=== PATIENT | female | born 1970 | race African-American/Black ===

== ENCOUNTER 2021-07-26 00:44 | Day surgery (SDC) | payer OTHER, SELFPAY ==
[2021-07-12 13:57] VITALS: BMI 39.3
--- NOTE | 2021-07-26 07:23 | PM.HPGS ---
History of Present Illness History of Present Illness Consent: Risks, benefits, and alternatives have been discussed and questions answered. Patient agrees to proceed with procedure. Chief complaint: crohn's disease Narrative: Tammy Soto is a 50 year old female here for colon cancer screening. She is at high risk due to a long history of Crohn's colitis Review of Systems Review of Systems: All systems reviewed & are unremarkable except as noted in HPI and below PMFSH Past Medical History Medical History Arthritis Crohn's disease of colon Hypertension Social History Social History Smoking status: Never smoker Alcohol intake: current Substance use: never Substance use type: does not use Living arrangements: with family Gender identity (if verbalized by the patient): Female Spiritual care concerns: No Meds Home Medications and Allergies Home Medications Medication Instructions Recorded Confirmed Type certolizumab pegol 400 mg SUBCUT ONCE 01/18/21 07/26/21 History folic acid 1 mg tablet 1 mg PO DAILY 01/18/21 07/26/21 History hydrochlorothiazide 25 mg tablet 25 mg PO DAILY 01/18/21 07/26/21 History allopurinol 300 mg PO DAILY 04/26/21 07/26/21 History Allergies Allergy/AdvReac Type Severity Reaction Status Date / Time No Known Allergies Allergy Verified 07/26/21 08:40 Exam Const: General: alert Orientation/consciousness: patient oriented x3 Resp: Auscultation: clear to auscultation bilaterally Cardio: Rhythm: regular rhythm GI: GI Palp: Yes Soft to palpation and No Tenderness to palpation present (GI) Neuro: General: patient oriented x3 Assessment and Plan Assessment and plan (1) Crohn's disease of colon: Code(s): K50.10 - Crohn's disease of large intestine without complications Status: Inactive Assessment and Plan: Colonoscopy with possible biopsy or polypectomy or cautery or injection of substances.
[2021-07-26 08:42] VITALS: BP 178/108; PULSE 125; RESP 21; TEMP 36.2; O2SAT 100
--- NOTE | 2021-07-26 08:45 | SUR.PREOP ---
Patient's blood pressure and heart rate are high. Informed Dr. Cano. No new orders.
[2021-07-26] MEDS: LACTATED RINGERS 1,000 ML 150 ML IV CONT (08:54)
--- NOTE | 2021-07-26 09:06 | WPDANESEPPF ---
Anes - Initial Pre Proc Eval Procedure: Operation Date: 07/26/21 09:30 Proposed Procedures p Colonoscopy - Jeremy Torres MD Date/Time: 07/26/21 09:06 Surgeon: Jeremy Torres MD Pre Op Diagnosis: crohn's disease Patient Data Age: 50 Gender: F Height: 1.63 m Weight: 99.1 kg Last Vital Signs Temp 97.1 F L 07/26/21 08:42 Pulse 125 H 07/26/21 08:42 Resp 21 H 07/26/21 08:42 BP 178/108 H 07/26/21 08:42 Pulse Ox 100 07/26/21 08:42 Allergies Allergy/AdvReac Type Severity Reaction Status Date / Time No Known Allergies Allergy Verified 07/26/21 08:40 Home Medications Medication Instructions Recorded Confirmed Type certolizumab pegol 400 mg SUBCUT ONCE 01/18/21 07/26/21 History folic acid 1 mg tablet 1 mg PO DAILY 01/18/21 07/26/21 History hydrochlorothiazide 25 mg tablet 25 mg PO DAILY 01/18/21 07/26/21 History allopurinol 300 mg PO DAILY 04/26/21 07/26/21 History Patient hx anesthesia problems: none Family hx anesthesia problems: none Results Review: All pre-operative results and documents have been reviewed as part of the pre-operative evaluation. [facility] Past Medical History Medical History Arthritis Crohn's disease of colon Hypertension Social History Social History Smoking status: Never smoker Alcohol intake: current Substance use: never Substance use type: does not use Living arrangements: with family Gender identity (if verbalized by the patient): Female Spiritual care concerns: No Anes - Eval Final PreProcedure Day of Procedure 07/26/21 09:06 Patient weight: obese Heart: regular rate and rhythm Lungs: clear to auscultation Airway: Mallampati scale class II Neurological: alert and oriented Last oral intake: >/= 8 hours ASA classification: III Emergent: no Anesthetic plan: proceed Anesthesia type and monitoring: general GIVS and standard monitoring Results Review: All pre-operative results and documents have been reviewed as part of the pre-operative evaluation. Informed Consent: The patient's anesthetic plan and its attendant risks and benefits were discussed with the patient/family/POA. Questions were solicited and answers provided to the satisfaction of the patient/family/POA.
[2021-07-26 09:31] VITALS: BP 162/115; PULSE 133; RESP 23; O2SAT 100
[2021-07-26 09:41] VITALS: BP 151/108; PULSE 120; RESP 21; O2SAT 100
[2021-07-26 09:51] VITALS: BP 153/105; PULSE 112; RESP 15; O2SAT 100
--- NOTE | 2021-07-26 09:53 | SUR.PHASEII ---
Dr. Cano at bedside, spoke to Pt. about Hypertension. Pt. instructed to let Dr. Peterson know about todays high readings. Pt verbalized understanding.
[2021-07-26 10:01] VITALS: BP 162/112; PULSE 100; RESP 14; O2SAT 99
== END 2021-07-26 10:16 | disposition home or self-care (01) ==
PROVIDERS: PCP Internal Medicine; Visit Provider Internal Medicine Gastroenterology
PROC: 0DJD8ZZ Inspection of Lower Intestinal Tract, Via Natural or Artificial Opening Endoscopic (ICD-10-PCS; CPT 45378; principal; 2021-07-26 09:30)
DX: Z12.11 Encounter for screening for malignant neoplasm of colon (principal); K52.3 Indeterminate colitis; M19.90 Unspecified osteoarthritis, unspecified site; I10 Essential (primary) hypertension; E66.9 Obesity, unspecified; Z68.37 Body mass index [BMI] 37.0-37.9, adult; K50.10 Crohn's disease of large intestine without complications
CPT/HCPCS: 45380; 88305; J2704; J7120

== ENCOUNTER 2023-12-30 15:49 | Outpatient (CLI) | payer OTHER, SELFPAY ==
[2023-12-30 16:31] LABS: Hematocrit 37.4 % (37.0-47.0); Hemoglobin 13.5 g/dL (12.0-15.0); Mean Corpuscular HGB Conc 36.1 g/dl (32-36); Mean Corpuscular Hemoglobin 29.6 pg (26-34); Mean Platelet Volume 10.4 fl (7.4-10.4); Platelet Count Result 256 k/mm3 (150-375); Red Blood Count 4.56 M/mm3 (4.2-5.4); Red Cell Distribution Width 11.9 % (11.5-14.5); White Blood Count 6.4 K/mm3 (4.5-10.0)
[2023-12-30 16:44] LABS: Alanine Aminotransferase 83 U/L (6-35); Albumin Level 4.6 g/dL (3.5-5.1); Alkaline Phosphatase 92 U/L (38-126); Anion Gap 10 mmol/L (8-16); Aspartate Amino Transferase 121 U/L (14-36); Bilirubin,Total 1.5 mg/dL (0.2-1.3); Blood Urea Nitrogen 23 mg/dL (7-17); CRP 0.5 mg/dL (<1.0); Calcium 8.7 mg/dL (8.4-10.2); Carbon Dioxide 30 mmol/L (22-30); Chloride 84 mmol/L (98-107); Estimated Glomerular Filt Rate > 60; Glucose 99 mg/dL (65-110); Potassium 3.2 mmol/L (3.4-5.0); Sodium 124 mmol/L (137-145)
[2023-12-30 17:05] LABS: Erythrocyte Sedimentation Rate 23 mm/hr (0-20)
== END 2023-12-30 15:50 | disposition home or self-care (01) ==
LOC: ANHLAB 15:50
PROVIDERS: PCP Internal Medicine; Visit Provider Nurse Practitioner Family
DX: K50.90 Crohn's disease, unspecified, without complications (principal)
CPT/HCPCS: 36415; 80053; 85027; 85652; 86140

== ENCOUNTER 2024-11-10 16:48 | Inpatient (IN) | payer OTHER, SELFPAY ==
--- NOTE | ~2024-11-10 | US_ITS ---
EXAM: RENAL ULTRASOUND HISTORY: RIC COMPARISON: None FINDINGS: RIGHT KIDNEY: 10.9 x 4.9 x 6.0 cm. The parenchyma of the right kidney is unremarkable. No hydronephrosis or bulky renal calculi. LEFT KIDNEY: 10.8 x 5.2 x 5.9 cm No hydronephrosis or renal calculi. The parenchyma of the left kidney is unremarkable. BLADDER: Distended and otherwise unremarkable. Bilateral ureteral jets are identified. IMPRESSION: Unremarkable sonographic evaluation of the bilateral kidneys and bladder, as detailed above Reviewed, dictated and finalized at location A. HANDLER IMPRESSION: Unremarkable sonographic evaluation of the bilateral kidneys and bladder, as de tailed above
--- NOTE | ~2024-11-10 | XR_ITS ---
CHEST RADIOGRAPH, PA AND LATERAL CLINICAL HISTORY: abnormal labs . COMPARISON: 02/24/2024 TECHNIQUE: PA and lateral views of the chest. FINDINGS The cardiomediastinal silhouette is unremarkable. The lungs are clear. Visualized osseous structures and soft tissues are unremarkable. IMPRESSION: No focal infiltrate or effusion. Reviewed, dictated and finalized at location A. ICIST SOLID STATE
[2024-11-10 17:19] VITALS: BP 120/70; PULSE 130; RESP 20; TEMP 36.9; O2SAT 100
--- NOTE | 2024-11-10 17:31 | ECG_ITS ---
Test Date: 2024-11-10 18:29:58 Measurements Intervals [place] Rate: 120 P: 3 SC: 140 QRS: 2 QRSD: 74 T: 7 QT: 424 QTc: 602 Interpretive Statements SINUS TACHYCARDIA WITH OCCASIONAL VENTRICULAR PREMATURE COMPLEXES POSSIBLE INFERIOR MYOCARDIAL INFARCTION , PROBABLY OLD [30 ms Q WAVE IN II/aVF] ABNORMAL RHYTHM ECG No previous ECG available for comparison Electronically Signed On 11-11-2024 11:52:40 [employer]ITCH WELDER by Jessie Robles
--- NOTE | 2024-11-10 17:45 | ED.RECABL ---
HPI - Recheck/Abnormal Lab/Rx General Chief Complaint: Recheck/Abnormal Lab/Rx <Alysiadiamond Bahena, DICTATING MACHINE TRANSCRIBER - Last Filed: 11/10/24 17:48> Stated Complaint: sent by PCP for abnormal labs <Alysiadiamond Bahena DICTATING MACHINE TRANSCRIBER - Last Filed: 11/10/24 17:48> Time Seen by Provider: 11/10/24 17:15 <Alysia Bahena DICTATING MACHINE TRANSCRIBER - Last Filed: 11/10/24 17:48> Focused HPI: Patient is a 54-year-old female who presents to the ER with complaints of weakness. She reports she has been feeling weak and fatigued for approximately 2 weeks. Today she spoke with her PCP who ordered blood work. Patient's blood work came back abnormal for potassium and calcium. Her PCP advised her to come to the ER for evaluation. Patient denies chest pain, shortness of breath, recent fevers, recent signs/symptoms of infection, one-sided weakness/tingling/numbness. GENERAL: Well-appearing, well-nourished, and in no acute distress. HEAD: Normocephalic, atraumatic. CHEST: Clear to auscultation. ?No respiratory distress. HEART: Tachycardia, regular rhythm. NEURO: ?Alert and oriented x3. Patient screened in triage and initial orders placed.? ?Additional care and disposition to be based upon?diagnostic testing and treatment. <Alysiadiamond Bahena APRN - Last Filed: 11/10/24 17:48> Focused HPI: Patient is a 54-year-old female who presents to the ER with complaints of weakness. She reports she has been feeling weak and fatigued for approximately 2 weeks. Today she spoke with her PCP who ordered blood work. Patient's blood work came back abnormal for potassium and calcium. Her PCP advised her to come to the ER for evaluation. Patient denies chest pain, shortness of breath, recent fevers, recent signs/symptoms of infection, one-sided weakness/tingling/numbness. GENERAL: Well-appearing, well-nourished, and in no acute distress. HEAD: Normocephalic, atraumatic. CHEST: Clear to auscultation. ?No respiratory distress. HEART: Tachycardia, regular rhythm. NEURO: ?Alert and oriented x3. Patient screened in triage and initial orders placed.? ?Additional care and disposition to be based upon?diagnostic testing and treatment. Agree with triage assessment. Patient states that for the past few months she has not really been eating or drinking much due to a lot of stress which has caused her to lose her appetite. <Neno Medina MD - Last Filed: 11/11/24 02:44> Related Data Home Medications: Home Medications ?Medication ?Instructions ?Recorded ?Confirmed ?Last Taken ?Type folic acid 1 mg tablet 1 mg PO DAILY 01/18/21 12/30/23 Unknown History hydrochlorothiazide 25 mg tablet 25 mg PO DAILY 01/18/21 12/30/23 07/26/21 History allopurinol 300 mg tablet 300 mg PO DAILY 04/26/21 12/30/23 07/26/21 History amlodipine 2.5 mg tablet 2.5 mg PO DAILY 04/01/22 12/30/23 Unknown History atorvastatin 10 mg tablet 10 mg PO DAILY 12/30/23 12/30/23 Unknown History <Alysia Bahena APRN - Last Filed: 11/10/24 17:48> Allergies/Adverse Reactions: Allergies Allergy/AdvReac Type Severity Reaction Status Date / Time amoxicillin (From Augmentin) Allergy Mild Diarrhea Verified 11/10/24 22:17 clavulanic acid (From Allergy Mild Diarrhea Verified 11/10/24 22:17 Augmentin) <Alysia Bahena APRN - Last Filed: 11/10/24 17:48> Review of Systems Review of Systems: All systems are reviewed and are negative unless stated otherwise in the HPI. <Neno Medina MD - Last Filed: 11/11/24 02:44> PMFSH Past Medical History Medical History: Medical History Arthritis Hypertension Crohn's disease of colon <Alysia Bahena APRN - Last Filed: 11/10/24 17:48> Social History Social History: Social History Smoking status: Never smoker Alcohol intake: current Substance use: never Substance use type: does not use Living arrangements: with family Gender identity (if verbalized by the patient): Female Spiritual care concerns: No <Alysia Bahena APRN - Last Filed: 11/10/24 17:48> Exam Narrative: General: Alert, awake, afebrile, in no acute distress. HEENT: PERRL, no rhinorrhea, no post nasal drip, oropharynx clear. Neck: Trachea midline, no JVD, no lymphadenopathy. Cardiovascular: Regular rate and rhythm, no murmurs, rubs or gallops, no peripheral edema. Respiratory: Clear to auscultation bilaterally, no tachypnea, no wheezing, no rhonchi, no rubs, no respiratory distress. Abdomen: Soft, nontender, nondistended, no rebound, no guarding, no peritoneal signs. Musculoskeletal: No joint swelling or deformity, normal muscle tone. Skin: No rashes or petechia, no signs of infection. Psychiatric: Alert and oriented, normal behavior and judgment for situation. Neurological: Alert and oriented to person, place, and time. Follows all commands. No focal deficits, speech is clear and fluent. <Neno Medina MD - Last Filed: 11/11/24 02:44> Course Vital Signs Vital signs: Vital Signs Temperature 98.4 F 11/10/24 17:19 Pulse Rate 130 H 11/10/24 17:19 Respiratory Rate 20 11/10/24 17:19 Blood Pressure 120/70 11/10/24 17:19 Pulse Oximetry 100 11/10/24 17:19 Oxygen Delivery Room Air 11/10/24 17:19 Temperature 98.4 F 11/10/24 17:19 Pulse Rate 110 H 11/11/24 01:25 Respiratory Rate 19 11/11/24 01:25 Blood Pressure 120/66 11/11/24 01:25 Pulse Oximetry 100 11/11/24 01:25 Oxygen Delivery Room Air 11/10/24 17:19 <Alysia Bahena APRN - Last Filed: 11/10/24 17:48> Vital Signs Temperature 98.4 F 11/10/24 17:19 Pulse Rate 130 H 11/10/24 17:19 Respiratory Rate 20 11/10/24 17:19 Blood Pressure 120/70 11/10/24 17:19 Pulse Oximetry 100 11/10/24 17:19 Oxygen Delivery Room Air 11/10/24 17:19 Temperature 98.4 F 11/10/24 17:19 Pulse Rate 110 H 11/11/24 01:25 Respiratory Rate 19 11/11/24 01:25 Blood Pressure 120/66 11/11/24 01:25 Pulse Oximetry 100 11/11/24 01:25 Oxygen Delivery Room Air 11/10/24 17:19 <Neno Medina MD - Last Filed: 11/11/24 02:44> MDM - Recheck/Abnormal Lab/Rx MDM Narrative Medical decision making narrative: The patient was evaluated by myself in the emergency department. History is obtained from patient who is an independent historian and physical exam was performed. External medical records were reviewed at this time. IV was established and pertinent tests were ordered. Patient was administered 1 L IV fluid bolus with normal saline. EKG was obtained which revealed sinus tachycardia rate of 120 beats per minute, no evidence of acute ischemia. EKG was independently interpreted by me and is currently pending official cardiology read. Laboratory results obtained revealing leukocytosis of 13.3, hemoglobin 8.8, sodium 129, potassium 2.5, chloride 90, BUN 36, creatinine 1.93, calcium 5.2, albumin 2.6, magnesium 0.5. At this time patient was administered 80 mEq of oral potassium, 1 g of calcium gluconate, 2 g of magnesium sulfate. Repeat electrolyte panel revealed a magnesium of 1.8, calcium of 5.5, potassium of 2.8, and sodium of 128. Patient was informed these values at bedside and that since her electrolytes did not improve where I want them to be I a.m. recommending admission and patient is agreeable. An additional g of calcium gluconate and 20 mEq of IV potassium were administered at this time. Imaging studies obtained included CXR which was independently interpreted by me revealing no acute cardiopulmonary process, which is pending final radiology interpretation. Differential diagnosis considerations include electrolyte derangements, dehydration, starvation ketosis, acute kidney injury. Comorbidities impacting this visit include none. I have evaluated and discussed social determinants of health with the patient that could potentially impact subsequent diagnosis and treatment plans. On repeat assessment of the patient, reevaluation revealed that the patient is doing well and is in no acute distress. Patient symptoms have improved since she arrived to our emergency department. Repeat vital signs were all reviewed and noted to be stable. Differential diagnosis and treatment plan were discussed with the patient at bedside. Patient agrees with discussion and after shared medical decision making agrees with admission. All questions were answered to the patient's satisfaction. Case was discussed with the on-call SP[employer]ISH [employer]OR Marquise @ 2510 he accepted admission. <Neno Medina MD - Last Filed: 11/11/24 02:44> Lab Data Result diagrams: 11/10/24 18:21 11/11/24 00:33 <Alysia Bahena APRN - Last Filed: 11/10/24 17:48> Labs: Lab Results 11/10/24 11/10/24 11/10/24 Range/Units 18:20 18:21 19:37 WBC 13.3 H (4.5-10.0) K/mm3 RBC 2.98 L (4.2-5.4) M/mm3 Hgb 8.8 L (12.0-15.0) g/dL Hct 25.4 L (37.0-47.0) % MCV 85.2 (80-100) fl MCH 29.5 (26-34) pg MCHC 34.6 (32-36) g/dl RDW 12.2 (11.5-14.5) % Plt Count 400 H (150-375) k/mm3 MPV 9.5 (7.4-10.4) fl Immature Gran % (Auto) 1.1 H (0-0.5) % Neut % (Auto) 73.6 H (45.5-73.1) % Lymph % (Auto) 12.0 L (18.3-44.2) % Boyle % (Auto) 12.1 H (2.6-8.5) % Eos % (Auto) 0.5 (0-4.4) % Baso % (Auto) 0.7 (0.2-1.2) % Lymph # (Auto) 1.60 (0.9-3.2) K/mm3 Boyle # (Auto) 1.6 H (0.1-0.6) K/mm3 Eos # (Auto) 0.1 (0-0.3) K/mm3 Baso # (Auto) 0.1 (0.0-0.1) K/mm3 Abs Immat Gran (auto) 0.15 H (0.00-0.031) K/mm3 Absolute Neuts (auto) 9.8 H (1.3-6.7) K/mm3 Absolute Nucleated RBC 0.020 H (0.0-0.012) K/mm3 Nucleated RBC % 0.2 (0.0-0.2) % PT 17.3 H (11.1-14.7) Seconds INR 1.4 APTT 27.5 (22.3-36.8) Seconds Sodium 129 L (137-145) mmol/L Potassium 2.6 L* (3.4-5.0) mmol/L Chloride 89 L (98-107) mmol/L Carbon Dioxide 31 H (22-30) mmol/L Anion Gap 9 (4-12) mmol/L BUN 40 H (7-17) mg/dL Creatinine 2.00 H (0.7-1.0) mg/dL Estim Creat Clear Calc 31 ml/min Estimated GFR 31 L (59 - ) Glucose 106 (65-110) mg/dL Calcium 5.2 L* (8.4-10.2) mg/dL Magnesium 0.5 L (1.6-2.3) mg/dL Total Bilirubin 0.9 (0.2-1.3) mg/dL AST 37 H (14-36) U/L ALT 20 (6-35) U/L Alkaline Phosphatase 159 H (38-126) U/L Troponin I < 0.012 (0.000-0.034) ng/mL Total Protein 7.0 (6.3-8.2) g/dL Albumin 2.7 L (3.5-5.1) g/dL Influenza A (RT-PCR) Negative (Negative) Influenza B (RT-PCR) Negative (Negative) RSV (RT-PCR) Negative (Negative) SARS-CoV-2 RNA (RT-PCR) Negative (Negative) 11/11/24 Range/Units 00:33 WBC (4.5-10.0) K/mm3 RBC (4.2-5.4) M/mm3 Hgb (12.0-15.0) g/dL Hct (37.0-47.0) % MCV (80-100) fl MCH (26-34) pg MCHC (32-36) g/dl RDW (11.5-14.5) % Plt Count (150-375) k/mm3 MPV (7.4-10.4) fl Immature Gran % (Auto) (0-0.5) % Neut % (Auto) (45.5-73.1) % Lymph % (Auto) (18.3-44.2) % Boyle % (Auto) (2.6-8.5) % Eos % (Auto) (0-4.4) % Baso % (Auto) (0.2-1.2) % Lymph # (Auto) (0.9-3.2) K/mm3 Boyle # (Auto) (0.1-0.6) K/mm3 Eos # (Auto) (0-0.3) K/mm3 Baso # (Auto) (0.0-0.1) K/mm3 Abs Immat Gran (auto) (0.00-0.031) K/mm3 Absolute Neuts (auto) (1.3-6.7) K/mm3 Absolute Nucleated RBC (0.0-0.012) K/mm3 Nucleated RBC % (0.0-0.2) % PT (11.1-14.7) Seconds INR APTT (22.3-36.8) Seconds Sodium 128 L (137-145) mmol/L Potassium 2.8 L* (3.4-5.0) mmol/L Chloride 90 L (98-107) mmol/L Carbon Dioxide 29 (22-30) mmol/L Anion Gap 9 (4-12) mmol/L BUN 36 H (7-17) mg/dL Creatinine 1.93 H (0.7-1.0) mg/dL Estim Creat Clear Calc 32 ml/min Estimated GFR 33 L (59 - ) Glucose 100 (65-110) mg/dL Calcium 5.5 L* (8.4-10.2) mg/dL Magnesium 1.6 (1.6-2.3) mg/dL Total Bilirubin 1.0 (0.2-1.3) mg/dL AST 40 H (14-36) U/L ALT 19 (6-35) U/L Alkaline Phosphatase 162 H (38-126) U/L Troponin I (0.000-0.034) ng/mL Total Protein 7.0 (6.3-8.2) g/dL Albumin 2.6 L (3.5-5.1) g/dL Influenza A (RT-PCR) (Negative) Influenza B (RT-PCR) (Negative) RSV (RT-PCR) (Negative) SARS-CoV-2 RNA (RT-PCR) (Negative) <Alysia Bahena, DICTATING MACHINE TRANSCRIBER - Last Filed: 11/10/24 17:48> Lab Results 11/10/24 11/10/24 11/10/24 Range/Units 18:20 18:21 19:37 WBC 13.3 H (4.5-10.0) K/mm3 RBC 2.98 L (4.2-5.4) M/mm3 Hgb 8.8 L (12.0-15.0) g/dL Hct 25.4 L (37.0-47.0) % MCV 85.2 (80-100) fl MCH 29.5 (26-34) pg MCHC 34.6 (32-36) g/dl RDW 12.2 (11.5-14.5) % Plt Count 400 H (150-375) k/mm3 MPV 9.5 (7.4-10.4) fl Immature Gran % (Auto) 1.1 H (0-0.5) % Neut % (Auto) 73.6 H (45.5-73.1) % Lymph % (Auto) 12.0 L (18.3-44.2) % Boyle % (Auto) 12.1 H (2.6-8.5) % Eos % (Auto) 0.5 (0-4.4) % Baso % (Auto) 0.7 (0.2-1.2) % Lymph # (Auto) 1.60 (0.9-3.2) K/mm3 Boyle # (Auto) 1.6 H (0.1-0.6) K/mm3 Eos # (Auto) 0.1 (0-0.3) K/mm3 Baso # (Auto) 0.1 (0.0-0.1) K/mm3 Abs Immat Gran (auto) 0.15 H (0.00-0.031) K/mm3 Absolute Neuts (auto) 9.8 H (1.3-6.7) K/mm3 Absolute Nucleated RBC 0.020 H (0.0-0.012) K/mm3 Nucleated RBC % 0.2 (0.0-0.2) % PT 17.3 H (11.1-14.7) Seconds INR 1.4 APTT 27.5 (22.3-36.8) Seconds Sodium 129 L (137-145) mmol/L Potassium 2.6 L* (3.4-5.0) mmol/L Chloride 89 L (98-107) mmol/L Carbon Dioxide 31 H (22-30) mmol/L Anion Gap 9 (4-12) mmol/L BUN 40 H (7-17) mg/dL Creatinine 2.00 H (0.7-1.0) mg/dL Estim Creat Clear Calc 31 ml/min Estimated GFR 31 L (59 - ) Glucose 106 (65-110) mg/dL Calcium 5.2 L* (8.4-10.2) mg/dL Magnesium 0.5 L (1.6-2.3) mg/dL Total Bilirubin 0.9 (0.2-1.3) mg/dL AST 37 H (14-36) U/L ALT 20 (6-35) U/L Alkaline Phosphatase 159 H (38-126) U/L Troponin I < 0.012 (0.000-0.034) ng/mL Total Protein 7.0 (6.3-8.2) g/dL Albumin 2.7 L (3.5-5.1) g/dL Influenza A (RT-PCR) Negative (Negative) Influenza B (RT-PCR) Negative (Negative) RSV (RT-PCR) Negative (Negative) SARS-CoV-2 RNA (RT-PCR) Negative (Negative) 11/11/24 Range/Units 00:33 WBC (4.5-10.0) K/mm3 RBC (4.2-5.4) M/mm3 Hgb (12.0-15.0) g/dL Hct (37.0-47.0) % MCV (80-100) fl MCH (26-34) pg MCHC (32-36) g/dl RDW (11.5-14.5) % Plt Count (150-375) k/mm3 MPV (7.4-10.4) fl Immature Gran % (Auto) (0-0.5) % Neut % (Auto) (45.5-73.1) % Lymph % (Auto) (18.3-44.2) % Boyle % (Auto) (2.6-8.5) % Eos % (Auto) (0-4.4) % Baso % (Auto) (0.2-1.2) % Lymph # (Auto) (0.9-3.2) K/mm3 Boyle # (Auto) (0.1-0.6) K/mm3 Eos # (Auto) (0-0.3) K/mm3 Baso # (Auto) (0.0-0.1) K/mm3 Abs Immat Gran (auto) (0.00-0.031) K/mm3 Absolute Neuts (auto) (1.3-6.7) K/mm3 Absolute Nucleated RBC (0.0-0.012) K/mm3 Nucleated RBC % (0.0-0.2) % PT (11.1-14.7) Seconds INR APTT (22.3-36.8) Seconds Sodium 128 L (137-145) mmol/L Potassium 2.8 L* (3.4-5.0) mmol/L Chloride 90 L (98-107) mmol/L Carbon Dioxide 29 (22-30) mmol/L Anion Gap 9 (4-12) mmol/L BUN 36 H (7-17) mg/dL Creatinine 1.93 H (0.7-1.0) mg/dL Estim Creat Clear Calc 32 ml/min Estimated GFR 33 L (59 - ) Glucose 100 (65-110) mg/dL Calcium 5.5 L* (8.4-10.2) mg/dL Magnesium 1.6 (1.6-2.3) mg/dL Total Bilirubin 1.0 (0.2-1.3) mg/dL AST 40 H (14-36) U/L ALT 19 (6-35) U/L Alkaline Phosphatase 162 H (38-126) U/L Troponin I (0.000-0.034) ng/mL Total Protein 7.0 (6.3-8.2) g/dL Albumin 2.6 L (3.5-5.1) g/dL Influenza A (RT-PCR) (Negative) Influenza B (RT-PCR) (Negative) RSV (RT-PCR) (Negative) SARS-CoV-2 RNA (RT-PCR) (Negative) <Neno Medina MD - Last Filed: 11/11/24 02:44> Discharge Plan Discharge Clinical Impression: Acute kidney injury, Hypocalcemia, Hypomagnesemia, Hypokalemia, Acute hyponatremia <Alysia Bahena APRN - Last Filed: 11/10/24 17:48> Patient Disposition: Still a Patient <Alysia Bahena APRN - Last Filed: 11/10/24 17:48> Condition: Improved <Alysia Bahena APRN - Last Filed: 11/10/24 17:48> Patient Language: Mongolian <Alysia Bahena APRN - Last Filed: 11/10/24 17:48> Prescriptions: No Action folic acid 1 mg tablet 1 mg PO DAILY hydrochlorothiazide 25 mg tablet 25 mg PO DAILY amlodipine 2.5 mg tablet 2.5 mg PO DAILY atorvastatin 10 mg tablet 10 mg PO DAILY mesalamine 1.2 gram tablet,delayed release (DR/EC) 4.8 g PO DAILY 90 Days Qty: 360 3RF allopurinol 300 mg tablet 300 mg PO DAILY <Alysia Bahena APRN - Last Filed: 11/10/24 17:48> Follow-up/Referrals: Gay,MD Sergey [Primary Care Provider] - <Alysia Bahena APRN - Last Filed: 11/10/24 17:48> Time of Disposition: 02:43 <Alysia Bahena APRN - Last Filed: 11/10/24 17:48> 02:43 <Neno Medina MD - Last Filed: 11/11/24 02:44>
[2024-11-10 18:40] LABS: Basophils Absolute Auto 0.1 K/mm3 (0.0-0.1); Basophils Percent Auto 0.7 % (0.2-1.2); Eosinophils Absolute Auto 0.1 K/mm3 (0-0.3); Eosinophils Percent Auto 0.5 % (0-4.4); Hematocrit 25.4 % (37.0-47.0); Hemoglobin 8.8 g/dL (12.0-15.0); Immature Granulocyte Absolute 0.15 K/mm3 (0.00-0.031); Immature Granulocyte Percent A 1.1 % (0-0.5); Mean Corpuscular HGB Conc 34.6 g/dl (32-36); Mean Corpuscular Hemoglobin 29.5 pg (26-34); Mean Corpuscular Volume 85.2 fl (80-100); Mean Platelet Volume 9.5 fl (7.4-10.4); Monocytes Absolute Auto 1.6 K/mm3 (0.1-0.6); Monocytes Percent Auto 12.1 % (2.6-8.5); Neutrophils Absolute Auto 9.8 K/mm3 (1.3-6.7); Neutrophils Percent Auto 73.6 % (45.5-73.1); Nucleated Red Blood Cells Perc 0.2 % (0.0-0.2); Platelet Count Result 400 k/mm3 (150-375); Red Blood Count 2.98 M/mm3 (4.2-5.4); Red Cell Distribution Width 12.2 % (11.5-14.5); White Blood Count 13.3 K/mm3 (4.5-10.0)
[2024-11-10 18:53] LABS: INR 1.4; Partial Thromboplastin Time 27.5 Seconds (22.3-36.8); Prothrombin Time 17.3 Seconds (11.1-14.7)
[2024-11-10 19:16] LABS: Influenza A QL RT-PCR Negative (Negative); Influenza B QL RT-PCR Negative (Negative); RSV RNA, RT-PCR Negative (Negative); SARS-CoV-2 RNA PCR Negative (Negative)
[2024-11-10 20:02] LABS: Alanine Aminotransferase 20 U/L (6-35); Albumin Level 2.7 g/dL (3.5-5.1); Alkaline Phosphatase 159 U/L (38-126); Anion Gap 9 mmol/L (4-12); Aspartate Amino Transferase 37 U/L (14-36); Bilirubin,Total 0.9 mg/dL (0.2-1.3); Blood Urea Nitrogen 40 mg/dL (7-17); Calcium 5.2 mg/dL (8.4-10.2); Carbon Dioxide 31 mmol/L (22-30); Chloride 89 mmol/L (98-107); Estimated CRCL calculation 31 ml/min; Estimated Glomerular Filt Rate 31; Glucose 106 mg/dL (65-110); Magnesium 0.5 mg/dL (1.6-2.3); Potassium 2.6 mmol/L (3.4-5.0); Sodium 129 mmol/L (137-145)
[2024-11-10 20:05] LABS: Troponin I < 0.012 ng/mL (0.000-0.034)
[2024-11-10] MEDS: POTASSIUM CHLORIDE 20 MEQ ER TABLET 40 MEQ PO (22:18)
[2024-11-10] MEDS: POTASSIUM CHLORIDE 20 MEQ PACKET (FOR LIQUID) 40 MEQ PO (22:23)
[2024-11-10] MEDS: MAGNESIUM SULF 2 GM/WATER 50ML 2 GM/50 ML BAG IVPB (22:25)
[2024-11-10] MEDS: SODIUM CHLORIDE 0.9% IV 1,000 ML 999 ML IV CONT (22:30)
[2024-11-10] MEDS: CALCIUM GLUC 1,000 MG/NS 50 ML 1,000 MG/50 ML BAG 100 MG IVPB (22:31)
[2024-11-11] VITALS (8 sets, daily range): BP systolic 100–120; BP diastolic 66–76; PULSE 108–132; RESP 16–20; TEMP 36.7–37.2; O2SAT 100; BMI 32.9
[2024-11-11 00:49] LABS: Magnesium 1.6 mg/dL (1.6-2.3)
[2024-11-11 00:58] LABS: Alanine Aminotransferase 19 U/L (6-35); Albumin Level 2.6 g/dL (3.5-5.1); Alkaline Phosphatase 162 U/L (38-126); Anion Gap 9 mmol/L (4-12); Aspartate Amino Transferase 40 U/L (14-36); Blood Urea Nitrogen 36 mg/dL (7-17); Calcium 5.5 mg/dL (8.4-10.2); Carbon Dioxide 29 mmol/L (22-30); Chloride 90 mmol/L (98-107); Estimated CRCL calculation 32 ml/min; Estimated Glomerular Filt Rate 33; Glucose 100 mg/dL (65-110); Potassium 2.8 mmol/L (3.4-5.0); Sodium 128 mmol/L (137-145)
[2024-11-11] MEDS: KCL 20 MEQ/SW 100 ML 100 ML 50 MEQ IVPB (01:20)
[2024-11-11] MEDS: CALCIUM GLUC 1,000 MG/NS 50 ML 1,000 MG/50 ML BAG 100 MG IVPB (01:23)
[2024-11-11] MEDS: SODIUM CHLORIDE 0.9% IV 500 ML 999 ML (01:24)
[2024-11-11 04:34] LABS: Iron 44 ug/dL (37-170); Percent Iron Saturation 36 % (20-50)
[2024-11-11 04:38] LABS: Albumin Level 2.6 g/dL (3.5-5.1); Anion Gap 10 mmol/L (4-12); Blood Urea Nitrogen 36 mg/dL (7-17); Calcium 5.8 mg/dL (8.4-10.2); Carbon Dioxide 28 mmol/L (22-30); Chloride 91 mmol/L (98-107); Estimated CRCL calculation 33 ml/min; Estimated Glomerular Filt Rate 34; Glucose 96 mg/dL (65-110); Magnesium 1.7 mg/dL (1.6-2.3); Phosphorus 3.3 mg/dL (2.5-4.5); Potassium 2.9 mmol/L (3.4-5.0); Sodium 129 mmol/L (137-145)
[2024-11-11 07:47] LABS: Basophils Absolute Auto 0.1 K/mm3 (0.0-0.1); Basophils Percent Auto 0.8 % (0.2-1.2); Eosinophils Absolute Auto 0.1 K/mm3 (0-0.3); Eosinophils Percent Auto 0.6 % (0-4.4); Hemoglobin 8.5 g/dL (12.0-15.0); Immature Granulocyte Absolute 0.11 K/mm3 (0.00-0.031); Immature Granulocyte Percent A 1.1 % (0-0.5); Lymphocytes Absolute Auto 1.25 K/mm3 (0.9-3.2); Lymphocytes Percent Auto 12.6 % (18.3-44.2); Mean Corpuscular Hemoglobin 29.4 pg (26-34); Mean Corpuscular Volume 86.5 fl (80-100); Mean Platelet Volume 8.5 fl (7.4-10.4); Monocytes Absolute Auto 1.3 K/mm3 (0.1-0.6); Neutrophils Absolute Auto 7.1 K/mm3 (1.3-6.7); Neutrophils Percent Auto 71.9 % (45.5-73.1); Nucleated Red Blood Cells Perc 0.5 % (0.0-0.2); Platelet Count Result 418 k/mm3 (150-375); Red Blood Count 2.89 M/mm3 (4.2-5.4); Red Cell Distribution Width 11.9 % (11.5-14.5); White Blood Count 9.9 K/mm3 (4.5-10.0)
--- NOTE | 2024-11-11 08:22 | PC.NURSE ---
pt unable to provide urine sample at this time. pt states she will press call button when able to provide urine specimen. call light within reach.
--- NOTE | 2024-11-11 11:20 | PC.NURSE ---
This patient, Tammy Soto, was admitted to Medical Room 341-01. Patient/family oriented to hospital policies and general routines including ID bracelet, bed and alarms, visiting hours, pain management, procedures, bathroom and other care routines, personal items, smoking policy, room service/diet, and visiting hours. Information on how to activate the Rapid Response Team has been discussed. Patient/Family are encouraged to report perceived risks to care and to ask questions if they do not understand what they are told or what they should do.
--- NOTE | 2024-11-11 11:33 | PC.NURSE ---
RN waiting for urine specimen. Patient is having diarrhea and is accidentally mixing stool with urine sample. Unable to obtain at this time. New specimen cup provided to patient and she will attempt again to give urine sample when urge to urinate comes.
--- NOTE | 2024-11-11 11:47 | P.CONNP_ITS ---
Assessment and Plan Assessment and plan (1) Acute kidney injury: Code(s): N17.9 - Acute kidney failure, unspecified Status: Acute Assessment and Plan: * slow improvement noted since admission * suspect volume depletion due to GI losses and poor oral intake * likely worsened by HCTZ use * check urine studies, CPK, and renal ultrasound * on trial of IVFs * follow trend of repeat labs and UOP (2) Hypokalemia: Code(s): E87.6 - Hypokalemia Status: Acute Assessment and Plan: * improving with replacement (oral and in IVFs) * likely secondary to GI losses, diminished oral intake, and low magnesium * follow trend with repeat labs (3) Hypomagnesemia: Code(s): E83.42 - Hypomagnesemia Status: Acute Assessment and Plan: * quite low on admission * suspect due to GI losses and possible total body store depletion * likely precipitated #2 * IV replacement as needed * on scheduled oral magnesium * follow trend (4) Hypocalcemia: Code(s): E83.51 - Hypocalcemia Status: Acute Assessment and Plan: * likely due to low K+ and magesium * still a bit low even corrected for low albumin * IV replacement as needed * suspect will improve as oral intake does along with correction of #2 and #3 (5) Hyponatremia: Code(s): E87.1 - Hypo-osmolality and hyponatremia Status: Acute Assessment and Plan: * due to volume depletion * possibly worsened by HCTZ use (on hold) * improving with IVF hydration * follow trend (6) Crohn disease: Code(s): K50.90 - Crohn's disease, unspecified, without complications Status: Acute Assessment and Plan: * known history * Gastroenterology recommendations noted * started on steroids (7) Hypertension: Code(s): I10 - Essential (primary) hypertension Status: Chronic Assessment and Plan: * reasonable control * HCTZ on hold due to #1 * follow trend of hemodynamics (8) Anemia: Code(s): D64.9 - Anemia, unspecified Status: Acute Assessment and Plan: * dilutional effect from IVFs (?) * follow trend of H/H * no evidence of GI loss at this time I will continue to follow the patient with you while she remains hospitalized and make further recommendations as deemed necessary. Thank you for allowing me to participate in the care of this patient. L History of Present Illness Reason for Consult Consult date: 11/11/24 Reason for consult: acute renal failure and hypokalemia Chief Complaint Chief complaint: Hypernatremia, hypokalemia, hypomagnesemia, hypoca History of Present Illness Narrative: The patient is a 54-year-old female with a past medical history as outlined below who presented to [facility] Emergency Room due to abnormal labs. The patient states as for last 2 weeks if not longer she has been feeling increasingly weak and fatigued. As the symptoms continued to progress, she eventually called her primary care physician for further assessment. Routine blood work was ordered given this symptom and the lab results came back demonstrating evidence of hypokalemia as well as hypocalcemia. At the behest of her primary care physician, she was told to come to the ER for further assessment. Aside from the complaints of weakness and fatigue, she denies any other subjective symptoms with regard to chest pain, shortness of breath, fevers, chills, weakness, numbness, paresthesias, dizziness, or lightheadedness Workup and evaluation emergency room demonstrated the patient to be hemodynamically stable but tachycardic EKG revealed sinus tachycardia without evidence of ischemia and repeat labs were done which demonstrated a CBC with a white cell count of 13.3, hemoglobin 8.8 and normal platelet count. Her chemistry was significant for a sodium 129, potassium of 2.5, BUN of 3 6 and a creatinine of 1.93 with a calcium of 5.2 albumin of 2.6 with a magnesium of 0.5. Given her tachycardia, she received a L of normal saline and given her electrolyte abnormalities, she was given 80 mEq of oral potassium, 1 g of IV calcium gluconate, and 2 g of IV magnesium sulfate. Imaging studies included chest x-ray revealed no acute pathology. Repeat labs demonstrated improvement her magnesium level to 1.8, calcium of 5.5, and a potassium of 2.8. Given the minimal improvement in her electrolyte abnormalities, she was admitted to the hospital for further evaluation and therapy. Renal consultation was requested due to her acute kidney injury/acute renal failure in conjunction with her hypokalemia, hypomagnesemia, and hypocalcemia. Repeat labs this morning show improvement in her renal function as well as her electrolyte abnormalities but she is still requiring IV replacement as air still not within the normal range. On further questioning, the patient reports that she has never been told that she had any issues or problems her kidney function and she cannot recall if she has had issues or problems with electrolyte abnormalities as noted on this hospitalization. She does tell me that she is also not having on and off issues with loose stools and diarrhea but she attributed this to her known history of Crohn's disease rather than acute illness But she does admit that her oral intake has been diminished in the last 2 weeks as well. Currently, at the time my evaluation, she appears to be in no acute distress. Review of Systems 2 Review of Systems: As per HPI. [facility] Past Medical History Medical History (Updated 11/14/24 @ 13:03 by Nilda Lopez MD) Anemia Loose stools Arthritis Hypertension Crohn's disease of colon Social History Social History Smoking status: Never smoker Alcohol intake: current Substance use: never Substance use type: does not use Do You Feel Safe in your Home?: Yes Lack of Transportation: No Lack of Food: Never True Current Housing: I Have Housing Concerned About Future Housing: No Difficulty Paying Gas/Electric Bills: No Difficulty Paying for Meds: No Currently Unemployed: No Education: Decline to Answer Difficulty w/ Childcare or Family Care: No Living arrangements: with family Gender identity (if verbalized by the patient): Female Spiritual care concerns: No Meds Home Medications and Allergies Home Medications ?Medication ?Instructions ?Recorded ?Confirmed ?Type folic acid 1 mg tablet 2 mg PO DAILY 01/18/21 11/11/24 History hydrochlorothiazide 25 mg tablet 25 mg PO DAILY 01/18/21 11/11/24 History allopurinol 300 mg tablet 300 mg PO DAILY 04/26/21 11/11/24 History amlodipine 2.5 mg tablet 5 mg PO DAILY 04/01/22 11/11/24 History atorvastatin 10 mg tablet 10 mg PO DAILY 12/30/23 11/11/24 History mesalamine 1.2 gram tablet,delayed 4.8 g (4 x 1.2 gram) PO DAILY 3 12/30/23 11/11/24 Rx release months #360 tabs Allergies Allergy/AdvReac Type Severity Reaction Status Date / Time amoxicillin (From Augmentin) Allergy Mild Diarrhea Verified 11/10/24 22:17 clavulanic acid (From Allergy Mild Diarrhea Verified 11/10/24 22:17 Augmentin) Vital Signs Vital Signs Temp Pulse Resp BP Pulse Ox O2 Del Method 11/11/24 11:05 119 H 11/11/24 08:22 110 H 20 118/76 100 11/11/24 04:10 108 H 16 114/68 100 11/11/24 01:25 110 H 19 120/66 100 11/10/24 17:19 98.4 F 130 H 20 120/70 100 Room Air Exam 2 Narrative: GENERAL APPEARANCE: middle aged female in no acute distress HEENT: normocephalic, atraumatic, normal conjunctiva and sclera, nares patient NECK: no lymphadenopathy, thyromegaly, or JVD MOUTH: normal lips, teeth, and gums CARDIOVASCULAR: RRR, normal S1 and S2, no rub RESPIRATORY: clear to auscultation bilaterally ABDOMEN: soft, nontender, nondistended, positive bowel sounds present EXTREMITIES: no evidence of cyanosis, clubbing, or edema NEUROLOGICAL: alert and oriented x 3; CN II - XII intact bilaterally; no focal deficits noted Results Lab Results 11/14/24 05:30 11/14/24 05:30 Lab results: Most recent lab results Calcium 5.8 mg/dL (8.4-10.2) L* 11/11/24 07:27 Phosphorus 3.3 mg/dL (2.5-4.5) 11/11/24 00:33 Magnesium 1.6 mg/dL (1.6-2.3) 11/11/24 00:33 Magnesium 1.7 mg/dL (1.6-2.3) 11/11/24 00:33
--- NOTE | 2024-11-11 13:15 | PM.IMHP ---
H&P: HPI History of Present Illness Date/Time: 11/11/24 13:15 Chief Complaint: abnl lab and fatigue Narrative: 54 year old female has been feeling very weak not eating anything for a few days went to her PCP for lab check, found to have low calcium, mg, potassium and sodium. sent to ED for evaluation. Pt has history of Crohns disease pt was seeing Dr Melissa ANGEL MD, pt was on injections for 10 years but has been using meclizine for 4 years since her insurance changed. Other medical history includes HTN and HLD Pt complains of loose frequent stools at the moment no fever or abdominal pains Some blood in the stools also, appetite is still poor encouraged to eat more Review of Systems Review of Systems: All 12 systems were reviewed Positive for loss of appetite and loose frequent blood stained stools Positive for fatigue PMFSH Past Medical History Medical History Arthritis Hypertension Crohn's disease of colon Social History Social History Smoking status: Never smoker Alcohol intake: current Substance use: never Substance use type: does not use Do You Feel Safe in your Home?: Yes Lack of Transportation: No Lack of Food: Never True Current Housing: I Have Housing Concerned About Future Housing: No Difficulty Paying Gas/Electric Bills: No Difficulty Paying for Meds: No Currently Unemployed: No Education: Decline to Answer Difficulty w/ Childcare or Family Care: No Living arrangements: with family Gender identity (if verbalized by the patient): Female Spiritual care concerns: No Meds Home Medications and Allergies Home Medications ?Medication ?Instructions ?Recorded ?Confirmed ?Type folic acid 1 mg tablet 2 mg PO DAILY 01/18/21 11/11/24 History hydrochlorothiazide 25 mg tablet 25 mg PO DAILY 01/18/21 11/11/24 History allopurinol 300 mg tablet 300 mg PO DAILY 04/26/21 11/11/24 History amlodipine 2.5 mg tablet 5 mg PO DAILY 04/01/22 11/11/24 History atorvastatin 10 mg tablet 10 mg PO DAILY 12/30/23 11/11/24 History mesalamine 1.2 gram tablet,delayed 4.8 g (4 x 1.2 gram) PO DAILY 3 12/30/23 11/11/24 Rx release months #360 tabs Allergies Allergy/AdvReac Type Severity Reaction Status Date / Time amoxicillin (From Augmentin) Allergy Mild Diarrhea Verified 11/10/24 22:17 clavulanic acid (From Allergy Mild Diarrhea Verified 11/10/24 22:17 Augmentin) Vital Signs Vital Signs - 24 hr 11/10/24 17:19 11/11/24 01:25 11/11/24 04:10 Temperature 36.9 C Pulse Rate 130 H 110 H 108 H Respiratory Rate 20 19 16 Blood Pressure 120/70 120/66 114/68 Pulse Oximetry 100 100 100 Oxygen Delivery Room Air 11/11/24 08:22 Temperature Pulse Rate 110 H Respiratory Rate 20 Blood Pressure 118/76 Pulse Oximetry 100 Oxygen Delivery Exam Const: General: in distress and other (tired thin appearing weak ) Nutritional Appearance: overweight Orientation/consciousness: oriented to person HENMT: Head: normal to inspection Resp: Effort & Inspection: no respiratory distress Auscultation: no rhonchi and no wheezes Cardio: Rate: regular rate Rhythm: regular rhythm GI: Inspection: normal to inspection GI Palp: No abdominal tenderness, No Guarding due to palpation present (GI) and No Hepatomegaly present Auscultation: normal bowel sounds Neuro: General: oriented to person H&P: Results Labs Labs: Short CBC 11/10/24 11/11/24 Range/Units 18:21 07:31 WBC 13.3 H 9.9 (4.5-10.0) K/mm3 Hgb 8.8 L 8.5 L (12.0-15.0) g/dL Hct 25.4 L 25.0 L (37.0-47.0) % Plt Count 400 H 418 H (150-375) k/mm3 BMP 11/10/24 11/11/24 11/11/24 19:37 00:33 00:33 Sodium 129 L 128 L 129 L Potassium 2.6 L* 2.8 L* Chloride 89 L Carbon Dioxide 31 H BUN 40 H Creatinine 2.00 H Glucose 106 Calcium 5.2 L* 11/11/24 11/11/24 11/11/24 00:33 00:33 00:33 Sodium Potassium 2.9 L Chloride 90 L 91 L Carbon Dioxide 29 28 BUN 36 H Creatinine Glucose Calcium 11/11/24 11/11/24 11/11/24 00:33 00:33 00:33 Sodium Potassium Chloride Carbon Dioxide BUN 36 H Creatinine 1.93 H 1.89 H Glucose 100 96 Calcium 5.5 L* 11/11/24 00:33 Sodium Potassium Chloride Carbon Dioxide BUN Creatinine Glucose Calcium 5.8 L* Cardiac Enzymes 11/10/24 Range/Units 19:37 Troponin I < 0.012 (0.000-0.034) ng/mL Liver Function 11/10/24 11/11/24 11/11/24 Range/Units 19:37 00:33 00:33 Total Bilirubin 0.9 1.0 (0.2-1.3) mg/dL AST 37 H 40 H (14-36) U/L ALT 20 19 (6-35) U/L Alkaline Phosphatase 159 H 162 H (38-126) U/L Albumin 2.7 L 2.6 L 2.6 L (3.5-5.1) g/dL Assessment and Plan Assessment and plan (1) Acute kidney injury: Code(s): N17.9 - Acute kidney failure, unspecified Status: Acute Assessment and Plan: Continue iv fluids creat is 1.8 nephrology consulted for RIC Likely secondary to dehydration (2) Hypocalcemia: Code(s): E83.51 - Hypocalcemia Status: Acute Assessment and Plan: Continue to watch pt given mg sulfate and calcium gluconate in ED Monitor labs in hospital (3) Hypomagnesemia: Code(s): E83.42 - Hypomagnesemia Status: Acute Assessment and Plan: Pt given mg sulfate and calcium gluconate in ED Continue to monitor labs (4) Hypokalemia: Code(s): E87.6 - Hypokalemia Status: Acute Assessment and Plan: Pt had potassium rider rpt potassium rider today and repeat potassium levels (5) Crohn disease: Code(s): K50.90 - Crohn's disease, unspecified, without complications Status: Acute Assessment and Plan: GI consulted for likely crohns flare other oral steroids pred 40 mg po qdaily await GI recommendations (6) Acute hyponatremia: Code(s): E87.1 - Hypo-osmolality and hyponatremia Status: Acute Assessment and Plan: sodium is 129 continue to monitor daily labs continue fluid hydration nephrology on board Plan Dvt prop: scd Diet: low fiber diet and ensure supplements
[2024-11-11 13:39] LABS: Anion Gap 11 mmol/L (4-12); Blood Urea Nitrogen 33 mg/dL (7-17); Calcium 5.8 mg/dL (8.4-10.2); Carbon Dioxide 25 mmol/L (22-30); Chloride 95 mmol/L (98-107); Estimated CRCL calculation 38 ml/min; Estimated Glomerular Filt Rate 40; Glucose 78 mg/dL (65-110); Potassium 3.4 mmol/L (3.4-5.0); Sodium 131 mmol/L (137-145)
[2024-11-11] MEDS: POTASSIUM CHLORIDE INJ 40 MEQ in SODIUM CHLORIDE 0.9% IV 500 ML 130 MEQ IVPB (14:06)
[2024-11-11] MEDS: SODIUM CHLORIDE 0.9% IV 1,000 ML 100 ML IV CONT (14:09)
--- NOTE | 2024-11-11 14:15 | PHAR ---
Pharmacy verified home med: * Use from home * Mesalamine 1.2 gram tablet,delayed release (DR/EC) - take 4 tablets by mouth every day
[2024-11-11] MEDS: MESALAMINE 1.2 GM 4.8 EACH PO (15:02)
[2024-11-11 17:41] LABS: Add Urine Microscopic? YES; Appearance Urine Cloudy (Clear); Bacteria Urine 1+ /hpf; Bilirubin Urine Negative (Negative); Blood Urine 2+ (Negative); Color Urine Yellow (Yellow); Glucose Urine UA Negative (Negative); Ketones Urine Negative (Negative); Leukocyte Esterase Ur 3+ LEU/UL (Negative); Nitrate Urine Negative (Negative); Non Pathogenic Casts 0-2; Protein Urine Negative (Negative); RBC Urine 21-50 /hpf (0-2); Squamous Epithelial Cell Urine Few /hpf (Few); WBC Urine >100 /hpf (0-3)
[2024-11-11 17:41] LABS: Total Protein Urine Random 15 mg/dL
[2024-11-11] MEDS: CALCIUM CARBONATE (TUMS) 500 MG (200 MG ELEMENTAL) PO (17:43)
[2024-11-11 17:51] LABS: Potassium Urine Random 33.2 meq/L; Sodium Urine Random 60 meq/L; Urea Random Urine 344 MG/DL
[2024-11-11 18:48] LABS: Eosinophil Urine None Seen % (None Seen)
[2024-11-11 18:49] LABS: Urine Eos QC 2nd Tech Confirmed
[2024-11-11 20:01] LABS: Creatinine Urine 64.7 mg/dL; Total Protein Urine Random 16 mg/dL; Ur Ttl Prot Creatinine Ratio 0.25 mg/mg (0-0.20)
[2024-11-11 20:05] LABS: Total Volume Urine, Random 56 mL
[2024-11-11] MEDS: MAGNESIUM OXIDE 400 MG TABLET PO (21:49)
[2024-11-11 22:00] LABS: Potassium 3.6 mmol/L (3.4-5.0)
[2024-11-12] VITALS (9 sets, daily range): BP systolic 102–111; BP diastolic 69–82; PULSE 111–125; RESP 18–20; TEMP 36.6; O2SAT 100
[2024-11-12] MEDS: SODIUM CHLORIDE 0.9% IV 1,000 ML 100 ML IV CONT ×2 (00:44→13:15)
[2024-11-12 05:23] LABS: Basophils Absolute Auto 0.1 K/mm3 (0.0-0.1); Basophils Percent Auto 0.5 % (0.2-1.2); Eosinophils Absolute Auto 0.1 K/mm3 (0-0.3); Hematocrit 22.6 % (37.0-47.0); Hemoglobin 7.7 g/dL (12.0-15.0); Immature Granulocyte Absolute 0.15 K/mm3 (0.00-0.031); Immature Granulocyte Percent A 1.4 % (0-0.5); Lymphocytes Absolute Auto 1.82 K/mm3 (0.9-3.2); Lymphocytes Percent Auto 16.9 % (18.3-44.2); Mean Corpuscular HGB Conc 34.1 g/dl (32-36); Mean Corpuscular Hemoglobin 29.5 pg (26-34); Mean Corpuscular Volume 86.6 fl (80-100); Mean Platelet Volume 8.5 fl (7.4-10.4); Monocytes Absolute Auto 1.6 K/mm3 (0.1-0.6); Monocytes Percent Auto 14.4 % (2.6-8.5); Neutrophils Absolute Auto 7.1 K/mm3 (1.3-6.7); Neutrophils Percent Auto 65.8 % (45.5-73.1); Platelet Count Result 444 k/mm3 (150-375); Red Blood Count 2.61 M/mm3 (4.2-5.4); Red Cell Distribution Width 11.8 % (11.5-14.5); White Blood Count 10.8 K/mm3 (4.5-10.0)
[2024-11-12 06:00] LABS: Albumin Level 2.4 g/dL (3.5-5.1); Anion Gap 6 mmol/L (4-12); Blood Urea Nitrogen 24 mg/dL (7-17); Carbon Dioxide 26 mmol/L (22-30); Chloride 99 mmol/L (98-107); Creatine Kinase 92 U/L (30-135); Estimated CRCL calculation 46 ml/min; Estimated Glomerular Filt Rate 50; Glucose 87 mg/dL (65-110); Phosphorus 2.5 mg/dL (2.5-4.5); Potassium 3.6 mmol/L (3.4-5.0); Sodium 131 mmol/L (137-145)
[2024-11-12] MEDS: MAGNESIUM SULFATE 3GM/D5W100ML 3 GM/100 ML BAG IVPB (06:31)
--- NOTE | 2024-11-12 07:35 | P.PNIM_ITS ---
Progress Note: A&P Assessment and Plan (1) Acute kidney injury: Code(s): N17.9 - Acute kidney failure, unspecified Status: Acute Assessment and Plan: 11/12/24 - Improving with downtrending creatinine on current IVF, cont. nacl at 100/hr. Continue iv fluids creat is 1.8 nephrology consulted for RIC Likely secondary to dehydration (2) Hypocalcemia: Code(s): E83.51 - Hypocalcemia Status: Acute Assessment and Plan: 11/12/24 - Calcium 6 this am, even with albumin correction remains markedly low. Will replete today. Likely 2/2 to concurrent hypomag. Continue to watch pt given mg sulfate and calcium gluconate in ED Monitor labs in hospital (3) Hypomagnesemia: Code(s): E83.42 - Hypomagnesemia Status: Acute Assessment and Plan: 11/12/24 - Magnesium 1.0 this am. Nephrology ordered 3gm this am, will repeat labs 1400 and further replete as needed. Pt given mg sulfate and calcium gluconate in ED Continue to monitor labs (4) Hypokalemia: Code(s): E87.6 - Hypokalemia Status: Acute Assessment and Plan: 11/12/24 - K 3.6 this am, will give single 40meq this am. Repeat/trend. Pt had potassium rider rpt potassium rider today and repeat potassium levels (5) Crohn disease: Code(s): K50.90 - Crohn's disease, unspecified, without complications Status: Acute Assessment and Plan: 11/12/24 - GI Consulted, awaiting recs, prednisone 40mg ongoing. GI consulted for likely crohns flare other oral steroids pred 40 mg po qdaily await GI recommendations (6) Acute hyponatremia: Code(s): E87.1 - Hypo-osmolality and hyponatremia Status: Acute Assessment and Plan: 11/12/24 - Improving on IVF currently at 131. Appreciate nephrology recs. sodium is 129 continue to monitor daily labs continue fluid hydration nephrology on board (7) Pyuria: Code(s): R82.81 - Pyuria Status: Acute Assessment and Plan: 11/12/24 - Noted bacteriuria, pyuria with absolute absence of urinary symptoms. - If symptomatic would cover with abx. Culture is pending although no results as of yet. (8) Anemia: Code(s): D64.9 - Anemia, unspecified Status: Acute Assessment and Plan: 11/12/24 - GI consulted appreciate recs. Likely to need endoscopies. No noted blood in stool by patient. - Repeat h/h 1400 today. Transfuse for <7.0. Plan Tammy Soto is a 54 yo female with pmh Crohns presenting with diarrhea, anemia, and electrolyte imbalances. Currently severe hypomagnesemia and repletion ongoing. Repeat labs to trend in the afternoon of 11/12/24 and GI consulted regarding the Crohns and anemia. Time Spent With Patient Time with patient: 25 - 35 minutes Subjective Date/time seen: 11/12/24 07:35 Interval history: Tammy states feeling fair this am, having several bowel movements, no blood in stool. Review of Systems Review of Systems: All systems reviewed & are unremarkable except as noted in HPI and below Exam Narrative: GENERAL APPEARANCE: Appears to be in no acute distress. HEAD: normocephalic atraumatic EYES: PERRL, EOMI. Vision grossly intact. ENT: Hearing grossly intact, no nasal discharge NECK: Neck supple, trachea midline. CARDIAC: Normal S1/S2. Rhythm is regular. No murmurs, rubs, or gallops. No cyanosis or pallor. Extremities are warm and well perfused. LUNGS: Clear to auscultation without rales, rhonchi, wheezing or diminished breath sounds. Respirations even and unlabored. ABDOMEN: BS positive x 4 quadrants. Soft, nondistended, nontender. No guarding or rebound. MSK: No joint tenderness/swelling, fair strength in all extremities. PERIPHERAL VASCULAR: Peripheral pulses palpable. Normal perfusion, cap refill <2 seconds. Trace pedal edema. NEURO: Follows commands. No focal deficits. SKIN: [place] without lesions or eruptions. PSYCH: Stable, no paranoia or delusional thinking. Objective Data Vital Signs Vital Signs: Vital Signs - 24 hr 11/11/24 08:22 11/11/24 12:05 11/11/24 14:00 Temperature 98.1 F Pulse Rate 110 H 119 H 108 H Respiratory Rate 20 16 Blood Pressure 118/76 100/68 Pulse Oximetry 100 100 Oxygen Delivery 11/11/24 16:00 11/11/24 20:00 11/11/24 20:00 Temperature Pulse Rate 132 H 120 H Respiratory Rate Blood Pressure Pulse Oximetry Oxygen Delivery Room Air 11/11/24 21:47 11/12/24 00:00 11/12/24 04:00 Temperature 99 F Pulse Rate 125 H 117 H 112 H Respiratory Rate 18 Blood Pressure 102/67 Pulse Oximetry 100 Oxygen Delivery 11/12/24 06:00 Temperature 97.8 F Pulse Rate 116 H Respiratory Rate 18 Blood Pressure 111/76 Pulse Oximetry 100 Oxygen Delivery Intake/Output Intake/Output: Intake & Output 11/09/24 11/10/24 11/11/24 11/12/24 23:59 23:59 23:59 23:59 Intake Total 3600 1350 Balance 3600 1350 Meds/Results Medications: Active Medications Generic Name Dose Route Start Last Admin Trade Name Freq PRN Reason Stop Dose Admin Allopurinol 300 mg 11/12/24 09:00 Allopurinol 300 Mg Tablet PO DAILY [facility] Amlodipine Besylate 5 mg 11/12/24 09:00 Amlodipine Besylate 5 Mg Tablet PO DAILY [facility] Atorvastatin Calcium 10 mg 11/12/24 09:00 Atorvastatin 10 Mg Tablet PO DAILY EDER Calcium Carbonate 200 mg 11/11/24 17:00 11/11/24 17:43 Calcium Carbonate (Tums) 500 Mg (200 Mg Elemental) PO 200 mg TID EDER Administration Folic Acid 2 mg 11/12/24 09:00 Folic Acid 1 Mg Tablet PO DAILY EDER Sodium Chloride 1,000 mls @ 100 mls/hr 11/11/24 13:55 11/12/24 00:44 Normal Saline Iv IV CONT 100 mls/hr .Q10H EDER Administration Magnesium Sulfate/Dextrose 3 gm in 100 mls @ 33.333 mls/hr 11/12/24 06:20 11/12/24 06:31 Magnesium Sulfate 3gm/[id number] IVPB 11/12/24 09:19 33.33 mls/hr ONCE ONE Administration Magnesium Oxide 400 mg 11/11/24 21:00 11/11/24 21:49 Magnesium Oxide 400 Mg Tablet PO 400 mg Q12HR DEER Administration * Home Med * 4.8 gm 11/11/24 14:15 11/11/24 15:02 Mesalamine 1.2 Gram PO 12/11/24 14:14 4.8 gm Tablet,Delayed DAILY EDER Administration Release (Dr/Ec) Prednisone 40 mg 11/12/24 08:00 Prednisone 20 Mg Tablet PO DAILY@0800 [facility] Radiology Results: ITS Impressions Chest X-Ray 11/10/24 18:07 IMPRESSION: No focal infiltrate or effusion. Renal Ultrasound 11/11/24 20:52 IMPRESSION: Unremarkable sonographic evaluation of the bilateral kidneys and bladder, as detailed above Labs Labs: Laboratory Results - last 24 hr 11/11/24 11/11/24 11/11/24 07:27 07:31 17:13 WBC 9.9 RBC 2.89 L Hgb 8.5 L Hct 25.0 L MCV 86.5 MCH 29.4 MCHC 34.0 RDW 11.9 Plt Count 418 H MPV 8.5 Immature Gran % (Auto) 1.1 H Neut % (Auto) 71.9 Lymph % (Auto) 12.6 L [place] % (Auto) 13.0 H Eos % (Auto) 0.6 Baso % (Auto) 0.8 Lymph # (Auto) 1.25 [place] # (Auto) 1.3 H Eos # (Auto) 0.1 Baso # (Auto) 0.1 Abs Immat Gran (auto) 0.11 H Absolute Neuts (auto) 7.1 H Absolute Nucleated RBC 0.050 H Nucleated RBC % 0.5 H Sodium 131 L Potassium 3.4 Chloride 95 L Carbon Dioxide 25 Anion Gap 11 BUN 33 H Creatinine 1.64 H Estim Creat Clear Calc 38 Estimated GFR 40 L Glucose 78 Calcium 5.8 L* Phosphorus Magnesium Total Creatine Kinase Albumin Urine Color Yellow Urine Appearance Cloudy H Urine pH 6.0 Ur Specific [place] 1.010 Urine Protein Negative Urine Glucose (UA) Negative Urine Ketones Negative Ur Blood (Man) 2+ H Urine Nitrate Negative Urine Bilirubin Negative Urine Urobilinogen 1.0 Leukocyte Esterase Rfl 3+ H Urine RBC 21-50 H Urine WBC >100 H Ur Squamous Epith Cells Few Urine Bacteria 1+ H Urine Casts 0-2 Urine Eosinophils None seen U Random Total Protein Ur Random Sodium Ur Random Potassium Ur Random Urea Urine Total Volume Urine Creatinine Protein/Creat Ratio 2 11/11/24 11/11/24 11/11/24 17:14 17:14 21:35 WBC RBC Hgb Hct MCV MCH MCHC RDW Plt Count MPV Immature Gran % (Auto) Neut % (Auto) Lymph % (Auto) [place] % (Auto) Eos % (Auto) Baso % (Auto) Lymph # (Auto) [place] # (Auto) Eos # (Auto) Baso # (Auto) Abs Immat Gran (auto) Absolute Neuts (auto) Absolute Nucleated RBC Nucleated RBC % Sodium Potassium 3.6 Chloride Carbon Dioxide Anion Gap BUN Creatinine Estim Creat Clear Calc Estimated GFR Glucose Calcium Phosphorus Magnesium 1.0 L Total Creatine Kinase Albumin Urine Color Urine Appearance Urine pH Ur Specific [place] Urine Protein Urine Glucose (UA) Urine Ketones Ur Blood (Man) Urine Nitrate Urine Bilirubin Urine Urobilinogen Leukocyte Esterase Rfl Urine RBC Urine WBC Ur Squamous Epith Cells Urine Bacteria Urine Casts Urine Eosinophils U Random Total Protein 16 15 Ur Random Sodium 60 Ur Random Potassium 33.2 Ur Random Urea 344 Urine Total Volume 56 Urine Creatinine 64.7 Protein/Creat Ratio 2 0.25 H 11/12/24 11/12/24 05:15 05:15 WBC 10.8 H RBC 2.61 L Hgb 7.7 L Hct 22.6 L MCV 86.6 MCH 29.5 MCHC 34.1 RDW 11.8 Plt Count 444 H MPV 8.5 Immature Gran % (Auto) 1.4 H Neut % (Auto) 65.8 Lymph % (Auto) 16.9 L [place] % (Auto) 14.4 H Eos % (Auto) 1.0 Baso % (Auto) 0.5 Lymph # (Auto) 1.82 [place] # (Auto) 1.6 H Eos # (Auto) 0.1 Baso # (Auto) 0.1 Abs Immat Gran (auto) 0.15 H Absolute Neuts (auto) 7.1 H Absolute Nucleated RBC 0.000 Nucleated RBC % 0.0 Sodium 131 L Potassium 3.6 Chloride 99 Carbon Dioxide 26 Anion Gap 6 BUN 24 H Creatinine 1.35 H Estim Creat Clear Calc 46 Estimated GFR 50 L Glucose 87 Calcium 6.0 L Phosphorus 2.5 Magnesium 1.0 L Cancelled Total Creatine Kinase 92 Albumin 2.4 L Urine Color Urine Appearance Urine pH Ur Specific [place] Urine Protein Urine Glucose (UA) Urine Ketones Ur Blood (Man) Urine Nitrate Urine Bilirubin Urine Urobilinogen Leukocyte Esterase Rfl Urine RBC Urine WBC Ur Squamous Epith Cells Urine Bacteria Urine Casts Urine Eosinophils U Random Total Protein Ur Random Sodium Ur Random Potassium Ur Random Urea Urine Total Volume Urine Creatinine Protein/Creat Ratio 2 Quality VTE Prophylaxis VTE prophylaxis: mechanical ordered If No VTE Prophylaxis Answer both mechanical and pharmacologic: Reason no pharmacologic proph: medical contraindication Hospitalist MIPS Advance Care Plan I have confirmed that the patient's Advanced Care Plan is present, code status is documented, or surrogate decision maker is listed in patient medical record.: Yes Medication Reconciliation I have utilized all available resources to obtain, update and review the patients current medications (includes all prescriptions, OTC, herbals, cannabis, and nutritional supplements).: Yes
[2024-11-12] MEDS: amLODIPine BESYLATE 5 MG TABLET PO (08:44)
[2024-11-12] MEDS: ATORVASTATIN 10 MG TABLET PO (08:45)
[2024-11-12] MEDS: POTASSIUM CHLORIDE 20 MEQ ER TABLET 40 MEQ PO (08:45)
[2024-11-12] MEDS: predniSONE 20 MG TABLET 40 MG PO (08:45)
[2024-11-12] MEDS: CALCIUM CARBONATE (TUMS) 500 MG (200 MG ELEMENTAL) PO ×3 (08:45→17:59)
[2024-11-12] MEDS: MAGNESIUM OXIDE 400 MG TABLET PO ×2 (08:45→21:05)
[2024-11-12] MEDS: allopurinoL 300 MG TABLET PO (08:45)
[2024-11-12] MEDS: FOLIC ACID 1 MG TABLET 2 MG PO (08:45)
--- NOTE | 2024-11-12 09:44 | WPDGICN ---
Assessment and Plan Assessment and plan (1) Acute kidney injury: Code(s): N17.9 - Acute kidney failure, unspecified Status: Acute Assessment and Plan: work up in progress improving with fluids (2) Hypocalcemia: Code(s): E83.51 - Hypocalcemia Status: Acute Assessment and Plan: noted abnormal lytes will get serology for celiac, also pancreatic elastase in stool, inflammatory markers with calprotectin to assess if signs of inflammation- based on findings consideration to do scopes (3) Hypomagnesemia: Code(s): E83.42 - Hypomagnesemia Status: Acute Assessment and Plan: repleting (4) Crohn disease: Code(s): K50.90 - Crohn's disease, unspecified, without complications Status: Acute Assessment and Plan: does not seem to be on flare inflammatory markers and calprotectin (5) Loose stools: Code(s): R19.5 - Other fecal abnormalities Status: Acute (6) Anemia: Code(s): D64.9 - Anemia, unspecified Status: Acute Assessment and Plan: will get labs GI Consult Note Consult date/time: 11/12/24 09:44 Reason for consult: crohn's HPI: Tammy Soto is a 54 year old female who used to see Dr. Torres for quite some time with Crohn's diagnosed more than 15 year ago apparently only involved the colon. She is currently maintained on mesalamine 4.8 mg that she takes most of days and folic acid 1 mg daily. She used to be on cimzia for almost 10 years with excellent result but unfortunately insurance denied any more coverage and discontinued about 3-4 years ago. She says that she will have 2-3 loose stools as baseline and denies recent flares. Last time she used steroids was only when she was first diagnosed with Crohn's. She is here after feeling very weak last few days, also generalized weakness and some weight loss, also not eating much. Blood work revealed RIC, hyponatremia, hypocalcemia, hypomagnesemia. Denies fever, abdominal pain, emesis, no sick contacts. Review of Systems Constitutional: Constitutional: Reports lethargy and Reports weakness Eyes: Eyes: Denies blurry vision ENT: Reports Normal hearing present Cardiovascular: Cardiovascular: Denies chest pain Respiratory: Respiratory: Denies cough Gastrointestinal: Gastrointestinal: Reports no additional gastrointestinal complaints Genitourinary: Genitourinary: Denies dysuria Musculoskeletal: Musculoskeletal: Denies neck pain Integumentary/Breasts: Skin/Breast: Denies rash Neurologic: Denies Abnormal speech present Psychiatric: Psychiatric: Denies behavioral changes [facility] Past Medical History Medical History (Updated 11/12/24 @ 09:48 by Derek Quiros MD) Anemia Loose stools Arthritis Hypertension Crohn's disease of colon Social History Social History Smoking status: Never smoker Alcohol intake: current Substance use: never Substance use type: does not use Do You Feel Safe in your Home?: Yes Lack of Transportation: No Lack of Food: Never True Current Housing: I Have Housing Concerned About Future Housing: No Difficulty Paying Gas/Electric Bills: No Difficulty Paying for Meds: No Currently Unemployed: No Education: Decline to Answer Difficulty w/ Childcare or Family Care: No Living arrangements: with family Gender identity (if verbalized by the patient): Female Spiritual care concerns: No Meds Home Medications and Allergies Home Medications ?Medication ?Instructions ?Recorded ?Confirmed ?Type folic acid 1 mg tablet 2 mg PO DAILY 01/18/21 11/11/24 History hydrochlorothiazide 25 mg tablet 25 mg PO DAILY 01/18/21 11/11/24 History allopurinol 300 mg tablet 300 mg PO DAILY 04/26/21 11/11/24 History amlodipine 2.5 mg tablet 5 mg PO DAILY 04/01/22 11/11/24 History atorvastatin 10 mg tablet 10 mg PO DAILY 12/30/23 11/11/24 History mesalamine 1.2 gram tablet,delayed 4.8 g (4 x 1.2 gram) PO DAILY 3 12/30/23 11/11/24 Rx release months #360 tabs Allergies Allergy/AdvReac Type Severity Reaction Status Date / Time amoxicillin (From Augmentin) Allergy Mild Diarrhea Verified 11/10/24 22:17 clavulanic acid (From Allergy Mild Diarrhea Verified 11/10/24 22:17 Augmentin) Vital Signs Vital Signs - 24 hr 11/11/24 12:05 11/11/24 14:00 11/11/24 16:00 Temperature 98.1 F Pulse Rate 119 H 108 H 132 H Respiratory Rate 16 Blood Pressure 100/68 Pulse Oximetry 100 Oxygen Delivery 11/11/24 20:00 11/11/24 20:00 11/11/24 21:47 Temperature 99 F Pulse Rate 120 H 125 H Respiratory Rate 18 Blood Pressure 102/67 Pulse Oximetry 100 Oxygen Delivery Room Air 11/12/24 00:00 11/12/24 04:00 11/12/24 06:00 Temperature 97.8 F Pulse Rate 117 H 112 H 116 H Respiratory Rate 18 Blood Pressure 111/76 Pulse Oximetry 100 Oxygen Delivery Exam Const: General: comfortable and no acute distress HENMT: Face/Nose/Sinus: Normal nares present Eyes: General: appearance normal, both eyes and all related structures Neck: Neck: supple Resp: Auscultation: clear to auscultation bilaterally Cardio: Rate: regular rate Rhythm: regular rhythm GI: Inspection: non-distended GI Palp: Yes Soft to palpation and No Tenderness to palpation present (GI) Auscultation: normal bowel sounds Skin: General skin exam: normal color Neuro: General: gait normal Speech: normal speech Extrem: General: normal to inspection Psych: Mental Status: mental status grossly normal Results Labs 11/12/24 05:15 11/12/24 05:15 Labs: Short CBC 11/12/24 Range/Units 05:15 WBC 10.8 H (4.5-10.0) K/mm3 Hgb 7.7 L (12.0-15.0) g/dL Hct 22.6 L (37.0-47.0) % Plt Count 444 H (150-375) k/mm3 BMP 11/11/24 11/11/24 11/12/24 07:27 21:35 05:15 Sodium 131 L 131 L Potassium 3.4 3.6 3.6 Chloride 95 L 99 Carbon Dioxide 25 26 BUN 33 H 24 H Creatinine 1.64 H 1.35 H Glucose 78 87 Calcium 5.8 L* 6.0 L Cardiac Enzymes 11/12/24 Range/Units 05:15 Total Creatine Kinase 92 (30-135) U/L Liver Function 11/12/24 Range/Units 05:15 Albumin 2.4 L (3.5-5.1) g/dL Urine 11/11/24 Range/Units 17:13 Urine Color Yellow (Yellow) Urine Appearance Cloudy H (Clear) Urine pH 6.0 (5.0-9.0) Ur Specific [place] 1.010 (1.001-1.035) Urine Protein Negative (Negative) mg/dL Urine Glucose (UA) Negative (Negative) mg/dL
[2024-11-12] MEDS: CALCIUM GLUC 2,000 MG/NS 100ML 2,000 MG/100 ML BAG 100 MG IVPB (10:25)
[2024-11-12] MEDS: MESALAMINE 1.2 GM 4.8 EACH PO (10:25)
--- NOTE | 2024-11-12 12:06 | P.PNNP_ITS ---
Progress Note: A&P Assessment and Plan (1) Acute kidney injury: Code(s): N17.9 - Acute kidney failure, unspecified Status: Acute Assessment and Plan: * slow improvement noted since admission * suspect volume depletion due to GI losses and poor oral intake * likely worsened by HCTZ use * evaluation to date noted: * normal renal ultrasound * urine electrolytes prerenal * urine eosinophils negative * CPK normal * UA suggest infection - follow urine culture * on IVFs * follow trend of repeat labs and UOP (2) Hypokalemia: Code(s): E87.6 - Hypokalemia Status: Acute Assessment and Plan: * improving with replacement (oral and in IVFs) * likely secondary to GI losses, diminished oral intake, and low magnesium * follow trend with repeat labs (3) Hypomagnesemia: Code(s): E83.42 - Hypomagnesemia Status: Acute Assessment and Plan: * quite low on admission * suspect due to GI losses and possible total body store depletion * likely precipitated #2 * IV replacement as needed * on scheduled oral magnesium * follow trend (4) Hypocalcemia: Code(s): E83.51 - Hypocalcemia Status: Acute Assessment and Plan: * likely due to low K+ and magesium * still a bit low even corrected for low albumin * IV replacement as needed * suspect will improve as oral intake does along with correction of #2 and #3 (5) Hyponatremia: Code(s): E87.1 - Hypo-osmolality and hyponatremia Status: Acute Assessment and Plan: * due to volume depletion * possibly worsened by HCTZ use (on hold) * improving with IVF hydration * follow trend (6) Crohn disease: Code(s): K50.90 - Crohn's disease, unspecified, without complications Status: Acute Assessment and Plan: * known history * Gastroenterology recommendations noted * started on steroids (7) Hypertension: Code(s): I10 - Essential (primary) hypertension Status: Chronic Assessment and Plan: * reasonable control * HCTZ on hold due to #1 * follow trend of hemodynamics (8) Anemia: Code(s): D64.9 - Anemia, unspecified Status: Acute Assessment and Plan: * dilutional effect from IVFs (?) * follow trend of H/H * no evidence of GI loss at this time Will continue to follow. L Subjective Date/time seen: 11/12/24 12:06 Interval history: Follow-up for acute kidney injury/acute renal failure and electrolyte abnormalities. Appears to be doing reasonably well a the time of my visit; renal function/creatinine appears to be slowly improving with current therapy/interventions; K+ better but still requiring supplementation for hypocalcemia and hypomagnesemia; no apparent distress voiced when seen; no other events overnight or earlier this morning. Exam 2 Narrative: General: WD/WN female in NAD Heart: tachycardic, normal S1 and S2; no rub Lungs: clear to auscultation Abdomen: soft, nontender, nondistended, positive bowel sounds Extremities: no cyanosis or clubbing; trace edema Skin: warm and dry Objective Data Vital Signs Vital Signs: Vital Signs Temp Pulse Resp BP Pulse Ox O2 Del Method 11/12/24 12:00 116 H 11/12/24 08:45 Room Air 11/12/24 08:00 125 H 11/12/24 06:00 97.8 F 116 H 18 111/76 100 11/12/24 04:00 112 H 11/12/24 00:00 117 H 11/11/24 21:47 99 F 125 H 18 102/67 100 11/11/24 20:00 120 H 11/11/24 20:00 Room Air 11/11/24 16:00 132 H Intake/Output Intake/Output: Intake & Output 11/09/24 11/10/24 11/11/24 11/12/24 23:59 23:59 23:59 23:59 Intake Total 3600 2920 Balance 3600 2920 Meds/Results Medications: Active Medications Generic Name Dose Route Start Last Admin Trade Name Freq PRN Reason Stop Dose Admin Allopurinol 300 mg 11/12/24 09:00 11/12/24 08:45 Allopurinol 300 Mg Tablet PO 300 mg DAILY EDER Administration Amlodipine Besylate 5 mg 11/12/24 09:00 11/12/24 08:44 Amlodipine Besylate 5 Mg Tablet PO 5 mg DAILY EDER Administration Atorvastatin Calcium 10 mg 11/12/24 09:00 11/12/24 08:45 Atorvastatin 10 Mg Tablet PO 10 mg DAILY EDER Administration Calcium Carbonate 200 mg 11/11/24 17:00 11/12/24 12:17 Calcium Carbonate (Tums) 500 Mg (200 Mg Elemental) PO 200 mg TID EDER Administration Folic Acid 2 mg 11/12/24 09:00 11/12/24 08:45 Folic Acid 1 Mg Tablet PO 2 mg DAILY EDER Administration Sodium Chloride 1,000 mls @ 100 mls/hr 11/11/24 13:55 11/12/24 13:15 Normal Saline Iv IV CONT 100 mls/hr .Q10H EDER Administration Magnesium Oxide 400 mg 11/11/24 21:00 11/12/24 08:45 Magnesium Oxide 400 Mg Tablet PO 400 mg Q12HR EDER Administration * Home Med * 4.8 gm 11/11/24 14:15 11/12/24 10:25 Mesalamine 1.2 Gram PO 12/11/24 14:14 4.8 gm Tablet,Delayed DAILY EDER Administration Release (Dr/Ec) Prednisone 40 mg 11/12/24 08:00 11/12/24 08:45 Prednisone 20 Mg Tablet PO 40 mg DAILY@0800 EDER Administration Radiology Results: ITS Impressions Chest X-Ray 11/10/24 18:07 IMPRESSION: No focal infiltrate or effusion. Renal Ultrasound 11/11/24 20:52 IMPRESSION: Unremarkable sonographic evaluation of the bilateral kidneys and bladder, as detailed above Labs Labs: Laboratory Tests 11/12/24 05:15 11/12/24 14:05 WBC 10.8 H Hgb 7.7 L Hct 22.6 L Plt Count 444 H Calcium 6.0 L Phosphorus 2.5 Magnesium 1.0 L Total Creatine Kinase 92 Albumin 2.4 L
[2024-11-12 14:20] LABS: Hematocrit 21.6 % (37.0-47.0); Hemoglobin 7.6 g/dL (12.0-15.0)
[2024-11-12 14:33] LABS: Magnesium 1.8 mg/dL (1.6-2.3)
[2024-11-13] VITALS (12 sets, daily range): BP systolic 114–131; BP diastolic 77–90; PULSE 88–131; RESP 18–20; TEMP 36.2–36.4; O2SAT 98–100
[2024-11-13] MEDS: SODIUM CHLORIDE 0.9% IV 1,000 ML 100 ML IV CONT ×3 (02:40→21:39)
[2024-11-13 06:26] LABS: Basophils Percent Auto 0.3 % (0.2-1.2); Eosinophils Percent Auto 0.1 % (0-4.4); Hemoglobin 8.9 g/dL (12.0-15.0); Immature Granulocyte Absolute 0.24 K/mm3 (0.00-0.031); Immature Granulocyte Percent A 2.6 % (0-0.5); Lymphocytes Absolute Auto 1.48 K/mm3 (0.9-3.2); Lymphocytes Percent Auto 16.1 % (18.3-44.2); Mean Corpuscular HGB Conc 34.2 g/dl (32-36); Mean Corpuscular Hemoglobin 29.5 pg (26-34); Mean Corpuscular Volume 86.1 fl (80-100); Mean Platelet Volume 8.5 fl (7.4-10.4); Monocytes Absolute Auto 1.4 K/mm3 (0.1-0.6); Monocytes Percent Auto 14.7 % (2.6-8.5); Neutrophils Absolute Auto 6.1 K/mm3 (1.3-6.7); Neutrophils Percent Auto 66.2 % (45.5-73.1); Platelet Count Result 556 k/mm3 (150-375); Red Blood Count 3.02 M/mm3 (4.2-5.4); Red Cell Distribution Width 11.9 % (11.5-14.5); White Blood Count 9.2 K/mm3 (4.5-10.0)
[2024-11-13 06:37] LABS: Iron 33 ug/dL (37-170)
[2024-11-13 06:47] LABS: Percent Iron Saturation 29 % (20-50)
[2024-11-13 06:52] LABS: Albumin Level 2.7 g/dL (3.5-5.1); Anion Gap 9 mmol/L (4-12); Blood Urea Nitrogen 19 mg/dL (7-17); Calcium 7.3 mg/dL (8.4-10.2); Carbon Dioxide 24 mmol/L (22-30); Chloride 99 mmol/L (98-107); Estimated CRCL calculation 49 ml/min; Estimated Glomerular Filt Rate 54; Glucose 105 mg/dL (65-110); Magnesium 1.7 mg/dL (1.6-2.3); Phosphorus 3.2 mg/dL (2.5-4.5); Potassium 3.4 mmol/L (3.4-5.0); Sodium 132 mmol/L (137-145)
[2024-11-13 06:57] LABS: CRP 13.3 mg/dL (<1.0)
[2024-11-13 07:28] LABS: Anisocytosis 1+; Hypochromasia 1+; Platelet Estimate Increased (Adequate); Schistocytes None Seen; Target Cells 1+
[2024-11-13 07:47] LABS: Folic Acid > 20.0 ng/mL (2.76->20)
[2024-11-13 08:19] LABS: Erythrocyte Sedimentation Rate > 140 mm/hr (0-20)
[2024-11-13] MEDS: FOLIC ACID 1 MG TABLET 2 MG PO (09:19)
[2024-11-13] MEDS: CALCIUM CARBONATE (TUMS) 500 MG (200 MG ELEMENTAL) PO ×3 (09:19→17:33)
[2024-11-13] MEDS: MAGNESIUM OXIDE 400 MG TABLET PO ×2 (09:19→21:37)
[2024-11-13] MEDS: allopurinoL 300 MG TABLET PO (09:19)
[2024-11-13] MEDS: POTASSIUM CHLORIDE 20 MEQ ER TABLET 40 MEQ PO ×2 (09:19→10:27)
[2024-11-13] MEDS: amLODIPine BESYLATE 5 MG TABLET PO (09:19)
[2024-11-13] MEDS: predniSONE 20 MG TABLET 40 MG PO (09:19)
[2024-11-13] MEDS: ATORVASTATIN 10 MG TABLET PO (09:19)
[2024-11-13] MEDS: MESALAMINE 1.2 GM 4.8 EACH PO (09:20)
--- NOTE | 2024-11-13 09:50 | PM.IMPN ---
Progress Note: A&P Assessment and Plan (1) Crohn disease: Code(s): K50.90 - Crohn's disease, unspecified, without complications Status: Acute Assessment and Plan: Patient presented to the hospital endorsing loose frequent stools concerning for chrons flare CRP 13.3 and ESR >140 Prednisone 40 mg daily GI consulted plan for colonoscopy with bx tomorrow (2) Anemia: Code(s): D64.9 - Anemia, unspecified Status: Acute Assessment and Plan: H/H 8.9/.6 on admission, previously WNL in December 2023. - No signs of active bleeding - H/H .07/14 on am labs - Iron panel: Iron 33, TIBC 114, % sat 29, Ferritin 706 - B12 and folate WNL - GI consulted appreciate recs. Plan for scopes tomorrow (3) Acute kidney injury: Code(s): N17.9 - Acute kidney failure, unspecified Status: Acute Assessment and Plan: BUN/Cr 35/2.01 on admission with GFR 31. Likely secondary to dehydration related to diarrhea and decreased oral intake BUN/Cr 19/1.25 with gfr 54 on am labs Avoid nephrotoxic medication Renally dose medications Continue IV fluids Nephrology consulted appreciate recommendations (4) Hypocalcemia: Code(s): E83.51 - Hypocalcemia Status: Acute Assessment and Plan: 11/12/24 - Calcium 6 this am, even with albumin correction remains markedly low. Will replete today. Likely 2/2 to concurrent hypomag. 11/13/2024: - Calcium 7.3 this am, corrected calcium remains low. Will replete today. - GI consulted will get serology for celiac, also pancreatic elastase in stool, inflammatory markers with calprotectin to assess if signs of inflammation (5) Hypomagnesemia: Code(s): E83.42 - Hypomagnesemia Status: Acute Assessment and Plan: 11/12/24 - Magnesium 1.0 this am. Nephrology ordered 3gm this am, will repeat labs 1400 and further replete as needed. 11/13/2024: - Magnesium 1.7 on am labs. (6) Hypokalemia: Code(s): E87.6 - Hypokalemia Status: Acute Assessment and Plan: 11/12/24 - K 3.6 this am, will give single 40meq this am. Repeat/trend. 11/13/2024: - K 3.4 thish am, given 40 meq this am to keep K >4. (7) Acute hyponatremia: Code(s): E87.1 - Hypo-osmolality and hyponatremia Status: Acute Assessment and Plan: 11/13/24 - Improving on IVF currently at 132. Appreciate nephrology recs. (8) Pyuria: Code(s): R82.81 - Pyuria Status: Acute Assessment and Plan: 11/13/24 - Noted bacteriuria, pyuria with absolute absence of urinary symptoms. - If symptomatic would cover with abx. Culture is negative. Time Spent With Patient Time with patient: 25 - 35 minutes Subjective Date/time seen: 11/13/24 09:50 Interval history: 54 year old female with past medical history of chrons disease (followed by Dr. Torres), HTN and HLD presents to the hospital for electrolyte abnormalities on outpatient labs ordered by PCP. Patient is pleasant sitting up in her bed. She states that her loose stools have improved today. She continues to endorse mild back pain. She has no other complaints denying chest pain, shortness of breath, palpitations, nausea/vomiting and abdominal pain. She also denies any blood in her stool. Review of Systems Review of Systems: All systems reviewed & are unremarkable except as noted in HPI and below Exam Narrative: AF HR 102 RR 18 SpO2 98 BP 121/81 General: female in no acute respiratory distress who is nontoxic appearing, sitting up in bed HEENT: Normocephalic. Atraumatic. Pupils equal round reactive to light. Extraocular movement intact. Sclera clear and anicteric. Nares patent. No oral lesions. Moist mucous membranes. Tongue is midline. Palate gabby symmetrically. No facial asymmetry. Neck: Neck was supple. No dominant adenopathy, thyromegaly or masses. 2+ carotid upstrokes without bruits. Chest: Lungs are clear to auscultation bilaterally. No wheezes or crackles. CV: Heart was regular rate and rhythm. S1-S2. No murmurs, gallops, or rubs. Abd: Abdomen was soft. Nontender. Nondistended. Positive bowel sounds. Ext: No clubbing, cyanosis, or edema. 2+ DP pulses bilaterally. Neuro: Patient is alert. Speech is clear. Objective Data Vital Signs Vital Signs: Vital Signs - 24 hr 11/12/24 12:00 11/12/24 13:51 11/12/24 16:00 Temperature 97.9 F Pulse Rate 116 H 114 H 116 H Respiratory Rate 20 Blood Pressure 102/69 Pulse Oximetry 100 Oxygen Delivery 11/12/24 21:00 11/12/24 21:00 11/12/24 21:48 Temperature 97.8 F Pulse Rate 119 H 111 H Respiratory Rate 18 Blood Pressure 111/82 Pulse Oximetry 100 Oxygen Delivery Room Air 11/13/24 00:00 11/13/24 04:00 11/13/24 06:00 Temperature 97.6 F Pulse Rate 105 H 88 102 H Respiratory Rate 18 Blood Pressure 121/81 Pulse Oximetry 98 Oxygen Delivery Intake/Output Intake/Output: Intake & Output 11/10/24 11/11/24 11/12/24 11/13/24 23:59 23:59 23:59 23:59 Intake Total 3600 3570 1350 Balance 3600 3570 1350 Meds/Results Medications: Active Medications Generic Name Dose Route Start Last Admin Trade Name Freq PRN Reason Stop Dose Admin Allopurinol 300 mg 11/12/24 09:00 11/13/24 09:19 Allopurinol 300 Mg Tablet PO 300 mg DAILY EDER Administration Amlodipine Besylate 5 mg 11/12/24 09:00 11/13/24 09:19 Amlodipine Besylate 5 Mg Tablet PO 5 mg DAILY EDER Administration Atorvastatin Calcium 10 mg 11/12/24 09:00 11/13/24 09:19 Atorvastatin 10 Mg Tablet PO 10 mg DAILY EDER Administration Calcium Carbonate 200 mg 11/11/24 17:00 11/13/24 09:19 Calcium Carbonate (Tums) 500 Mg (200 Mg Elemental) PO 200 mg TID EDER Administration Folic Acid 2 mg 11/12/24 09:00 11/13/24 09:19 Folic Acid 1 Mg Tablet PO 2 mg DAILY EDER Administration Sodium Chloride 1,000 mls @ 100 mls/hr 11/11/24 13:55 11/13/24 02:40 Normal Saline Iv IV CONT 100 mls/hr .Q10H EDER Administration Magnesium Oxide 400 mg 11/11/24 21:00 11/13/24 09:19 Magnesium Oxide 400 Mg Tablet PO 400 mg Q12HR EDER Administration * Home Med * 4.8 gm 11/11/24 14:15 11/13/24 09:20 Mesalamine 1.2 Gram PO 12/11/24 14:14 4.8 gm Tablet,Delayed DAILY EDER Administration Release (Dr/Ec) Prednisone 40 mg 11/12/24 08:00 11/13/24 09:19 Prednisone 20 Mg Tablet PO 40 mg DAILY@0800 EDER Administration Radiology Results: ITS Impressions Chest X-Ray 11/10/24 18:07 IMPRESSION: No focal infiltrate or effusion. Renal Ultrasound 11/11/24 20:52 IMPRESSION: Unremarkable sonographic evaluation of the bilateral kidneys and bladder, as detailed above Labs Labs: Laboratory Results - last 24 hr 11/12/24 11/13/24 14:05 05:46 WBC 9.2 RBC 3.02 L Hgb 7.6 L 8.9 L Hct 21.6 L 26.0 L MCV 86.1 MCH 29.5 MCHC 34.2 RDW 11.9 Plt Count 556 H MPV 8.5 Immature Gran % (Auto) 2.6 H Neut % (Auto) 66.2 Lymph % (Auto) 16.1 L [place] % (Auto) 14.7 H Eos % (Auto) 0.1 Baso % (Auto) 0.3 Lymph # (Auto) 1.48 [place] # (Auto) 1.4 H Eos # (Auto) 0.0 Baso # (Auto) 0.0 Abs Immat Gran (auto) 0.24 H Absolute Neuts (auto) 6.1 Absolute Nucleated RBC 0.000 Nucleated RBC % 0.0 Platelet Estimate Increased Hypochromasia 1+ Anisocytosis 1+ Target Cells 1+ Schistocytes None seen ESR > 140 H Sodium 132 L Potassium 3.4 Chloride 99 Carbon Dioxide 24 Anion Gap 9 BUN 19 H Creatinine 1.25 H Estim Creat Clear Calc 49 Estimated GFR 54 L Glucose 105 Calcium 7.3 L Phosphorus 3.2 Magnesium 1.8 1.7 Iron 33 L TIBC 115 L % Saturation 29 Ferritin 706.00 H C-Reactive Protein 13.3 H Albumin 2.7 L Vitamin B12 988.0 H Folate > 20.0 H Cortisol Baseline 11.40 Quality VTE Prophylaxis VTE prophylaxis: mechanical ordered
[2024-11-13] MEDS: CALCIUM GLUC 1,000 MG/NS 50 ML 1,000 MG/50 ML BAG 100 MG IVPB (10:27)
--- NOTE | 2024-11-13 11:03 | WPDGIPROGNO ---
Progress Note: A&P Assessment and Plan (1) Crohn disease: Code(s): K50.90 - Crohn's disease, unspecified, without complications Status: Acute Assessment and Plan: she does not think that is in flare but noted elevated esr/crp will do colonoscopy with bx tomorrow (2) Loose stools: Code(s): R19.5 - Other fecal abnormalities Status: Acute Assessment and Plan: also egd with bx, noted weight loss and anemia, biopsies for h pylori and celiac also stool for pancreatic elastase normal cortisol level (3) Acute kidney injury: Code(s): N17.9 - Acute kidney failure, unspecified Status: Acute Assessment and Plan: this is improving (4) Hypomagnesemia: Code(s): E83.42 - Hypomagnesemia Status: Acute (5) Hypokalemia: Code(s): E87.6 - Hypokalemia Status: Acute Assessment and Plan: repleting (6) Anemia: Code(s): D64.9 - Anemia, unspecified Status: Acute Assessment and Plan: egd and colonoscopy to check if gi source of anemia Subjective Date/time seen: 11/13/24 11:03 Interval history: overall much better Review of Systems Review of Systems: All systems reviewed & are unremarkable except as noted in HPI and below Exam Const: General: comfortable and no acute distress HENMT: Face/Nose/Sinus: Normal nares present Eyes: General: appearance normal, both eyes and all related structures Neck: Neck: supple Resp: Auscultation: clear to auscultation bilaterally Cardio: Rate: regular rate Rhythm: regular rhythm GI: Inspection: non-distended GI Palp: Yes Soft to palpation and No Tenderness to palpation present (GI) Auscultation: normal bowel sounds Skin: General skin exam: normal color Neuro: General: gait normal Speech: normal speech Extrem: General: normal to inspection Psych: Mental Status: mental status grossly normal Objective Data Vital Signs Vital Signs: Vital Signs - 24 hr 11/12/24 12:00 11/12/24 13:51 11/12/24 16:00 Temperature 97.9 F Pulse Rate 116 H 114 H 116 H Respiratory Rate 20 Blood Pressure 102/69 Pulse Oximetry 100 Oxygen Delivery 11/12/24 21:00 11/12/24 21:00 11/12/24 21:48 Temperature 97.8 F Pulse Rate 119 H 111 H Respiratory Rate 18 Blood Pressure 111/82 Pulse Oximetry 100 Oxygen Delivery Room Air 11/13/24 00:00 11/13/24 04:00 11/13/24 06:00 Temperature 97.6 F Pulse Rate 105 H 88 102 H Respiratory Rate 18 Blood Pressure 121/81 Pulse Oximetry 98 Oxygen Delivery Intake/Output Intake/Output: Intake & Output 11/10/24 11/11/24 11/12/24 11/13/24 23:59 23:59 23:59 23:59 Intake Total 3600 3570 1350 Balance 3600 3570 1350 Meds/Results Medications: Active Medications Generic Name Dose Route Start Last Admin Trade Name Freq PRN Reason Stop Dose Admin Allopurinol 300 mg 11/12/24 09:00 11/13/24 09:19 Allopurinol 300 Mg Tablet PO 300 mg DAILY EDER Administration Amlodipine Besylate 5 mg 11/12/24 09:00 11/13/24 09:19 Amlodipine Besylate 5 Mg Tablet PO 5 mg DAILY EDER Administration Atorvastatin Calcium 10 mg 11/12/24 09:00 11/13/24 09:19 Atorvastatin 10 Mg Tablet PO 10 mg DAILY EDER Administration Calcium Carbonate 200 mg 11/11/24 17:00 11/13/24 09:19 Calcium Carbonate (Tums) 500 Mg (200 Mg Elemental) PO 200 mg TID EDER Administration Folic Acid 2 mg 11/12/24 09:00 11/13/24 09:19 Folic Acid 1 Mg Tablet PO 2 mg DAILY EDER Administration Sodium Chloride 1,000 mls @ 100 mls/hr 11/11/24 13:55 11/13/24 02:40 Normal Saline Iv IV CONT 100 mls/hr .Q10H EDER Administration Magnesium Oxide 400 mg 11/11/24 21:00 11/13/24 09:19 Magnesium Oxide 400 Mg Tablet PO 400 mg Q12HR EDER Administration * Home Med * 4.8 gm 11/11/24 14:15 11/13/24 09:20 Mesalamine 1.2 Gram PO 12/11/24 14:14 4.8 gm Tablet,Delayed DAILY EDER Administration Release (Dr/Ec) Prednisone 40 mg 11/12/24 08:00 11/13/24 09:19 Prednisone 20 Mg Tablet PO 40 mg DAILY@0800 EDER Administration Radiology Results: ITS Impressions Chest X-Ray 11/10/24 18:07 IMPRESSION: No focal infiltrate or effusion. Renal Ultrasound 11/11/24 20:52 IMPRESSION: Unremarkable sonographic evaluation of the bilateral kidneys and bladder, as detailed above Labs Labs: Laboratory Results - last 24 hr 11/12/24 11/13/24 14:05 05:46 WBC 9.2 RBC 3.02 L Hgb 7.6 L 8.9 L Hct 21.6 L 26.0 L MCV 86.1 MCH 29.5 MCHC 34.2 RDW 11.9 Plt Count 556 H MPV 8.5 Immature Gran % (Auto) 2.6 H Neut % (Auto) 66.2 Lymph % (Auto) 16.1 L [place] % (Auto) 14.7 H Eos % (Auto) 0.1 Baso % (Auto) 0.3 Lymph # (Auto) 1.48 [place] # (Auto) 1.4 H Eos # (Auto) 0.0 Baso # (Auto) 0.0 Abs Immat Gran (auto) 0.24 H Absolute Neuts (auto) 6.1 Absolute Nucleated RBC 0.000 Nucleated RBC % 0.0 Platelet Estimate Increased Hypochromasia 1+ Anisocytosis 1+ Target Cells 1+ Schistocytes None seen ESR > 140 H Sodium 132 L Potassium 3.4 Chloride 99 Carbon Dioxide 24 Anion Gap 9 BUN 19 H Creatinine 1.25 H Estim Creat Clear Calc 49 Estimated GFR 54 L Glucose 105 Calcium 7.3 L Phosphorus 3.2 Magnesium 1.8 1.7 Iron 33 L TIBC 115 L % Saturation 29 Ferritin 706.00 H C-Reactive Protein 13.3 H Albumin 2.7 L Vitamin B12 988.0 H Folate > 20.0 H Cortisol Baseline 11.40
--- NOTE | 2024-11-13 13:02 | P.PNNP_ITS ---
Progress Note: A&P Assessment and Plan (1) Acute kidney injury: Code(s): N17.9 - Acute kidney failure, unspecified Status: Acute Assessment and Plan: * slow improvement noted since admission * suspect volume depletion due to GI losses and poor oral intake * likely worsened by HCTZ use * evaluation to date noted: * normal renal ultrasound * urine electrolytes prerenal * urine eosinophils negative * CPK normal * UA suggest infection - follow urine culture * on IVFs * follow trend of repeat labs and UOP (2) Hypokalemia: Code(s): E87.6 - Hypokalemia Status: Acute Assessment and Plan: * improving with replacement (oral and in IVFs) * likely secondary to GI losses, diminished oral intake, and low magnesium * follow trend with repeat labs (3) Hypomagnesemia: Code(s): E83.42 - Hypomagnesemia Status: Acute Assessment and Plan: * quite low on admission * suspect due to GI losses and possible total body store depletion * likely precipitated #2 * IV replacement as needed * on scheduled oral magnesium * follow trend (4) Hypocalcemia: Code(s): E83.51 - Hypocalcemia Status: Acute Assessment and Plan: * likely due to low K+ and magesium * still a bit low even corrected for low albumin * IV replacement as needed * suspect will improve as oral intake does along with correction of #2 and #3 (5) Hyponatremia: Code(s): E87.1 - Hypo-osmolality and hyponatremia Status: Acute Assessment and Plan: * due to volume depletion * possibly worsened by HCTZ use (on hold) * improving with IVF hydration * follow trend (6) Crohn disease: Code(s): K50.90 - Crohn's disease, unspecified, without complications Status: Acute Assessment and Plan: * known history * Gastroenterology recommendations noted * started on steroids (7) Hypertension: Code(s): I10 - Essential (primary) hypertension Status: Chronic Assessment and Plan: * reasonable control * HCTZ on hold due to #1 * follow trend of hemodynamics (8) Anemia: Code(s): D64.9 - Anemia, unspecified Status: Acute Assessment and Plan: * dilutional effect from IVFs (?) * follow trend of H/H * no evidence of GI loss at this time Will continue to follow. L Subjective Date/time seen: 11/13/24 13:02 Interval history: Follow-up for acute kidney injury/acute renal failure. Overall, she states she is feeling significantly better in comparison to admission; still with some loose stools but seems to be improving; no apparent distress noted at the time of my visit; noted plans for EGD and colonoscopy tomorrow per Gastroenterology. Exam 2 Narrative: General: WD/WN female in NAD Heart: tachycardic, normal S1 and S2; no rub Lungs: clear to auscultation Abdomen: soft, nontender, nondistended, positive bowel sounds Extremities: no cyanosis or clubbing; trace edema Skin: warm and intact Objective Data Vital Signs Vital Signs: Vital Signs Temp Pulse Resp BP Pulse Ox O2 Del Method 11/13/24 13:00 97.6 F 122 H 18 114/77 100 11/13/24 08:45 131 H 11/13/24 08:45 Room Air 11/13/24 06:00 97.6 F 102 H 18 121/81 98 11/13/24 04:00 88 11/13/24 00:00 105 H 11/12/24 21:48 97.8 F 111 H 18 111/82 100 11/12/24 21:00 119 H 11/12/24 21:00 Room Air Intake/Output Intake/Output: Intake & Output 11/10/24 11/11/24 11/12/24 11/13/24 23:59 23:59 23:59 23:59 Intake Total 3600 3570 3290 Balance 3600 3570 3290 Meds/Results Medications: Active Medications Generic Name Dose Route Start Last Admin Trade Name Andrewq PRN Reason Stop Dose Admin Allopurinol 300 mg 11/12/24 09:00 11/13/24 09:19 Allopurinol 300 Mg Tablet PO 300 mg DAILY EDER Administration Amlodipine Besylate 5 mg 11/12/24 09:00 11/13/24 09:19 Amlodipine Besylate 5 Mg Tablet PO 5 mg DAILY EDER Administration Atorvastatin Calcium 10 mg 11/12/24 09:00 11/13/24 09:19 Atorvastatin 10 Mg Tablet PO 10 mg DAILY EDER Administration Calcium Carbonate 200 mg 11/11/24 17:00 11/13/24 12:15 Calcium Carbonate (Tums) 500 Mg (200 Mg Elemental) PO 200 mg TID EDER Administration Folic Acid 2 mg 11/12/24 09:00 11/13/24 09:19 Folic Acid 1 Mg Tablet PO 2 mg DAILY EDER Administration Sodium Chloride 1,000 mls @ 100 mls/hr 11/11/24 13:55 11/13/24 12:13 Normal Saline Iv IV CONT 100 mls/hr .Q10H EDER Administration Magnesium Citrate 300 ml 11/14/24 01:00 Magnesium Citrate 300 Ml Btl PO 11/14/24 01:01 ONCE ONE Magnesium Oxide 400 mg 11/11/24 21:00 11/13/24 09:19 Magnesium Oxide 400 Mg Tablet PO 400 mg Q12HR EDER Administration * Home Med * 4.8 gm 11/11/24 14:15 11/13/24 09:20 Mesalamine 1.2 Gram PO 12/11/24 14:14 4.8 gm Tablet,Delayed DAILY EDER Administration Release (Dr/Ec) Prednisone 40 mg 11/12/24 08:00 11/13/24 09:19 Prednisone 20 Mg Tablet PO 40 mg DAILY@0800 EDER Administration Radiology Results: ITS Impressions Chest X-Ray 11/10/24 18:07 IMPRESSION: No focal infiltrate or effusion. Renal Ultrasound 11/11/24 20:52 IMPRESSION: Unremarkable sonographic evaluation of the bilateral kidneys and bladder, as detailed above Labs Labs: Laboratory Tests 11/13/24 05:46 11/13/24 05:46 Calcium 7.3 L Phosphorus 3.2 Magnesium 1.7 Iron 33 L TIBC 115 L % Saturation 29 Ferritin 706.00 H C-Reactive Protein 13.3 H Albumin 2.7 L Vitamin B12 988.0 H Folate > 20.0 H Cortisol Baseline 11.40 Microbiology 11/11/24 17:13 Urine Clean Catch Urine Culture - Final
[2024-11-13] MEDS: BISACODYL 5 MG TABLET EC PO (17:33)
[2024-11-13] MEDS: polyethylene glycoL 3350 238 GM BOTTLE PO (18:20)
[2024-11-14] VITALS (13 sets, daily range): BP systolic 105–127; BP diastolic 65–89; PULSE 98–137; RESP 16–27; TEMP 35.6–36.2; O2SAT 96–100
[2024-11-14] MEDS: MAGNESIUM CITRATE 300 ML BTL PO (02:00)
[2024-11-14 05:46] LABS: Hematocrit 25.8 % (37.0-47.0); Hemoglobin 8.7 g/dL (12.0-15.0); Mean Corpuscular HGB Conc 33.7 g/dl (32-36); Mean Corpuscular Hemoglobin 29.5 pg (26-34); Mean Corpuscular Volume 87.5 fl (80-100); Mean Platelet Volume 8.3 fl (7.4-10.4); Platelet Count Result 498 k/mm3 (150-375); Red Blood Count 2.95 M/mm3 (4.2-5.4); Red Cell Distribution Width 12.5 % (11.5-14.5); White Blood Count 10.2 K/mm3 (4.5-10.0)
[2024-11-14 05:56] LABS: Albumin Level 2.7 g/dL (3.5-5.1); Anion Gap 9 mmol/L (4-12); Blood Urea Nitrogen 14 mg/dL (7-17); Calcium 8.1 mg/dL (8.4-10.2); Carbon Dioxide 22 mmol/L (22-30); Chloride 106 mmol/L (98-107); Estimated CRCL calculation 57 ml/min; Estimated Glomerular Filt Rate > 60; Glucose 103 mg/dL (65-110); Magnesium 1.8 mg/dL (1.6-2.3); Phosphorus 3.1 mg/dL (2.5-4.5); Potassium 3.3 mmol/L (3.4-5.0); Sodium 137 mmol/L (137-145)
[2024-11-14 06:38] LABS: Total Cells Counted 100
[2024-11-14 06:39] LABS: Anisocytosis 1+; Band Neutrophils Percent 10 % (0-6); Hypochromasia 1+; Lymphocytes Absolute Manual 1.53 K/mm3 (1.1-4.5); Lymphocytes Percent Manual 15 % (18-44); Monocytes Absolute Manual 0.81 K/mm3 (0.1-0.90); Monocytes Percent Manual 8 % (3-9); Neutrophils Absolute Manual 7.85 K/mm3 (1.7-7.2); Neutrophils Percent Manual 67 % (46-73); Platelet Estimate Increased (Adequate); Smudge Cells PRESENT; Target Cells 1+
[2024-11-14 06:40] LABS: Schistocytes None Seen
--- NOTE | 2024-11-14 07:54 | P.PNIM_ITS ---
Progress Note: A&P Assessment and Plan (1) Crohn disease: Code(s): K50.90 - Crohn's disease, unspecified, without complications Status: Acute Assessment and Plan: Patient presented to the hospital endorsing loose frequent stools concerning for Crohn flare CRP 13.3 and ESR >140 Prednisone 40 mg daily GI consulted s/p colonoscopy with bx on 11/[address] Huber moderate patchy chohns disease, colitis with mod decreased vascularity, erythematous, edematous, friable and ulcerative changes. Perianal fistula. HepB and TB ordered IV steroids then home with slow prednisone taper Will need to resume biologics (2) Anemia: Code(s): D64.9 - Anemia, unspecified Status: Acute Assessment and Plan: H/H 8.9/25.6 on admission, previously WNL in December 2023. - No signs of active bleeding - H/H 8.7/25.8 on am labs - Iron panel: Iron 33, TIBC 114, % sat 29, Ferritin 706 - B12 and folate WNL - GI consulted appreciate recs. s/p EGD and colonoscopies on 11/[address] Huber EGD: unremarkable Colonoscopy: moderate patchy chohns disease, colitis with mod decreased vascularity, erythematous, edematous, friable and ulcerative changes. Perianal fistula. (3) Acute kidney injury: Code(s): N17.9 - Acute kidney failure, unspecified Status: Acute Assessment and Plan: BUN/Cr 35/2.01 on admission with GFR 31. Likely secondary to dehydration related to diarrhea and decreased oral intake BUN/Cr 14/1.07 with gfr >60 on am labs Avoid nephrotoxic medication Renally dose medications Continue IV fluids Nephrology consulted appreciate recommendations (4) Hypocalcemia: Code(s): E83.51 - Hypocalcemia Status: Acute Assessment and Plan: - Calcium 8.1 this am - GI consulted will get serology for celiac, also pancreatic elastase in stool, inflammatory markers with calprotectin to assess if signs of inflammation (5) Hypomagnesemia: Code(s): E83.42 - Hypomagnesemia Status: Acute Assessment and Plan: 11/12/24 - Magnesium 1.0 this am. Nephrology ordered 3gm this am, will repeat labs 1400 and further replete as needed. 11/13/2024: - Magnesium 1.7 on am labs. 11/14/2024: - Magnesium 1.8 on am labs (6) Hypokalemia: Code(s): E87.6 - Hypokalemia Status: Acute Assessment and Plan: 11/14/2024: - K 3.3 this am, given 40 meq this am to keep K >4. (7) Acute hyponatremia: Code(s): E87.1 - Hypo-osmolality and hyponatremia Status: Acute Assessment and Plan: 11/14/24 - Improving on IVF currently at 137. Appreciate nephrology recs. (8) Pyuria: Code(s): R82.81 - Pyuria Status: Acute Assessment and Plan: - Noted bacteriuria, pyuria with absolute absence of urinary symptoms. - If symptomatic would cover with abx. Culture is negative. Time Spent With Patient Time with patient: 25 - 35 minutes Subjective Date/time seen: 11/14/24 07:54 Interval history: 54 year old female with past medical history of chrons disease (followed by Dr. Torres), HTN and HLD presents to the hospital for electrolyte abnormalities on outpatient labs ordered by PCP. Patient is pleasant lying in bed with at bedside. She states that she is feeling okay today and has no complaints denying chest pain, shortness of breath, palpitations, nausea/vomiting and abdominal pain. She underwent scopes today with GI and was found to be in a crohns flare. GI working on setting up patient on the biologics. Review of Systems Review of Systems: All systems reviewed & are unremarkable except as noted in HPI and below Exam Narrative: AF HR 105 RR 16 SpO2 100 BP 120/74 General: female in no acute respiratory distress who is nontoxic appearing, sitting up in bed HEENT: Normocephalic. Atraumatic. Extraocular movement intact. Sclera clear and anicteric. No facial asymmetry. Chest: Lungs are clear to auscultation bilaterally. No wheezes or crackles. CV: Heart was regular rate and rhythm. S1-S2. No murmurs, gallops, or rubs. Abd: Abdomen was soft. Nontender. Nondistended. Positive bowel sounds. Objective Data Vital Signs Vital Signs: Vital Signs - 24 hr 11/13/24 08:45 11/13/24 08:45 11/13/24 12:00 Temperature Pulse Rate 131 H 112 H Respiratory Rate Blood Pressure Pulse Oximetry Oxygen Delivery Room Air Fraction of Inspired Oxygen 11/13/24 13:04 11/13/24 13:58 11/13/24 14:44 Temperature 97.6 F Pulse Rate 115 H 106 H 122 H Respiratory Rate 18 Blood Pressure 114/77 Pulse Oximetry 100 Oxygen Delivery Fraction of Inspired Oxygen 11/13/24 16:00 11/13/24 19:50 11/13/24 20:00 Temperature Pulse Rate 108 H Respiratory Rate Blood Pressure Pulse Oximetry 99 Oxygen Delivery Room Air Room Air Fraction of Inspired Oxygen 21 11/13/24 20:00 11/13/24 22:00 11/14/24 00:00 Temperature 97.1 F L Pulse Rate 121 H 114 H 135 H Respiratory Rate 20 Blood Pressure 131/90 Pulse Oximetry 100 Oxygen Delivery Fraction of Inspired Oxygen 11/14/24 04:00 Temperature Pulse Rate 115 H Respiratory Rate Blood Pressure Pulse Oximetry Oxygen Delivery Fraction of Inspired Oxygen Intake/Output Intake/Output: Intake & Output 11/11/24 11/12/24 11/13/24 11/14/24 23:59 23:59 23:59 23:59 Intake Total 3600 3570 4333.3 Balance 3600 3570 4333.3 Meds/Results Medications: Active Medications Generic Name Dose Route Start Last Admin Trade Name Freq PRN Reason Stop Dose Admin Allopurinol 300 mg 11/12/24 09:00 11/13/24 09:19 Allopurinol 300 Mg Tablet PO 300 mg DAILY EDER Administration Amlodipine Besylate 5 mg 11/12/24 09:00 11/13/24 09:19 Amlodipine Besylate 5 Mg Tablet PO 5 mg DAILY EDER Administration Atorvastatin Calcium 10 mg 11/12/24 09:00 11/13/24 09:19 Atorvastatin 10 Mg Tablet PO 10 mg DAILY EDER Administration Calcium Carbonate 200 mg 11/11/24 17:00 11/13/24 17:33 Calcium Carbonate (Tums) 500 Mg (200 Mg Elemental) PO 200 mg TID EDER Administration Folic Acid 2 mg 11/12/24 09:00 11/13/24 09:19 Folic Acid 1 Mg Tablet PO 2 mg DAILY EDER Administration Sodium Chloride 1,000 mls @ 100 mls/hr 11/11/24 13:55 11/13/24 21:39 Normal Saline Iv IV CONT 100 mls/hr .Q10H EDER Administration Magnesium Oxide 400 mg 11/11/24 21:00 11/13/24 21:37 Magnesium Oxide 400 Mg Tablet PO 400 mg Q12HR EDER Administration * Home Med * 4.8 gm 11/11/24 14:15 11/13/24 09:20 Mesalamine 1.2 Gram PO 12/11/24 14:14 4.8 gm Tablet,Delayed DAILY EDER Administration Release (Dr/Ec) Prednisone 40 mg 11/12/24 08:00 11/13/24 09:19 Prednisone 20 Mg Tablet PO 40 mg DAILY@0800 EDER Administration Radiology Results: ITS Impressions Chest X-Ray 11/10/24 18:07 IMPRESSION: No focal infiltrate or effusion. Renal Ultrasound 11/11/24 20:52 IMPRESSION: Unremarkable sonographic evaluation of the bilateral kidneys and bladder, as detailed above Labs Labs: Laboratory Results - last 24 hr 11/13/24 11/14/24 05:46 05:30 WBC 10.2 H RBC 2.95 L Hgb 8.7 L Hct 25.8 L MCV 87.5 MCH 29.5 MCHC 33.7 RDW 12.5 Plt Count 498 H MPV 8.3 Immature Gran % (Auto) Not Reportable Neut % (Auto) Not Reportable Lymph % (Auto) Not Reportable [place] % (Auto) Not Reportable Eos % (Auto) Not Reportable Baso % (Auto) Not Reportable Lymph # (Auto) Not Reportable [place] # (Auto) Not Reportable Eos # (Auto) Not Reportable Baso # (Auto) Not Reportable Abs Immat Gran (auto) Not Reportable Absolute Neuts (auto) Not Reportable Absolute Nucleated RBC Not Reportable Total Counted 100 Neutrophils % (Manual) 67 Band Neutrophils % 10 H Lymphocytes % (Manual) 15 L Monocytes % (Manual) 8 Nucleated RBC % Not Reportable Abs Neuts (Manual) 7.85 H Abs Lymphs (Manual) 1.53 Abs Monocytes (Manual) 0.81 Smudge Cells Present Platelet Estimate Increased Hypochromasia 1+ Anisocytosis 1+ Target Cells 1+ Schistocytes None seen ESR > 140 H Sodium 137 Potassium 3.3 L Chloride 106 Carbon Dioxide 22 Anion Gap 9 BUN 14 D Creatinine 1.07 H Estim Creat Clear Calc 57 Estimated GFR > 60 Glucose 103 Calcium 8.1 L Phosphorus 3.1 Magnesium 1.8 Albumin 2.7 L Quality VTE Prophylaxis VTE prophylaxis: mechanical ordered
--- NOTE | 2024-11-14 09:00 | P.PNAN_ITS ---
Anes - Initial Pre Proc Eval Procedure: Operation Date: 11/14/24 15:00 Proposed Procedures p Esophagogastroduodenoscopy & Colonoscopy - Derek Quiros MD Date/Time: 11/14/24 09:00 Surgeon: Sara Gagnon PA-C Pre Op Diagnosis: Hypernatremia, hypokalemia, hypomagnesemia, hypoca Patient Data Age: 54 Gender: F Height: 1.63 m Weight: 87 kg Last Vital Signs Temp 36.2 C L 11/14/24 08:58 Pulse 105 H 11/14/24 08:58 Resp 16 11/14/24 08:58 BP 120/74 11/14/24 08:58 Pulse Ox 100 11/14/24 08:58 O2 Del Method Room Air 11/14/24 08:58 FiO2 21 11/13/24 19:50 Allergies Allergy/AdvReac Type Severity Reaction Status Date / Time amoxicillin (From Augmentin) Allergy Mild Diarrhea Verified 11/10/24 22:17 clavulanic acid (From Allergy Mild Diarrhea Verified 11/10/24 22:17 Augmentin) Home Medications ?Medication ?Instructions ?Recorded ?Confirmed ?Type folic acid 1 mg tablet 2 mg PO DAILY 01/18/21 11/11/24 History hydrochlorothiazide 25 mg tablet 25 mg PO DAILY 01/18/21 11/11/24 History allopurinol 300 mg tablet 300 mg PO DAILY 04/26/21 11/11/24 History amlodipine 2.5 mg tablet 5 mg PO DAILY 04/01/22 11/11/24 History atorvastatin 10 mg tablet 10 mg PO DAILY 12/30/23 11/11/24 History mesalamine 1.2 gram tablet,delayed 4.8 g (4 x 1.2 gram) PO DAILY 3 12/30/23 11/11/24 Rx release months #360 tabs Laboratory Tests 11/14/24 05:30 WBC 10.2 H K/mm3 (4.5-10.0) RBC 2.95 L M/mm3 (4.2-5.4) Hgb 8.7 L g/dL (12.0-15.0) Hct 25.8 L % (37.0-47.0) MCV 87.5 fl (80-100) MCH 29.5 pg (26-34) MCHC 33.7 g/dl (32-36) RDW 12.5 % (11.5-14.5) Plt Count 498 H k/mm3 (150-375) MPV 8.3 fl (7.4-10.4) Immature Gran % (Auto) Not Reportable Neut % (Auto) Not Reportable Lymph % (Auto) Not Reportable [place] % (Auto) Not Reportable Eos % (Auto) Not Reportable Baso % (Auto) Not Reportable Lymph # (Auto) Not Reportable [place] # (Auto) Not Reportable Eos # (Auto) Not Reportable Baso # (Auto) Not Reportable Abs Immat Gran (auto) Not Reportable Absolute Neuts (auto) Not Reportable Absolute Nucleated RBC Not Reportable Total Counted 100 Neutrophils % (Manual) 67 % (46-73) Band Neutrophils % 10 H % (0-6) Lymphocytes % (Manual) 15 L % (18-44) Monocytes % (Manual) 8 % (3-9) Nucleated RBC % Not Reportable Abs Neuts (Manual) 7.85 H K/mm3 (1.7-7.2) Abs Lymphs (Manual) 1.53 K/mm3 (1.1-4.5) Abs Monocytes (Manual) 0.81 K/mm3 (0.1-0.90) Smudge Cells Present Platelet Estimate Increased (Adequate) Hypochromasia 1+ Anisocytosis 1+ Target Cells 1+ Schistocytes None seen Sodium 137 mmol/L (137-145) Potassium 3.3 L mmol/L (3.4-5.0) Chloride 106 mmol/L (98-107) Carbon Dioxide 22 mmol/L (22-30) Anion Gap 9 mmol/L (4-12) BUN 14 D mg/dL (7-17) Creatinine 1.07 H mg/dL (0.7-1.0) Estim Creat Clear Calc 57 ml/min Estimated GFR > 60 (59 - ) Glucose 103 mg/dL (65-110) Calcium 8.1 L mg/dL (8.4-10.2) Phosphorus 3.1 mg/dL (2.5-4.5) Magnesium 1.8 mg/dL (1.6-2.3) Albumin 2.7 L g/dL (3.5-5.1) Patient hx anesthesia problems: none Family hx anesthesia problems: none Results Review: All pre-operative results and documents have been reviewed as part of the pre- operative evaluation. [facility] Past Medical History Medical History (Updated 11/12/24 @ 09:48 by Derek Quiros MD) Anemia Loose stools Arthritis Hypertension Crohn's disease of colon Social History Social History Smoking status: Never smoker Alcohol intake: current Substance use: never Substance use type: does not use Do You Feel Safe in your Home?: Yes Lack of Transportation: No Lack of Food: Never True Current Housing: I Have Housing Concerned About Future Housing: No Difficulty Paying Gas/Electric Bills: No Difficulty Paying for Meds: No Currently Unemployed: No Education: Decline to Answer Difficulty w/ Childcare or Family Care: No Living arrangements: with family Gender identity (if verbalized by the patient): Female Spiritual care concerns: No Anes - Eval Final PreProcedure Day of Procedure 11/14/24 09:00 Patient weight: obese Heart: regular rate and rhythm Lungs: clear to auscultation Airway: Mallampati scale class II Neurological: alert and oriented Last oral intake: >/= 8 hours ASA classification: III Emergent: no Anesthetic plan: proceed Anesthesia type and monitoring: general GIVS and standard monitoring Results Review: All pre-operative results and documents have been reviewed as part of the pre- operative evaluation. Informed Consent: The patient's anesthetic plan and its attendant risks and benefits were discussed with the patient/family/POA. Questions were solicited and answers provided to the satisfaction of the patient/family/POA.
[2024-11-14] MEDS: LACTATED RINGERS 1,000 ML 150 ML IV CONT (09:01)
--- NOTE | 2024-11-14 09:12 | PC.NURSE ---
Patient off of unit to GI lab
--- NOTE | 2024-11-14 09:38 | SUR.OPER ---
EGD [id number]. Colonoscopy start time 937.
[2024-11-14] MEDS: FOLIC ACID 1 MG TABLET 2 MG PO (11:16)
[2024-11-14] MEDS: MAGNESIUM OXIDE 400 MG TABLET PO ×2 (11:17→20:54)
[2024-11-14] MEDS: allopurinoL 300 MG TABLET PO (11:17)
[2024-11-14] MEDS: predniSONE 20 MG TABLET 40 MG PO (11:17)
[2024-11-14] MEDS: ATORVASTATIN 10 MG TABLET PO (11:17)
[2024-11-14] MEDS: CALCIUM CARBONATE (TUMS) 500 MG (200 MG ELEMENTAL) PO ×2 (11:17→18:03)
[2024-11-14] MEDS: POTASSIUM CHLORIDE 20 MEQ ER TABLET 40 MEQ PO (11:17)
[2024-11-14] MEDS: amLODIPine BESYLATE 5 MG TABLET PO (11:17)
--- NOTE | 2024-11-14 11:22 | P.PNNP_ITS ---
Progress Note: A&P Assessment and Plan (1) Acute kidney injury: Code(s): N17.9 - Acute kidney failure, unspecified Status: Acute Assessment and Plan: * slow improvement noted if not resolved * suspect volume depletion due to GI losses and poor oral intake * likely worsened by HCTZ use * evaluation to date noted: * normal renal ultrasound * urine electrolytes prerenal * urine eosinophils negative * CPK normal * UA suggest infection - follow urine culture * wean off IVFs * follow trend of repeat labs and UOP (2) Hypokalemia: Code(s): E87.6 - Hypokalemia Status: Acute Assessment and Plan: * improving with replacement (oral and in IVFs) * likely secondary to GI losses, diminished oral intake, and low magnesium * follow trend with repeat labs (3) Hypomagnesemia: Code(s): E83.42 - Hypomagnesemia Status: Acute Assessment and Plan: * improving * quite low on admission * suspect due to GI losses and possible total body store depletion * likely precipitated #2 * IV replacement as needed * on scheduled oral magnesium * follow trend (4) Hypocalcemia: Code(s): E83.51 - Hypocalcemia Status: Acute Assessment and Plan: * improving * likely due to low K+ and magesium * still a bit low even corrected for low albumin * IV replacement as needed * suspect will continue to improve as oral intake does along with correction of #2 and #3 (5) Hyponatremia: Code(s): E87.1 - Hypo-osmolality and hyponatremia Status: Acute Assessment and Plan: * due to volume depletion * possibly worsened by HCTZ use (on hold) * improving with IVF hydration * follow trend (6) Crohn disease: Code(s): K50.90 - Crohn's disease, unspecified, without complications Status: Acute Assessment and Plan: * known history * Gastroenterology recommendations noted * on steroids (7) Hypertension: Code(s): I10 - Essential (primary) hypertension Status: Chronic Assessment and Plan: * reasonable control * HCTZ on hold due to #1 * follow trend of hemodynamics (8) Anemia: Code(s): D64.9 - Anemia, unspecified Status: Acute Assessment and Plan: * dilutional effect from IVFs (?) * follow trend of H/H * no evidence of GI loss at this time Nothing much else to add -- will continue to follow from a distance. L Subjective Date/time seen: 11/14/24 11:22 Interval history: Follow-up for acute kidney injury/acute renal failure. Renal function/creatinine continues to improve with current therapy/interventions; s/p EGD/colonoscopy earlier this AM and tolerated these procedures without any issues or problems; no events overnight or earlier this morning; overall, feels reasonably well. Exam 2 Narrative: General: WD/WN female in NAD Heart: tachycardic, normal S1 and S2; no rub Lungs: clear to auscultation Abdomen: soft, nontender, nondistended, positive bowel sounds Extremities: no cyanosis or clubbing; trace edema Skin: no rash or nodules Objective Data Vital Signs Vital Signs: Vital Signs Temp Pulse Resp BP Pulse Ox O2 Del Method FiO2 11/14/24 10:09 100 27 H 105/67 100 11/14/24 09:59 104 H 21 H 105/65 96 Room Air 11/14/24 09:49 109 H 24 H 127/78 99 Room Air 11/14/24 08:58 97.1 F L 105 H 16 120/74 100 Room Air 11/14/24 08:25 135 H 11/14/24 08:25 Room Air 11/14/24 06:00 96.1 F L 109 H 20 127/89 100 11/14/24 04:00 115 H 11/14/24 00:00 135 H 11/13/24 22:00 97.1 F L 114 H 20 131/90 100 11/13/24 20:00 121 H 11/13/24 20:00 Room Air 11/13/24 19:50 99 Room Air 21 11/13/24 16:00 108 H 11/13/24 14:44 97.6 F 122 H 18 114/77 100 11/13/24 13:58 106 H 11/13/24 13:04 115 H Intake/Output Intake/Output: Intake & Output 11/11/24 11/12/24 11/13/24 11/14/24 23:59 23:59 23:59 23:59 Intake Total 3600 3570 4333.3 1072.5 Balance 3600 3570 4333.3 1072.5 Meds/Results Medications: Active Medications Generic Name Dose Route Start Last Admin Trade Name Freq PRN Reason Stop Dose Admin Allopurinol 300 mg 11/12/24 09:00 11/14/24 11:17 Allopurinol 300 Mg Tablet PO 300 mg DAILY EDER Administration Amlodipine Besylate 5 mg 11/12/24 09:00 11/14/24 11:17 Amlodipine Besylate 5 Mg Tablet PO 5 mg DAILY EDER Administration Atorvastatin Calcium 10 mg 11/12/24 09:00 11/14/24 11:17 Atorvastatin 10 Mg Tablet PO 10 mg DAILY EDER Administration Calcium Carbonate 200 mg 11/11/24 17:00 11/14/24 11:17 Calcium Carbonate (Tums) 500 Mg (200 Mg Elemental) PO 200 mg TID EDER Administration Folic Acid 2 mg 11/12/24 09:00 11/14/24 11:16 Folic Acid 1 Mg Tablet PO 2 mg DAILY EDER Administration Sodium Chloride 1,000 mls @ 100 mls/hr 11/11/24 13:55 11/14/24 11:25 Normal Saline Iv IV CONT 100 mls/hr .Q10H EDER Administration Magnesium Oxide 400 mg 11/11/24 21:00 11/14/24 11:17 Magnesium Oxide 400 Mg Tablet PO 400 mg Q12HR EDER Administration Prednisone 40 mg 11/12/24 08:00 11/14/24 11:17 Prednisone 20 Mg Tablet PO 40 mg DAILY@0800 EDER Administration Radiology Results: ITS Impressions Chest X-Ray 11/10/24 18:07 IMPRESSION: No focal infiltrate or effusion. Renal Ultrasound 11/11/24 20:52 IMPRESSION: Unremarkable sonographic evaluation of the bilateral kidneys and bladder, as detailed above Labs Labs: Laboratory Tests 11/14/24 05:30 11/14/24 05:30 Calcium 8.1 L Phosphorus 3.1 Magnesium 1.8 Albumin 2.7 L
[2024-11-14] MEDS: SODIUM CHLORIDE 0.9% IV 1,000 ML 100 ML IV CONT ×2 (11:25→18:08)
[2024-11-14 12:21] LABS: Hepatitis B Surface Antigen Negative (Negative)
[2024-11-14 12:39] LABS: Hepatitis B Surface Anti Res Negative
[2024-11-15] VITALS (13 sets, daily range): BP systolic 110–129; BP diastolic 66–88; PULSE 85–128; RESP 16–20; TEMP 35.9–36.6; O2SAT 96–100
[2024-11-15] MEDS: SODIUM CHLORIDE 0.9% IV 1,000 ML 100 ML IV CONT (03:41)
[2024-11-15 05:45] LABS: Basophils Percent Auto 0.4 % (0.2-1.2); Eosinophils Percent Auto 0.1 % (0-4.4); Immature Granulocyte Absolute 0.27 K/mm3 (0.00-0.031); Immature Granulocyte Percent A 2.5 % (0-0.5); Lymphocytes Absolute Auto 1.21 K/mm3 (0.9-3.2); Lymphocytes Percent Auto 11.3 % (18.3-44.2); Mean Corpuscular HGB Conc 34.9 g/dl (32-36); Mean Corpuscular Volume 86.1 fl (80-100); Mean Platelet Volume 8.5 fl (7.4-10.4); Monocytes Percent Auto 9.3 % (2.6-8.5); Neutrophils Absolute Auto 8.2 K/mm3 (1.3-6.7); Neutrophils Percent Auto 76.4 % (45.5-73.1); Nucleated Red Blood Cells Perc 0.3 % (0.0-0.2); Platelet Count Result 386 k/mm3 (150-375); Red Blood Count 2.23 M/mm3 (4.2-5.4); Red Cell Distribution Width 12.1 % (11.5-14.5); White Blood Count 10.7 K/mm3 (4.5-10.0)
[2024-11-15 05:49] LABS: Hemoglobin 6.7 g/dL (12.0-15.0)
[2024-11-15 05:50] LABS: Hematocrit 19.2 % (37.0-47.0)
[2024-11-15 06:03] LABS: Anion Gap 4 mmol/L (4-12); Blood Urea Nitrogen 11 mg/dL (7-17); Calcium 7.4 mg/dL (8.4-10.2); Carbon Dioxide 23 mmol/L (22-30); Chloride 106 mmol/L (98-107); Estimated CRCL calculation 57 ml/min; Estimated Glomerular Filt Rate > 60; Glucose 96 mg/dL (65-110); Magnesium 1.8 mg/dL (1.6-2.3); Phosphorus 3.2 mg/dL (2.5-4.5); Potassium 3.4 mmol/L (3.4-5.0); Sodium 133 mmol/L (137-145)
--- NOTE | 2024-11-15 09:17 | PM.IMPN ---
Progress Note: A&P Assessment and Plan (1) Crohn disease: Code(s): K50.90 - Crohn's disease, unspecified, without complications Status: Acute Assessment and Plan: Patient presented to the hospital endorsing loose frequent stools concerning for Crohn flare CRP 13.3 and ESR >140 Prednisone 40 mg daily, transition to slow prednisone taper at [place] [facility] consulted s/p colonoscopy with bx on 11/[address] Huber moderate patchy chohns disease, colitis with mod decreased vascularity, erythematous, edematous, friable and ulcerative changes. Perianal fistula. Path: Active colitis HepB and TB ordered Follow up outpatient in 3-4 weeks (2) Anemia: Code(s): D64.9 - Anemia, unspecified Status: Acute Assessment and Plan: H/H 8.9/25.6 on admission, previously WNL in December 2023. - No signs of active bleeding - H/H 6.7/19.2 on am labs, transfuse 1 unit pRBC. Repeat H/H following transfusion. - Iron panel: Iron 33, TIBC 114, % sat 29, Ferritin 706 - B12 and folate WNL - GI consulted appreciate recs. s/p EGD and colonoscopies on 11/[address] Huber EGD: unremarkable Colonoscopy: moderate patchy chohns disease, colitis with mod decreased vascularity, erythematous, edematous, friable and ulcerative changes. Perianal fistula. Path: Active colitis (3) Acute kidney injury: Code(s): N17.9 - Acute kidney failure, unspecified Status: Acute Assessment and Plan: BUN/Cr 35/2.01 on admission with GFR 31. Likely secondary to dehydration related to diarrhea and decreased oral intake BUN/Cr 11/1.06 with gfr >60 on am labs Avoid nephrotoxic medication Renally dose medications Nephrology consulted appreciate recommendations Resolved. (4) Hypocalcemia: Code(s): E83.51 - Hypocalcemia Status: Acute Assessment and Plan: - Calcium 7.4 this am, corrected WNL - GI consulted will get serology for celiac, also pancreatic elastase in stool, inflammatory markers with calprotectin to assess if signs of inflammation (5) Hypomagnesemia: Code(s): E83.42 - Hypomagnesemia Status: Acute Assessment and Plan: 11/12/24 - Magnesium 1.0 this am. Nephrology ordered 3gm this am, will repeat labs 1400 and further replete as needed. 11/13/2024: - Magnesium 1.7 on am labs. 11/15/2024: - Magnesium 1.8 on am labs (6) Hypokalemia: Code(s): E87.6 - Hypokalemia Status: Acute Assessment and Plan: - K 3.4 this am, given 40 meq this am to keep K >4. (7) Acute hyponatremia: Code(s): E87.1 - Hypo-osmolality and hyponatremia Status: Acute Assessment and Plan: - Remains stable. Na 133 on am labs. Appreciate nephrology recs. (8) Pyuria: Code(s): R82.81 - Pyuria Status: Acute Assessment and Plan: - Noted bacteriuria, pyuria with absolute absence of urinary symptoms. - If symptomatic would cover with abx. Culture is negative. Time Spent With Patient Time with patient: 25 - 35 minutes Subjective Date/time seen: 11/15/24 09:17 Interval history: 54 year old female with past medical history of chrons disease (followed by Dr. Torres), HTN and HLD presents to the hospital for electrolyte abnormalities on outpatient labs ordered by PCP. Patient is pleasant lying comfortably in bed. She states that she is feeling better today but notes increased fatigue. She denies any blood in her stool or urine. she also denies any chest pain, shortness a breath, palpitations, nausea/ vomiting, abdominal pain. Patient has been noted to walk throughout her room without difficulties and denies any dizziness or lightheadedness. Review of Systems Review of Systems: All systems reviewed & are unremarkable except as noted in HPI and below Exam Narrative: AF HR 100 RR 16 Spo2 96 BP 110/66 General: female in no acute respiratory distress who is nontoxic appearing, sitting up in bed HEENT: Normocephalic. Atraumatic. Extraocular movement intact. Sclera clear and anicteric. No facial asymmetry. Chest: Lungs are clear to auscultation bilaterally. No wheezes or crackles. CV: Heart was regular rate and rhythm. S1-S2. No murmurs, gallops, or rubs. Abd: Abdomen was soft. Nontender. Nondistended. Positive bowel sounds. Objective Data Vital Signs Vital Signs: Vital Signs - 24 hr 11/14/24 09:49 11/14/24 09:59 11/14/24 10:09 Temperature Pulse Rate 109 H 104 H 100 Respiratory Rate 24 H 21 H 27 H Blood Pressure 127/78 105/65 105/67 Pulse Oximetry 99 96 100 Oxygen Delivery Room Air Room Air 11/14/24 12:00 11/14/24 14:00 11/14/24 16:00 Temperature 96.9 F L Pulse Rate 104 H 105 H 137 H Respiratory Rate 19 Blood Pressure 114/76 Pulse Oximetry 100 Oxygen Delivery 11/14/24 20:00 11/14/24 20:00 11/14/24 22:00 Temperature 97.0 F L Pulse Rate 98 107 H Respiratory Rate 20 Blood Pressure 116/67 Pulse Oximetry 100 Oxygen Delivery Room Air 11/15/24 00:00 11/15/24 04:00 11/15/24 06:00 Temperature 97.0 F L Pulse Rate 85 91 115 H Respiratory Rate 20 Blood Pressure 118/88 Pulse Oximetry 100 Oxygen Delivery Intake/Output Intake/Output: Intake & Output 11/12/24 11/13/24 11/14/24 11/15/24 23:59 23:59 23:59 23:59 Intake Total 3570 4333.3 2932.5 1555 Balance 3570 4333.3 2932.5 1555 Meds/Results Medications: Active Medications Generic Name Dose Route Start Last Admin Trade Name Freq PRN Reason Stop Dose Admin Allopurinol 300 mg 11/12/24 09:00 11/14/24 11:17 Allopurinol 300 Mg Tablet PO 300 mg DAILY EDER Administration Amlodipine Besylate 5 mg 11/12/24 09:00 11/14/24 11:17 Amlodipine Besylate 5 Mg Tablet PO 5 mg DAILY EDER Administration Atorvastatin Calcium 10 mg 11/12/24 09:00 11/14/24 11:17 Atorvastatin 10 Mg Tablet PO 10 mg DAILY EDER Administration Calcium Carbonate 200 mg 11/11/24 17:00 11/14/24 18:03 Calcium Carbonate (Tums) 500 Mg (200 Mg Elemental) PO 200 mg TID EDER Administration Folic Acid 2 mg 11/12/24 09:00 11/14/24 11:16 Folic Acid 1 Mg Tablet PO 2 mg DAILY EDER Administration Sodium Chloride 1,000 mls @ 100 mls/hr 11/11/24 13:55 11/15/24 03:41 Normal Saline Iv IV CONT 100 mls/hr .Q10H EDER Administration Magnesium Oxide 400 mg 11/11/24 21:00 11/14/24 20:54 Magnesium Oxide 400 Mg Tablet PO 400 mg Q12HR EDER Administration Prednisone 40 mg 11/12/24 08:00 11/14/24 11:17 Prednisone 20 Mg Tablet PO 40 mg DAILY@0800 EDER Administration Radiology Results: ITS Impressions Chest X-Ray 11/10/24 18:07 IMPRESSION: No focal infiltrate or effusion. Renal Ultrasound 11/11/24 20:52 IMPRESSION: Unremarkable sonographic evaluation of the bilateral kidneys and bladder, as detailed above Labs Labs: Laboratory Results - last 24 hr 11/14/24 11/15/24 11/15/24 11:06 05:15 06:22 WBC 10.7 H RBC 2.23 L Hgb 6.7 L* Hct 19.2 L* MCV 86.1 MCH 30.0 MCHC 34.9 RDW 12.1 Plt Count 386 H MPV 8.5 Immature Gran % (Auto) 2.5 H Neut % (Auto) 76.4 H Lymph % (Auto) 11.3 L [place] % (Auto) 9.3 H Eos % (Auto) 0.1 Baso % (Auto) 0.4 Lymph # (Auto) 1.21 [place] # (Auto) 1.0 H Eos # (Auto) 0.0 Baso # (Auto) 0.0 Abs Immat Gran (auto) 0.27 H Absolute Neuts (auto) 8.2 H Absolute Nucleated RBC 0.030 H Nucleated RBC % 0.3 H Sodium 133 L Potassium 3.4 Chloride 106 Carbon Dioxide 23 Anion Gap 4 BUN 11 Creatinine 1.06 H Estim Creat Clear Calc 57 Estimated GFR > 60 Glucose 96 Calcium 7.4 L Phosphorus 3.2 Magnesium 1.8 Albumin 2.0 L Hep Bs Antigen Negative Hep Bs Antibody Negative Blood Type O Positive Antibody Screen Negative Quality VTE Prophylaxis VTE prophylaxis: mechanical ordered
[2024-11-15] MEDS: CALCIUM CARBONATE (TUMS) 500 MG (200 MG ELEMENTAL) PO ×3 (09:28→18:02)
[2024-11-15] MEDS: ATORVASTATIN 10 MG TABLET PO (09:28)
[2024-11-15] MEDS: predniSONE 20 MG TABLET 40 MG PO (09:28)
[2024-11-15] MEDS: amLODIPine BESYLATE 5 MG TABLET PO (09:28)
[2024-11-15] MEDS: allopurinoL 300 MG TABLET PO (09:29)
[2024-11-15] MEDS: FOLIC ACID 1 MG TABLET 2 MG PO (09:29)
[2024-11-15] MEDS: MAGNESIUM OXIDE 400 MG TABLET PO ×2 (09:29→20:56)
[2024-11-15] MEDS: POTASSIUM CHLORIDE 20 MEQ ER TABLET 40 MEQ PO (09:34)
[2024-11-15] MEDS: SODIUM CHLORIDE 0.9% IV 250 ML 30 ML IV CONT (12:38)
--- NOTE | 2024-11-15 13:12 | P.PNGI_ITS ---
Progress Note: A&P Assessment and Plan (1) Crohn's disease of colon: Code(s): K50.10 - Crohn's disease of large intestine without complications Status: Acute Assessment and Plan: active colitis- confirmed by biopsies and also perianal fistula currently on oral prednisone 40 mg then will need slow taper- probably decrease 5 mg every week follow-up in office 3-4 weeks then we will need to discuss treatments such as anti-tnf, skyrizi, etc (patient was on cimzia years ago which was working but insurance stopped coverage) probably home tomorrow (2) Loose stools: Code(s): R19.5 - Other fecal abnormalities Status: Acute (3) Acute kidney injury: Code(s): N17.9 - Acute kidney failure, unspecified Status: Acute Assessment and Plan: improved (4) Acute on chronic anemia: Code(s): D64.9 - Anemia, unspecified Status: Acute Assessment and Plan: normal egd and no overt gib but friable colitis getting blood transfusion active colitis can explain part of her symptoms (5) Hypomagnesemia: Code(s): E83.42 - Hypomagnesemia Status: Acute (6) Hyponatremia: Code(s): E87.1 - Hypo-osmolality and hyponatremia Status: Acute Subjective Date/time seen: 11/15/24 13:12 Interval history: egd normal, colonoscopy with active colitis today noted hgb dropped and getting blood transfusion she is feeling better though Review of Systems Review of Systems: All systems reviewed & are unremarkable except as noted in HPI and below Exam Const: General: comfortable and no acute distress HENMT: Face/Nose/Sinus: Normal nares present Eyes: General: appearance normal, both eyes and all related structures Neck: Neck: supple Resp: Auscultation: clear to auscultation bilaterally Cardio: Rate: regular rate Rhythm: regular rhythm GI: Inspection: non-distended GI Palp: Yes Soft to palpation and No Tenderness to palpation present (GI) Auscultation: normal bowel sounds Skin: General skin exam: normal color Neuro: General: gait normal Speech: normal speech Extrem: General: normal to inspection Psych: Mental Status: mental status grossly normal Objective Data Vital Signs Vital Signs: Vital Signs - 24 hr 11/14/24 14:00 11/14/24 16:00 11/14/24 20:00 Temperature 96.9 F L Pulse Rate 105 H 137 H Respiratory Rate 19 Blood Pressure 114/76 Pulse Oximetry 100 Oxygen Delivery Room Air 11/14/24 20:00 11/14/24 22:00 11/15/24 00:00 Temperature 97.0 F L Pulse Rate 98 107 H 85 Respiratory Rate 20 Blood Pressure 116/67 Pulse Oximetry 100 Oxygen Delivery 11/15/24 04:00 11/15/24 06:00 11/15/24 08:00 Temperature 97.0 F L Pulse Rate 91 115 H 96 Respiratory Rate 20 Blood Pressure 118/88 Pulse Oximetry 100 Oxygen Delivery 11/15/24 09:30 11/15/24 12:37 11/15/24 12:53 Temperature 97.6 F 96.7 F L Pulse Rate 114 H 115 H Respiratory Rate 18 16 Blood Pressure 119/72 120/74 Pulse Oximetry 100 100 Oxygen Delivery Room Air Intake/Output Intake/Output: Intake & Output 11/12/24 11/13/24 11/14/24 11/15/24 23:59 23:59 23:59 23:59 Intake Total 3570 4333.3 2932.5 1675 Balance 3570 4333.3 2932.5 1675 Meds/Results Medications: Active Medications Generic Name Dose Route Start Last Admin Trade Name Freq PRN Reason Stop Dose Admin Allopurinol 300 mg 11/12/24 09:00 11/15/24 09:29 Allopurinol 300 Mg Tablet PO 300 mg DAILY EDER Administration Amlodipine Besylate 5 mg 11/12/24 09:00 11/15/24 09:28 Amlodipine Besylate 5 Mg Tablet PO 5 mg DAILY EDER Administration Atorvastatin Calcium 10 mg 11/12/24 09:00 11/15/24 09:28 Atorvastatin 10 Mg Tablet PO 10 mg DAILY EDER Administration Calcium Carbonate 200 mg 11/11/24 17:00 11/15/24 12:59 Calcium Carbonate (Tums) 500 Mg (200 Mg Elemental) PO 200 mg TID EDER Administration Folic Acid 2 mg 11/12/24 09:00 11/15/24 09:29 Folic Acid 1 Mg Tablet PO 2 mg DAILY EDER Administration Sodium Chloride 250 mls @ 30 mls/hr 11/15/24 09:16 11/15/24 12:38 Normal Saline Iv IV CONT 11/15/24 17:35 30 mls/hr .Q8H20M STA Administration Magnesium Oxide 400 mg 11/11/24 21:00 11/15/24 09:29 Magnesium Oxide 400 Mg Tablet PO 400 mg Q12HR EDER Administration Prednisone 40 mg 11/12/24 08:00 11/15/24 09:28 Prednisone 20 Mg Tablet PO 40 mg DAILY@0800 EDER Administration Radiology Results: ITS Impressions Chest X-Ray 11/10/24 18:07 IMPRESSION: No focal infiltrate or effusion. Renal Ultrasound 11/11/24 20:52 IMPRESSION: Unremarkable sonographic evaluation of the bilateral kidneys and bladder, as detailed above Labs Labs: Laboratory Results - last 24 hr 11/15/24 11/15/24 05:15 06:22 WBC 10.7 H RBC 2.23 L Hgb 6.7 L* Hct 19.2 L* MCV 86.1 MCH 30.0 MCHC 34.9 RDW 12.1 Plt Count 386 H MPV 8.5 Immature Gran % (Auto) 2.5 H Neut % (Auto) 76.4 H Lymph % (Auto) 11.3 L [place] % (Auto) 9.3 H Eos % (Auto) 0.1 Baso % (Auto) 0.4 Lymph # (Auto) 1.21 [place] # (Auto) 1.0 H Eos # (Auto) 0.0 Baso # (Auto) 0.0 Abs Immat Gran (auto) 0.27 H Absolute Neuts (auto) 8.2 H Absolute Nucleated RBC 0.030 H Nucleated RBC % 0.3 H Sodium 133 L Potassium 3.4 Chloride 106 Carbon Dioxide 23 Anion Gap 4 BUN 11 Creatinine 1.06 H Estim Creat Clear Calc 57 Estimated GFR > 60 Glucose 96 Calcium 7.4 L Phosphorus 3.2 Magnesium 1.8 Albumin 2.0 L Blood Type O Positive Antibody Screen Negative Crossmatch See Detail
[2024-11-15 15:24] LABS: Osmolality, Urine 324 mOsm/kg (50-1200)
[2024-11-15 16:50] LABS: Hematocrit 27.5 % (37.0-47.0); Hemoglobin 9.4 g/dL (12.0-15.0)
[2024-11-15 17:14] LABS: Calcium/Creatinine Ratio, Ur 19 mg/g creat (10-320); Urine Calcium, Random 1.3 mg/dL; Urine Creatinine, Random 70 mg/dL (20-275)
[2024-11-16] VITALS (9 sets, daily range): BP systolic 115–129; BP diastolic 75–82; PULSE 95–126; RESP 15–18; TEMP 36.1–36.2; O2SAT 100
[2024-11-16 02:28] LABS: Hepatitis B Core Ab Total NON-REACTIVE (NON-REACTIVE)
[2024-11-16 02:58] LABS: Tissue Transglutaminase IgA Ab <1.0 U/mL
[2024-11-16 05:41] LABS: Basophils Absolute Auto 0.1 K/mm3 (0.0-0.1); Basophils Percent Auto 0.4 % (0.2-1.2); Eosinophils Percent Auto 0.1 % (0-4.4); Hematocrit 25.4 % (37.0-47.0); Hemoglobin 8.5 g/dL (12.0-15.0); Immature Granulocyte Percent A 4.3 % (0-0.5); Lymphocytes Absolute Auto 1.46 K/mm3 (0.9-3.2); Lymphocytes Percent Auto 12.5 % (18.3-44.2); Mean Corpuscular HGB Conc 33.5 g/dl (32-36); Mean Corpuscular Hemoglobin 28.7 pg (26-34); Mean Corpuscular Volume 85.8 fl (80-100); Mean Platelet Volume 8.3 fl (7.4-10.4); Monocytes Absolute Auto 1.2 K/mm3 (0.1-0.6); Monocytes Percent Auto 10.1 % (2.6-8.5); Neutrophils Absolute Auto 8.5 K/mm3 (1.3-6.7); Neutrophils Percent Auto 72.6 % (45.5-73.1); Nucleated Red Blood Cells Perc 0.3 % (0.0-0.2); Platelet Count Result 441 k/mm3 (150-375); Red Blood Count 2.96 M/mm3 (4.2-5.4); Red Cell Distribution Width 12.1 % (11.5-14.5); White Blood Count 11.7 K/mm3 (4.5-10.0)
[2024-11-16 05:54] LABS: Albumin Level 2.4 g/dL (3.5-5.1); Anion Gap 5 mmol/L (4-12); Blood Urea Nitrogen 14 mg/dL (7-17); Calcium 7.9 mg/dL (8.4-10.2); Carbon Dioxide 25 mmol/L (22-30); Chloride 103 mmol/L (98-107); Estimated CRCL calculation 46 ml/min; Estimated Glomerular Filt Rate 50; Glucose 91 mg/dL (65-110); Magnesium 1.6 mg/dL (1.6-2.3); Phosphorus 2.5 mg/dL (2.5-4.5); Potassium 3.9 mmol/L (3.4-5.0); Sodium 133 mmol/L (137-145)
[2024-11-16 06:54] LABS: Anisocytosis 1+; Hypochromasia 1+; Platelet Estimate Increased (Adequate); Schistocytes None Seen; Target Cells 1+
[2024-11-16] MEDS: CALCIUM CARBONATE (TUMS) 500 MG (200 MG ELEMENTAL) PO ×2 (08:32→17:08)
[2024-11-16] MEDS: FOLIC ACID 1 MG TABLET 2 MG PO (08:32)
[2024-11-16] MEDS: allopurinoL 300 MG TABLET PO (08:32)
[2024-11-16] MEDS: MAGNESIUM OXIDE 400 MG TABLET PO ×2 (08:32→21:12)
[2024-11-16] MEDS: amLODIPine BESYLATE 5 MG TABLET PO (08:32)
[2024-11-16] MEDS: ATORVASTATIN 10 MG TABLET PO (08:32)
[2024-11-16] MEDS: predniSONE 20 MG TABLET 40 MG PO (08:32)
[2024-11-16 09:43] LABS: CRP 4.1 mg/dL (<1.0)
[2024-11-16 10:01] LABS: Erythrocyte Sedimentation Rate 125 mm/hr (0-20)
[2024-11-16] MEDS: POTASSIUM CHLORIDE 20 MEQ ER TABLET PO (10:33)
--- NOTE | 2024-11-16 11:03 | PM.IMPN ---
Progress Note: A&P Assessment and Plan (1) Crohn disease: Code(s): K50.90 - Crohn's disease, unspecified, without complications Status: Acute Assessment and Plan: Patient presented to the hospital endorsing loose frequent stools concerning for Crohn flare CRP 13.3 and ESR >140 Prednisone 40 mg daily, transition to slow prednisone taper at [place] [facility] consulted s/p colonoscopy with bx on 11/[address] Huber moderate patchy chohns disease, colitis with mod decreased vascularity, erythematous, edematous, friable and ulcerative changes. Perianal fistula. Path: Active colitis HepB non reactive and TB pending. Follow up outpatient in 3-4 weeks 11/16/24: WBC 11.7, CRP 4.1, ESR 125. (2) Anemia: Code(s): D64.9 - Anemia, unspecified Status: Acute Assessment and Plan: H/H 8.9/25.6 on admission, previously WNL in December 2023. - No signs of active bleeding - H/H 6.7/19.2 on am labs, transfuse 1 unit pRBC. Repeat H/H following transfusion was 9.4/27.5 - Iron panel: Iron 33, TIBC 114, % sat 29, Ferritin 706 - B12 and folate WNL - GI consulted appreciate recs. s/p EGD and colonoscopies on 11/[address] Huber EGD: unremarkable Colonoscopy: moderate patchy chohns disease, colitis with mod decreased vascularity, erythematous, edematous, friable and ulcerative changes. Perianal fistula. Path: Active colitis -H&H this morning 8.5/25.4. -Monitor labs and for signs of bleeding. (3) Acute kidney injury: Code(s): N17.9 - Acute kidney failure, unspecified Status: Acute Assessment and Plan: -BUN/Cr 35/2.01 on admission with GFR 31. Likely secondary to dehydration related to diarrhea and decreased oral intake -BUN/Cr 14/1.33with gfr 50 on am labs -Avoid nephrotoxic medication -Renally dose medications -Nephrology consulted appreciate recommendations -Resolved. (4) Hypocalcemia: Code(s): E83.51 - Hypocalcemia Status: Acute Assessment and Plan: - Calcium 7.9 this am, - GI consulted will get serology for celiac, also pancreatic elastase in stool, inflammatory markers with calprotectin to assess if signs of inflammation (5) Hypomagnesemia: Code(s): E83.42 - Hypomagnesemia Status: Acute Assessment and Plan: 11/12/24 - Magnesium 1.0 this am. Nephrology ordered 3gm this am, will repeat labs 1400 and further replete as needed. 11/13/2024: - Magnesium 1.7 on am labs. 11/15/2024: - Magnesium 1.8 on am labs 11/16/24: - Magnesium 1.6 on am labs. - Magnesium 400 mg PO q12. (6) Hypokalemia: Code(s): E87.6 - Hypokalemia Status: Acute Assessment and Plan: - K 3.9 this am, given 20 meq this am to keep K >4. (7) Acute hyponatremia: Code(s): E87.1 - Hypo-osmolality and hyponatremia Status: Acute Assessment and Plan: - Remains stable. Na 133 on am labs. Appreciate nephrology recs. (8) Pyuria: Code(s): R82.81 - Pyuria Status: Acute Assessment and Plan: - Noted bacteriuria, pyuria with absolute absence of urinary symptoms. - If symptomatic would cover with abx. Culture is negative. Subjective Date/time seen: 11/16/24 11:03 Interval history: Patient reports feeling better today. Patient denies chest pain, palpitations, headache, dizziness, nausea, or vomiting. Review of Systems Review of Systems: All systems reviewed & are unremarkable except as noted in HPI and below Exam Const: General: comfortable and no acute distress Eyes: Sclera: sclerae normal Resp: Effort & Inspection: normal respiratory effort Auscultation: clear to auscultation bilaterally Cardio: Rate: regular rate Rhythm: regular rhythm GI: GI Palp: Yes Soft to palpation Auscultation: normal bowel sounds Skin: General skin exam: no rashes or lesions noted Neuro: Speech: normal speech Extrem: General: no pedal edema Psych: Mental Status: mental status grossly normal Affect: normal affect Objective Data Vital Signs Vital Signs: Vital Signs - 24 hr 11/15/24 12:00 11/15/24 12:37 11/15/24 12:53 Temperature 97.6 F 96.7 F L Pulse Rate 109 H 114 H 115 H Respiratory Rate 18 16 Blood Pressure 119/72 120/74 Pulse Oximetry 100 100 Oxygen Delivery 11/15/24 13:53 11/15/24 14:00 11/15/24 15:34 Temperature 97.8 F 96.8 F L 97.6 F Pulse Rate 100 95 106 H Respiratory Rate 16 18 18 Blood Pressure 110/66 110/66 118/71 Pulse Oximetry 96 100 100 Oxygen Delivery 11/15/24 16:00 11/15/24 19:53 11/15/24 20:00 Temperature 97 F L Pulse Rate 110 H 107 H Respiratory Rate 18 Blood Pressure 129/85 Pulse Oximetry 100 Oxygen Delivery Room Air 11/15/24 20:00 11/16/24 00:00 11/16/24 04:00 Temperature Pulse Rate 128 H 99 95 Respiratory Rate Blood Pressure Pulse Oximetry Oxygen Delivery 11/16/24 04:24 11/16/24 08:35 11/16/24 08:35 Temperature 97 F L Pulse Rate 100 102 H Respiratory Rate 18 Blood Pressure 129/75 Pulse Oximetry 100 Oxygen Delivery Room Air Intake/Output Intake/Output: Intake & Output 11/13/24 11/14/24 11/15/24 11/16/24 23:59 23:59 23:59 23:59 Intake Total 4333.3 2932.5 4142 890 Balance 4333.3 2932.5 4142 890 Meds/Results Medications: Active Medications Generic Name Dose Route Start Last Admin Trade Name Freq PRN Reason Stop Dose Admin Allopurinol 300 mg 11/12/24 09:00 11/16/24 08:32 Allopurinol 300 Mg Tablet PO 300 mg DAILY EDER Administration Amlodipine Besylate 5 mg 11/12/24 09:00 11/16/24 08:32 Amlodipine Besylate 5 Mg Tablet PO 5 mg DAILY EDER Administration Atorvastatin Calcium 10 mg 11/12/24 09:00 11/16/24 08:32 Atorvastatin 10 Mg Tablet PO 10 mg DAILY EDER Administration Calcium Carbonate 200 mg 11/11/24 17:00 11/16/24 08:32 Calcium Carbonate (Tums) 500 Mg (200 Mg Elemental) PO 200 mg TID EDER Administration Folic Acid 2 mg 11/12/24 09:00 11/16/24 08:32 Folic Acid 1 Mg Tablet PO 2 mg DAILY EDER Administration Magnesium Oxide 400 mg 11/11/24 21:00 11/16/24 08:32 Magnesium Oxide 400 Mg Tablet PO 400 mg Q12HR EDER Administration Prednisone 40 mg 11/12/24 08:00 11/16/24 08:32 Prednisone 20 Mg Tablet PO 40 mg DAILY@0800 EDER Administration Radiology Results: ITS Impressions Chest X-Ray 11/10/24 18:07 IMPRESSION: No focal infiltrate or effusion. Renal Ultrasound 11/11/24 20:52 IMPRESSION: Unremarkable sonographic evaluation of the bilateral kidneys and bladder, as detailed above Labs Labs: Laboratory Results - last 24 hr 11/11/24 11/11/24 11/13/24 17:13 17:14 05:46 WBC RBC Hgb Hct MCV MCH MCHC RDW Plt Count MPV Immature Gran % (Auto) Neut % (Auto) Lymph % (Auto) [place] % (Auto) Eos % (Auto) Baso % (Auto) Lymph # (Auto) [place] # (Auto) Eos # (Auto) Baso # (Auto) Abs Immat Gran (auto) Absolute Neuts (auto) Absolute Nucleated RBC Nucleated RBC % Platelet Estimate Hypochromasia Anisocytosis Target Cells Schistocytes ESR Sodium Potassium Chloride Carbon Dioxide Anion Gap BUN Creatinine Estim Creat Clear Calc Estimated GFR Glucose Calcium Phosphorus Magnesium C-Reactive Protein Albumin Urine Osmolality 324 Ur Random Creatinine 70 Ur Random Calcium 1.3 Calcium/Creat Ratio 19 Tiss Transglutamin IgG 1.0 Tiss Transglutamin IgA <1.0 Hep B Core Total Ab Blood Type Antibody Screen Crossmatch 11/14/24 11/15/24 11/15/24 11:06 06:22 16:45 WBC RBC Hgb 9.4 L Hct 27.5 L MCV MCH MCHC RDW Plt Count MPV Immature Gran % (Auto) Neut % (Auto) Lymph % (Auto) [place] % (Auto) Eos % (Auto) Baso % (Auto) Lymph # (Auto) [place] # (Auto) Eos # (Auto) Baso # (Auto) Abs Immat Gran (auto) Absolute Neuts (auto) Absolute Nucleated RBC Nucleated RBC % Platelet Estimate Hypochromasia Anisocytosis Target Cells Schistocytes ESR Sodium Potassium Chloride Carbon Dioxide Anion Gap BUN Creatinine Estim Creat Clear Calc Estimated GFR Glucose Calcium Phosphorus Magnesium C-Reactive Protein Albumin Urine Osmolality Ur Random Creatinine Ur Random Calcium Calcium/Creat Ratio Tiss Transglutamin IgG Tiss Transglutamin IgA Hep B Core Total Ab Non-reactive Blood Type O Positive Antibody Screen Negative Crossmatch See Detail 11/16/24 11/16/24 05:13 05:17 WBC 11.7 H RBC 2.96 L Hgb 8.5 L Hct 25.4 L MCV 85.8 MCH 28.7 MCHC 33.5 RDW 12.1 Plt Count 441 H MPV 8.3 Immature Gran % (Auto) 4.3 H Neut % (Auto) 72.6 Lymph % (Auto) 12.5 L [place] % (Auto) 10.1 H Eos % (Auto) 0.1 Baso % (Auto) 0.4 Lymph # (Auto) 1.46 [place] # (Auto) 1.2 H Eos # (Auto) 0.0 Baso # (Auto) 0.1 Abs Immat Gran (auto) 0.50 H Absolute Neuts (auto) 8.5 H Absolute Nucleated RBC 0.040 H Nucleated RBC % 0.3 H Platelet Estimate Increased Hypochromasia 1+ Anisocytosis 1+ Target Cells 1+ Schistocytes None seen ESR 125 H Sodium 133 L Potassium 3.9 Chloride 103 Carbon Dioxide 25 Anion Gap 5 BUN 14 Creatinine 1.33 H Estim Creat Clear Calc 46 Estimated GFR 50 L Glucose 91 Calcium 7.9 L Phosphorus 2.5 Magnesium 1.6 C-Reactive Protein 4.1 H Albumin 2.4 L Urine Osmolality Ur Random Creatinine Ur Random Calcium Calcium/Creat Ratio Tiss Transglutamin IgG Tiss Transglutamin IgA Hep B Core Total Ab Blood Type Antibody Screen Crossmatch Quality VTE Prophylaxis VTE prophylaxis: mechanical ordered
--- NOTE | 2024-11-16 11:19 | PCNFU ---
Nutrition Follow-Up Complete: Unintentional weight loss related to loss of appetite, Crohn's disease as evidenced by 16% weight loss/9 months Goal: Adequate PO intake at least 75% meals and supplements Patient is meeting goal. No new goal. Pt current nutrition is Regular with Ensure Compact BID. Last recorded weight is 87 kg, no new weight to report. Bowel Motility: +BM reported 11/16 Labs Reviewed:Cr 1.33, Na 133, GFR 50, Alb 2.4 Meds Noted:Folic Acid, Prednisone Skin: WNL Additional Notes: Patient remains on a regular diet. Intake has been > 75% of meals. Diet supplement of Ensure Compact BID providing an additional 220 kcal and 9 gm protein. Agree with diet orders. Monitoring intakes, weights, labs, supplement tolerance, plan of care Follow up in 7 days
--- NOTE | 2024-11-16 17:00 | P.PNGI_ITS ---
Progress Note: A&P Assessment and Plan (1) Crohn's disease of colon: Code(s): K50.10 - Crohn's disease of large intestine without complications Status: Acute Assessment and Plan: active colitis- confirmed by biopsies and also perianal fistula she can go home tomorrow with oral prednisone 40 mg then will need slow taper- probably decrease 5 mg every week follow-up in office 3-4 weeks, she needs to be on biologics such as anti-tnf, skyrizi, etc (patient was on cimzia years ago which was working but insurance stopped coverage) - HBV negative, pending TB status (2) Loose stools: Code(s): R19.5 - Other fecal abnormalities Status: Acute Assessment and Plan: slowly improving (3) Acute kidney injury: Code(s): N17.9 - Acute kidney failure, unspecified Status: Acute Assessment and Plan: improved (4) Acute on chronic anemia: Code(s): D64.9 - Anemia, unspecified Status: Acute Assessment and Plan: normal egd and no overt gib but friable colitis s/p blood transfusion active colitis can explain part of her symptoms patient can go home tomorrow Subjective Date/time seen: 11/16/24 17:00 Interval history: no changes, less stool frequency, feeling comfortable after blood transfusion Review of Systems Review of Systems: All systems reviewed & are unremarkable except as noted in HPI and below Exam Const: General: comfortable and no acute distress HENMT: Face/Nose/Sinus: Normal nares present Eyes: General: appearance normal, both eyes and all related structures Neck: Neck: supple Resp: Auscultation: clear to auscultation bilaterally Cardio: Rate: regular rate Rhythm: regular rhythm GI: Inspection: non-distended GI Palp: Yes Soft to palpation and No Tenderness to palpation present (GI) Auscultation: normal bowel sounds Skin: General skin exam: normal color Neuro: General: gait normal Speech: normal speech Extrem: General: normal to inspection Psych: Mental Status: mental status grossly normal Objective Data Vital Signs Vital Signs: Vital Signs - 24 hr 11/15/24 19:53 11/15/24 20:00 11/15/24 20:00 Temperature 97 F L Pulse Rate 107 H 128 H Respiratory Rate 18 Blood Pressure 129/85 Pulse Oximetry 100 Oxygen Delivery Room Air 11/16/24 00:00 11/16/24 04:00 11/16/24 04:24 Temperature 97 F L Pulse Rate 99 95 100 Respiratory Rate 18 Blood Pressure 129/75 Pulse Oximetry 100 Oxygen Delivery 11/16/24 08:35 11/16/24 08:35 11/16/24 12:00 Temperature Pulse Rate 102 H 126 H Respiratory Rate Blood Pressure Pulse Oximetry Oxygen Delivery Room Air 11/16/24 14:00 Temperature 97.2 F L Pulse Rate 99 Respiratory Rate 18 Blood Pressure 127/82 Pulse Oximetry 100 Oxygen Delivery Intake/Output Intake/Output: Intake & Output 11/13/24 11/14/24 11/15/24 11/16/24 23:59 23:59 23:59 23:59 Intake Total 4333.3 2932.5 4142 1130 Balance 4333.3 2932.5 4142 1130 Meds/Results Medications: Active Medications Generic Name Dose Route Start Last Admin Trade Name Freq PRN Reason Stop Dose Admin Allopurinol 300 mg 11/12/24 09:00 11/16/24 08:32 Allopurinol 300 Mg Tablet PO 300 mg DAILY EDER Administration Amlodipine Besylate 5 mg 11/12/24 09:00 11/16/24 08:32 Amlodipine Besylate 5 Mg Tablet PO 5 mg DAILY EDER Administration Atorvastatin Calcium 10 mg 11/12/24 09:00 11/16/24 08:32 Atorvastatin 10 Mg Tablet PO 10 mg DAILY EDER Administration Calcium Carbonate 200 mg 11/11/24 17:00 11/16/24 13:00 Calcium Carbonate (Tums) 500 Mg (200 Mg Elemental) PO Not Given TID [facility] Folic Acid 2 mg 11/12/24 09:00 11/16/24 08:32 Folic Acid 1 Mg Tablet PO 2 mg DAILY EDER Administration Magnesium Oxide 400 mg 11/11/24 21:00 11/16/24 08:32 Magnesium Oxide 400 Mg Tablet PO 400 mg Q12HR EDER Administration Prednisone 40 mg 11/12/24 08:00 11/16/24 08:32 Prednisone 20 Mg Tablet PO 40 mg DAILY@0800 [facility] Administration Radiology Results: ITS Impressions Chest X-Ray 11/10/24 18:07 IMPRESSION: No focal infiltrate or effusion. Renal Ultrasound 11/11/24 20:52 IMPRESSION: Unremarkable sonographic evaluation of the bilateral kidneys and bladder, as detailed above Labs Labs: Laboratory Results - last 24 hr 11/11/24 11/13/24 11/14/24 17:14 05:46 11:06 WBC RBC Hgb Hct MCV MCH MCHC RDW Plt Count MPV Immature Gran % (Auto) Neut % (Auto) Lymph % (Auto) [place] % (Auto) Eos % (Auto) Baso % (Auto) Lymph # (Auto) [place] # (Auto) Eos # (Auto) Baso # (Auto) Abs Immat Gran (auto) Absolute Neuts (auto) Absolute Nucleated RBC Nucleated RBC % Platelet Estimate Hypochromasia Anisocytosis Target Cells Schistocytes ESR Sodium Potassium Chloride Carbon Dioxide Anion Gap BUN Creatinine Estim Creat Clear Calc Estimated GFR Glucose Calcium Phosphorus Magnesium C-Reactive Protein Albumin Ur Random Creatinine 70 Ur Random Calcium 1.3 Calcium/Creat Ratio 19 Tiss Transglutamin IgG 1.0 Tiss Transglutamin IgA <1.0 Hep B Core Total Ab Non-reactive 11/16/24 11/16/24 05:13 05:17 WBC 11.7 H RBC 2.96 L Hgb 8.5 L Hct 25.4 L MCV 85.8 MCH 28.7 MCHC 33.5 RDW 12.1 Plt Count 441 H MPV 8.3 Immature Gran % (Auto) 4.3 H Neut % (Auto) 72.6 Lymph % (Auto) 12.5 L [place] % (Auto) 10.1 H Eos % (Auto) 0.1 Baso % (Auto) 0.4 Lymph # (Auto) 1.46 [place] # (Auto) 1.2 H Eos # (Auto) 0.0 Baso # (Auto) 0.1 Abs Immat Gran (auto) 0.50 H Absolute Neuts (auto) 8.5 H Absolute Nucleated RBC 0.040 H Nucleated RBC % 0.3 H Platelet Estimate Increased Hypochromasia 1+ Anisocytosis 1+ Target Cells 1+ Schistocytes None seen ESR 125 H Sodium 133 L Potassium 3.9 Chloride 103 Carbon Dioxide 25 Anion Gap 5 BUN 14 Creatinine 1.33 H Estim Creat Clear Calc 46 Estimated GFR 50 L Glucose 91 Calcium 7.9 L Phosphorus 2.5 Magnesium 1.6 C-Reactive Protein 4.1 H Albumin 2.4 L Ur Random Creatinine Ur Random Calcium Calcium/Creat Ratio Tiss Transglutamin IgG Tiss Transglutamin IgA Hep B Core Total Ab
[2024-11-16 17:18] LABS: NIL 0.02 IU/mL; Quantiferon TB Plus, 1T NEGATIVE (NEGATIVE)
[2024-11-17] VITALS (9 sets, daily range): BP systolic 122–142; BP diastolic 79–88; PULSE 94–141; RESP 16–18; TEMP 36.1–36.7; O2SAT 100
[2024-11-17 05:54] LABS: Basophils Percent Auto 0.3 % (0.2-1.2); Eosinophils Percent Auto 0.1 % (0-4.4); Hematocrit 24.5 % (37.0-47.0); Hemoglobin 8.4 g/dL (12.0-15.0); Immature Granulocyte Absolute 0.27 K/mm3 (0.00-0.031); Immature Granulocyte Percent A 2.4 % (0-0.5); Lymphocytes Absolute Auto 1.97 K/mm3 (0.9-3.2); Lymphocytes Percent Auto 17.3 % (18.3-44.2); Mean Corpuscular HGB Conc 34.3 g/dl (32-36); Mean Corpuscular Hemoglobin 29.4 pg (26-34); Mean Corpuscular Volume 85.7 fl (80-100); Mean Platelet Volume 8.4 fl (7.4-10.4); Monocytes Absolute Auto 1.2 K/mm3 (0.1-0.6); Monocytes Percent Auto 10.3 % (2.6-8.5); Neutrophils Absolute Auto 7.9 K/mm3 (1.3-6.7); Neutrophils Percent Auto 69.6 % (45.5-73.1); Nucleated Red Blood Cells Perc 0.2 % (0.0-0.2); Platelet Count Result 425 k/mm3 (150-375); Red Blood Count 2.86 M/mm3 (4.2-5.4); Red Cell Distribution Width 12.4 % (11.5-14.5); White Blood Count 11.4 K/mm3 (4.5-10.0)
[2024-11-17 06:18] LABS: Albumin Level 2.2 g/dL (3.5-5.1); Anion Gap 4 mmol/L (4-12); Blood Urea Nitrogen 14 mg/dL (7-17); Carbon Dioxide 28 mmol/L (22-30); Chloride 101 mmol/L (98-107); Estimated CRCL calculation 45 ml/min; Estimated Glomerular Filt Rate 49; Glucose 86 mg/dL (65-110); Magnesium 1.4 mg/dL (1.6-2.3); Phosphorus 2.2 mg/dL (2.5-4.5); Potassium 3.6 mmol/L (3.4-5.0); Sodium 133 mmol/L (137-145)
[2024-11-17] MEDS: FOLIC ACID 1 MG TABLET 2 MG PO (09:40)
[2024-11-17] MEDS: CALCIUM CARBONATE (TUMS) 500 MG (200 MG ELEMENTAL) PO ×3 (09:40→17:37)
[2024-11-17] MEDS: MAGNESIUM OXIDE 400 MG TABLET PO ×2 (09:40→21:37)
[2024-11-17] MEDS: predniSONE 20 MG TABLET 40 MG PO (09:40)
[2024-11-17] MEDS: POTASSIUM CHLORIDE 20 MEQ ER TABLET 40 MEQ PO (09:40)
[2024-11-17] MEDS: allopurinoL 300 MG TABLET PO (09:40)
[2024-11-17] MEDS: amLODIPine BESYLATE 5 MG TABLET PO (09:40)
[2024-11-17] MEDS: ATORVASTATIN 10 MG TABLET PO (09:40)
[2024-11-17] MEDS: POTASSIUM/PHOSPHORUS/SODIUM 1.5 GM PACKET 1 PACKET PO (09:41)
[2024-11-17] MEDS: MAGNESIUM SULFATE 3GM/D5W100ML 3 GM/100 ML BAG IVPB (09:42)
--- NOTE | 2024-11-17 10:22 | P.PNIM_ITS ---
Progress Note: A&P Assessment and Plan (1) Crohn disease: Code(s): K50.90 - Crohn's disease, unspecified, without complications Status: Acute Assessment and Plan: Patient presented to the hospital endorsing loose frequent stools concerning for Crohn flare CRP 13.3 and ESR >140 Prednisone 40 mg daily, transition to slow prednisone taper at [place] consulted s/p colonoscopy with bx on 11/[address] Huber moderate patchy chohns disease, colitis with mod decreased vascularity, erythematous, edematous, friable and ulcerative changes. Perianal fistula. Path: Active colitis HepB non reactive and TB pending. Follow up outpatient in 3-4 weeks 11/16/24: WBC 11.7, CRP 4.1, ESR 125. 11/17/24: WBC 11.4 (2) Anemia: Code(s): D64.9 - Anemia, unspecified Status: Acute Assessment and Plan: H/H 8.9/25.6 on admission, previously WNL in December 2023. - No signs of active bleeding - H/H 6.7/19.2 on am labs, transfuse 1 unit pRBC. Repeat H/H following transfusion was 9.4/27.5 - Iron panel: Iron 33, TIBC 114, % sat 29, Ferritin 706 - B12 and folate WNL - GI consulted appreciate recs. s/p EGD and colonoscopies on 11/[address] Huber EGD: unremarkable Colonoscopy: moderate patchy chohns disease, colitis with mod decreased vascularity, erythematous, edematous, friable and ulcerative changes. Perianal fistula. Path: Active colitis -H&H this morning 8.4/24.5. Add Niferex 150 mg PO daily. -Monitor labs and for signs of bleeding. (3) Acute kidney injury: Code(s): N17.9 - Acute kidney failure, unspecified Status: Acute Assessment and Plan: -BUN/Cr 35/2.01 on admission with GFR 31. Likely secondary to dehydration related to diarrhea and decreased oral intake -BUN/Cr 14/1.37 with gfr 49 on am labs -Avoid nephrotoxic medication -Renally dose medications -Nephrology consulted appreciate recommendations -Resolved. (4) Hypocalcemia: Code(s): E83.51 - Hypocalcemia Status: Acute Assessment and Plan: - Calcium 8.0 this am, - GI consulted will get serology for celiac, also pancreatic elastase in stool, inflammatory markers with calprotectin to assess if signs of inflammation (5) Hypomagnesemia: Code(s): E83.42 - Hypomagnesemia Status: Acute Assessment and Plan: 11/12/24 - Magnesium 1.0 this am. Nephrology ordered 3gm this am, will repeat labs 1400 and further replete as needed. 11/13/2024: - Magnesium 1.7 on am labs. 11/15/2024: - Magnesium 1.8 on am labs 11/16/24: - Magnesium 1.6 on am labs. - Magnesium 400 mg PO q12. 11/07/24: - Magnesium 1.4. - Magnesium Sulfate 3 gram IVPB x1 given. - Continue Magnesium Oxide 400 mg PO q12. (6) Hypokalemia: Code(s): E87.6 - Hypokalemia Status: Acute Assessment and Plan: - K 3.6 this am, given 40 meq this am to keep K >4. (7) Acute hyponatremia: Code(s): E87.1 - Hypo-osmolality and hyponatremia Status: Acute Assessment and Plan: - Remains stable. Na 133 on am labs. Appreciate nephrology recs. (8) Pyuria: Code(s): R82.81 - Pyuria Status: Acute Assessment and Plan: - Noted bacteriuria, pyuria with absolute absence of urinary symptoms. - If symptomatic would cover with abx. Culture is negative. (9) Hypophosphatemia: Code(s): E83.39 - Other disorders of phosphorus metabolism Status: Acute Assessment and Plan: * phosphate 2.2 * Neutra phos 1 pack given * Monitor phosphorus level. Subjective Date/time seen: 11/17/24 10:22 Interval history: Patient reports feeling better. Patient reports that she just got up and moved around and that is why her heart is tachycardic but she does not feel it. Patient denies chest pain, palpitations, headache, dizziness, nausea, or vomiting. Review of Systems Review of Systems: All systems reviewed & are unremarkable except as noted in HPI and below Exam Const: General: comfortable and no acute distress Eyes: Sclera: sclerae normal Resp: Effort & Inspection: normal respiratory effort Auscultation: clear to auscultation bilaterally Cardio: Rate: tachycardic (ST 126) GI: GI Palp: Yes Soft to palpation Auscultation: normal bowel sounds Skin: General skin exam: no rashes or lesions noted Neuro: General: gait normal Speech: normal speech Extrem: General: no pedal edema Psych: Mental Status: mental status grossly normal Affect: normal affect Objective Data Vital Signs Vital Signs: Vital Signs - 24 hr 11/16/24 12:00 11/16/24 14:00 11/16/24 16:00 Temperature 97.2 F L Pulse Rate 126 H 99 124 H Respiratory Rate 18 Blood Pressure 127/82 Pulse Oximetry 100 Oxygen Delivery 11/16/24 20:00 11/16/24 20:00 11/16/24 21:07 Temperature 96.9 F L Pulse Rate 113 H 115 H Respiratory Rate 15 Blood Pressure 115/75 Pulse Oximetry 100 Oxygen Delivery Room Air 11/17/24 00:00 11/17/24 04:00 11/17/24 04:37 Temperature 98.1 F Pulse Rate 96 94 100 Respiratory Rate 16 Blood Pressure 137/88 Pulse Oximetry 100 Oxygen Delivery 11/17/24 08:00 11/17/24 08:00 Temperature Pulse Rate 118 H Respiratory Rate Blood Pressure Pulse Oximetry Oxygen Delivery Room Air Intake/Output Intake/Output: Intake & Output 11/14/24 11/15/24 11/16/24 11/17/24 23:59 23:59 23:59 23:59 Intake Total 2932.5 4142 2330 450 Balance 2932.5 4142 2330 450 Meds/Results Medications: Active Medications Generic Name Dose Route Start Last Admin Trade Name Roger PRN Reason Stop Dose Admin Allopurinol 300 mg 11/12/24 09:00 11/17/24 09:40 Allopurinol 300 Mg Tablet PO 300 mg DAILY EDER Administration Amlodipine Besylate 5 mg 11/12/24 09:00 11/17/24 09:40 Amlodipine Besylate 5 Mg Tablet PO 5 mg DAILY EDER Administration Atorvastatin Calcium 10 mg 11/12/24 09:00 11/17/24 09:40 Atorvastatin 10 Mg Tablet PO 10 mg DAILY EDER Administration Calcium Carbonate 200 mg 11/11/24 17:00 11/17/24 09:40 Calcium Carbonate (Tums) 500 Mg (200 Mg Elemental) PO 200 mg TID EDER Administration Folic Acid 2 mg 11/12/24 09:00 11/17/24 09:40 Folic Acid 1 Mg Tablet PO 2 mg DAILY EDER Administration Magnesium Sulfate/Dextrose 3 gm in 100 mls @ 33.333 mls/hr 11/17/24 08:58 11/17/24 09:42 Magnesium Sulfate 3gm/[id number] IVPB 11/17/24 11:57 33.33 mls/hr ONCE ONE Administration Magnesium Oxide 400 mg 11/11/24 21:00 11/17/24 09:40 Magnesium Oxide 400 Mg Tablet PO 400 mg Q12HR EDER Administration Prednisone 40 mg 11/12/24 08:00 11/17/24 09:40 Prednisone 20 Mg Tablet PO 40 mg DAILY@0800 EDER Administration Radiology Results: ITS Impressions Chest X-Ray 11/10/24 18:07 IMPRESSION: No focal infiltrate or effusion. Renal Ultrasound 11/11/24 20:52 IMPRESSION: Unremarkable sonographic evaluation of the bilateral kidneys and bladder, as detailed above Labs Labs: Laboratory Results - last 24 hr 11/14/24 11/17/24 11:06 05:17 WBC 11.4 H RBC 2.86 L Hgb 8.4 L Hct 24.5 L MCV 85.7 MCH 29.4 MCHC 34.3 RDW 12.4 Plt Count 425 H MPV 8.4 Immature Gran % (Auto) 2.4 H Neut % (Auto) 69.6 Lymph % (Auto) 17.3 L [place] % (Auto) 10.3 H Eos % (Auto) 0.1 Baso % (Auto) 0.3 Lymph # (Auto) 1.97 [place] # (Auto) 1.2 H Eos # (Auto) 0.0 Baso # (Auto) 0.0 Abs Immat Gran (auto) 0.27 H Absolute Neuts (auto) 7.9 H Absolute Nucleated RBC 0.020 H Nucleated RBC % 0.2 Sodium 133 L Potassium 3.6 Chloride 101 Carbon Dioxide 28 Anion Gap 4 BUN 14 Creatinine 1.37 H Estim Creat Clear Calc 45 Estimated GFR 49 L Glucose 86 Calcium 8.0 L Phosphorus 2.2 L Magnesium 1.4 L Albumin 2.2 L TB Test (QFT) Gold Plus Negative TB Test (QFT) Nil 0.02 TB Test Mitogen - Nil 1.90 TB Test Ag - Nil 1 0.00 TB Test Ag - Nil 2 0.00 Quality VTE Prophylaxis VTE prophylaxis: mechanical ordered
[2024-11-17] MEDS: POLYSACCHARIDE IRON COMPLEX 150 MG CAPSULE PO (12:50)
[2024-11-18] VITALS (9 sets, daily range): BP systolic 126–146; BP diastolic 78–89; PULSE 89–134; RESP 18; TEMP 36.2–36.4; O2SAT 100
[2024-11-18 06:30] LABS: Basophils Percent Auto 0.3 % (0.2-1.2); Eosinophils Percent Auto 0.1 % (0-4.4); Hematocrit 23.8 % (37.0-47.0); Hemoglobin 8.2 g/dL (12.0-15.0); Immature Granulocyte Absolute 0.16 K/mm3 (0.00-0.031); Immature Granulocyte Percent A 1.8 % (0-0.5); Lymphocytes Absolute Auto 1.73 K/mm3 (0.9-3.2); Lymphocytes Percent Auto 19.2 % (18.3-44.2); Mean Corpuscular HGB Conc 34.5 g/dl (32-36); Mean Corpuscular Hemoglobin 29.4 pg (26-34); Mean Corpuscular Volume 85.3 fl (80-100); Mean Platelet Volume 8.3 fl (7.4-10.4); Monocytes Absolute Auto 0.9 K/mm3 (0.1-0.6); Neutrophils Absolute Auto 6.2 K/mm3 (1.3-6.7); Neutrophils Percent Auto 68.6 % (45.5-73.1); Nucleated Red Blood Cells Perc 0.2 % (0.0-0.2); Platelet Count Result 382 k/mm3 (150-375); Red Blood Count 2.79 M/mm3 (4.2-5.4); Red Cell Distribution Width 12.3 % (11.5-14.5)
[2024-11-18 06:48] LABS: Albumin Level 2.1 g/dL (3.5-5.1); Anion Gap 4 mmol/L (4-12); Blood Urea Nitrogen 15 mg/dL (7-17); Calcium 8.3 mg/dL (8.4-10.2); Carbon Dioxide 29 mmol/L (22-30); Chloride 101 mmol/L (98-107); Estimated CRCL calculation 48 ml/min; Estimated Glomerular Filt Rate 53; Glucose 85 mg/dL (65-110); Magnesium 2.1 mg/dL (1.6-2.3); Phosphorus 2.5 mg/dL (2.5-4.5); Potassium 3.6 mmol/L (3.4-5.0); Sodium 134 mmol/L (137-145)
[2024-11-18] MEDS: POLYSACCHARIDE IRON COMPLEX 150 MG CAPSULE PO ×2 (08:55→17:13)
[2024-11-18] MEDS: FOLIC ACID 1 MG TABLET 2 MG PO (08:55)
[2024-11-18] MEDS: CALCIUM CARBONATE (TUMS) 500 MG (200 MG ELEMENTAL) PO ×3 (08:55→17:14)
[2024-11-18] MEDS: allopurinoL 300 MG TABLET PO (08:55)
[2024-11-18] MEDS: predniSONE 20 MG TABLET 40 MG PO (08:55)
[2024-11-18] MEDS: MAGNESIUM OXIDE 400 MG TABLET PO ×2 (08:55→22:07)
[2024-11-18] MEDS: amLODIPine BESYLATE 5 MG TABLET PO (08:55)
[2024-11-18] MEDS: ATORVASTATIN 10 MG TABLET PO (08:55)
[2024-11-18] MEDS: POTASSIUM CHLORIDE 20 MEQ ER TABLET 40 MEQ PO (08:57)
[2024-11-18 11:29] LABS: IFOB Positive Control Positive; Immunochemical Fecal Occult Bl Positive (N)
--- NOTE | 2024-11-18 11:55 | P.PNIM_ITS ---
Progress Note: A&P Assessment and Plan (1) Crohn disease: Code(s): K50.90 - Crohn's disease, unspecified, without complications Status: Acute Assessment and Plan: Patient presented to the hospital endorsing loose frequent stools concerning for Crohn flare CRP 13.3 and ESR >140 Prednisone 40 mg daily, transition to slow prednisone taper at [place] GI consulted s/p colonoscopy with bx on 11/[address] Huber moderate patchy chohns disease, colitis with mod decreased vascularity, erythematous, edematous, friable and ulcerative changes. Perianal fistula. Path: Active colitis HepB non reactive and TB pending. Follow up outpatient in 3-4 weeks 11/16/24: WBC 11.7, CRP 4.1, ESR 125. 11/17/24: WBC 11.4 11/18/24: WBC 9.0. (2) Anemia: Code(s): D64.9 - Anemia, unspecified Status: Acute Assessment and Plan: H/H 8.9/25.6 on admission, previously WNL in December 2023. - No signs of active bleeding - H/H 6.7/19.2 on am labs, transfuse 1 unit pRBC. Repeat H/H following transfusion was 9.4/27.5 - Iron panel: Iron 33, TIBC 114, % sat 29, Ferritin 706 - B12 and folate WNL - GI consulted appreciate recs. s/p EGD and colonoscopies on 11/[address] Huber EGD: unremarkable Colonoscopy: moderate patchy chohns disease, colitis with mod decreased vascularity, erythematous, edematous, friable and ulcerative changes. Perianal fistula. Path: Active colitis -H&H this morning 8.9/23.8. Increase Niferex 150 mg PO BID. Stool positive for occult blood and blood counts slowly dropping each day. GI reconsulted. -Hematology/oncology saw patient. Ordered to check a soluble transferring receptor. Patient will be seen in office to start iron infusions. -Monitor labs and for signs of bleeding. (3) Acute kidney injury: Code(s): N17.9 - Acute kidney failure, unspecified Status: Acute Assessment and Plan: -BUN/Cr 35/2.01 on admission with GFR 31. Likely secondary to dehydration related to diarrhea and decreased oral intake -BUN/Cr 15/1.28 with gfr 53 on am labs -Avoid nephrotoxic medication -Renally dose medications -Nephrology consulted appreciate recommendations -Resolved. (4) Hypocalcemia: Code(s): E83.51 - Hypocalcemia Status: Acute Assessment and Plan: - Calcium 8.3 this am, - GI consulted will get serology for celiac, also pancreatic elastase in stool, inflammatory markers with calprotectin to assess if signs of inflammation (5) Hypomagnesemia: Code(s): E83.42 - Hypomagnesemia Status: Acute Assessment and Plan: 11/12/24 - Magnesium 1.0 this am. Nephrology ordered 3gm this am, will repeat labs 1400 and further replete as needed. 11/13/2024: - Magnesium 1.7 on am labs. 11/15/2024: - Magnesium 1.8 on am labs 11/16/24: - Magnesium 1.6 on am labs. - Magnesium 400 mg PO q12. 11/17/24: - Magnesium 1.4. - Magnesium Sulfate 3 gram IVPB x1 given. - Continue Magnesium Oxide 400 mg PO q12. 11/18/24: -Magnesium 2.1 -Continue Magnesium Oxide 400 mg PO q 12. (6) Hypokalemia: Code(s): E87.6 - Hypokalemia Status: Acute Assessment and Plan: - K 3.6 this am, given 40 meq this am to keep K >4. (7) Occult blood in stools: Code(s): R19.5 - Other fecal abnormalities Status: Acute Assessment and Plan: * Stool positive for occult blood. * Reconsulted GI. * Blood counts slowly decreasing each day. * Monitor stools and for signs of bleeding. * H&H this morning 8.9/23.8. Increase Niferex 150 mg PO BID. (8) Acute hyponatremia: Code(s): E87.1 - Hypo-osmolality and hyponatremia Status: Acute Assessment and Plan: - Remains stable. Na 134 on am labs. Appreciate nephrology recs. (9) Pyuria: Code(s): R82.81 - Pyuria Status: Acute Assessment and Plan: - Noted bacteriuria, pyuria with absolute absence of urinary symptoms. - If symptomatic would cover with abx. Culture is negative. (10) Hypophosphatemia: Code(s): E83.39 - Other disorders of phosphorus metabolism Status: Acute Assessment and Plan: * phosphate 2.5, improved. * Monitor phosphorus level. Subjective Date/time seen: 11/18/24 11:55 Interval history: Patient reports feeling better. Patient denies chest pain, palpitations, headache, dizziness, nausea, or vomiting. Patient denies seeing blood in stool but sometimes has a little blood on toilet tissue that she is not sure if from hemorrhoids. Patient reports before she could not sit upright and would have to go side to side. Patient reports that she has been using preparation H and Tucks. Review of Systems Review of Systems: All systems reviewed & are unremarkable except as noted in HPI and below Exam Const: General: comfortable and no acute distress Eyes: Sclera: sclerae normal Resp: Effort & Inspection: normal respiratory effort Auscultation: clear to auscultation bilaterally Cardio: Rate: tachycardic (Telemetry ST 120) GI: GI Palp: Yes Soft to palpation Auscultation: normal bowel sounds Skin: General skin exam: no rashes or lesions noted Neuro: Speech: normal speech Extrem: General: no pedal edema Psych: Mental Status: mental status grossly normal Affect: normal affect Objective Data Vital Signs Vital Signs: Vital Signs - 24 hr 11/17/24 12:00 11/17/24 14:00 11/17/24 16:00 Temperature 97.7 F Pulse Rate 141 H 115 H 103 H Respiratory Rate 16 Blood Pressure 122/79 Pulse Oximetry 100 Oxygen Delivery 11/17/24 20:00 11/17/24 20:00 11/17/24 21:34 Temperature 97 F L Pulse Rate 100 100 Respiratory Rate 18 Blood Pressure 142/81 H Pulse Oximetry 100 Oxygen Delivery Room Air 11/18/24 00:00 11/18/24 04:00 11/18/24 06:00 Temperature 97.2 F L Pulse Rate 93 89 96 Respiratory Rate 18 Blood Pressure 146/89 H Pulse Oximetry 100 Oxygen Delivery 11/18/24 08:00 Temperature Pulse Rate Respiratory Rate Blood Pressure Pulse Oximetry Oxygen Delivery Room Air Intake/Output Intake/Output: Intake & Output 11/15/24 11/16/24 11/17/24 11/18/24 23:59 23:59 23:59 23:59 Intake Total 4142 2330 1050 490 Balance 4142 2330 1050 490 Meds/Results Medications: Active Medications Generic Name Dose Route Start Last Admin Trade Name Roger PRN Reason Stop Dose Admin Allopurinol 300 mg 11/12/24 09:00 11/18/24 08:55 Allopurinol 300 Mg Tablet PO 300 mg DAILY EDER Administration Amlodipine Besylate 5 mg 11/12/24 09:00 11/18/24 08:55 Amlodipine Besylate 5 Mg Tablet PO 5 mg DAILY EDER Administration Atorvastatin Calcium 10 mg 11/12/24 09:00 11/18/24 08:55 Atorvastatin 10 Mg Tablet PO 10 mg DAILY EDER Administration Calcium Carbonate 200 mg 11/11/24 17:00 11/18/24 08:55 Calcium Carbonate (Tums) 500 Mg (200 Mg Elemental) PO 200 mg TID [facility] Administration Folic Acid 2 mg 11/12/24 09:00 11/18/24 08:55 Folic Acid 1 Mg Tablet PO 2 mg DAILY EDER Administration Magnesium Oxide 400 mg 11/11/24 21:00 11/18/24 08:55 Magnesium Oxide 400 Mg Tablet PO 400 mg Q12HR EDER Administration Polysaccharide Iron Complex 150 mg 11/18/24 17:00 Polysaccharide Iron Complex 150 Mg Capsule PO BID [facility] Prednisone 40 mg 11/12/24 08:00 11/18/24 08:55 Prednisone 20 Mg Tablet PO 40 mg DAILY@0800 EDER Administration Radiology Results: ITS Impressions Chest X-Ray 11/10/24 18:07 IMPRESSION: No focal infiltrate or effusion. Renal Ultrasound 11/11/24 20:52 IMPRESSION: Unremarkable sonographic evaluation of the bilateral kidneys and bladder, as detailed above Labs Labs: Laboratory Results - last 24 hr 11/18/24 11/18/24 05:52 11:00 WBC 9.0 RBC 2.79 L Hgb 8.2 L Hct 23.8 L MCV 85.3 MCH 29.4 MCHC 34.5 RDW 12.3 Plt Count 382 H MPV 8.3 Immature Gran % (Auto) 1.8 H Neut % (Auto) 68.6 Lymph % (Auto) 19.2 [place] % (Auto) 10.0 H Eos % (Auto) 0.1 Baso % (Auto) 0.3 Lymph # (Auto) 1.73 [place] # (Auto) 0.9 H Eos # (Auto) 0.0 Baso # (Auto) 0.0 Abs Immat Gran (auto) 0.16 H Absolute Neuts (auto) 6.2 Absolute Nucleated RBC 0.020 H Nucleated RBC % 0.2 Sodium 134 L Potassium 3.6 Chloride 101 Carbon Dioxide 29 Anion Gap 4 BUN 15 Creatinine 1.28 H Estim Creat Clear Calc 48 Estimated GFR 53 L Glucose 85 Calcium 8.3 L Phosphorus 2.5 Magnesium 2.1 Albumin 2.1 L Stl Occult Blood (IFOB) Positive H Quality VTE Prophylaxis VTE prophylaxis: mechanical ordered
--- NOTE | 2024-11-18 15:00 | WPDGIPROGNO ---
Progress Note: A&P Assessment and Plan (1) Crohn's disease of colon: Code(s): K50.10 - Crohn's disease of large intestine without complications Status: Acute Assessment and Plan: active colitis- confirmed by biopsies and also perianal fistula expected to have blood in stools because she has active chron's colitis and also recent biopsies- no need to keep patient in the hospital but definitely she will need biologics HANH (patient will follow-up in office soon and then we can submit order for biologics) in the meantime she can go home with oral prednisone 40 mg then will need slow taper- probably decrease 5 mg every week (2) Loose stools: Code(s): R19.5 - Other fecal abnormalities Status: Acute Assessment and Plan: slowly improving small amount of blood after wiping, also had recent colonoscopy and noted perianal fistula no objections to discharge (3) Acute kidney injury: Code(s): N17.9 - Acute kidney failure, unspecified Status: Acute Assessment and Plan: improved (4) Acute on chronic anemia: Code(s): D64.9 - Anemia, unspecified Status: Acute Assessment and Plan: normal egd and no overt gib but friable colitis s/p blood transfusion active colitis can explain part of her symptoms patient can go home Subjective Date/time seen: 11/18/24 15:00 Interval history: no issues, still mushy stool but eating ok, no abdominal pain, she is comfortable Review of Systems Review of Systems: All systems reviewed & are unremarkable except as noted in HPI and below Exam Const: General: comfortable and no acute distress HENMT: Face/Nose/Sinus: Normal nares present Eyes: General: appearance normal, both eyes and all related structures Neck: Neck: supple Resp: Auscultation: clear to auscultation bilaterally Cardio: Rate: regular rate Rhythm: regular rhythm GI: Inspection: non-distended GI Palp: Yes Soft to palpation and No Tenderness to palpation present (GI) Auscultation: normal bowel sounds Skin: General skin exam: normal color Neuro: General: gait normal Speech: normal speech Extrem: General: normal to inspection Psych: Mental Status: mental status grossly normal Objective Data Vital Signs Vital Signs: Vital Signs - 24 hr 11/17/24 16:00 11/17/24 20:00 11/17/24 20:00 Temperature Pulse Rate 103 H 100 Respiratory Rate Blood Pressure Pulse Oximetry Oxygen Delivery Room Air 11/17/24 21:34 11/18/24 00:00 11/18/24 04:00 Temperature 97 F L Pulse Rate 100 93 89 Respiratory Rate 18 Blood Pressure 142/81 H Pulse Oximetry 100 Oxygen Delivery 11/18/24 06:00 11/18/24 08:00 11/18/24 08:00 Temperature 97.2 F L Pulse Rate 96 105 H Respiratory Rate 18 Blood Pressure 146/89 H Pulse Oximetry 100 Oxygen Delivery Room Air 11/18/24 12:00 11/18/24 13:50 Temperature 97.4 F L Pulse Rate 111 H 109 H Respiratory Rate 18 Blood Pressure 126/78 Pulse Oximetry 100 Oxygen Delivery Intake/Output Intake/Output: Intake & Output 11/15/24 11/16/24 11/17/24 11/18/24 23:59 23:59 23:59 23:59 Intake Total 4142 2330 1050 490 Balance 4142 2330 1050 490 Meds/Results Medications: Active Medications Generic Name Dose Route Start Last Admin Trade Name Roger PRN Reason Stop Dose Admin Allopurinol 300 mg 11/12/24 09:00 11/18/24 08:55 Allopurinol 300 Mg Tablet PO 300 mg DAILY [facility] Administration Amlodipine Besylate 5 mg 11/12/24 09:00 11/18/24 08:55 Amlodipine Besylate 5 Mg Tablet PO 5 mg DAILY [facility] Administration Atorvastatin Calcium 10 mg 11/12/24 09:00 11/18/24 08:55 Atorvastatin 10 Mg Tablet PO 10 mg DAILY [facility] Administration Calcium Carbonate 200 mg 11/11/24 17:00 11/18/24 12:52 Calcium Carbonate (Tums) 500 Mg (200 Mg Elemental) PO 200 mg TID [facility] Administration Folic Acid 2 mg 11/12/24 09:00 11/18/24 08:55 Folic Acid 1 Mg Tablet PO 2 mg DAILY [facility] Administration Magnesium Oxide 400 mg 11/11/24 21:00 11/18/24 08:55 Magnesium Oxide 400 Mg Tablet PO 400 mg Q12HR [facility] Administration Polysaccharide Iron Complex 150 mg 11/18/24 17:00 Polysaccharide Iron Complex 150 Mg Capsule PO BID [facility] Prednisone 40 mg 11/12/24 08:00 11/18/24 08:55 Prednisone 20 Mg Tablet PO 40 mg DAILY@0800 [facility] Administration Radiology Results: ITS Impressions Chest X-Ray 11/10/24 18:07 IMPRESSION: No focal infiltrate or effusion. Renal Ultrasound 11/11/24 20:52 IMPRESSION: Unremarkable sonographic evaluation of the bilateral kidneys and bladder, as detailed above Labs Labs: Laboratory Results - last 24 hr 11/18/24 11/18/24 05:52 11:00 WBC 9.0 RBC 2.79 L Hgb 8.2 L Hct 23.8 L MCV 85.3 MCH 29.4 MCHC 34.5 RDW 12.3 Plt Count 382 H MPV 8.3 Immature Gran % (Auto) 1.8 H Neut % (Auto) 68.6 Lymph % (Auto) 19.2 Coleman % (Auto) 10.0 H Eos % (Auto) 0.1 Baso % (Auto) 0.3 Lymph # (Auto) 1.73 Coleman # (Auto) 0.9 H Eos # (Auto) 0.0 Baso # (Auto) 0.0 Abs Immat Gran (auto) 0.16 H Absolute Neuts (auto) 6.2 Absolute Nucleated RBC 0.020 H Nucleated RBC % 0.2 Sodium 134 L Potassium 3.6 Chloride 101 Carbon Dioxide 29 Anion Gap 4 BUN 15 Creatinine 1.28 H Estim Creat Clear Calc 48 Estimated GFR 53 L Glucose 85 Calcium 8.3 L Phosphorus 2.5 Magnesium 2.1 Albumin 2.1 L Stl Occult Blood (IFOB) Positive H
[2024-11-18 15:39] LABS: Calprotectin, Stool 2610 mcg/g
--- NOTE | 2024-11-18 16:06 | WPDONCCN ---
Assessment and Plan Assessment and plan (1) Anemia: Code(s): D64.9 - Anemia, unspecified Status: Acute Assessment and Plan: This is a pleasant 54-year-old female with history of Crohn's disease diagnosed more than 20 years ago. She has been taking prednisone. EGD done on November 14 showed normal finding but the colonoscopy showed Crohn's disease with rectal fistula. Hemoccult stool was positive. She denies any gross melena hematochezia. She has intermittent diarrhea and constipation. Labs showed significant anemia with hemoglobin of 6.7 with mild iron deficiency. Hemoglobin has now improved with blood transfusion. Her anemia secondary to Crohn disease with inflammation and iron deficiency. I will check soluble transferrin receptor. She is intolerant to oral iron. I will see her in the office to start iron infusion. I expect improvement in her hemoglobin with good control of Crohn's disease with the help of biological therapy. Her most likely she will be going home this weekend. She informed me that for her Crohn's disease she will be starting skirizi. I have answered all the questions to patient's satisfaction. Follow-up with me in the office. HPI Data of Consult Date/Time: 11/18/24 16:06 Requesting Physician: Sara Gagnon PA-C Primary Care Provider: Sergey Peterson, Consult Narrative Narrative: Tammy Soto is a 54 year old female with history of Crohn's disease diagnosed more than 20 years ago came into the hospital with tiredness and fatigue. She has intermittent diarrhea and constipation. Denies any melena hematochezia. Currently she is taking prednisone for the Crohn's disease. Her hemoccult stool came back positive. Patient had EGD done on September 14 came back normal. Colonoscopy was performed on the same date showed Crohn's disease with rectal fistula. He labs showed hemoglobin of 6.7. Iron level was low at 33, iron saturation was normal at 29% and ferritin was elevated at 706. She is feeling better. Denies any other new complaints. Review of Systems Review of Systems: Review of system as per HPI otherwise negative [facility] Past Medical History Medical History (Updated 11/18/24 @ 15:10 by Gayla Raman APRN) Crohn's disease of colon Acute on chronic anemia Anemia Loose stools Arthritis Hypertension Social History Social History Smoking status: Never smoker Alcohol intake: current Substance use: never Substance use type: does not use Do You Feel Safe in your Home?: Yes Lack of Transportation: No Lack of Food: Never True Current Housing: I Have Housing Concerned About Future Housing: No Difficulty Paying Gas/Electric Bills: No Difficulty Paying for Meds: No Currently Unemployed: No Education: Decline to Answer Difficulty w/ Childcare or Family Care: No Living arrangements: with family Gender identity (if verbalized by the patient): Female Spiritual care concerns: No Meds Home Medications and Allergies Home Medications ?Medication ?Instructions ?Recorded ?Confirmed ?Type folic acid 1 mg tablet 2 mg PO DAILY 01/18/21 11/11/24 History hydrochlorothiazide 25 mg tablet 25 mg PO DAILY 01/18/21 11/11/24 History allopurinol 300 mg tablet 300 mg PO DAILY 04/26/21 11/11/24 History amlodipine 2.5 mg tablet 5 mg PO DAILY 04/01/22 11/11/24 History atorvastatin 10 mg tablet 10 mg PO DAILY 12/30/23 11/11/24 History mesalamine 1.2 gram tablet,delayed 4.8 g (4 x 1.2 gram) PO DAILY 3 12/30/23 11/11/24 Rx release months #360 tabs Allergies Allergy/AdvReac Type Severity Reaction Status Date / Time amoxicillin (From Augmentin) Allergy Mild Diarrhea Verified 11/10/24 22:17 clavulanic acid (From Allergy Mild Diarrhea Verified 11/10/24 22:17 Augmentin) Vital Signs Vital Signs - 24 hr 11/17/24 20:00 11/17/24 20:00 11/17/24 21:34 Temperature 36.1 C L Pulse Rate 100 100 Respiratory Rate 18 Blood Pressure 142/81 H Pulse Oximetry 100 Oxygen Delivery Room Air 11/18/24 00:00 11/18/24 04:00 11/18/24 06:00 Temperature 36.2 C L Pulse Rate 93 89 96 Respiratory Rate 18 Blood Pressure 146/89 H Pulse Oximetry 100 Oxygen Delivery 11/18/24 08:00 11/18/24 08:00 11/18/24 12:00 Temperature Pulse Rate 105 H 111 H Respiratory Rate Blood Pressure Pulse Oximetry Oxygen Delivery Room Air 11/18/24 13:50 Temperature 36.3 C L Pulse Rate 109 H Respiratory Rate 18 Blood Pressure 126/78 Pulse Oximetry 100 Oxygen Delivery Exam Narrative: Lungs are clear to auscultation bilaterally Cardiovascular regular rate rhythm no murmurs Abdomen soft nontender nondistended Extremities no edema Results Labs 11/18/24 05:52 11/18/24 05:52 Labs: Short CBC 11/18/24 Range/Units 05:52 WBC 9.0 (4.5-10.0) K/mm3 Hgb 8.2 L (12.0-15.0) g/dL Hct 23.8 L (37.0-47.0) % Plt Count 382 H (150-375) k/mm3 BMP 11/18/24 05:52 Sodium 134 L Potassium 3.6 Chloride 101 Carbon Dioxide 29 BUN 15 Creatinine 1.28 H Glucose 85 Calcium 8.3 L Liver Function 11/18/24 Range/Units 05:52 Albumin 2.1 L (3.5-5.1) g/dL
[2024-11-19] VITALS: PULSE 105
[2024-11-19 04:00] VITALS: PULSE 89
[2024-11-19 04:06] VITALS: BP 137/87; PULSE 98; RESP 20; TEMP 36.5; O2SAT 100
[2024-11-19 06:39] LABS: Basophils Percent Auto 0.4 % (0.2-1.2); Eosinophils Percent Auto 0.2 % (0-4.4); Hematocrit 26.9 % (37.0-47.0); Hemoglobin 9.1 g/dL (12.0-15.0); Immature Granulocyte Absolute 0.16 K/mm3 (0.00-0.031); Immature Granulocyte Percent A 1.6 % (0-0.5); Lymphocytes Absolute Auto 1.44 K/mm3 (0.9-3.2); Lymphocytes Percent Auto 14.8 % (18.3-44.2); Mean Corpuscular HGB Conc 33.8 g/dl (32-36); Mean Corpuscular Hemoglobin 29.4 pg (26-34); Mean Corpuscular Volume 87.1 fl (80-100); Mean Platelet Volume 8.5 fl (7.4-10.4); Monocytes Percent Auto 9.8 % (2.6-8.5); Neutrophils Absolute Auto 7.1 K/mm3 (1.3-6.7); Neutrophils Percent Auto 73.2 % (45.5-73.1); Nucleated Red Blood Cells Perc 0.2 % (0.0-0.2); Platelet Count Result 441 k/mm3 (150-375); Red Blood Count 3.09 M/mm3 (4.2-5.4); Red Cell Distribution Width 12.3 % (11.5-14.5); White Blood Count 9.7 K/mm3 (4.5-10.0)
[2024-11-19 06:51] LABS: Alanine Aminotransferase 47 U/L (6-35); Albumin Level 2.6 g/dL (3.5-5.1); Alkaline Phosphatase 155 U/L (38-126); Anion Gap 4 mmol/L (4-12); Aspartate Amino Transferase 37 U/L (14-36); Bilirubin,Total 0.5 mg/dL (0.2-1.3); Blood Urea Nitrogen 18 mg/dL (7-17); Calcium 8.7 mg/dL (8.4-10.2); Carbon Dioxide 30 mmol/L (22-30); Chloride 100 mmol/L (98-107); Estimated CRCL calculation 45 ml/min; Estimated Glomerular Filt Rate 48; Glucose 90 mg/dL (65-110); Magnesium 1.9 mg/dL (1.6-2.3); Potassium 3.9 mmol/L (3.4-5.0); Sodium 134 mmol/L (137-145)
[2024-11-19 08:00] VITALS: PULSE 99
[2024-11-19] MEDS: MAGNESIUM OXIDE 400 MG TABLET PO (09:27)
[2024-11-19] MEDS: CALCIUM CARBONATE (TUMS) 500 MG (200 MG ELEMENTAL) PO ×2 (09:27→12:45)
[2024-11-19] MEDS: POLYSACCHARIDE IRON COMPLEX 150 MG CAPSULE PO (09:27)
[2024-11-19] MEDS: POTASSIUM CHLORIDE 20 MEQ ER TABLET PO (09:27)
[2024-11-19] MEDS: predniSONE 20 MG TABLET 40 MG PO (09:28)
[2024-11-19] MEDS: amLODIPine BESYLATE 5 MG TABLET PO (09:28)
[2024-11-19] MEDS: allopurinoL 300 MG TABLET PO (09:28)
[2024-11-19] MEDS: ATORVASTATIN 10 MG TABLET PO (09:28)
[2024-11-19] MEDS: FOLIC ACID 1 MG TABLET 2 MG PO (09:28)
--- NOTE | 2024-11-19 11:13 | P.DS_ITS ---
DS: Admitting Diagnosis Discharge Date 11/19/2024 Admitting Diagnosis Weakness DS: Discharge Diagnosis Discharge Diagnosis (1) Crohn disease: Code(s): K50.90 - Crohn's disease, unspecified, without complications Status: Acute (2) Anemia: Code(s): D64.9 - Anemia, unspecified Status: Acute (3) Acute kidney injury: Code(s): N17.9 - Acute kidney failure, unspecified Status: Acute (4) Hypocalcemia: Code(s): E83.51 - Hypocalcemia Status: Acute (5) Hypomagnesemia: Code(s): E83.42 - Hypomagnesemia Status: Acute (6) Occult blood in stools: Code(s): R19.5 - Other fecal abnormalities Status: Acute (7) Acute hyponatremia: Code(s): E87.1 - Hypo-osmolality and hyponatremia Status: Acute (8) Pyuria: Code(s): R82.81 - Pyuria Status: Acute (9) Hypophosphatemia: Code(s): E83.39 - Other disorders of phosphorus metabolism Status: Acute DS: Summary Hospital Course Hospital Course: Patient presented to the hospital endorsing loose frequent stools concerning for Crohn flare. Chest X-ray negative. Urine culture negative. Renal ultrasound unremarkable sonographic evaluation of the bilateral kidneys and bladder. Patient has history of Crohns disease pt was seeing Dr Melissa ANGEL MD, pt was on injections for 10 years but has been using meclizine for 4 years since her insurance changed. CRP 13.3 and ESR >140: CRP improved to 4.1 and ESR 125. Prednisone 40 mg daily, transition to slow prednisone taper will clarify with GI at appt next week. GI followed s/p colonoscopy with bx on 11/[address] Huber moderate patchy chohns disease, colitis with mod decreased vascularity, erythematous, edematous, friable and ulcerative changes. Perianal fistula. Path: Active colitis Patient will need to follow up on Thursday with GI office to get biologics started. -Patient received 1 unit of PRBC's during stay. Niferex [address] Montague saw patient and patient may need iron infusions at his office. Stool positive for occult blood. -Patients electrolytes replenished during visit. Status at Discharge Functional status at discharge: independent ambulation Overall status at discharge: patient is progressing back to baseline Time Spent with Patient Time attestation: Total time spent providing and/or coordinating discharge services: Time spent: Greater than 30 minutes Exam Const: General: comfortable and no acute distress Eyes: Sclera: sclerae normal Resp: Effort & Inspection: normal respiratory effort Auscultation: clear to auscultation bilaterally Cardio: Rate: regular rate Rhythm: regular rhythm GI: GI Palp: Yes Soft to palpation Auscultation: normal bowel sounds Neuro: General: gait normal Extrem: General: no pedal edema Psych: Mental Status: mental status grossly normal Affect: normal affect DS: Data Data Completed and Pending Completed studies during hospitalization: Pending at discharge 11/14/24 09:46 Surgical [PTH] Routine Labs on day of discharge: Labs from last 24 hours 11/19/24 11/18/24 11/18/24 05:46 11:00 05:52 WBC 9.7 RBC 3.09 L Hgb 9.1 L Hct 26.9 L MCV 87.1 MCH 29.4 MCHC 33.8 RDW 12.3 Plt Count 441 H MPV 8.5 Immature Gran % (Auto) 1.6 H Neut % (Auto) 73.2 H Lymph % (Auto) 14.8 L Edmunds % (Auto) 9.8 H Eos % (Auto) 0.2 Baso % (Auto) 0.4 Lymph # (Auto) 1.44 Edmunds # (Auto) 1.0 H Eos # (Auto) 0.0 Baso # (Auto) 0.0 Abs Immat Gran (auto) 0.16 H Absolute Neuts (auto) 7.1 H Absolute Nucleated RBC 0.020 H Nucleated RBC % 0.2 Sodium 134 L Potassium 3.9 Chloride 100 Carbon Dioxide 30 Anion Gap 4 BUN 18 H Creatinine 1.38 H Estim Creat Clear Calc 45 Estimated GFR 48 L Glucose 90 Calcium 8.7 Magnesium 1.9 Soila Transferrin Receptr Pending Total Bilirubin 0.5 AST 37 H ALT 47 H Alkaline Phosphatase 155 H Total Protein 7.0 Albumin 2.6 L Stl Occult Blood (IFOB) Positive H Stool Calprotectin 11/12/24 12:21 WBC RBC Hgb Hct MCV MCH MCHC RDW Plt Count MPV Immature Gran % (Auto) Neut % (Auto) Lymph % (Auto) Edmunds % (Auto) Eos % (Auto) Baso % (Auto) Lymph # (Auto) Edmunds # (Auto) Eos # (Auto) Baso # (Auto) Abs Immat Gran (auto) Absolute Neuts (auto) Absolute Nucleated RBC Nucleated RBC % Sodium Potassium Chloride Carbon Dioxide Anion Gap BUN Creatinine Estim Creat Clear Calc Estimated GFR Glucose Calcium Magnesium Soila Transferrin Receptr Total Bilirubin AST ALT Alkaline Phosphatase Total Protein Albumin Stl Occult Blood (IFOB) Stool Calprotectin 2610 H Discharge Plan Discharge Attending physician on discharge: Yg Subramanian Consulting providers: Nilda Lopez; Jhoan Montague Discharging Clinician: Gayla Raman Anticipated Discharge Date/Time: 11/19/24 13:30 Patient Disposition: Home, Self-Care Activity: may shower and as tolerated Diet: regular Discharge Instructions: * Call Thursday to get an appointment with Dr. Quiros office to get biologics started. Please discuss taper of Prednisone at appointment. * Follow up with Dr. Montague as he directed. * Report any lightheadedness, blood in stools, abdominal pain, or fevers >101 to provider. Thank you for entrusting [facility] with your healthcare! Patient Instructions: Antibiotic Form, Crohn Disease (DC), Hypokalemia (DC), Hypomagnesemia (DC), Anemia (DC) Patient Language: Mohawk Stand Alone Forms: General Discharge Information, Work/School Release IP Follow-up/Referrals: Nicholas,MD Sergey [Primary Care Provider] - 1 Week Jhoan Montague MD [Physician] - Call for Appointment () Derek Quiros MD [Physician] - Call for Appointment Discharge Medications: New prednisone 20 mg Tablet 40 mg PO DAILY@0800 Qty: 28 0RF magnesium oxide 400 mg (241.3 mg magnesium) Tablet 400 mg PO Q12HR Qty: 28 0RF polysaccharide iron complex 150 mg iron Capsule 150 mg PO BID Qty: 60 0RF potassium chloride [Klor-Con 10] 10 mEq tablet extended release 10 meq PO DAILY Qty: 30 0RF Continued folic acid 1 mg tablet 2 mg PO DAILY hydrochlorothiazide 25 mg tablet 25 mg PO DAILY amlodipine 2.5 mg tablet 5 mg PO DAILY atorvastatin 10 mg tablet 10 mg PO DAILY mesalamine 1.2 gram tablet,delayed release (/EC) 4.8 g PO DAILY 90 Days Qty: 360 3RF allopurinol 300 mg tablet 300 mg PO DAILY Other Ambulatory Orders: Basic Metabolic Panel (Routine) Timeframe: 1 Week Location: Determined by Patient Ordered By: Gayla Raman Complete Blood Count no Diff (Routine) Timeframe: 1 Week Location: Determined by Patient Ordered By: Gayla Raman Magnesium (Routine) Timeframe: 1 Week Location: Determined by Patient Ordered By: Gayla Raman Date of admission: 11/11/24 02:35 Primary Care Provider: Deyvi*Sergey Admitting Provider: Quentin Rolon Attending physician on admission: Sara Gagnon Condition: Improved Hospitalist MIPS Heart Failure (Exclusion) Patient has history of Heart Transplant or Left Ventricular Assistive Device?: No IF YES, STOP HERE Heart Failure (Qualifier) Patient has current or prior documentation of LVEF less than or equal to 40%, or mod/servere depressed LVSF?: No IF NO, STOP HERE
[2024-11-19 12:00] VITALS: PULSE 90
[2024-11-24 14:28] LABS: Soluble Transferrin Receptor 0.86 mg/L (0.76-1.76)
[2024-11-26 20:33] LABS: Pancreatic Elastase, Stool 66 mcg/g (>200)
== END 2024-11-19 14:40 | disposition home or self-care (01) | DRG 386 ==
LOC: ANHED 11-11 02:44 → ANH3MED 11-11 12:55 → ANH2MED 11-22 11:04
PROVIDERS: Family Medicine; Internal Medicine Gastroenterology; Internal Medicine Hematology & Oncology; Internal Medicine Nephrology; Nurse Practitioner; Nurse Practitioner Family; Registered Nurse; Admitting Provider Internal Medicine; Emergency Provider Emergency Medicine; PCP Internal Medicine; Visit Provider Student in an Organized Health Care Education/Training Program
PROC: 0DJ08ZZ Inspection of Upper Intestinal Tract, Via Natural or Artificial Opening Endoscopic (ICD-10-PCS; CPT 45378; principal; 2024-11-14 15:00)
DX: K50.918 Crohn's disease, unspecified, with other complication (principal); E87.1 Hypo-osmolality and hyponatremia; N17.9 Acute kidney failure, unspecified; K50.113 Crohn's disease of large intestine with fistula; K52.9 Noninfective gastroenteritis and colitis, unspecified; K60.30 Anal fistula, unspecified; R19.5 Other fecal abnormalities; E83.51 Hypocalcemia; E83.42 Hypomagnesemia; D50.9 Iron deficiency anemia, unspecified; E87.6 Hypokalemia; M19.90 Unspecified osteoarthritis, unspecified site; E83.39 Other disorders of phosphorus metabolism; I10 Essential (primary) hypertension; E78.5 Hyperlipidemia, unspecified; E86.0 Dehydration; R82.81 Pyuria; E66.9 Obesity, unspecified; Z68.32 Body mass index [BMI] 32.0-32.9, adult
CPT/HCPCS: 36415; 36430; 71046; 76775; 80048; 80053; 80069; 81001; 81050; 82274; 82310; 82533; 82550; 82570; 82607; 82653; 82728; 82746; 83540; 83550; 83735; 83935; 83993; 84132; 84133; 84156; 84238; 84300; 84484; 84540; 85014; 85018; 85025; 85610; 85652; 85730; 85999; 86140; 86364; 86480; 86704; 86706; 86850; 86900; 86901; 86923; 87086; 87340; 87637; 88305; 93005; 96361; 96365; 96366; 96367; 96368; 99285; A9270; J0612; J0613; J2704; J3475; J3480; J7030; J7040; J7050; J7120; J7512; P9016

== ENCOUNTER 2024-12-19 14:22 | Outpatient (CLI) | payer OTHER, SELFPAY ==
[2024-12-19 15:07] LABS: Hematocrit 30.5 % (37.0-47.0); Hemoglobin 10.2 g/dL (12.0-15.0); Mean Corpuscular HGB Conc 33.4 g/dl (32-36); Mean Corpuscular Volume 83.8 fl (80-100); Mean Platelet Volume 9.2 fl (7.4-10.4); Platelet Count Result 330 k/mm3 (150-375); Red Blood Count 3.64 M/mm3 (4.2-5.4); Red Cell Distribution Width 12.6 % (11.5-14.5); White Blood Count 10.5 K/mm3 (4.5-10.0)
[2024-12-19 15:20] LABS: Alanine Aminotransferase 31 U/L (6-35); Albumin Level 3.5 g/dL (3.5-5.1); Alkaline Phosphatase 84 U/L (38-126); Anion Gap 11 mmol/L (4-12); Aspartate Amino Transferase 25 U/L (14-36); Bilirubin,Total 0.7 mg/dL (0.2-1.3); Blood Urea Nitrogen 21 mg/dL (7-17); CRP 3.2 mg/dL (<1.0); Calcium 8.2 mg/dL (8.4-10.2); Carbon Dioxide 28 mmol/L (22-30); Chloride 102 mmol/L (98-107); Estimated Glomerular Filt Rate 42; Glucose 180 mg/dL (65-110); Potassium 3.5 mmol/L (3.4-5.0); Sodium 141 mmol/L (137-145)
[2024-12-19 15:55] LABS: Erythrocyte Sedimentation Rate 103 mm/hr (0-20)
[2024-12-19 18:34] LABS: Iron 69 ug/dL (37-170)
[2024-12-19 18:45] LABS: Percent Iron Saturation 28 % (20-50)
== END 2024-12-19 14:23 | disposition home or self-care (01) ==
LOC: ANHLAB 14:23
PROVIDERS: PCP Internal Medicine; Visit Provider Nurse Practitioner Family
DX: K50.90 Crohn's disease, unspecified, without complications (principal); D64.9 Anemia, unspecified
CPT/HCPCS: 36415; 80053; 82728; 83540; 83550; 85027; 85652; 86140

== ENCOUNTER 2025-04-28 15:16 | Outpatient (CLI) | payer OTHER, SELFPAY ==
--- OUTSIDE RECORDS SUMMARY | 2025-04-28 15:19 | XMS_ITS | Data Portability ---
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 Lab uric acid, serum or plasma 2022 023 [facility] (Lab), [address] [place], [address], 3 11:08:33 lipid panel, serum 2022 023 [facility] (Lab), [address] [place], [address], 3 11:08:38 CBC w/ auto diff 2022 023 [facility] (Lab), [address] [place], [address], 3 11:08:44 CMP, serum or plasma 2022 023 [facility] (Lab), [address] [place], [address], 3 11:08:49 Referral None recorded. Procedures None recorded. Surgeries None recorded. Imaging MAMMO, screening, digital, bilateral 2022 023 [facility] (Radiology), [address] [place], [address], 3 14:32:35 Medication Orders None recorded. Patient TargetsNo targets recorded. Patient InstructionsNo instructions recorded. Reason for Referral None Reported. Results Created Date Observation Date Name Description Value Unit Range Abnormal Flag Note LastModifiedBy Organization Detail LastModifiedTime 11/11/1911/11/2021 FOLAT E, SERUM /PLAS MA folate >20.0 NG/mL 2.76- Not Available [facility] (Lab) [address] [place], [address], 11/11/2021 12:19:27 11/11/1911/11/2021 LIPID PANEL cholesterol 260 mg/dL 140-19 9 high NIH MARCELLE NSUS RECOM MENDA TION FOR BEN STERO L: ADULT CHILD LOW RISK: <200 <170 BORDE RLINE : <200- 239 ----- HIGH RISK: >240 >200 Not Available [facility] (Lab) [address] [place], [address], 11/11/2021 10:49:46 11/11/19 22 11/11/2021 LIPID PANEL triglyceride s 69 mg/dL 0-150 NIH MARCELLE NSUS REPOR T RECOM MENDA TION FOR TRIGL YCERI STEPHANIE: ADULT CHILD LOW RISK: <150 ----- BODER LINE: 150-1 99 ----- HIGH RISK: >200 ----- Not Available [facility] (Lab) [address] [place], [address], 11/11/2021 10:49:46 11/11/19 22 11/11/2021 LIPID PANEL HDL cholesterol 132 mg/dL 40- Not Available [facility] (Lab) [address] [place], [address], 11/11/2021 10:49:46 11/11/19 22 11/11/2021 LIPID PANEL LDL cholesterol, calculated 114 mg/dL 0-130 NIH MARCELLE NSUS REPOR T RECOM MENDA TIONS FOR LDL: ADULT CHILD LOW RISK <130 <110 (OPTI MAL LDL) <100 ----- BORDE RLINE : 130-1 59 ----- HIGH RISK: >160 >130 A TRIGL YCERI DE RESUL T >400 INVAL IDATE S THE CALCU LATIO N FOR LDL FRACT IONAT ION - THE LDL RESUL T WILL NOT BE REPOR RADHA. Not Available [facility] (Lab) [address] [place], [address], 11/11/2021 10:49:46 11/11/19 22 11/11/2021 URIC ACID SERUM uric acid 1.8 mg/dL 2.5-6. 2 low Not Available [facility] (Lab) [address] [place], [address], 11/11/2021 10:49:45 11/11/19 22 11/11/2021 COMPR EHENS GALILEO METAB OLIC PANEL sodium 135 mmol/ L 137-14 5 low Not Available [facility] (Lab) [address] [place], [address], 11/11/2021 10:49:40 11/11/19 22 11/11/2021 COMPR EHENS GALILEO METAB OLIC PANEL potassium 3.6 mmol/ L 3.5-5. 1 Not Available [facility] (Lab) [address] [place], [address], 11/11/2021 10:49:40 11/11/19 22 11/11/2021 COMPR EHENS GALILEO METAB OLIC PANEL chloride 98 mmol/ L 98-107 Not Available [facility] (Lab) [address] [place], [address], 11/11/2021 10:49:40 11/11/19 11/11/2021 COMPR EHENS GALILEO METAB OLIC PANEL carbon dioxide 27 mmol/ L 22-30 Not Available [facility] (Lab) [address] [place], [address], 11/11/2021 10:49:40 11/11/19 22 11/11/2021 COMPR EHENS GALILEO METAB OLIC PANEL agap 13.6 mmol/ L 14-22 low Not Available [facility] (Lab) [address] [place], [address], 11/11/2021 10:49:40 11/11/19 22 11/11/2021 COMPR EHENS GALILEO METAB OLIC PANEL glucose 78 mg/dL 70-99 Not Available [facility] (Lab) [address] [place], [address], 11/11/2021 10:49:40 11/11/19 22 11/11/2021 COMPR EHENS GALILEO METAB OLIC PANEL BUN 17 mg/dL 8-19 Not Available [facility] (Lab) [address] [place], [address], 11/11/2021 10:49:40 11/11/19 22 11/11/2021 COMPR EHENS GALILEO METAB OLIC PANEL creatinine 1.02 mg/dL 0.66-1 .25 Not Available [facility] (Lab) [address] [place], [address], 11/11/2021 10:49:40 11/11/19 22 11/11/2021 COMPR EHENS GALILEO METAB OLIC PANEL GFR >60 Refer ence Range : [place] ge GFR Healt hy Adult : >60 mL/mi n/1.7 3 m2 Chron ic Kidne y Disea se: 15-60 mL/mi n/1.7 3 m2 Kidne y Failu re: <15/m L/min /1.73 m2 www.n iddk. nih.g ov The MDRD study equat ion has not been valid ated in child padmini <18 years of age; pregn ant women ; the elder ly >85 years of age; or in some racia l or ethni c subgr oups, such as Hispa nics. Outsi de the valid ated fletcher eters , estim ated GFR is less accur ate, requi ring clini wili judgm ent on a case- by-ca se basis . Clini wili inter preta tion for other races and ages must be made by the clini sonia. The MDRD study equat ion has not been valid ated for the evalu ation of serum creat inine relat ed to nutri ralph l statu s or medic ation usage . For perso ns <18 years of age, a pedia tric GFR calcu lator is avail able on the [facility] websi te: https ://deisi cardenas.kristina marc.o rg/pr ofess ional s/kdo qi/gf r_cal culat or Not Available [facility] (Lab) [address] [place], [address], 11/11/2021 10:49:40 11/11/19 22 11/11/2021 COMPR EHENS GALILEO METAB OLIC PANEL alkaline phosphatase 87 U/L 38-126 Not Available [facility] (Lab) [address] [place], [address], 11/11/2021 10:49:40 11/11/19 22 11/11/2021 COMPR EHENS GALILEO METAB OLIC PANEL alanine aminotransfe rase 65 U/L 0-35 high Not Available [facility] (Lab) [address] [place], [address], 11/11/2021 10:49:40 11/11/19 22 11/11/2021 COMPR EHENS GALILEO METAB OLIC PANEL aspartate aminotransfe rase 96 U/L 15-37 high Not Available [facility] (Lab) [address] [place], [address], 11/11/2021 10:49:40 11/11/19 22 11/11/2021 COMPR EHENS GALILEO METAB OLIC PANEL bilirubin, total 0.80 mg/dL 0.20-1 .30 Not Available [facility] (Lab[facility] [address] [facility] [place], [address], 11/11/2021 10:49:40 11/11/19 22 11/11/2021 COMPR EHENS GALILEO METAB OLIC PANEL calcium 8.8 mg/dL 8.4-10 .2 Not Available [facility] (Lab) [address] [place], [address], 11/11/2021 10:49:40 11/11/19 22 11/11/2021 COMPR EHENS GALILEO METAB OLIC PANEL total protein 8.9 g/dL 6.3-8. 2 high Not Available [facility] (Lab) [address] [place], [address], 11/11/2021 10:49:40 11/11/19 22 11/11/2021 COMPR EHENS GALILEO METAB OLIC PANEL albumin 4.7 g/dL 3.4-5. 0 Not Available [facility] (Lab) [address] [place], [address], 11/11/2021 10:49:40 11/11/19 22 11/11/2021 COMPR EHENS GALILEO METAB OLIC PANEL globulin 4.2 g/dL 2.6-4. 2 Not Available [facility] (Lab) [address] [place], [address], 11/11/2021 10:49:40 11/11/19 22 11/11/2021 COMPR EHENS GALILEO METAB OLIC PANEL A/G ratio 1.1 ratio 1.0-2. 0 Not Available [facility] (Lab) [address] [place], [address], 11/11/2021 10:49:40 11/11/19 22 11/11/2021 CBC/C OMPLE TE BLD COUNT W/DIF F white blood cells 6.1 x10'3 /uL 4.2-10 .8 Not Available [facility] (Lab) [address] [place], [address], 11/11/2021 09:54:00 11/11/19 22 11/11/2021 CBC/C OMPLE TE BLD COUNT W/DIF F red blood cells 4.19 x10'6 /uL 3.80-5 .20 Not Available [facility] (Lab) [address] [place], [address], 11/11/2021 09:54:00 11/11/1911/11/2021 CBC/C OMPLE TE BLD COUNT W/DIF F hemoglobin 12.8 g/dL 12.0-1 5.6 Not Available [facility] (Lab) [address] [place], [address], 11/11/2021 09:54:00 11/11/19 22 11/11/2021 CBC/C OMPLE TE BLD COUNT W/DIF F hematocrit 35.6 % 35.7-4 5.7 low Not Available [facility] (Lab) [address] [place], [address], 11/11/2021 09:54:00 11/11/19 22 11/11/2021 CBC/C OMPLE TE BLD COUNT W/DIF F mean red cell volume 85.0 fL 82.0-9 9.0 Not Available [facility] (Lab) [address] [place], [address], 11/11/2021 09:54:00 11/11/1911/11/2021 CBC/C OMPLE TE BLD COUNT W/DIF F mean red cell hemoglobin 30.5 pg 27.0-3 3.0 Not Available [facility] (Lab) [address] [place], [address], 11/11/2021 09:54:00 11/11/19 22 11/11/2021 CBC/C OMPLE TE BLD COUNT W/DIF F mean RBC HGB concentratio n 36.0 g/dL 31.0-3 6.0 Not Available [facility] (Lab) [address] [place], [address], 11/11/2021 09:54:00 11/11/19 22 11/11/2021 CBC/C OMPLE TE BLD COUNT W/DIF F red cell distribution width 12.4 % 11.8-1 5.5 Not Available [facility] (Lab) [address] [place], [address], 11/11/2021 09:54:00 11/11/1911/11/2021 CBC/C OMPLE TE BLD COUNT W/DIF F platelets 239 x10'3 /uL 150-40 0 Not Available [facility] (Lab) [address] [place], [address], 11/11/2021 09:54:00 11/11/19 22 11/11/2021 CBC/C OMPLE TE BLD COUNT W/DIF F mean platelet volume 9.2 fL 9.0-12 .4 Not Available [facility] (Lab) [address] [place], [address], 11/11/2021 09:54:00 11/11/1911/11/2021 CBC/C OMPLE TE BLD COUNT W/DIF F neutrophils 53.6 % 39.0-7 2.0 Not Available [facility] (Lab) [address] [place], [address], 11/11/2021 09:54:00 11/11/1911/11/2021 CBC/C OMPLE TE BLD COUNT W/DIF F lymphocytes 31.5 % 16.0-4 7.0 Not Available [facility] (Lab) [address] [place], [address], 11/11/2021 09:54:00 11/11/19 22 11/11/2021 CBC/C OMPLE TE BLD COUNT W/DIF F monocytes 10.5 % 5.0-12 .0 Not Available [facility] (Lab) [address] [place], [address], 11/11/2021 09:54:00 11/11/19 22 11/11/2021 CBC/C OMPLE TE BLD COUNT W/DIF F eosinophils 2.8 % 1.0-7. 0 Not Available [facility] (Lab) [address] [place], [address], 11/11/2021 09:54:00 11/11/1911/11/2021 CBC/C OMPLE TE BLD COUNT W/DIF F basophils 1.3 % 0.0-2. 0 Not Available [facility] (Lab) [address] [place], [address], 11/11/2021 09:54:00 11/11/1911/11/2021 CBC/C OMPLE TE BLD COUNT W/DIF F immature granulocytes 0.3 % 0.00-0 .50 Not Available [facility] (Lab) [address] [place], [address], 11/11/2021 09:54:00 11/11/1911/11/2021 CBC/C OMPLE TE BLD COUNT W/DIF F neutrophils, absolute count 3.26 x10'3 /uL 1.5-8. 0 Not Available [facility] (Lab) [address] [place], [address], 11/11/2021 09:54:00 11/11/1911/11/2021 CBC/C OMPLE TE BLD COUNT W/DIF F lymphocytes, absolute count 1.92 x10'3 /uL 1.07-3 .43 Not Available [facility] (Lab) [address] [place], [address], 11/11/2021 09:54:00 11/11/19 22 11/11/2021 CBC/C OMPLE TE BLD COUNT W/DIF F monocytes, absolute count 0.64 x10'3 /uL 0.29-0 .99 Not Available [facility] (Lab) [address] [place], [address], 11/11/2021 09:54:00 11/11/19 22 11/11/2021 CBC/C OMPLE TE BLD COUNT W/DIF F eosinophils, absolute count 0.17 x10'3 /uL 0.02-0 .53 Not Available [facility] (Lab) [address] [place], [address], 11/11/2021 09:54:00 11/11/19 22 11/11/2021 CBC/C OMPLE TE BLD COUNT W/DIF F basophils, absolute count 0.08 x10'3 /uL 0.01-0 .08 Not Available [facility] (Lab) [address] [place], [address], 11/11/2021 09:54:00 11/11/19 22 11/11/2021 CBC/C OMPLE TE BLD COUNT W/DIF F immature granulocytes ,absolute 0.02 x10'3 /uL 0.00-0 .05 Not Available [facility] (Lab) [address] [place], [address], 11/11/2021 09:54:00 11/11/19 22 11/11/2021 CBC/C OMPLE TE BLD COUNT W/DIF F nucleated red blood cells 0.0 % -0 Not Available [facility] (Lab) [address] [place], [address], 11/11/2021 09:54:00 11/11/19 22 11/11/2021 CBC/C OMPLE TE BLD COUNT W/DIF F NRBC# 0.00 x10'3 /uL Not Available [facility] (Lab) [address] [place], [address], 11/11/2021 09:54:00 09/02/20 22 09/02/2022 COMPR EHENS GALILEO METAB OLIC PANEL sodium 132 mmol/ L 137-14 5 low Not Available [facility] (Lab) [address] [place], [address], 09/02/2022 11:06:00 09/02/20 22 09/02/2022 COMPR EHENS GALILEO METAB OLIC PANEL potassium 3.6 mmol/ L 3.5-5. 1 Not Available [facility] (Lab) [address] [place], [address], 09/02/2022 11:06:00 09/02/20 22 09/02/2022 COMPR EHENS GALILEO METAB OLIC PANEL chloride 92 mmol/ L 98-107 low Not Available [facility] (Lab) [address] [place], [address], 09/02/2022 11:06:00 09/02/20 22 09/02/2022 COMPR EHENS GALILEO METAB OLIC PANEL carbon dioxide 27 mmol/ L 22-30 Not Available [facility] (Lab) [address] [place], [address], 09/02/2022 11:06:00 09/02/20 22 09/02/2022 COMPR EHENS GALILEO METAB OLIC PANEL anion gap 16.6 mmol/ L 14-22 Not Available [facility] (Lab) [address] [place], [address], 09/02/2022 11:06:00 09/02/20 22 09/02/2022 COMPR EHENS GALILEO METAB OLIC PANEL glucose 80 mg/dL 70-99 Not Available [facility] (Lab) [address] [place], [address], 09/02/2022 11:06:00 09/02/20 22 09/02/2022 COMPR EHENS GALILEO METAB OLIC PANEL BUN 19 mg/dL 8-19 Not Available [facility] (Lab) [address] [place], [address], 09/02/2022 11:06:00 09/02/20 22 09/02/2022 COMPR EHENS GALILEO METAB OLIC PANEL creatinine 0.94 mg/dL 0.66-1 .25 Not Available [facility] (Lab) [address] [facility] [place], [address], 09/02/2022 11:06:00 09/02/20 22 09/02/2022 COMPR EHENS GALILEO METAB OLIC PANEL GFR >60 Refer ence Range : [place] ge GFR Healt hy Adult : >60 mL/mi n/1.7 3 m2 Chron ic Kidne y Disea se: 15-60 mL/mi n/1.7 3 m2 Kidne y Failu re: <15/m L/min /1.73 m2 www.n iddk. nih.g ov The MDRD study equat ion has not been valid ated in child padmini <18 years of age; pregn ant women ; the elder ly >85 years of age; or in some racia l or ethni c subgr oups, such as Patricia nics. Outsi de the valid ated fletcher eters , estim ated GFR is less accur ate, requi ring clini wili judgm ent on a case- by-ca se basis . Clini wili inter preta tion for other races and ages must be made by the clini sonia. The MDRD study equat ion has not been valid ated for the evalu ation of serum creat inine relat ed to nutri ralph l statu s or medic ation usage . For perso ns <18 years of age, a pedia tric GFR calcu lator is avail able on the F websi te: https ://deisi w.kristina laoy.o rg/pr ofess ional s/kdo qi/gf r_cal culat or Not Available [facility] (Lab) [address] [place], [address], 09/02/2022 11:06:00 09/02/20 22 09/02/2022 COMPR EHENS GALILEO METAB OLIC PANEL alkaline phosphatase 79 U/L 38-126 Not Available [facility] (Lab) [address] [place], [address], 09/02/2022 11:06:00 09/02/20 22 09/02/2022 COMPR EHENS GALILEO METAB OLIC PANEL alanine aminotransfe rase 45 U/L 0-35 high Not Available [facility] (Lab) [address] [place], [address], 09/02/2022 11:06:00 09/02/20 22 09/02/2022 COMPR EHENS GALILEO METAB OLIC PANEL aspartate aminotransfe rase 73 U/L 15-37 high Not Available [facility] (Lab) [address] [place], [address], 09/02/2022 11:06:00 09/02/20 22 09/02/2022 COMPR EHENS GALILEO METAB OLIC PANEL bilirubin, total 1.10 mg/dL 0.20-1 .30 Not Available [facility] (Lab) [address] [place], [address], 09/02/2022 11:06:00 09/02/20 22 09/02/2022 COMPR EHENS GALILEO METAB OLIC PANEL calcium 9.1 mg/dL 8.4-10 .2 Not Available [facility] (Lab) [address] [facility] [place], [address], 09/02/2022 11:06:00 09/02/20 22 09/02/2022 COMPR EHENS GALILEO METAB OLIC PANEL total protein 8.7 g/dL 6.3-8. 2 high Not Available [facility] (Lab) [address] [place], [address], 09/02/2022 11:06:00 09/02/20 22 09/02/2022 COMPR EHENS GALILEO METAB OLIC PANEL albumin 4.3 g/dL 3.4-5. 0 Not Available [facility] (Lab) [address] [place], [address], 09/02/2022 11:06:00 09/02/20 22 09/02/2022 COMPR EHENS GALILEO METAB OLIC PANEL globulin 4.4 g/dL 2.6-4. 2 high Not Available [facility] (Lab) [address] [place], [address], 09/02/2022 11:06:00 09/02/20 22 09/02/2022 COMPR EHENS GALILEO METAB OLIC PANEL A/G ratio 1.0 ratio 1.0-2. 0 Not Available [facility] (Lab) [address] [place], [address], 09/02/2022 11:06:00 09/02/20 22 09/02/2022 LIPID PANEL cholesterol 234 mg/dL 140-19 9 high NIH MARCELLE NSUS RECOM MENDA TION FOR BEN STERO L: ADULT CHILD LOW RISK: <200 <170 BORDE RLINE : <200- 239 ----- HIGH RISK: >240 >200 Not Available [facility] (Lab) [address] [place], [address], 09/02/2022 11:05:54 09/02/20 22 09/02/2022 LIPID PANEL triglyceride s 75 mg/dL 0-150 NIH MARCELLE NSUS REPOR T RECOM MENDA TION FOR TRIGL YCERI STEPHANIE: ADULT CHILD LOW RISK: <150 ----- BODER LINE: 150-1 99 ----- HIGH RISK: >200 ----- Not Available [facility] (Lab) [address] [place], [address], 09/02/2022 11:05:54 09/02/20 22 09/02/2022 LIPID PANEL HDL cholesterol 89 mg/dL 40- Not Available [facility] (Lab) [address] [place], [address], 09/02/2022 11:05:54 09/02/20 22 09/02/2022 LIPID PANEL LDL cholesterol, calculated 130 mg/dL 0-130 NIH MARCELLE NSUS REPOR T RECOM MENDA TIONS FOR LDL: ADULT CHILD LOW RISK <130 <110 (OPTI MAL LDL) <100 ----- BORDE RLINE : 130-1 59 ----- HIGH RISK: >160 >130 A TRIGL YCERI DE RESUL T >400 INVAL IDATE S THE CALCU LATIO N FOR LDL FRACT IONAT ION - THE LDL RESUL T WILL NOT BE REPOR RADHA. Not Available [facility] (Lab) [address] [place], [address], 09/02/2022 11:05:54 09/02/20 22 09/02/2022 URIC ACID SERUM uric acid 2.2 mg/dL 2.5-6. 2 low Not Available [facility] (Lab) [address] [place], [address], 09/02/2022 11:05:49 09/02/20 22 09/02/2022 CBC/C OMPLE TE BLD COUNT W/DIF F white blood cells 5.8 x10'3 /uL 4.2-10 .8 Not Available [facility] (Lab) [address] [place], [address], 09/02/2022 09:59:55 09/02/20 22 09/02/2022 CBC/C OMPLE TE BLD COUNT W/DIF F red blood cells 4.23 x10'6 /uL 3.80-5 .20 Not Available [facility] (Lab) [address] [place], [address], 09/02/2022 09:59:55 09/02/20 22 09/02/2022 CBC/C OMPLE TE BLD COUNT W/DIF F hemoglobin 13.1 g/dL 12.0-1 5.6 Not Available [facility] (Lab) [address] [place], [address], 09/02/2022 09:59:55 09/02/20 22 09/02/2022 CBC/C OMPLE TE BLD COUNT W/DIF F hematocrit 35.3 % 35.7-4 5.7 low Not Available [facility] (Lab) [address] [place], [address], 09/02/2022 09:59:55 09/02/20 22 09/02/2022 CBC/C OMPLE TE BLD COUNT W/DIF F mean red cell volume 83.5 fL 82.0-9 9.0 Not Available [facility] (Lab) [address] [place], [address], 09/02/2022 09:59:55 09/02/20 22 09/02/2022 CBC/C OMPLE TE BLD COUNT W/DIF F mean red cell hemoglobin 31.0 pg 27.0-3 3.0 Not Available [facility] (Lab) [address] [place], [address], 09/02/2022 09:59:55 09/02/20 22 09/02/2022 CBC/C OMPLE TE BLD COUNT W/DIF F mean RBC HGB concentratio n 37.1 g/dL 31.0-3 6.0 high Not Available [facility] (Lab) [address] [place], [address], 09/02/2022 09:59:55 09/02/20 22 09/02/2022 CBC/C OMPLE TE BLD COUNT W/DIF F red cell distribution width 12.0 % 11.8-1 5.5 Not Available [facility] (Lab) [address] [place], [address], 09/02/2022 09:59:55 09/02/20 22 09/02/2022 CBC/C OMPLE TE BLD COUNT W/DIF F platelets 261 x10'3 /uL 150-40 0 Not Available [facility] (Lab) [address] [place], [address], 09/02/2022 09:59:55 09/02/20 22 09/02/2022 CBC/C OMPLE TE BLD COUNT W/DIF F mean platelet volume 8.7 fL 9.0-12 .4 low Not Available [facility] (Lab) [address] [place], [address], 09/02/2022 09:59:55 09/02/20 22 09/02/2022 CBC/C OMPLE TE BLD COUNT W/DIF F neutrophils 66.0 % 39.0-7 2.0 Not Available [facility] (Lab) [address] [place], [address], 09/02/2022 09:59:55 09/02/20 22 09/02/2022 CBC/C OMPLE TE BLD COUNT W/DIF F lymphocytes 22.0 % 16.0-4 7.0 Not Available [facility] (Lab) [address] [place], [address], 09/02/2022 09:59:55 09/02/20 22 09/02/2022 CBC/C OMPLE TE BLD COUNT W/DIF F monocytes 10.7 % 5.0-12 .0 Not Available [facility] (Lab) [address] [place], [address], 09/02/2022 09:59:55 09/02/20 22 09/02/2022 CBC/C OMPLE TE BLD COUNT W/DIF F eosinophils 0.3 % 1.0-7. 0 low Not Available [facility] (Lab) [address] [place], [address], 09/02/2022 09:59:55 09/02/20 22 09/02/2022 CBC/C OMPLE TE BLD COUNT W/DIF F basophils 0.7 % 0.0-2. 0 Not Available [facility] (Lab) [address] [place], [address], 09/02/2022 09:59:55 09/02/20 22 09/02/2022 CBC/C OMPLE TE BLD COUNT W/DIF F immature granulocytes 0.3 % 0.00-0 .50 Not Available [facility] (Lab) [address] [place], [address], 09/02/2022 09:59:55 09/02/20 22 09/02/2022 CBC/C OMPLE TE BLD COUNT W/DIF F neutrophils, absolute count 3.83 x10'3 /uL 1.5-8. 0 Not Available [facility] (Lab) [address] [place], [address], 09/02/2022 09:59:55 09/02/20 22 09/02/2022 CBC/C OMPLE TE BLD COUNT W/DIF F lymphocytes, absolute count 1.28 x10'3 /uL 1.07-3 .43 Not Available [facility] (Lab) [address] [place], [address], 09/02/2022 09:59:55 09/02/20 22 09/02/2022 CBC/C OMPLE TE BLD COUNT W/DIF F monocytes, absolute count 0.62 x10'3 /uL 0.29-0 .99 Not Available [facility] (Lab) [address] [place], [address], 09/02/2022 09:59:55 09/02/20 22 09/02/2022 CBC/C OMPLE TE BLD COUNT W/DIF F eosinophils, absolute count 0.02 x10'3 /uL 0.02-0 .53 Not Available [facility] (Lab) [address] [place], [address], 09/02/2022 09:59:55 09/02/20 22 09/02/2022 CBC/C OMPLE TE BLD COUNT W/DIF F basophils, absolute count 0.04 x10'3 /uL 0.01-0 .08 Not Available [facility] (Lab) [address] [place], [address], 09/02/2022 09:59:55 09/02/20 22 09/02/2022 CBC/C OMPLE TE BLD COUNT W/DIF F immature granulocytes ,absolute 0.02 x10'3 /uL 0.00-0 .05 Not Available [facility] (Lab) [address] [place], [address], 09/02/2022 09:59:55 09/02/20 22 09/02/2022 CBC/C OMPLE TE BLD COUNT W/DIF F nucleated red blood cells 0.0 % -0 Not Available [facility] (Lab) [address] [place], [address], 09/02/2022 09:59:55 09/02/20 22 09/02/2022 CBC/C OMPLE TE BLD COUNT W/DIF F NRBC# 0.00 x10'3 /uL Not Available [facility] (Lab) [address] [place], [address], 09/02/2022 09:59:55 09/29/20 23 09/29/2023 CBC/C OMPLE TE BLD COUNT W/DIF F white blood cells 6.2 x10'3 /uL 4.2-10 .8 Not Available [facility] (Lab) [address] [place], [address], 09/29/2023 09:30:57 09/29/20 23 09/29/2023 CBC/C OMPLE TE BLD COUNT W/DIF F red blood cells 4.39 x10'6 /uL 3.80-5 .20 Not Available [facility] (Lab) [address] [place], [address], 09/29/2023 09:30:57 09/29/20 23 09/29/2023 CBC/C OMPLE TE BLD COUNT W/DIF F hemoglobin 13.2 g/dL 12.0-1 5.6 Not Available [facility] (Lab) [address] [place], [address], 09/29/2023 09:30:57 09/29/20 23 09/29/2023 CBC/C OMPLE TE BLD COUNT W/DIF F hematocrit 36.9 % 35.7-4 5.7 Not Available [facility] (Lab) [address] [place], [address], 09/29/2023 09:30:57 09/29/20 23 09/29/2023 CBC/C OMPLE TE BLD COUNT W/DIF F mean red cell volume 84.1 fL 82.0-9 9.0 Not Available [facility] (Lab) [address] [place], [address], 09/29/2023 09:30:57 09/29/20 23 09/29/2023 CBC/C OMPLE TE BLD COUNT W/DIF F mean red cell hemoglobin 30.1 pg 27.0-3 3.0 Not Available [facility] (Lab) [address] [place], [address], 09/29/2023 09:30:57 09/29/20 23 09/29/2023 CBC/C OMPLE TE BLD COUNT W/DIF F mean RBC HGB concentratio n 35.8 g/dL 31.0-3 6.0 Not Available [facility] (Lab) [address] [place], [address], 09/29/2023 09:30:57 09/29/20 23 09/29/2023 CBC/C OMPLE TE BLD COUNT W/DIF F red cell distribution width 12.4 % 11.8-1 5.5 Not Available [facility] (Lab) [address] [place], [address], 09/29/2023 09:30:57 09/29/20 23 09/29/2023 CBC/C OMPLE TE BLD COUNT W/DIF F platelets 270 x10'3 /uL 150-40 0 Not Available [facility] (Lab) [address] [place], [address], 09/29/2023 09:30:57 09/29/20 23 09/29/2023 CBC/C OMPLE TE BLD COUNT W/DIF F mean platelet volume 9.6 fL 9.0-12 .4 Not Available [facility] (Lab) [address] [place], [address], 09/29/2023 09:30:57 09/29/20 23 09/29/2023 CBC/C OMPLE TE BLD COUNT W/DIF F neutrophils 57.9 % 39.0-7 2.0 Not Available [facility] (Lab) [address] [place], [place], [address], 09/29/2023 09:30:57 09/29/20 23 09/29/2023 CBC/C OMPLE TE BLD COUNT W/DIF F lymphocytes 28.6 % 16.0-4 7.0 Not Available [facility] (Lab) [address] [place], [address], 09/29/2023 09:30:57 09/29/20 23 09/29/2023 CBC/C OMPLE TE BLD COUNT W/DIF F monocytes 10.9 % 5.0-12 .0 Not Available [facility] (Lab) [address] [place], [address], 09/29/2023 09:30:57 09/29/20 23 09/29/2023 CBC/C OMPLE TE BLD COUNT W/DIF F eosinophils 1.3 % 1.0-7. 0 Not Available [facility] (Lab) [address] [place], [address], 09/29/2023 09:30:57 09/29/20 23 09/29/2023 CBC/C OMPLE TE BLD COUNT W/DIF F basophils 1.0 % 0.0-2. 0 Not Available [facility] (Lab) [address] [place], [address], 09/29/2023 09:30:57 09/29/20 23 09/29/2023 CBC/C OMPLE TE BLD COUNT W/DIF F immature granulocytes 0.3 % 0.00-0 .50 Not Available [facility] (Lab) [address] [place], [address], 09/29/2023 09:30:57 09/29/20 23 09/29/2023 CBC/C OMPLE TE BLD COUNT W/DIF F neutrophils, absolute count 3.60 x10'3 /uL 1.5-8. 0 Not Available [facility] (Lab) [address] [place], [address], 09/29/2023 09:30:57 09/29/20 23 09/29/2023 CBC/C OMPLE TE BLD COUNT W/DIF F lymphocytes, absolute count 1.78 x10'3 /uL 1.07-3 .43 Not Available [facility] (Lab) [address] [place], [address], 09/29/2023 09:30:57 09/29/20 23 09/29/2023 CBC/C OMPLE TE BLD COUNT W/DIF F monocytes, absolute count 0.68 x10'3 /uL 0.29-0 .99 Not Available [facility] (Lab) [address] [place], [address], 09/29/2023 09:30:57 09/29/20 23 09/29/2023 CBC/C OMPLE TE BLD COUNT W/DIF F eosinophils, absolute count 0.08 x10'3 /uL 0.02-0 .53 Not Available [facility] (Lab) [address] [place], [address], 09/29/2023 09:30:57 09/29/20 23 09/29/2023 CBC/C OMPLE TE BLD COUNT W/DIF F basophils, absolute count 0.06 x10'3 /uL 0.01-0 .08 Not Available [facility] (Lab) [address] [place], [address], 09/29/2023 09:30:57 09/29/20 23 09/29/2023 CBC/C OMPLE TE BLD COUNT W/DIF F immature granulocytes ,absolute 0.02 x10'3 /uL 0.00-0 .05 Not Available [facility] (Lab) [address] [place], [address], 09/29/2023 09:30:57 09/29/20 23 09/29/2023 CBC/C OMPLE TE BLD COUNT W/DIF F nucleated red blood cells 0.0 % -0 Not Available [facility] (Lab) [address] [place], [address], 09/29/2023 09:30:57 09/29/20 23 09/29/2023 CBC/C OMPLE TE BLD COUNT W/DIF F NRBC# 0.00 x10'3 /uL Not Available [facility] (Lab) [address] [place], [address], 09/29/2023 09:30:57 09/29/20 23 09/29/2023 COMPR EHENS GALILEO METAB OLIC PANEL sodium 135 mmol/ L 137-14 5 low Not Available [facility] (Lab) [address] [place], [address], 09/29/2023 09:49:51 09/29/20 23 09/29/2023 COMPR EHENS GALILEO METAB OLIC PANEL potassium 3.6 mmol/ L 3.5-5. 1 Not Available [facility] (Lab) [address] [place], [address], 09/29/2023 09:49:51 09/29/20 23 09/29/2023 COMPR EHENS GALILEO METAB OLIC PANEL chloride 95 mmol/ L 98-107 low Not Available [facility] (Lab) [address] [place], [address], 09/29/2023 09:49:51 09/29/20 23 09/29/2023 COMPR EHENS GALILEO METAB OLIC PANEL carbon dioxide 27 mmol/ L 22-30 Not Available [facility] (Lab) [address] [place], [address], 09/29/2023 09:49:51 09/29/20 23 09/29/2023 COMPR EHENS GALILEO METAB OLIC PANEL anion gap 16.6 mmol/ L 14-22 Not Available [facility] (Lab) [address] [place], [address], 09/29/2023 09:49:51 09/29/20 23 09/29/2023 COMPR EHENS GALILEO METAB OLIC PANEL glucose 88 mg/dL 70-99 Not Available [facility] (Lab) [address] [place], [address], 09/29/2023 09:49:51 09/29/20 23 09/29/2023 COMPR EHENS GALILEO METAB OLIC PANEL BUN 17 mg/dL 8-19 Not Available [facility] (Lab) [address] [facility] [place], [address], 09/29/2023 09:49:51 09/29/20 23 09/29/2023 COMPR EHENS GALILEO METAB OLIC PANEL creatinine 0.99 mg/dL 0.66-1 .25 Not Available [facility] (Lab) [address] [place], [address], 09/29/2023 09:49:51 09/29/20 23 09/29/2023 COMPR EHENS GALILEO METAB OLIC PANEL GFR >60 Refer ence Range : [place] ge GFR Healt hy Adult : >60 mL/mi n/1.7 3 m2 Chron ic Kidne y Disea se: 15-60 mL/mi n/1.7 3 m2 Kidne y Failu re: <15/m L/min /1.73 m2 www.n iddk. nih.g ov The MDRD study equat ion has not been valid ated in child padmini <18 years of age; pregn ant women ; the elder ly >85 years of age; or in some racia l or ethni c subgr oups, such as Hispa nics. Outsi de the valid ated fletcher eters , estim ated GFR is less accur ate, requi ring clini wili judgm ent on a case- by-ca se basis . Clini wili inter preta tion for other races and ages must be made by the clini sonia. The MDRD study equat ion has not been valid ated for the evalu ation of serum creat inine relat ed to nutri ralph l statu s or medic ation usage . For perso ns <18 years of age, a pedia tric GFR calcu lator is avail able on the [facility] websi te: https ://deisi cardenas.kristina marc.o rg/pr ofess ional s/kdo qi/gf r_cal culat or Not Available [facility] (Lab) [address] [place], [address], 09/29/2023 09:49:51 09/29/20 23 09/29/2023 COMPR EHENS GALILEO METAB OLIC PANEL alkaline phosphatase 82 U/L 38-126 Not Available [facility] (Lab) [address] [place], [address], 09/29/2023 09:49:51 09/29/20 23 09/29/2023 COMPR EHENS GALILEO METAB OLIC PANEL alanine aminotransfe rase 67 U/L 0-35 high Not Available [facility] (Lab) [address] [place], [address], 09/29/2023 09:49:51 09/29/20 23 09/29/2023 COMPR EHENS GALILEO METAB OLIC PANEL aspartate aminotransfe rase 93 U/L 15-37 high Not Available [facility] (Lab) [address] [place], [address], 09/29/2023 09:49:51 09/29/20 23 09/29/2023 COMPR EHENS GALILEO METAB OLIC PANEL bilirubin, total 1.10 mg/dL 0.20-1 .30 Not Available [facility] (Lab) [address] [place], [address], 09/29/2023 09:49:51 09/29/20 23 09/29/2023 COMPR EHENS GALILEO METAB OLIC PANEL calcium 9.7 mg/dL 8.4-10 .2 Not Available [facility] (Lab) [address] [place], [address], 09/29/2023 09:49:51 09/29/2009/29/2023 COMPR EHENS GALILEO METAB OLIC PANEL total protein 10.1 g/dL 6.3-8. 2 high Not Available [facility] (Lab) [address] [place], [address], 09/29/2023 09:49:51 09/29/20 23 09/29/2023 COMPR EHENS GALILEO METAB OLIC PANEL albumin 4.7 g/dL 3.4-5. 0 Not Available [facility] (Lab) [address] [place], [address], 09/29/2023 09:49:51 09/29/20 23 09/29/2023 COMPR EHENS GALILEO METAB OLIC PANEL globulin 5.4 g/dL 2.6-4. 2 high Not Available [facility] (Lab) [address] [place], [address], 09/29/2023 09:49:51 09/29/20 23 09/29/2023 COMPR EHENS GALILEO METAB OLIC PANEL A/G ratio 0.9 ratio 1.0-2. 0 low Not Available [facility] (Lab) [address] [place], [address], 09/29/2023 09:49:51 09/29/20 23 09/29/2023 LIPID PANEL cholesterol 191 mg/dL 140-19 9 NIH MARCELLE NSUS RECOM MENDA TION FOR BEN STERO L: ADULT CHILD LOW RISK: <200 <170 BORDE RLINE : <200- 239 ----- HIGH RISK: >240 >200 Not Available [facility] (Lab) [address] [place], [address], 09/29/2023 10:11:28 09/29/20 23 09/29/2023 LIPID PANEL triglyceride s 59 mg/dL 0-150 NIH MARCELLE NSUS REPOR T RECOM MENDA TION FOR TRIGL YCERI STEPHANIE: ADULT CHILD LOW RISK: <150 ----- BODER LINE: 150-1 99 ----- HIGH RISK: >200 ----- Not Available [facility] (Lab) [address] [place], [address], 09/29/2023 10:11:28 09/29/20 23 09/29/2023 LIPID PANEL HDL cholesterol 128 mg/dL 40- Not Available [facility] (Lab) [address] [place], [address], 09/29/2023 10:11:28 09/29/2009/29/2023 LIPID PANEL LDL cholesterol, calculated 51 mg/dL 0-130 NIH MARCELLE NSUS REPOR T RECOM MENDA TIONS FOR LDL: ADULT CHILD LOW RISK <130 <110 (OPTI MAL LDL) <100 ----- BORDE RLINE : 130-1 59 ----- HIGH RISK: >160 >130 A TRIGL YCERI DE RESUL T >400 INVAL IDATE S THE CALCU LATIO N FOR LDL FRACT IONAT ION - THE LDL RESUL T WILL NOT BE REPOR ARDHA. Not Available [facility] (Lab) [address] [facility], [place], [address], 09/29/2023 10:11:28 09/29/20 23 09/29/2023 URIC ACID SERUM uric acid 1.9 mg/dL 2.5-6. 2 low Not Available [facility] (Lab) [address] [facility], [place], [address], 09/29/2023 10:11:33 02/27/20 22 02/26/2022 MAMMO , scree bailey, digit al, bilat eral [facility] [address] [place] [address] Patien t Name: MARJORIE HOYT ion #: [id number] Sex: F : 1969 8 Locati on: RAD Attend ing Physic chelsea: JORJE PETERSON Orderi ng Physic chelsea: JORJE PETERSON Exam Date: 022 7:37 AM Exam Name: MG HUNTER BREAST LYNNE BILAT Admitt ing Diagno sis(es ): MAMMOG HELLEN REPORT - FINAL EXAM: MG CLARKMary BREAST LYNNE BILAT HISTOR Y: ROUTIN E MAMMOG TYRON 51-yea r-old female with no curren t breast compla ints. COMPAR DANIEL: 2019, 2018 TECHNI QUE: Bilate ral CC and MLO views of the breast s were perfor med. Digita l Mammog hellen images were obtain ed. CAD (compu ter assist ed detect ion) was utiliz ed. 3D Digita l breast tomosy nthesi s was perfor med and used in the interp retati on of images . FINDIN GS: The breast s are almost entire ly fatty. No masses , asymme tries, suspic ious calcif icatio ns, or alice ectura l Page 1 of 2 [facility] Chris simmons Name: MARJORIE HOYT Access ion #: [id number] Sex: F : 1969 8 Exam Date: 7:37 AM Exam Name: MG HUNTER BREAST LYNNE BILAT Admitt ing Diagno sis(es ): distor tion are seen. IMPRES KETURAH: BIRADS 1: Assess ment comple te. Negati ve. Recomm end annual screen ing mammog hellen. Accord ing to the [employer], yearly mammog [place] are recomm ended starti ng at age 40 and contin uing as long as the woman is in good health . Clinic al Breast Exam should be part of the period ic health exam-a bout every 3 years for women in their 20s and 30s and every year for women 40 and over. Breast self-e xam is an option for women in their 20s. Any breast change noted on the breast self-e xam she would be report ed prompt ly to the [facility]. A negati ve mammog hellen report should not discou rage follow -up or biopsy of a clinic ally signif icant findin g and/or abnorm ality. Dense breast tissue may obscur e small neopla sms. This chris simmons has been entere d into a mammog hellen remind er system with a target date for her next mammog tyron. Create d and electr onical ly signed by: Vignesh ferrell MD Signed Date: 8:41 AM (CT) Dictat ed by: Vignesh ferrell MD DD: 8:41 AM (CT) DT: 8:41 AM (CT) Page 2 of 2 [id number] [facility] (Imaging) [address] [place], [address], 12/17/2022 05:04:45 04/17/20 23 04/15/2023 MAMMO , tal swang, digit al, bilat eral [facility] [address] [facility] [place] [address] [facility] Name: MARJORIE HOYT ion #: [id number] Sex: F : 1969 8 Locati on: RAD Attend ing Physic chelsea: JORJE PETERSON Orderi ng Physic chelsea: JORJE PETERSON Exam Date: 023 7:00 AM Exam Name: MG HUNTER BREAST LYNNE BILAT Admitt ing Diagno sis(es ): MAMMOG HELLEN REPORT - FINAL EXAM: MG HUNTER BREAST LYNNE BILAT HISTOR Y: ROUTIN E MAMMOG TYRON 52-yea r-old female with no curren t breast compla ints. COMPAR DANIEL: Mammog hellen dated 2021 and 2019. TECHNI QUE: Bilate ral CC and MLO views of the breast s were perfor med. Digita l Mammog hellen images were obtain ed. CAD (compu ter assist ed detect ion) was utiliz ed. 3D Digita l breast tomosy nthesi s was perfor med and used in the interp retati on of images . FINDIN GS: The breast s are almost entire ly fatty. No masses , asymme tries, suspic ious calcif icatio ns, or alice ectura l Page 1 of 2 [facility] Chris simmons Name: MARJORIE HOYT Access ion #: [id number] Sex: F : 1969 8 Exam Date: 023 7:00 AM Exam Name: MG HUNTER BREAST LYNNE BILAT Admitt ing Diagno sis(es ): distor tion are seen. IMPRES KETURAH: BIRADS 1: Assess ment comple te. Negati ve. Recomm end annual screen ing mammog hellen. Accord ing to the [employer], yearly mammog [place] are recomm ended starti ng at age 40 and contin uing as long as the woman is in good health . Clinic al Breast Exam should be part of the period ic health exam-a bout every 3 years for women in their 20s and 30s and every year for women 40 and over. Breast self-e xam is an option for women in their 20s. Any breast change noted on the breast self-e xam she would be report ed prompt ly to the [facility]. A negati ve mammog hellen report should not discou rage follow -up or biopsy of a clinic ally signif icant findin g and/or abnorm ality. Dense breast tissue may obscur e small neopla sms. This chris simmons has been entere d into a mammog hellen remind er system with a target date for her next mammog tyron. Create d and electr onical ly signed by: Vignesh ferrell MD Signed Date: 1:24 PM (CT) Dictat ed by: Vignesh ferrell MD DD: 1:24 PM (CT) DT: 1:24 PM (CT) Page 2 of [id number] [place] [address] (Imaging) [address] [place], [address], 08/29/2023 20:30:27 Result Notes Documentation Provider Name and Address Organization Details Recorded Time Mammo, Screening, Digital, Bilateral : [facility] [address] [place] [address] Patient Name: MARJORIE HOYT Sex: F : 1970 Location: [facility] Attending Physician: JR PETERSON Ordering Physician: JR PETERSON Exam Date: 02/26/2022 7:37 AM Exam Name: MG HUNTER BREAST LYNNE BILAT Admitting Diagnosis(es): MAMMOGRAPHY REPORT - FINAL EXAM: MG HUNTER BREAST LYNNE BILAT HISTORY: ROUTINE MAMMOGRAM 51-year-old female with no current breast complaints. COMPARISON: 10/04/2020, 11/12/2018 TECHNIQUE: Bilateral CC and MLO views of the breasts were performed. Digital Mammography images were obtained. CAD (computer assisted detection) was utilized. 3D Digital breast tomosynthesis was performed and used in the interpretation of images. FINDINGS: The breasts are almost entirely fatty. No masses, asymmetries, suspicious calcifications, or architectural Page 1 of [address] [facility] Patient Name: MARJORIE HOYT Sex: F : 1970 Exam Date: 02/26/2022 7:37 AM Exam Name: MG HUNTER BREAST LYNNE BILAT Admitting Diagnosis(es): distortion are seen. IMPRESSION: BIRADS 1: Assessment complete. Negative. Recommend annual screening mammography. According to the [employer], yearly mammograms are recommended starting at age 40 and continuing as long as the woman is in good health. Clinical Breast Exam should be part of the periodic health exam-about every 3 years for women in their 20s and 30s and every year for women 40 and over. Breast self-exam is an option for women in their 20s. Any breast change noted on the breast self-exam she would be reported promptly to the patient's health care provider. A negative mammography report should not discourage follow-up or biopsy of a clinically significant finding and/or abnormality. Dense breast tissue may obscure small neoplasms. This patient has been entered into a mammography reminder system with a target date for her next mammogram. Created and electronically signed by: Vignesh Angeles MD Signed Date: 02/26/2022 8:41 AM (CT) Dictated by: Vignesh Angeles MD (CT) (CT) Page 2 of 2 Not Available [facility] 12/17/2022 05:04:48 Mammo, Screening, Digital, Bilateral : [address] [address] Patient Name: MARJORIE HOYT Sex: F : 1970 Location: [facility] Attending Physician: JR PETERSON Ordering Physician: JR PETERSON Exam Date: 04/15/2023 7:00 AM Exam Name: MG HUNTER BREAST LYNNE BILAT Admitting Diagnosis(es): MAMMOGRAPHY REPORT - FINAL EXAM: MG HUNTER BREAST LYNNE BILAT HISTORY: ROUTINE MAMMOGRAM 52-year-old female with no current breast complaints. COMPARISON: Mammography dated 02/26/2022 and 10/04/2020. TECHNIQUE: Bilateral CC and MLO views of the breasts were performed. Digital Mammography images were obtained. CAD (computer assisted detection) was utilized. 3D Digital breast tomosynthesis was performed and used in the interpretation of images. FINDINGS: The breasts are almost entirely fatty. No masses, asymmetries, suspicious calcifications, or architectural Page 1 of [address] [facility] Patient Name: MARJORIE HOYT Sex: F : 1970 Exam Date: 04/15/2023 7:00 AM Exam Name: SCRMary BREAST LYNNE BILAT Admitting Diagnosis(es): distortion are seen. IMPRESSION: BIRADS 1: Assessment complete. Negative. Recommend annual screening mammography. According to the [employer], yearly mammograms are recommended starting at age 40 and continuing as long as the woman is in good health. Clinical Breast Exam should be part of the periodic health exam-about every 3 years for women in their 20s and 30s and every year for women 40 and over. Breast self-exam is an option for women in their 20s. Any breast change noted on the breast self-exam she would be reported promptly to the patient's health care provider. A negative mammography report should not discourage follow-up or biopsy of a clinically significant finding and/or abnormality. Dense breast tissue may obscure small neoplasms. This patient has been entered into a mammography reminder system with a target date for her next mammogram. Created and electronically signed by: Vignesh Angeles MD Signed Date: 04/17/2023 1:24 PM (CT) Dictated by: Vignesh Angeles MD (CT) (CT) Page 2 of 2 Jr Peterson MD [address] [place] [address], [id number], [facility] [employer] 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 Not Available [facility] 3 06:30:08 Bronchiti s 56955262 Active Not Available [facility] 3 06:30:08 Crohn's disease 35509913 Active Not Available [facility] 3 06:30:08 Vitamin D deficienc y 78463375 Active 2021 Not Available [facility] 3 06:30:09 Dyslipide sanjeev 311407551 Active 2021 Not Available [facility] 3 06:30:09 Essential hypertens ion 03363522 Active 2021 Not Available [facility] 3 06:30:09 COVID-19 807594471 Active 2022 Not Available [facility] 3 06:30:09 Chronic rhinitis 34097905 Active Not Available [facility] 3 06:30:09 Gout 24097036 Active 2021 Not Available [facility] 3 06:30:09 Problem Notes None recorded. Medical Equipment None Reported. Allergies Allergen ID Allergen Name Allergen Category Reaction Reaction Severity Criticality Documentation Date Start Date Code Code System Note Provider Name and Address Organization Details Recorded Time 8191 Augmentin medicatio n diarrhea Not available Not available 12/17/2022 76559 2 RxNorm Not Available [facility] 3 05:04:16 Medications Name Sig Start Date Stop Date Status Note LastModified by Organization Details LastModified Time amoxicillin 500 mg capsule Take 1 capsule every 8 hours by oral route for 7 days. active Not Available Not Available No t Available prednisone 10 mg tablet take by mouth active Not Available Not Available No t Available albuterol sulfate 2.5 mg/3 mL (0.083 %) solution for nebulizatio n Inhale 3 mL 3 times a day by nebulizat ion route. 09/21 completed Not Available Not Available Not Available hydrocortis one-pramoxi ne 2.5 %-1 % rectal cream 02/13 completed Not Available Not Available Not Available atorvastati n 10 mg tablet TAKE 1 TABLET BY MOUTH EVERY DAY active Not Available Not Available No t Available azithromyci n 250 mg tablet TAKE 2 TABLETS (500 MG) BY ORAL ROUTE ONCE DAILY FOR 1 DAY THEN 1 TABLET (250 MG) BY ORAL ROUTE ONCE DAILY FOR 4 DAYS 02/10 completed Not Available Not Available Not Available Anucort-HC 25 mg suppository 02/13 completed Not Available Not Available Not Available metronidazo le 500 mg tablet 07/29 completed Not Available Not Available Not Available azathioprin e 50 mg tablet 08/14 completed Not Available Not Available Not Available nifedipine ER 30 mg tablet,exte nded release Take 1 tablet every day by oral route. 10/21 completed Not Available Not Available Not Available acetaminoph en 300 mg-codeine 30 mg tablet Take 1 tablet 3 times a day by oral route as needed. active Not Available Not Available No t Available amlodipine 5 mg tablet TAKE 1 TABLET BY MOUTH EVERY DAY active Not Available Not Available No t Available Proctozone- HC 2.5 % topical cream perineal applicator 04/22 completed Not Available Not Available Not Available cephalexin 500 mg capsule 10/16 completed Not Available Not Available Not Available mercaptopur ine 50 mg tablet TAKE 1 TABLET BY MOUTH TWICE A DAY 02/12 completed Not Available Not Available Not Available cephalexin 500 mg tablet Take 1 tablet 3 times a day by oral route for 7 days. 10/16 completed Not Available Not Available Not Available folic acid 1 mg tablet TAKE 2 TABLETS BY MOUTH EVERY DAY active Not Available Not Available No t Available montelukast 10 mg tablet TAKE 1 TABLET BY MOUTH EVERY DAY 03/20 completed Not Available Not Available Not Available allopurinol 300 mg tablet TAKE 1 TABLET BY MOUTH EVERY DAY active Not Available Not Available No t Available hydrochloro thiazide 25 mg tablet TAKE 1 TABLET BY MOUTH EVERY DAY active Not Available Not Available No t Available ergocalcife rol (vitamin D2) 1,250 mcg (50,000 unit) capsule Take 1 capsule every week by oral route. active Not Available Not Available No t Available colchicine 0.6 mg tablet Take 1 tablet every day by oral route. 10/16 completed Not Available Not Available Not Available fluticasone propionate 50 mcg/actuati on nasal spray,suspe nsion [place] 1 spray every day by intranasa l route. active Not Available Not Available No t Available amoxicillin 500 mg-potassiu m clavulanate 125 mg tablet 10/07 completed Not Available Not Available Not Available Claritin active Not Available Not Avai lable Not Available ProAir HFA 90 mcg/actuati on aerosol inhaler INHALE 2 PUFFS BY MOUTH EVERY 4 HOURS FOR 30 DAYS. active Not Available Not Available No t Available mesalamine 1.2 gram tablet,rachel yed release TAKE 4 TABLETS BY MOUTH DAILY active Not Available Not Available No t Available peg 3350 240 gram-electr olytes 22.72 gram-6.72 g-5.84 g powdr for soln TAKE DIRECTED 08/31 completed Not Available Not Available Not Available Cimzia 400 mg/2 mL (200 mg/mL x 2) subcutaneou s syringe kit active Not Available Not Available Not Available Paxlovid 300 mg (150 mg x 2)-100 mg tablets in a dose pack TAKE 2 NIRMATREL VIR TABLETS AND 1 RITONAVIR TABLET BY MOUTH TWICE DAILY X5 DAYS 03/11 completed Not Available Not Available Not Available Vitals Date Recorded Body mass index (BMI) Body height Heart rate Body temperature Body weight Systolic And Diastolic Provider Name and Address Organization Details Last Updated DateTime 2 38.3 kg/m2 162.56 cm 84 /min 97.2 [degF] 813939. 1 g 126/84 mm[Hg] Not Available [facility] 3 04:46:33 Date Recorded Body mass index (BMI) Body height Heart rate Body temperature Body weight Systolic And Diastolic Provider Name and Address Organization Details Last Updated DateTime 2 37.6 kg/m2 162.56 cm 72 /min 97.9 [degF] 26887.7 3 g 130/78 mm[Hg] Not Available [facility] 3 04:46:33 Date Recorded Body height Body mass index (BMI) Body weight Body temperature Heart rate Systolic And Diastolic Provider Name and Address Organization Details Last Updated DateTime 3 162.56 cm 37.6 kg/m2 71213.7 3 g 98 [degF] 83 /min 130/88 mm[Hg] Pushpa HaddadGRIFFINDanilo Funanga Alida [employer] [facility] 3 16:11:27 Date Recorded Body mass index (BMI) Body height Heart rate Body temperature Body weight Systolic And Diastolic Provider Name and Address Organization Details Last Updated DateTime 2 37.4 kg/m2 162.56 cm 89 /min 98.9 [degF] 07546.1 4 g 134/84 mm[Hg] Not Available [facility] 3 04:46:33 Date Recorded Body height Body mass index (BMI) Body weight Body temperature Heart rate Systolic And Diastolic Provider Name and Address Organization Details Last Updated DateTime 3 162.56 cm 39.1 kg/m2 485967. 06 g 97.8 [degF] 99 /min 142/92 mm[Hg] MARY GRACE Helms Funanga Alida [employer] 3 16:27:12 Social History Question Answer Notes LastModified by [employer] ion Details LastModified Time Tobacco Smoking Status Never Smoker Not Available [facility] 12/17/2022 04:25:32 Do You Have An Advance Directive? No MIGRATION.[id number] [id number] Information not available 12/17/2022 Are You Blind Or Do You Have Difficulty Seeing? No MIGRATION.55377 10189 Information not available 12/17/2022 What Is Your Level Of Caffeine Consumption? Occasional MIGRATION.55835 44367 Information not available 12/17/2022 How Much Tobacco Do You Chew? None MIGRATION.68942 02765 Information not available 12/17/2022 In The 14 Days Before Symptom Onset, Have You Had Close Contact With A Laboratory-confi rmed COVID-19 While That Case Was Ill? No MIGRATION.08073 91535 Information not available 12/17/2022 In The 14 Days Before Symptom Onset, Have You Had Close Contact With A Person Who Is Under Investigation For COVID-19 While That Person Was Ill? No MIGRATION.48162 14777 Information not available 12/17/2022 Are You Deaf Or Do You Have Serious Difficulty Hearing? No MIGRATION.79321 12155 Information not available 12/17/2022 What Type Of Diet Are You Following? REGULAR MIGRATION.18943 88505 Information not available 12/17/2022 Which Illicit Or Recreational Drugs Have You Used? None MIGRATION.47808 01951 Information not available 12/17/2022 What Is The Highest Grade Or Level Of School You Have Completed Or The Highest Degree You Have Received? [id number] MIGRATION.75659 29766 Information not available 12/17/2022 Have There Been Any Changes To Your Family Or Social Situation? No MIGRATION.93438 52996 Information not available 12/17/2022 What Is The Fluoride Status Of Your Home? Unknown MIGRATION.83618 41482 Information not available 12/17/2022 Are There Any Guns Present In Your Home? Yes MIGRATION.95037 73057 Information not available 12/17/2022 Do You Use Insect Repellent Routinely? No MIGRATION.05304 77526 Information not available 12/17/2022 Where Do You Live? [place]House MIGRATION.34508 45899 Information not available 12/17/2022 Do You Have A Medical Power Of Commercial Loan Processor? No MIGRATION.07358 23185 Information not available 12/17/2022 What Was The Date Of Your Most Recent Tobacco Screening? 09/30/2023 [email or web address] Information not available 09/30/2023 Have You Ever Been Counseled For Unhealthy Alcohol Use? No MIGRATION.81482 61530 Information not available 12/17/2022 Do You Have Any Pets? Yes MIGRATION.54788 45625 Information not available 12/17/2022 What Is Your Relationship Status? MIGRATION.79225 53864 Information not available 12/17/2022 Do You Use Your Seat Belt Or Car Seat Routinely? Yes MIGRATION.19321 10601 Information not available 12/17/2022 Do You Have Smoke And Carbon Monoxide Detectors In Your Home? Yes MIGRATION.10368 33347 Information not available 12/17/2022 Are You Passively Exposed To Smoke? No MIGRATION.26654 85915 Information not available 12/17/2022 Are There Any Smokers In Your House? No MIGRATION.69462 11833 Information not available 12/17/2022 How Much Tobacco Do You Smoke? No MIGRATION.88434 12104 Information not available 12/17/2022 What Types Of Sporting Activities Do You Participate In? None MIGRATION.56723 50793 Information not available 12/17/2022 Do You Use Sunscreen Routinely? No MIGRATION.84038 50410 Information not available 12/17/2022 Has Tobacco Cessation Counseling Been Provided? No Not Needed-ne melanie Smoked MIGRATION.33098 14571 Information not available 12/17/2022 How Many Years Have You Smoked Tobacco? 0 MIGRATION.64886 66742 Information not available 12/17/2022 Have You Recently Traveled Abroad? No MIGRATION.63074 75728 Information not available 12/17/2022 Do You Have Difficulty Walking Or Climbing Stairs? No MIGRATION.48587 63191 Information not available 12/17/2022 Do You Have Any Dietary Restrictions? No MIGRATION.85577 09919 Information not available 12/17/2022 Sex: Female Functional Status Question Answer Note LastModified by [employer] ion Details LastModified Time Do you use any illicit or recreational drugs? No MIGRATION.053007 0543 Information not available 12/17/2022 Do you or have you ever used any other forms of tobacco or nicotine? No MIGRATION.322721 6198 Information not available 12/17/2022 What is your level of alcohol consumption? Occasional MIGRATION.772795 4460 Information not available 12/17/2022 Do you or have you ever used smokeless tobacco? Never used smokeless tobacco MIGRATION.817810 8321 Information not available 12/17/2022 Do you have difficulty doing errands alone? 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 No MIGRATION.833672 9385 Information not available 12/17/2022 Do you or have you ever used e-cigarettes or vape? Never used electronic cigarettes MIGRATION.601040 6134 Information not available 12/17/2022 What is your exercise level? Moderate MIGRATION.800172 9456 Information not available 12/17/2022 Mental Status Question Answer Note LastModified by [employer] ion Details LastModified Time Do you feel stressed (tense, restless, nervous, or anxious, or unable to sleep at night)? [id number] MIGRATION.[id number] 26 Information not available 12/17/2022 Do you have difficulty concentrating, remembering or making decisions? No MIGRATION.61621201 26 Information not available 12/17/2022 Family History Relationship Description Onset Age of this Age Resolved Age Notes LastModified by Organization Details LastModified Time Father Diabetes mellitus MIGRATION.[id number] Not available 12/17/2022 04:44:23 Mother Diabetes mellitus MIGRATION.[id number] Not available 12/17/2022 04:44:23 Medical History Condition Response NERVE DISEASE N BLINDNESS N RHEUMATIC FEVER N KIDNEY STONES N BLADDER PROBLEMS N MRSA N OTHER # 1 N POLIO N LUNG DISEASE/DISORDER N RADIATION / CHEMOTHERAPY N COPD N Other # 2 N BLOOD DISEASES N EAR OR HEARING PROBLEMS N MUMPS N BOWEL PROBLEMS Y DEPRESSION (INCLUDING POST ) N STROKE/TIA N ULCERS N BENIGN PROSTATIC HYPERPLASIA N MEASLES N MYOCARDIAL INFARCTION N OBESITY N GERD/NAUSEA N ANEURYSM N URINARY/BLADDER/KIDNEY PROBLEMS N CORONARY ARTERY DISEASE (CAD) N ADDICTION CONCERNS N ENDOMETRIOSIS N Impotence N USE OF BLOOD THINNERS N SKIN PROBLEMS N GASTROINTESTINAL DISORDER N PERIPHERAL VASCULAR DISEASE N MUSCLE,JOINT OR BONE PROBLEMS N GASTROINTESTINAL BLEEDING N BLOOD CLOTS N ASTHMA N CATARACTS N ERECTILE DYSFUNCTION N VARICOSITIES N GI PROBLEMS N Low Testosterone N INFERTILITY N AIDS/HIV N CHEMOTHERAPY / RADIATION N LIVER DISEASE N MALE HYPOGONADISM N HYPERTENSION N Deficiency Y TOURETTE'S N ANXIETY DISORDER N BLOOD TRANSFUSION N ANEMIA/BLOOD DISORDER Y CHRONIC EAR INFECTIONS N BRONCHITIS Y TUBERCULOSIS N GLAUCOMA N FOOT PROBLEM N DIVERTICULITIS N SLEEP APNEA N CHICKENPOX N INFECTIOUS DISEASE N HEART ARRHYTHMIA N PROSTATE N INSOMNIA N HIGH CHOLESTEROL / HYPERLIPIDEMIA N HYPERTHYROIDISM N EYE PROBLEMS N EDEMA N CHRONIC PAIN SYNDROME N HYPOTHYROIDISM N CAROTID BLOCKAGE N CONSTIPATION N BACK / NECK PROBLEMS N HAVE YOU BEEN HOSPITALIZED OR SEEN IN [facility] IN THE PAST YEAR ? N ATHEROSCLEROSIS N BREAST PROBLEMS N DIALYSIS N ECZEMA N OSTEOPOROSIS N ARTHRITIS N APPENDICITIS N DIABETES, TYPE N BAD TEETH N ENT N HEARTBURN / REFLUX N AUTISM SPECTRUM DISORDER (ASD) N HEPATITIS / LIVER DISEASE N GOUT N SLEEP DISORDER N ALZHEIMER'S DISEASE N Brain Problems N HERPES N DEMENTIA N HEADACHES/MIGRAINES N SEIZURES/EPILEPSY N VASCULAR DISEASE N PACEMAKER N Blood Disorder N DIZZINESS N HEART DISEASE/HEART PROBLEMS N KIDNEY DISEASE N MULTIPLE SCLEROSIS N CARDIAC ARRHYTHMIA N CANCER: SPECIFY N ATRIAL FIBRILLATION N Gall Stones N PULMONARY EMBOLISM N AUTOIMMUNE DISEASE N Gynecological HistoryNo gynecological history recorded. Obstetrics History GPAL:G 0 P 0 0 0 0 Immunizations Vaccine Type Date Status Note Provider Nam e and Address Organization Details Recorded Time COVID-19, mRNA, LNP-S, PF, 100 mcg/0.5mL dose or 50 mcg/0.25mL dose 1 completed Not Available [facility] 10/03/2023 06:30:09 Influenza, split virus, trivalent, preservative 2 completed Not Available [facility] 10/03/2023 06:30:09 Influenza, split virus, quadrivalent, preservative 1 completed Not Available [facility] 10/03/2023 06:30:09 COVID-19, mRNA, LNP-S, PF, 30 mcg/0.3 mL dose 1 completed Not Available [facility] 10/03/2023 06:30:09 COVID-19, mRNA, LNP-S, PF, 30 mcg/0.3 mL dose 1 completed Not Available [facility] 10/03/2023 06:30:09 Influenza, split virus, trivalent, preservative 0 completed Not Available [facility] 10/03/2023 06:30:09 Influenza, split virus, quadrivalent, preservative 8 completed Not Available [facility] 10/03/2023 06:30:09 Influenza, split virus, quadrivalent, preservative 7 completed Not Available [facility] 10/03/2023 06:30:09 Past Encounters Encounter ID Performer Location Encounter Start Date Encounter Closed Date Diagnosis/Indication Diagnosis SNOMED-CT Code Diagnosis ICD10 Code Diagnosis Note [id number] Jr Peterson MD [facility] Internal Med [facility] [address] [facility] [address] [place] [address] 03/20/2021 00:00:00 03/30/2021 15:03:55 [id number] Jr Peterson MD [facility] Internal Med [facility] [address] [facility] [address] [place] [address] 10/16/2021 00:00:00 10/16/2021 20:36:59 [id number] Jr Peterson MD [facility] Internal Med [facility] [address] [facility] [address] [place] [address] 11/13/2021 00:00:00 11/17/2021 12:10:48 [id number] Jr Peterson MD [facility] Internal Med [facility] [address] [facility] [address] [place] [address] 02/12/2022 00:00:00 02/16/2022 12:52:58 [id number] Jr Peterson MD [facility] Internal Med [facility] [address] [facility] [address] [place] [address] 09/03/2022 00:00:00 09/07/2022 15:35:08 [id number] Jr Peterson MD [facility] Internal Med [facility] [address] [facility] [address] [place] [address] 03/11/2023 15:24:03 03/12/2023 16:59:08 Screening mammography 71177232 Z12.31 Gout 28259187 M10.9 Essential hypertension 16265847 I10 Vitamin D below reference range 034832580 E55.9 Dyslipidemia 289214973 E 78.5 Crohn's disease 72923369 K50.90 [id number] Jr Peterson MD [facility] Internal Med [facility] [address] [facility] [facility] [address] [place] [address] 09/30/2023 15:38:04 09/30/2023 17:14:37 Dyslipidemia 382940240 E78.5 Essential hypertension 96492269 I10 Gout 83230646 M10.9 Vitamin D below reference range 546187303 E55.9 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 Health Concerns Section Related Observation LastModified by Organization Detai ls LastModified Time None Recorded Concern Status LastModified by Organization Details LastModified Time None Recorded Advance Directives Directive N: Payers Insurance Date Sequence Insurance Name Policy Number Policy Amin Covered Member ID Amin Member ID Guarantor Name 10/21/2023 1 [facility] [id number] Alex Hoyt [id number] Marjorie Hoyt Notes Date Note Type Note Provider Name and Address Organization Details Recorded Time 3 text/html Crohn's stablegout no flare-upslow vitamin-D Needs supplementdyslipidemia needs to take atorvastatin regularlyhypertension stable pressure 130/88Needs to lose some weight Jr Peterson MD [address] [facility], [place], [address], [facility] 03/14/2023 14:49:58 3 text/html Crohn's stablegout no flare-upslow vitamin-D Needs supplementdyslipidemia needs to take atorvastatin regularlyhypertension stableNeeds to lose some weight Jr Peterson MD [address], [place], [address], [employer] 10/19/2023 21:15:45 OBGyn Episode No OBEpisode recorded.
--- OUTSIDE RECORDS SUMMARY | 2025-04-28 15:19 | XMS_ITS | Data Portability ---
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 Name Role Phone JR PETERSON Primary Care Provider Unavailabl e Assessment Encounter Date Assessment Date Assessment LastModified by Organization Details LastModified Time 01/12/2024 01/12/2024 Diagnosis and the assessment and plan have been discussed she will follow-up with me in 6 months obtain old records all questions have been answered she believes she is up-to-date on mammograms and colonoscopies [email or web address] Not available 01/12/2024 21:51:58 07/13/2024 07/13/2024 Diagnosis and the assessment and plan have been discussed she will follow-up with me in 4 months obtain old records all questions have been answered she believes she is up-to-date on mammograms and colonoscopies. Z-Sanjay. 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 Referral None recorded. Procedures None recorded. Surgeries None recorded. Imaging DEXA 2024 025 [facility] (Imaging), [address] [place] [address] [facility], [place], [address], 04/27/2025 04:23:26 Medication Orders Zithromax Z-Sanjay 250 mg tablet 2023 024 [facility] #[id number], [address], [place], [address], 07/13/2024 18:03:22 Patient TargetsNo targets recorded. Patient Instructions Encounter Date Encounter Id Patient Instructions Last Modified By Organization Details Last Modified Time 07/13/2024 [id number] A healthy lifestyle: care instructions Not available 07/13/2024 18:03:22 01/19/2025 [id number] A healthy lifestyle: care instructions [email or web address] Not available 01/19/2025 16:43:00 Reason for Referral None Reported. Results Created Date Observation Date Name Description Value Unit Range Abnormal Flag Note LastModifiedBy Organization Detail LastModifiedTime 11/10/1911/10/2024 XR, chest , 2 view No observ ation record ed. [address] [address], [place], [address], 11/11/2024 09:10:10 11/11/19 25 11/11/2024 US, renal No observ ation record ed. [address], [address], 11/14/2024 10:18:54 Result Notes None recorded. Problems Name Problem SNOMED Code Status Onset Date Resolution Date Notes Provider Name and Address Organization Details Recorded Time Cough 13699235 Active 2023 BRI [place] [facility] 17:37:14 Gout 89746397 Active 2023 [place] [facility] 17:37:23 Inflammatory bowel disease 86681258 Active 2023 Oriana HernandezBRI [place], [place] - [facility] 4 17:37:25 Essential hypertension 79647982 Active 2023 Oriana Hernandez [place] [facility] 4 17:37:28 Hyperlipidemia 60681845 Active 2023 Oriana Hernandez [place] [facility] 4 17:37:29 Fatigue 40880125 Active 2024 Oriana Mary BRI [place], [place] [facility] 5 14:02:31 Vitamin D deficiency 97079519 Active 2024 Jr Peterson MD Attn: Gricelda bryan,[address] [facility], [place], [address] [place] [facility] 5 22:27:47 Problem Notes Documentation Provider Name and Address Organization Details Recorded Time Registered Sales Assistant Consult Note : This document (1 of 1) was received from [email or web address] on 03/27/2025 through Direct Message along with the following message body content: Patient Name: MARJORIE HOYT. Patient : 1970. Patient . Tere Sy null, [place] [facility] 03/28/2025 16:35:55 Medical Equipment None Reported. Allergies Allergen ID Allergen Name Allergen Category Reaction Reaction Severity Criticality Documentation Date Start Date Code Code System Note Provider Name and Address Organization Details Recorded Time 319642 Augmentin medicatio n Not available Not available Not available 07/13/2024 93713 2 RxNorm Saskia BRI [place] null, [place] - [facility] 4 16:37:57 Medications Name Sig Start Date Stop Date Status Note LastModified by Organization Details LastModified Time atorvastatin 10 mg tablet TAKE 1 TABLET BY MOUTH EVERY DAY 2024 active Not Available Not Available Not Avai lable azithromycin 250 mg tablet Take 1 dose pk by oral route as directed. active Not Available Not Available No t Available polysacchari de iron complex 150 mg iron capsule TAKE 1 CAPSULE BY MOUTH TWICE A DAY active Not Available Not Available No t Available prednisone 20 mg tablet TAKE 2 TABLETS BY MOUTH DAILY AT 0800 active Not Available Not Available No t Available prednisone 5 mg tablet PLEASE SEE ATTACHED FOR DETAILED DIRECTIONS active Not Available Not Available N ot Available potassium chloride ER 10 mEq tablet,exten ded release TAKE 1 TABLET (10 MEQ) ORALLY DAILY active Not Available Not Available No t Available amlodipine 5 mg tablet TAKE 1 TABLET BY MOUTH EVERY DAY 2024 active Not Available Not Available Not Avai lable magnesium oxide 400 mg (241.3 mg magnesium) tablet TAKE 1 TABLET BY MOUTH EVERY 12 HOURS active Not Available Not Available No t Available folic acid 1 mg tablet TAKE 2 TABLETS BY MOUTH EVERY DAY 2024 active Not Available Not Available Not Avai lable allopurinol 300 mg tablet TAKE 1 TABLET BY MOUTH EVERY DAY 2024 active Not Available Not Available Not Avai lable hydrochlorot hiazide 25 mg tablet TAKE 1 TABLET BY MOUTH EVERY DAY 2024 active Not Available Not Available Not Avai lable mesalamine 1.2 gram tablet,delay ed release TAKE 4 TABLETS BY MOUTH EVERY DAY FOR 3 MONTHS active Not Available Not Available No t Available Vitals Date Recorded Body weight Oxygen saturation Oxygen saturation in Arterial blood by Pulse oximetry Heart rate Systolic And Diastolic Provider Name and Address Organization Details Last Updated DateTime 4 523696. 25 g 98 % 98 % 81 /min 132/84 mm[Hg] Rylan Maradiaga [facility] 4 16:07:17 Date Recorded Body height Body mass index (BMI) Body weight Heart rate Oxygen saturation Oxygen saturation in Arterial blood by Pulse oximetry Systolic And Diastolic Provider Name and Address Organization Details Last Updated DateTime 5 162.56 cm 34.9 kg/m2 59437.3 3 g 120 /min 99 % 99 % 120/70 mm[Hg] Consuelo Andrade MA [facility] 5 10:57:38 Date Recorded Body height Body mass index (BMI) Body weight Heart rate Oxygen saturation Oxygen saturation in Arterial blood by Pulse oximetry Systolic And Diastolic Provider Name and Address Organization Details Last Updated DateTime 4 162.56 cm 36.9 kg/m2 58130.2 8 g 84 /min 96 % 96 % 124/78 mm[Hg] Saskia Kauffman MA [facility] 4 16:37:19 Social History Question Answer Notes LastModified by Organizat ion Details LastModified Time Tobacco Smoking Status Never Smoker Rylan Maradiaga MA [facility] [place] [place] - [facility] 01/12/2024 16:00:55 Do You Have An Advance Directive? No Information n ot available 01/12/2024 Are You Blind Or Do You Have Difficulty Seeing? No Information n ot available 01/12/2024 What Is Your Level Of Caffeine Consumption? None Information not available 01/12/2024 In The 14 Days Before Symptom Onset, Have You Had Close Contact With A Laboratory-confirm ed COVID-19 While That Case Was Ill? No Information n ot available 07/13/2024 In The 14 Days Before Symptom Onset, Have You Had Close Contact With A Person Who Is Under Investigation For COVID-19 While That Person Was Ill? No Information not available 07/13/2024 Have You Been To An Area Known To Be High Risk For COVID-19? No Information not available 07/13/2024 Are You Deaf Or Do You Have Serious Difficulty Hearing? No Information not available 01/12/2024 What Type Of Diet Are You Following? REGULAR Information n ot available 01/12/2024 Are There Any Guns Present In Your Home? No Information not available 01/12/2024 What Was The Date Of Your Most Recent Tobacco Screening? 01/19/2025 Information not available 01/19/2025 What Is Your Relationship Status? Information not available 01/12/2024 Do You Use Your Seat Belt Or Car Seat Routinely? Yes Information not available 01/12/2024 Do You Have Smoke And Carbon Monoxide Detectors In Your Home? Yes Information not available 01/12/2024 Do You Use Sunscreen Routinely? No Information not available 01/12/2024 Has Tobacco Cessation Counseling Been Provided? No Information not available 01/12/2024 Sex: Female Functional Status Question Answer Note LastModified by Organizat ion Details LastModified Time Do you use any illicit or recreational drugs? No Information not available 01/12/2024 Do you or have you ever used any other forms of tobacco or nicotine? No Information not available 01/12/2024 What is your level of alcohol consumption? Occasional Information not available 01/12/2024 Are you currently employed? Yes [email or web address] Information not available 07/13/2024 Are you able to care for yourself? Yes Information n ot available 01/12/2024 What is your exercise level? None Information not available 01/12/2024 Mental Status Question Answer Note LastModified by Organization D etails LastModified Time Do you feel stressed (tense, restless, nervous, or anxious, or unable to sleep at night)? [place]4267-5 Information not available 01/12/2024 Family History Nothing Reported. Medical History Condition Response Coronary Artery Disease N Other N High Blood Pressure Y Atrial Fibrillation N Kidney or Bladder Problems N Thyroid Problems N GI Problems Y Depression N COPD N Blood Clots N Skin Problems N Anemia N Heart Attack (DE) N Anxiety Disorder N Diabetes N Muscle, Joint, or Bone Problems Y Seizures/Epilepsy N Acid Reflux (GERD) N Cancer N Stroke N Asthma N Allergies N High Cholesterol Y Hepatitis N Liver Disease N Headaches N Heart Failure N Osteoporosis N Gynecological HistoryNo gynecological history recorded. Obstetrics History GPAL:G 0 P 0 0 0 0 Immunizations Vaccine Type Date Status Note Provider Nam e and Address Organization Details Recorded Time Influenza, split virus, quadrivalent, preservative 1 completed Consuelo Andrade [place], [place] [facility] 01/19/2025 10:54:18 Influenza, split virus, quadrivalent, preservative 7 completed Consuelo Andrade [place] [facility] 01/19/2025 10:54:18 Influenza, split virus, quadrivalent, preservative 8 completed Consuelo Andrade [place] [facility] 01/19/2025 10:54:18 COVID-19, mRNA, LNP-S, PF, 100 mcg/0.5mL dose or 50 mcg/0.25mL dose 1 completed Consuelo Raymond, [place], [place] [facility] 01/19/2025 10:54:18 COVID-19, mRNA, LNP-S, PF, 30 mcg/0.3 mL dose 1 completed BRI [place] [facility] 01/19/2025 10:54:18 COVID-19, mRNA, LNP-S, PF, 30 mcg/0.3 mL dose 1 completed Consuelo Andrade [place] [facility] 01/19/2025 10:54:18 Influenza, split virus, trivalent, preservative 2 completed [place] [facility] 01/19/2025 10:54:18 Influenza, split virus, trivalent, PF 4 completed [place] [facility] 01/19/2025 10:54:26 Pneumococcal conjugate PCV20, polysaccharide SFR565 conjugate, adjuvant, PF 5 completed Jr Peterson MD Attn: Accounting,[address] [place], [address], [place] [facility] 01/21/2025 20:23:37 Past Encounters Encounter ID Performer Location Encounter Start Date Encounter Closed Date Diagnosis/Indication Diagnosis SNOMED-CT Code Diagnosis ICD10 Code Diagnosis Note [id number] Jr Peterson MD [facility] (Adult Med) [address] [place] [phone] 01/12/2024 15:50:08 01/12/2024 17:06:44 Gout 00362653 M10.9 Inflammato ry bowel disease 14868750 K52.9 Essential hypertension 80691664 I10 Hyperlipidemia 48118925 E78.5 [id number] [facility] [address] [place] [id number] 07/13/2024 16:09:34 07/13/2024 17:35:11 Obesity 526385083 E66.8 Cough 20513825 R05.9 Essential hypertension 58075265 I10 Hyperlipidemia 84776670 E78.5 Crohn's di sease of colon 48063052 K50.10 [id number] Jr Peterson MD [facility] [place] [address] [place] [address] 01/19/2025 10:27:05 01/19/2025 11:43:39 Body mass index 30+ - obesity 083228186 Z68.34 Obesity 232641523 E66.9 Postmenopausal state 764 64529 Z78.0 Administra tion of pneumococcal vaccine 32796403 Z23 Essential hypertension 06314067 I10 Gout 77537159 M10.9 Hyperlipidemia 99797630 E78.5 Inflammato ry bowel disease 80316061 K52.9 Health Concerns Section Related Observation LastModified by Organization Detai ls LastModified Time None Recorded Concern Status LastModified by Organization Details LastModified Time None Recorded Advance Directives Directive N: Payers Insurance Date Sequence Insurance Name Policy Number Policy Amin Covered Member ID Amin Member ID Guarantor Name 12/30/2024 PAYMENT PLAN Marjorie Brittany 01/23/2025 [id number] Marjorie Hoyt Notes Date Note Type Note Provider Name and Address Organization Details Recorded Time 01/12/2024 text/html Gout no flareups hypertension no headache or dizziness hyperlipidemia taking her medication try to follow low-fat diet inflammatory bowel disease stable on current medical regimen low homocystine level supplemented with folic acid. Taking all her medications without any side effects. Jr Peterson MD Attn: Accounting,[address] [facility], [place], [address], [place] [facility] 01/12/2024 21:52:17 07/13/2024 text/html little bit of co ugh for a week or so has been nonproductive. Hypertension no headache no dizziness. Hyperlipidemia has been trying to follow a low-fat diet. Crohn's disease stable on current medical regimen with no blood in stool or abdominal pain. 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
[2025-04-28 15:48] LABS: Hematocrit 29.8 % (37.0-47.0); Hemoglobin 10.4 g/dL (12.0-15.0); Mean Corpuscular HGB Conc 34.9 g/dl (32-36); Mean Corpuscular Hemoglobin 28.7 pg (26-34); Mean Corpuscular Volume 82.1 fl (80-100); Platelet Count Result 446 k/mm3 (150-375); Red Blood Count 3.63 M/mm3 (4.2-5.4); White Blood Count 10.6 K/mm3 (4.5-10.0)
[2025-04-28 16:01] LABS: Alanine Aminotransferase 32 U/L (6-35); Albumin Level 2.8 g/dL (3.5-5.1); Alkaline Phosphatase 155 U/L (38-126); Anion Gap 11 mmol/L (4-12); Aspartate Amino Transferase 50 U/L (14-36); Bilirubin,Total 0.5 mg/dL (0.2-1.3); Blood Urea Nitrogen 20 mg/dL (7-17); CRP 6.4 mg/dL (<1.0); Calcium 7.5 mg/dL (8.4-10.2); Carbon Dioxide 28 mmol/L (22-30); Chloride 95 mmol/L (98-107); Estimated Glomerular Filt Rate 29; Glucose 141 mg/dL (65-110); Potassium 3.1 mmol/L (3.4-5.0); Sodium 134 mmol/L (137-145); Total Protein 8.1 g/dL (6.3-8.2)
== END 2025-04-28 15:17 | disposition home or self-care (01) ==
LOC: ANHLAB 15:17
PROVIDERS: PCP Internal Medicine; Visit Provider Nurse Practitioner Family
DX: K50.90 Crohn's disease, unspecified, without complications (principal)
CPT/HCPCS: 36415; 80053; 85027; 85652; 86140

== ENCOUNTER 2025-05-08 09:02 | Outpatient (CLI) | payer OTHER, SELFPAY ==
--- OUTSIDE RECORDS SUMMARY | 2025-05-08 09:09 | XMS_ITS | Data Portability ---
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 Lab uric acid, serum or plasma 2022 023 [facility] (Lab), [address] [place], [address], 3 11:08:33 lipid panel, serum 2022 023 [facility] (Lab), [address] [place], [address], 3 11:08:38 CBC w/ auto diff 2022 023 [facility] (Lab), [address] [place], [address], 3 11:08:44 CMP, serum or plasma 2022 023 [facility] (Lab), [address] [place], [address], 3 11:08:49 Referral None recorded. Procedures None recorded. Surgeries None recorded. Imaging MAMMO, screening, digital, bilateral 2022 023 [facility] (Radiology), [address] [place], [address], 3 14:32:35 Medication Orders None recorded. Patient TargetsNo targets recorded. Patient InstructionsNo instructions recorded. Reason for Referral None Reported. Results Created Date Observation Date Name Description Value Unit Range Abnormal Flag Note LastModifiedBy Organization Detail LastModifiedTime 11/11/1911/11/2021 FOLAT E, SERUM /PLAS MA folate >20.0 NG/mL 2.76- Not Available [facility] (Lab) [address] [place], [address], 11/11/2021 12:19:27 11/11/1911/11/2021 LIPID PANEL cholesterol 260 mg/dL 140-19 9 high NIH MARCELLE NSUS RECOM MENDA TION FOR BEN STERO L: ADULT CHILD LOW RISK: <200 <170 BORDE RLINE : <200- 239 ----- HIGH RISK: >240 >200 Not Available [facility] (Lab) [address] [place], [address], 11/11/2021 10:49:46 11/11/19 22 11/11/2021 LIPID PANEL triglyceride s 69 mg/dL 0-150 [facility] MARCELLE NSUS REPOR T RECOM MENDA TION FOR TRIGL YCERI STEPHANIE: ADULT CHILD LOW RISK: <150 ----- BODER LINE: 150-1 99 ----- HIGH RISK: >200 ----- Not Available [facility] (Lab) [address] [place], [address], 11/11/2021 10:49:46 11/11/19 22 11/11/2021 LIPID PANEL HDL cholesterol 132 mg/dL 40- Not Available [facility] (Lab) [address] [place], [address], 11/11/2021 10:49:46 11/11/19 22 11/11/2021 LIPID PANEL [...] WILL NOT BE REPOR RADHA. Not Available [facility] (Lab) [address] [place], [address], 11/11/2021 10:49:46 11/11/19 22 11/11/2021 URIC ACID SERUM uric acid 1.8 mg/dL 2.5-6. 2 low Not Available [facility] (Lab) [address] [place], [address], 11/11/2021 10:49:45 11/11/19 22 11/11/2021 COMPR EHENS GALILEO METAB OLIC PANEL sodium 135 mmol/ L 137-14 5 low Not Available [facility] (Lab) [address] [place], [address], 11/11/2021 10:49:40 11/11/19 22 11/11/2021 COMPR EHENS GALILEO METAB OLIC PANEL potassium 3.6 mmol/ L 3.5-5. 1 Not Available [facility] (Lab) [address] [place], [address], 11/11/2021 10:49:40 11/11/19 22 11/11/2021 COMPR EHENS GALILEO METAB OLIC PANEL chloride 98 mmol/ L 98-107 Not Available [facility] (Lab) [address] [place], [address], 11/11/2021 10:49:40 11/11/19 11/11/2021 COMPR EHENS GALILEO METAB OLIC PANEL carbon dioxide 27 mmol/ L 22-30 Not Available [facility] (Lab) [address] [place], [address], 11/11/2021 10:49:40 11/11/19 22 11/11/2021 COMPR EHENS GALILEO METAB OLIC PANEL agap 13.6 mmol/ L 14-22 low Not Available [facility] (Lab) [address] [place], [address], 11/11/2021 10:49:40 11/11/19 22 11/11/2021 COMPR EHENS GALILEO METAB OLIC PANEL glucose 78 mg/dL 70-99 Not Available [facility] (Lab) [address] [place], [address], 11/11/2021 10:49:40 11/11/19 22 11/11/2021 COMPR EHENS GALILEO METAB OLIC PANEL BUN 17 mg/dL 8-19 Not Available [facility] (Lab) [address] [place], [address], 11/11/2021 10:49:40 11/11/19 22 11/11/2021 COMPR EHENS GALILEO METAB OLIC PANEL creatinine 1.02 mg/dL 0.66-1 .25 Not Available [facility] (Lab) [address] [place], [address], 11/11/2021 10:49:40 11/11/19 22 11/11/2021 COMPR EHENS GALILEO METAB OLIC PANEL GFR >60 Refer ence Range : [place] GFR Healt hy Adult : >60 [...] calcu lator is avail able on the [facility] websi te: [email or web address] :[email or web address] ofess ional s/kdo qi/gf r_cal culat or Not Available [facility] (Lab) [address] [place], [address], 11/11/2021 10:49:40 11/11/19 22 11/11/2021 COMPR EHENS GALILEO METAB OLIC PANEL alkaline phosphatase 87 U/L 38-126 Not Available [facility] (Lab) [address] [place], [address], 11/11/2021 10:49:40 11/11/19 22 11/11/2021 COMPR EHENS GALILEO METAB OLIC PANEL alanine aminotransfe rase 65 U/L 0-35 high Not Available [facility] (Lab) [address] [place], [address], 11/11/2021 10:49:40 11/11/19 22 11/11/2021 COMPR EHENS GALILEO METAB OLIC PANEL aspartate aminotransfe rase 96 U/L 15-37 high Not Available [facility] (Lab) [address] [place], [address], 11/11/2021 10:49:40 11/11/19 22 11/11/2021 COMPR EHENS GALILEO METAB OLIC PANEL bilirubin, total 0.80 mg/dL 0.20-1 .30 Not Available [facility] (Lab) [address] [facility] [place], [address], 11/11/2021 10:49:40 11/11/19 22 11/11/2021 COMPR EHENS GALILEO METAB OLIC PANEL calcium 8.8 mg/dL 8.4-10 .2 Not Available [facility] (Lab) [address] [place], [address], 11/11/2021 10:49:40 11/11/19 22 11/11/2021 COMPR EHENS GALILEO METAB OLIC PANEL total protein 8.9 g/dL 6.3-8. 2 high Not Available [facility] (Lab) [address] [place], [address], 11/11/2021 10:49:40 11/11/19 22 11/11/2021 COMPR EHENS GALILEO METAB OLIC PANEL albumin 4.7 g/dL 3.4-5. 0 Not Available [facility] (Lab) [address] [place], [address], 11/11/2021 10:49:40 11/11/19 22 11/11/2021 COMPR EHENS GALILEO METAB OLIC PANEL globulin 4.2 g/dL 2.6-4. 2 Not Available [facility] (Lab) [address] [place], [address], 11/11/2021 10:49:40 11/11/19 22 11/11/2021 COMPR EHENS GALILEO METAB OLIC PANEL A/G ratio 1.1 ratio 1.0-2. 0 Not Available [facility] (Lab) [address] [place], [address], 11/11/2021 10:49:40 11/11/19 22 11/11/2021 CBC/C OMPLE TE BLD COUNT W/DIF F white blood cells 6.1 x10'3 /uL 4.2-10 .8 Not Available [facility] (Lab) [address] [place], [address], 11/11/2021 09:54:00 11/11/19 22 11/11/2021 CBC/C OMPLE TE BLD COUNT W/DIF F red blood cells 4.19 x10'6 /uL 3.80-5 .20 Not Available [facility] (Lab) [address] [place], [address], 11/11/2021 09:54:00 11/11/1911/11/2021 CBC/C OMPLE TE BLD COUNT W/DIF F hemoglobin 12.8 g/dL 12.0-1 5.6 Not Available [facility] (Lab) [address] [place], [address], 11/11/2021 09:54:00 11/11/19 22 11/11/2021 CBC/C OMPLE TE BLD COUNT W/DIF F hematocrit 35.6 % 35.7-4 5.7 low Not Available [facility] (Lab) [address] [place], [address], 11/11/2021 09:54:00 11/11/19 22 11/11/2021 CBC/C OMPLE TE BLD COUNT W/DIF F mean red cell volume 85.0 fL 82.0-9 9.0 Not Available [facility] (Lab) [address] [place], [address], 11/11/2021 09:54:00 11/11/1911/11/2021 CBC/C OMPLE TE BLD COUNT W/DIF F mean red cell hemoglobin 30.5 pg 27.0-3 3.0 Not Available [facility] (Lab) [address] [place], [address], 11/11/2021 09:54:00 11/11/19 22 11/11/2021 CBC/C OMPLE TE BLD COUNT W/DIF F mean RBC HGB concentratio n 36.0 g/dL 31.0-3 6.0 Not Available [facility] (Lab) [address] [place], [address], 11/11/2021 09:54:00 11/11/19 22 11/11/2021 CBC/C OMPLE TE BLD COUNT W/DIF F red cell distribution width 12.4 % 11.8-1 5.5 Not Available [facility] (Lab) [address] [place], [address], 11/11/2021 09:54:00 11/11/1911/11/2021 CBC/C OMPLE TE BLD COUNT W/DIF F platelets 239 x10'3 /uL 150-40 0 Not Available [facility] (Lab) [address] [place], [address], 11/11/2021 09:54:00 11/11/19 22 11/11/2021 CBC/C OMPLE TE BLD COUNT W/DIF F mean platelet volume 9.2 fL 9.0-12 .4 Not Available [facility] (Lab) [address] [place], [address], 11/11/2021 09:54:00 11/11/1911/11/2021 CBC/C OMPLE TE BLD COUNT W/DIF F neutrophils 53.6 % 39.0-7 2.0 Not Available [facility] (Lab) [address] [place], [address], 11/11/2021 09:54:00 11/11/1911/11/2021 CBC/C OMPLE TE BLD COUNT W/DIF F lymphocytes 31.5 % 16.0-4 7.0 Not Available [facility] (Lab) [address] [place], [address], 11/11/2021 09:54:00 11/11/19 22 11/11/2021 CBC/C OMPLE TE BLD COUNT W/DIF F monocytes 10.5 % 5.0-12 .0 Not Available [facility] (Lab) [address] [place], [address], 11/11/2021 09:54:00 11/11/19 22 11/11/2021 CBC/C OMPLE TE BLD COUNT W/DIF F eosinophils 2.8 % 1.0-7. 0 Not Available [facility] (Lab) [address] [place], [address], 11/11/2021 09:54:00 11/11/1911/11/2021 CBC/C OMPLE TE BLD COUNT W/DIF F basophils 1.3 % 0.0-2. 0 Not Available [facility] (Lab) [address] [place], [address], 11/11/2021 09:54:00 11/11/1911/11/2021 CBC/C OMPLE TE BLD COUNT W/DIF F immature granulocytes 0.3 % 0.00-0 .50 Not Available [facility] (Lab) [address] [place], [address], 11/11/2021 09:54:00 11/11/1911/11/2021 CBC/C OMPLE TE BLD COUNT W/DIF F neutrophils, absolute count 3.26 x10'3 /uL 1.5-8. 0 Not Available [facility] (Lab) [address] [place], [address], 11/11/2021 09:54:00 11/11/1911/11/2021 CBC/C OMPLE TE BLD COUNT W/DIF F lymphocytes, absolute count 1.92 x10'3 /uL 1.07-3 .43 Not Available [facility] (Lab) [address] [place], [address], 11/11/2021 09:54:00 11/11/19 22 11/11/2021 CBC/C OMPLE TE BLD COUNT W/DIF F monocytes, absolute count 0.64 x10'3 /uL 0.29-0 .99 Not Available [facility] (Lab) [address] [place], [address], 11/11/2021 09:54:00 11/11/19 22 11/11/2021 CBC/C OMPLE TE BLD COUNT W/DIF F eosinophils, absolute count 0.17 x10'3 /uL 0.02-0 .53 Not Available [facility] (Lab) [address] [place], [address], 11/11/2021 09:54:00 11/11/19 22 11/11/2021 CBC/C OMPLE TE BLD COUNT W/DIF F basophils, absolute count 0.08 x10'3 /uL 0.01-0 .08 Not Available [facility] (Lab) [address] [place], [address], 11/11/2021 09:54:00 11/11/19 22 11/11/2021 CBC/C OMPLE TE BLD COUNT W/DIF F immature granulocytes ,absolute 0.02 x10'3 /uL 0.00-0 .05 Not Available [facility] (Lab) [address] [place], [address], 11/11/2021 09:54:00 11/11/19 22 11/11/2021 CBC/C OMPLE TE BLD COUNT W/DIF F nucleated red blood cells 0.0 % -0 Not Available [facility] (Lab) [address] [place], [address], 11/11/2021 09:54:00 11/11/19 22 11/11/2021 CBC/C OMPLE TE BLD COUNT W/DIF F NRBC# 0.00 x10'3 /uL Not Available [facility] (Lab) [address] [place], [address], 11/11/2021 09:54:00 09/02/20 22 09/02/2022 COMPR EHENS GALILEO METAB OLIC PANEL sodium 132 mmol/ L 137-14 5 low Not Available [facility] (Lab) [address] [place], [address], 09/02/2022 11:06:00 09/02/20 22 09/02/2022 COMPR EHENS GALILEO METAB OLIC PANEL potassium 3.6 mmol/ L 3.5-5. 1 Not Available [facility] (Lab) [address] [place], [address], 09/02/2022 11:06:00 09/02/20 22 09/02/2022 COMPR EHENS GALILEO METAB OLIC PANEL chloride 92 mmol/ L 98-107 low Not Available [facility] (Lab) [address] [place], [address], 09/02/2022 11:06:00 09/02/20 22 09/02/2022 COMPR EHENS GALILEO METAB OLIC PANEL carbon dioxide 27 mmol/ L 22-30 Not Available [facility] (Lab) [address] [place], [address], 09/02/2022 11:06:00 09/02/20 22 09/02/2022 COMPR EHENS GALILEO METAB OLIC PANEL anion gap 16.6 mmol/ L 14-22 Not Available [facility] (Lab) [address] [place], [address], 09/02/2022 11:06:00 09/02/20 22 09/02/2022 COMPR EHENS GALILEO METAB OLIC PANEL glucose 80 mg/dL 70-99 Not Available [facility] (Lab) [address] [place], [address], 09/02/2022 11:06:00 09/02/20 22 09/02/2022 COMPR EHENS GALILEO METAB OLIC PANEL BUN 19 mg/dL 8-19 Not Available [facility] (Lab) [address] [place], [address], 09/02/2022 11:06:00 09/02/20 22 09/02/2022 COMPR EHENS GALILEO METAB OLIC PANEL creatinine 0.94 mg/dL 0.66-1 .25 Not Available [facility] (Lab) [address] [facility] [place], [address], 09/02/2022 11:06:00 09/02/20 22 09/02/2022 COMPR EHENS GALILEO METAB OLIC PANEL GFR >60 Refer ence Range : [place] ge GFR Healt hy Adult : >60 [...] s/kdo qi/gf r_cal culat or Not Available [facility] (Lab) [address] [place], [address], 09/02/2022 11:06:00 09/02/20 22 09/02/2022 COMPR EHENS GALILEO METAB OLIC PANEL alkaline phosphatase 79 U/L 38-126 Not Available [facility] (Lab) [address] [place], [address], 09/02/2022 11:06:00 09/02/20 22 09/02/2022 COMPR EHENS GALILEO METAB OLIC PANEL alanine aminotransfe rase 45 U/L 0-35 high Not Available [facility] (Lab) [address] [place], [address], 09/02/2022 11:06:00 09/02/20 22 09/02/2022 COMPR EHENS GALILEO METAB OLIC PANEL aspartate aminotransfe rase 73 U/L 15-37 high Not Available [facility] (Lab) [address] [place], [address], 09/02/2022 11:06:00 09/02/20 22 09/02/2022 COMPR EHENS GALILEO METAB OLIC PANEL bilirubin, total 1.10 mg/dL 0.20-1 .30 Not Available [facility] (Lab) [address] [place], [address], 09/02/2022 11:06:00 09/02/20 22 09/02/2022 COMPR EHENS GALILEO METAB OLIC PANEL calcium 9.1 mg/dL 8.4-10 .2 Not Available [facility] (Lab) [address] [facility] [place], [address], 09/02/2022 11:06:00 09/02/20 22 09/02/2022 COMPR EHENS GALILEO METAB OLIC PANEL total protein 8.7 g/dL 6.3-8. 2 high Not Available [facility] (Lab) [address] [place], [address], 09/02/2022 11:06:00 09/02/20 22 09/02/2022 COMPR EHENS GALILEO METAB OLIC PANEL albumin 4.3 g/dL 3.4-5. 0 Not Available [facility] (Lab) [address] [place], [address], 09/02/2022 11:06:00 09/02/20 22 09/02/2022 COMPR EHENS GALILEO METAB OLIC PANEL globulin 4.4 g/dL 2.6-4. 2 high Not Available [facility] (Lab) [address] [place], [address], 09/02/2022 11:06:00 09/02/20 22 09/02/2022 COMPR EHENS GALILEO METAB OLIC PANEL A/G ratio 1.0 ratio 1.0-2. 0 Not Available [facility] (Lab) [address] [place], [address], 09/02/2022 11:06:00 09/02/20 22 09/02/2022 LIPID PANEL cholesterol 234 mg/dL 140-19 9 high NIH MARCELLE NSUS RECOM MENDA TION FOR BEN STERO L: ADULT CHILD LOW RISK: <200 <170 BORDE RLINE : <200- 239 ----- HIGH RISK: >240 >200 Not Available [facility] (Lab) [address] [place], [address], 09/02/2022 11:05:54 09/02/20 22 09/02/2022 LIPID PANEL triglyceride s 75 mg/dL 0-150 NIH MARCELLE NSUS REPOR T RECOM MENDA TION FOR TRIGL YCERI STEPHANIE: ADULT CHILD LOW RISK: <150 ----- BODER LINE: 150-1 99 ----- HIGH RISK: >200 ----- Not Available [facility] (Lab) [address] [place], [address], 09/02/2022 11:05:54 09/02/20 22 09/02/2022 LIPID PANEL HDL cholesterol 89 mg/dL 40- Not Available [facility] (Lab) [address] [place], [address], 09/02/2022 11:05:54 09/02/20 22 09/02/2022 LIPID PANEL [...] WILL NOT BE REPOR RADHA. Not Available [facility] (Lab) [address] [place], [address], 09/02/2022 11:05:54 09/02/20 22 09/02/2022 URIC ACID SERUM uric acid 2.2 mg/dL 2.5-6. 2 low Not Available [facility] (Lab) [address] [place], [address], 09/02/2022 11:05:49 09/02/20 22 09/02/2022 CBC/C OMPLE TE BLD COUNT W/DIF F white blood cells 5.8 x10'3 /uL 4.2-10 .8 Not Available [facility] (Lab) [address] [place], [address], 09/02/2022 09:59:55 09/02/20 22 09/02/2022 CBC/C OMPLE TE BLD COUNT W/DIF F red blood cells 4.23 x10'6 /uL 3.80-5 .20 Not Available [facility] (Lab) [address] [place], [address], 09/02/2022 09:59:55 09/02/20 22 09/02/2022 CBC/C OMPLE TE BLD COUNT W/DIF F hemoglobin 13.1 g/dL 12.0-1 5.6 Not Available [facility] (Lab) [address] [place], [address], 09/02/2022 09:59:55 09/02/20 22 09/02/2022 CBC/C OMPLE TE BLD COUNT W/DIF F hematocrit 35.3 % 35.7-4 5.7 low Not Available [facility] (Lab) [address] [place], [address], 09/02/2022 09:59:55 09/02/20 22 09/02/2022 CBC/C OMPLE TE BLD COUNT W/DIF F mean red cell volume 83.5 fL 82.0-9 9.0 Not Available [facility] (Lab) [address] [place], [address], 09/02/2022 09:59:55 09/02/20 22 09/02/2022 CBC/C OMPLE TE BLD COUNT W/DIF F mean red cell hemoglobin 31.0 pg 27.0-3 3.0 Not Available [facility] (Lab) [address] [place], [address], 09/02/2022 09:59:55 09/02/20 22 09/02/2022 CBC/C OMPLE TE BLD COUNT W/DIF F mean RBC HGB concentratio n 37.1 g/dL 31.0-3 6.0 high Not Available [facility] (Lab) [address] [place], [address], 09/02/2022 09:59:55 09/02/20 22 09/02/2022 CBC/C OMPLE TE BLD COUNT W/DIF F red cell distribution width 12.0 % 11.8-1 5.5 Not Available [facility] (Lab) [address] [place], [address], 09/02/2022 09:59:55 09/02/20 22 09/02/2022 CBC/C OMPLE TE BLD COUNT W/DIF F platelets 261 x10'3 /uL 150-40 0 Not Available [facility] (Lab) [address] [place], [address], 09/02/2022 09:59:55 09/02/20 22 09/02/2022 CBC/C OMPLE TE BLD COUNT W/DIF F mean platelet volume 8.7 fL 9.0-12 .4 low Not Available [facility] (Lab) [address] [place], [address], 09/02/2022 09:59:55 09/02/20 22 09/02/2022 CBC/C OMPLE TE BLD COUNT W/DIF F neutrophils 66.0 % 39.0-7 2.0 Not Available [facility] (Lab) [address] [place], [address], 09/02/2022 09:59:55 09/02/20 22 09/02/2022 CBC/C OMPLE TE BLD COUNT W/DIF F lymphocytes 22.0 % 16.0-4 7.0 Not Available [facility] (Lab) [address] [place], [address], 09/02/2022 09:59:55 09/02/20 22 09/02/2022 CBC/C OMPLE TE BLD COUNT W/DIF F monocytes 10.7 % 5.0-12 .0 Not Available [facility] (Lab) [address] [place], [address], 09/02/2022 09:59:55 09/02/20 22 09/02/2022 CBC/C OMPLE TE BLD COUNT W/DIF F eosinophils 0.3 % 1.0-7. 0 low Not Available [facility] (Lab) [address] [place], [address], 09/02/2022 09:59:55 09/02/20 22 09/02/2022 CBC/C OMPLE TE BLD COUNT W/DIF F basophils 0.7 % 0.0-2. 0 Not Available [facility] (Lab) [address] [place], [address], 09/02/2022 09:59:55 09/02/20 22 09/02/2022 CBC/C OMPLE TE BLD COUNT W/DIF F immature granulocytes 0.3 % 0.00-0 .50 Not Available [facility] (Lab) [address] [place], [address], 09/02/2022 09:59:55 09/02/20 22 09/02/2022 CBC/C OMPLE TE BLD COUNT W/DIF F neutrophils, absolute count 3.83 x10'3 /uL 1.5-8. 0 Not Available [facility] (Lab) [address] [place], [address], 09/02/2022 09:59:55 09/02/20 22 09/02/2022 CBC/C OMPLE TE BLD COUNT W/DIF F lymphocytes, absolute count 1.28 x10'3 /uL 1.07-3 .43 Not Available [facility] (Lab) [address] [place], [address], 09/02/2022 09:59:55 09/02/20 22 09/02/2022 CBC/C OMPLE TE BLD COUNT W/DIF F monocytes, absolute count 0.62 x10'3 /uL 0.29-0 .99 Not Available [facility] (Lab) [address] [place], [address], 09/02/2022 09:59:55 09/02/20 22 09/02/2022 CBC/C OMPLE TE BLD COUNT W/DIF F eosinophils, absolute count 0.02 x10'3 /uL 0.02-0 .53 Not Available [facility] (Lab) [address] [place], [address], 09/02/2022 09:59:55 09/02/20 22 09/02/2022 CBC/C OMPLE TE BLD COUNT W/DIF F basophils, absolute count 0.04 x10'3 /uL 0.01-0 .08 Not Available [facility] (Lab) [address] [place], [address], 09/02/2022 09:59:55 09/02/20 22 09/02/2022 CBC/C OMPLE TE BLD COUNT W/DIF F immature granulocytes ,absolute 0.02 x10'3 /uL 0.00-0 .05 Not Available [facility] (Lab) [address] [place], [address], 09/02/2022 09:59:55 09/02/20 22 09/02/2022 CBC/C OMPLE TE BLD COUNT W/DIF F nucleated red blood cells 0.0 % -0 Not Available [facility] (Lab) [address] [place], [address], 09/02/2022 09:59:55 09/02/20 22 09/02/2022 CBC/C OMPLE TE BLD COUNT W/DIF F NRBC# 0.00 x10'3 /uL Not Available [facility] (Lab) [address] [place], [address], 09/02/2022 09:59:55 09/29/20 23 09/29/2023 CBC/C OMPLE TE BLD COUNT W/DIF F white blood cells 6.2 x10'3 /uL 4.2-10 .8 Not Available [facility] (Lab) [address] [place], [address], 09/29/2023 09:30:57 09/29/20 23 09/29/2023 CBC/C OMPLE TE BLD COUNT W/DIF F red blood cells 4.39 x10'6 /uL 3.80-5 .20 Not Available [facility] (Lab) [address] [place], [address], 09/29/2023 09:30:57 09/29/20 23 09/29/2023 CBC/C OMPLE TE BLD COUNT W/DIF F hemoglobin 13.2 g/dL 12.0-1 5.6 Not Available [facility] (Lab) [address] [place], [address], 09/29/2023 09:30:57 09/29/20 23 09/29/2023 CBC/C OMPLE TE BLD COUNT W/DIF F hematocrit 36.9 % 35.7-4 5.7 Not Available [facility] (Lab) [address] [place], [address], 09/29/2023 09:30:57 09/29/20 23 09/29/2023 CBC/C OMPLE TE BLD COUNT W/DIF F mean red cell volume 84.1 fL 82.0-9 9.0 Not Available [facility] (Lab) [address] [place], [address], 09/29/2023 09:30:57 09/29/20 23 09/29/2023 CBC/C OMPLE TE BLD COUNT W/DIF F mean red cell hemoglobin 30.1 pg 27.0-3 3.0 Not Available [facility] (Lab) [address] [place], [address], 09/29/2023 09:30:57 09/29/20 23 09/29/2023 CBC/C OMPLE TE BLD COUNT W/DIF F mean RBC HGB concentratio n 35.8 g/dL 31.0-3 6.0 Not Available [facility] (Lab) [address] [place], [address], 09/29/2023 09:30:57 09/29/20 23 09/29/2023 CBC/C OMPLE TE BLD COUNT W/DIF F red cell distribution width 12.4 % 11.8-1 5.5 Not Available [facility] (Lab) [address] [place], [address], 09/29/2023 09:30:57 09/29/20 23 09/29/2023 CBC/C OMPLE TE BLD COUNT W/DIF F platelets 270 x10'3 /uL 150-40 0 Not Available [facility] (Lab) [address] [place], [address], 09/29/2023 09:30:57 09/29/20 23 09/29/2023 CBC/C OMPLE TE BLD COUNT W/DIF F mean platelet volume 9.6 fL 9.0-12 .4 Not Available [facility] (Lab) [address] [place], [address], 09/29/2023 09:30:57 09/29/20 23 09/29/2023 CBC/C OMPLE TE BLD COUNT W/DIF F neutrophils 57.9 % 39.0-7 2.0 Not Available [facility] (Lab) [address] [place], [address], 09/29/2023 09:30:57 09/29/20 23 09/29/2023 CBC/C OMPLE TE BLD COUNT W/DIF F lymphocytes 28.6 % 16.0-4 7.0 Not Available [facility] (Lab) [address] [place], [address], 09/29/2023 09:30:57 09/29/20 23 09/29/2023 CBC/C OMPLE TE BLD COUNT W/DIF F monocytes 10.9 % 5.0-12 .0 Not Available [facility] (Lab) [address] [place], [address], 09/29/2023 09:30:57 09/29/20 23 09/29/2023 CBC/C OMPLE TE BLD COUNT W/DIF F eosinophils 1.3 % 1.0-7. 0 Not Available [facility] (Lab) [address] [place], [address], 09/29/2023 09:30:57 09/29/20 23 09/29/2023 CBC/C OMPLE TE BLD COUNT W/DIF F basophils 1.0 % 0.0-2. 0 Not Available [facility] (Lab) [address] [place], [address], 09/29/2023 09:30:57 09/29/20 23 09/29/2023 CBC/C OMPLE TE BLD COUNT W/DIF F immature granulocytes 0.3 % 0.00-0 .50 Not Available [facility] (Lab) [address] [place], [address], 09/29/2023 09:30:57 09/29/20 23 09/29/2023 CBC/C OMPLE TE BLD COUNT W/DIF F neutrophils, absolute count 3.60 x10'3 /uL 1.5-8. 0 Not Available [facility] (Lab) [address] [place], [address], 09/29/2023 09:30:57 09/29/20 23 09/29/2023 CBC/C OMPLE TE BLD COUNT W/DIF F lymphocytes, absolute count 1.78 x10'3 /uL 1.07-3 .43 Not Available [facility] (Lab) [address] [place], [address], 09/29/2023 09:30:57 09/29/20 23 09/29/2023 CBC/C OMPLE TE BLD COUNT W/DIF F monocytes, absolute count 0.68 x10'3 /uL 0.29-0 .99 Not Available [facility] (Lab) [address] [place], [address], 09/29/2023 09:30:57 09/29/20 23 09/29/2023 CBC/C OMPLE TE BLD COUNT W/DIF F eosinophils, absolute count 0.08 x10'3 /uL 0.02-0 .53 Not Available [facility] (Lab) [address] [place], [address], 09/29/2023 09:30:57 09/29/20 23 09/29/2023 CBC/C OMPLE TE BLD COUNT W/DIF F basophils, absolute count 0.06 x10'3 /uL 0.01-0 .08 Not Available [facility] (Lab) [address] [place], [address], 09/29/2023 09:30:57 09/29/20 23 09/29/2023 CBC/C OMPLE TE BLD COUNT W/DIF F immature granulocytes ,absolute 0.02 x10'3 /uL 0.00-0 .05 Not Available [facility] (Lab) [address] [place], [address], 09/29/2023 09:30:57 09/29/20 23 09/29/2023 CBC/C OMPLE TE BLD COUNT W/DIF F nucleated red blood cells 0.0 % -0 Not Available [facility] (Lab) [address] [place], [address], 09/29/2023 09:30:57 09/29/20 23 09/29/2023 CBC/C OMPLE TE BLD COUNT W/DIF F NRBC# 0.00 x10'3 /uL Not Available [facility] (Lab) [address] [place], [address], 09/29/2023 09:30:57 09/29/20 23 09/29/2023 COMPR EHENS GALILEO METAB OLIC PANEL sodium 135 mmol/ L 137-14 5 low Not Available [facility] (Lab) [address] [place], [address], 09/29/2023 09:49:51 09/29/20 23 09/29/2023 COMPR EHENS GALILEO METAB OLIC PANEL potassium 3.6 mmol/ L 3.5-5. 1 Not Available [facility] (Lab) [address] [place], [address], 09/29/2023 09:49:51 09/29/20 23 09/29/2023 COMPR EHENS GALILEO METAB OLIC PANEL chloride 95 mmol/ L 98-107 low Not Available [facility] (Lab) [address] [place], [address], 09/29/2023 09:49:51 09/29/20 23 09/29/2023 COMPR EHENS GALILEO METAB OLIC PANEL carbon dioxide 27 mmol/ L 22-30 Not Available [facility] (Lab) [address] [place], [address], 09/29/2023 09:49:51 09/29/20 23 09/29/2023 COMPR EHENS GALILEO METAB OLIC PANEL anion gap 16.6 mmol/ L 14-22 Not Available [facility] (Lab) [address] [place], [address], 09/29/2023 09:49:51 09/29/20 23 09/29/2023 COMPR EHENS GALILEO METAB OLIC PANEL glucose 88 mg/dL 70-99 Not Available [facility] (Lab) [address] [place], [address], 09/29/2023 09:49:51 09/29/20 23 09/29/2023 COMPR EHENS GALILEO METAB OLIC PANEL BUN 17 mg/dL 8-19 Not Available [facility] (Lab) [address] [facility] [place], [address], 09/29/2023 09:49:51 09/29/20 23 09/29/2023 COMPR EHENS GALILEO METAB OLIC PANEL creatinine 0.99 mg/dL 0.66-1 .25 Not Available [facility] (Lab) [address] [place], [address], 09/29/2023 09:49:51 09/29/20 23 09/29/2023 COMPR EHENS GALILEO METAB OLIC PANEL GFR >60 Refer ence Range : [place] ge GFR Healt hy Adult : >60 [...] calcu lator is avail able on the [facility] websi te: [email or web address] :[email or web address]/pr ofess ional s/kdo qi/gf r_cal culat or Not Available [facility] (Lab) [address] [place], [address], 09/29/2023 09:49:51 09/29/20 23 09/29/2023 COMPR EHENS GALILEO METAB OLIC PANEL alkaline phosphatase 82 U/L 38-126 Not Available [facility] (Lab) [address] [place], [address], 09/29/2023 09:49:51 09/29/20 23 09/29/2023 COMPR EHENS GALILEO METAB OLIC PANEL alanine aminotransfe rase 67 U/L 0-35 high Not Available [facility] (Lab) [address] [place], [address], 09/29/2023 09:49:51 09/29/20 23 09/29/2023 COMPR EHENS GALILEO METAB OLIC PANEL aspartate aminotransfe rase 93 U/L 15-37 high Not Available [facility] (Lab) [address] [place], [address], 09/29/2023 09:49:51 09/29/20 23 09/29/2023 COMPR EHENS GALILEO METAB OLIC PANEL bilirubin, total 1.10 mg/dL 0.20-1 .30 Not Available [facility] (Lab) [address] [place], [address], 09/29/2023 09:49:51 09/29/20 23 09/29/2023 COMPR EHENS GALILEO METAB OLIC PANEL calcium 9.7 mg/dL 8.4-10 .2 Not Available [facility] (Lab) [address] [place], [address], 09/29/2023 09:49:51 09/29/2009/29/2023 COMPR EHENS GALILEO METAB OLIC PANEL total protein 10.1 g/dL 6.3-8. 2 high Not Available [facility] (Lab) [address] [place], [address], 09/29/2023 09:49:51 09/29/20 23 09/29/2023 COMPR EHENS GALILEO METAB OLIC PANEL albumin 4.7 g/dL 3.4-5. 0 Not Available [facility] (Lab) [address] [place], [address], 09/29/2023 09:49:51 09/29/20 23 09/29/2023 COMPR EHENS GALILEO METAB OLIC PANEL globulin 5.4 g/dL 2.6-4. 2 high Not Available [facility] (Lab) [address] [place], [address], 09/29/2023 09:49:51 09/29/20 23 09/29/2023 COMPR EHENS GALILEO METAB OLIC PANEL A/G ratio 0.9 ratio 1.0-2. 0 low Not Available [facility] (Lab) [address] [place], [address], 09/29/2023 09:49:51 09/29/20 23 09/29/2023 LIPID PANEL cholesterol 191 mg/dL 140-19 9 NIH MARCELLE NSUS RECOM MENDA TION FOR BEN STERO L: ADULT CHILD LOW RISK: <200 <170 BORDE RLINE : <200- 239 ----- HIGH RISK: >240 >200 Not Available [facility] (Lab) [address] [place], [address], 09/29/2023 10:11:28 09/29/20 23 09/29/2023 LIPID PANEL triglyceride s 59 mg/dL 0-150 NIH MARCELLE NSUS REPOR T RECOM MENDA TION FOR TRIGL YCERI STEPHANIE: ADULT CHILD LOW RISK: <150 ----- BODER LINE: 150-1 99 ----- HIGH RISK: >200 ----- Not Available [facility] (Lab) [address] [place], [address], 09/29/2023 10:11:28 09/29/20 23 09/29/2023 LIPID PANEL HDL cholesterol 128 mg/dL 40- Not Available [facility] (Lab) [address] [place], [address], 09/29/2023 10:11:28 09/29/2009/29/2023 LIPID PANEL LDL cholesterol, [...] WILL NOT BE REPOR RADHA. Not Available [facility] (Lab) [address] [facility], [place], [address], 09/29/2023 10:11:28 09/29/20 23 09/29/2023 URIC ACID SERUM uric acid 1.9 mg/dL 2.5-6. 2 low Not Available [facility] (Lab) [address] [facility], [place], [address], 09/29/2023 10:11:33 02/27/20 22 02/26/2022 MAMMO , scree bailey, digit al, bilat eral [facility] [address] [place] [address] [phone] Patien t Name: MARJORIE OHYT ion #: [id number] Sex: F : 1969 8 Locati [...] alice ectura l Page 1 of 2 [facility] [place] Chris simmons Name: MARJORIE HOYT Access ion #: [id number] Sex: F : 1969 8 Exam [...] ly to the [facility] er. A negati ve mammog hellen [...] 8:41 AM (CT) Page 2 of 2 MIGRATION.[id number] [facility] (Imaging) [address] [place], [address], 12/17/2022 05:04:45 04/17/20 23 04/15/2023 MAMMO , tal swang, digit al, bilat eral [facility] [place] [address] [facility] [place] [address] [facility] MARJORIE HOYT ion #: [id number] Sex: F : 1969 8 Locati [...] alice ectura l Page 1 of 2 [facility] Chris simmons Name: MARJORIE HOYT Access ion #: [id number] Sex: F : 1969 8 Exam [...] [facility] A negati ve mammog hellen [...] 1:24 PM (CT) Page 2 of [id number] [place] [address] (Imaging) [address] [place], [address], 08/29/2023 20:30:27 Result Notes Documentation Provider Name and Address Organization Details Recorded Time Mammo, Screening, Digital, Bilateral : [facility] [address] [place] [address] Patient Name: MARJORIE HOYT Sex: F : 1970 Location: [facility] Attending Physician: JR PETERSON Ordering Physician: JR [...] calcifications, or architectural Page 1 of 2 [facility] Patient Name: MARJORIE HOYT Sex: F [...] (CT) Page 2 of 2 Not Available [facility] 12/17/2022 05:04:48 Mammo, Screening, Digital, Bilateral : [address] [address] Patient Name: MARJORIE HOYT Sex: F : 1970 Location: [facility] Attending Physician: JR PETERSON Ordering Physician: JR [...] calcifications, or architectural Page 1 of 2 [facility] Patient Name: MARJORIE HOYT Sex: F [...] Page 2 of 2 Jr Peterson MD [address] [place] [address], [id number], [facility] [employer] 08/29/2023 20:30:27 Problems Name Problem SNOMED Code Status Onset Date Resolution Date Notes Provider Name and Address Organization Details Recorded Time Anemia 246328210 Active Not Available [facility] 3 06:30:08 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 Not Available [facility] 3 06:30:08 Bronchiti s 97480702 Active Not Available [facility] 3 06:30:08 Crohn's disease 61008468 Active Not Available [facility] 3 06:30:08 Chronic rhinitis 35020093 Active Not Available [facility] 3 06:30:09 Liver function tests outside reference range 680571381 Active 2017 Not Available [facility] 3 06:30:08 Vitamin D below reference range 719897568 Active 2019 Not Available [facility] 3 06:30:08 Dyslipide sanjeev 292674739 Active 2021 Not Available [facility] 3 06:30:09 Essential hypertens ion 31504557 Active 2021 Not Available [facility] 3 06:30:09 Gout 23082569 Active 2021 Not Available [facility] 3 06:30:09 Vitamin D deficienc y 05425467 Active 2021 Not Available [facility] 3 06:30:09 Hyperchol esterolem ia 63639239 Active 2021 Not Available [facility] 3 06:30:08 COVID-19 727200767 Active 2022 Not Available [facility] 3 06:30:09 Problem Notes None recorded. Medical Equipment None Reported. Allergies Allergen ID Allergen Name Allergen Category Reaction Reaction Severity Criticality Documentation Date Start Date Code Code System Note Provider Name and Address Organization Details Recorded Time 8191 Augmentin medicatio n diarrhea Not available Not available 12/17/2022 46228 2 RxNorm Not Available [facility] 3 05:04:16 Medications Name Sig Start Date [...] propionate 50 mcg/actuati on nasal spray,suspe nsion [place] 1 spray every day by intranasa l [...] kg/m2 162.56 cm 84 /min 97.2 [degF] 482503. 1 g 126/84 mm[Hg] Not Available [facility] 3 04:46:33 Date Recorded Body mass index (BMI) Body height Heart rate Body temperature Body weight Systolic And Diastolic Provider Name and Address Organization Details Last Updated DateTime 2 37.6 kg/m2 162.56 cm 72 /min 97.9 [degF] 14536.7 3 g 130/78 mm[Hg] Not Available [facility] 3 04:46:33 Date Recorded Body height Body mass index (BMI) Body weight Body temperature Heart rate Systolic And Diastolic Provider Name and Address Organization Details Last Updated DateTime 3 162.56 cm 37.6 kg/m2 87061.7 3 g 98 [degF] 83 /min 130/88 mm[Hg] Pushpa HaddadGRIFFIND[employer] Alida Hochy eto [facility] 3 16:11:27 Date Recorded Body mass index (BMI) Body height Heart rate Body temperature Body weight Systolic And Diastolic Provider Name and Address Organization Details Last Updated DateTime 2 37.4 kg/m2 162.56 cm 89 /min 98.9 [degF] 81409.1 4 g 134/84 mm[Hg] Not Available [facility] 3 04:46:33 Date Recorded Body height Body mass index (BMI) Body weight Body temperature Heart rate Systolic And Diastolic Provider Name and Address Organization Details Last Updated DateTime 3 162.56 cm 39.1 kg/m2 513702. 06 g 97.8 [degF] 99 /min 142/92 mm[Hg] MARY GRACE [employer] Alida [employer] 3 16:27:12 Social History Question Answer Notes LastModified by Trusteerat ion Details LastModified Time Tobacco Smoking Status Never Smoker Not Available [facility] 12/17/2022 04:25:32 Do You Have An Advance Directive? No MIGRATION.68091 33060 Information not available 12/17/2022 Are You Blind Or Do You Have Difficulty Seeing? No MIGRATION.56706 04079 Information not available 12/17/2022 What Is Your Level Of Caffeine Consumption? Occasional MIGRATION.11292 37538 Information not available 12/17/2022 How Much Tobacco Do You Chew? None MIGRATION.27077 01002 Information not available 12/17/2022 In The 14 Days Before Symptom Onset, Have You Had Close Contact With A Laboratory-confi rmed COVID-19 While That Case Was Ill? No MIGRATION.56036 43750 Information not available 12/17/2022 In The 14 Days Before Symptom Onset, Have You Had Close Contact With A Person Who Is Under Investigation For COVID-19 While That Person Was Ill? No MIGRATION.35289 92446 Information not available 12/17/2022 Are You Deaf Or Do You Have Serious Difficulty Hearing? No MIGRATION.45752 86346 Information not available 12/17/2022 What Type Of Diet Are You Following? REGULAR MIGRATION.31194 94746 Information not available 12/17/2022 Which Illicit Or Recreational Drugs Have You Used? None MIGRATION.40972 57447 Information not available 12/17/2022 What Is The Highest Grade Or Level Of School You Have Completed Or The Highest Degree You Have Received? [id number] MIGRATION.68880 70900 Information not available 12/17/2022 Have There Been Any Changes To Your Family Or Social Situation? No MIGRATION.98803 95198 Information not available 12/17/2022 What Is The Fluoride Status Of Your Home? Unknown MIGRATION.53993 93794 Information not available 12/17/2022 Are There Any Guns Present In Your Home? Yes MIGRATION.42014 88871 Information not available 12/17/2022 Do You Use Insect Repellent Routinely? No MIGRATION.68733 52058 Information not available 12/17/2022 Where Do You Live? [place] MIGRATION.34836 61662 Information not available 12/17/2022 Do You Have A Medical Power Of Air Traffic Control Manager? No MIGRATION.44687 80371 Information not available 12/17/2022 What Was The Date Of Your Most Recent Tobacco Screening? 09/30/2023 [email or web address] Information not available 09/30/2023 Have You Ever Been Counseled For Unhealthy Alcohol Use? No MIGRATION.18849 05273 Information not available 12/17/2022 Do You Have Any Pets? Yes MIGRATION.70076 66017 Information not available 12/17/2022 What Is Your Relationship Status? MIGRATION.61909 55824 Information not available 12/17/2022 Do You Use Your Seat Belt Or Car Seat Routinely? Yes MIGRATION.23065 17369 Information not available 12/17/2022 Do You Have Smoke And Carbon Monoxide Detectors In Your Home? Yes MIGRATION.54822 99608 Information not available 12/17/2022 Are You Passively Exposed To Smoke? No MIGRATION.70477 97111 Information not available 12/17/2022 Are There Any Smokers In Your House? No MIGRATION.49849 33618 Information not available 12/17/2022 How Much Tobacco Do You Smoke? No MIGRATION.54491 87017 Information not available 12/17/2022 What Types Of Sporting Activities Do You Participate In? None MIGRATION.29009 13057 Information not available 12/17/2022 Do You Use Sunscreen Routinely? No MIGRATION.40391 72679 Information not available 12/17/2022 Has Tobacco Cessation Counseling Been Provided? No Not Needed-ne melanie Smoked MIGRATION.35785 98598 Information not available 12/17/2022 How Many Years Have You Smoked Tobacco? 0 MIGRATION.59004 38094 Information not available 12/17/2022 Have You Recently Traveled Abroad? No MIGRATION.98569 26156 Information not available 12/17/2022 Do You Have Difficulty Walking Or Climbing Stairs? No MIGRATION.37673 61560 Information not available 12/17/2022 Do You Have Any Dietary Restrictions? No MIGRATION.20089 54671 Information not available 12/17/2022 Sex: Female Functional Status Question Answer Note LastModified by NicOx ion Details LastModified Time Do you use any illicit or recreational drugs? No MIGRATION.433686 6763 Information not available 12/17/2022 Do you or have you ever used any other forms of tobacco or nicotine? No MIGRATION.846671 7158 Information not available 12/17/2022 What is your level of alcohol consumption? Occasional MIGRATION.231136 3555 Information not available 12/17/2022 Do you or have you ever used smokeless tobacco? Never used smokeless tobacco MIGRATION.338554 3807 Information not available 12/17/2022 Do you have difficulty doing errands alone? 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 No MIGRATION.831426 0017 Information not available 12/17/2022 Do you or have you ever used e-cigarettes or vape? Never used electronic cigarettes MIGRATION.719914 3340 Information not available 12/17/2022 What is your exercise level? Moderate MIGRATION.976388 9861 Information not available 12/17/2022 Mental Status Question Answer Note LastModified by CEDUizat ion Details LastModified Time Do you feel stressed (tense, restless, nervous, or anxious, or unable to sleep at night)? DS22184-7 MIGRATION.97269463 26 Information not available 12/17/2022 Do you have difficulty concentrating, remembering or making decisions? No MIGRATION.57317863 26 Information not available 12/17/2022 Family History Relationship Description Onset Age of this Age Resolved Age Notes LastModified by Organization Details LastModified Time Father Diabetes mellitus MIGRATION.839 [id number] Not available 12/17/2022 04:44:23 Mother Diabetes mellitus MIGRATION.353 [id number] Not available 12/17/2022 04:44:23 Medical History Condition Response NERVE DISEASE N BLINDNESS N RHEUMATIC FEVER N KIDNEY STONES N BLADDER PROBLEMS N MRSA N OTHER # 1 N POLIO N LUNG DISEASE/DISORDER N RADIATION / CHEMOTHERAPY N COPD N Other # 2 N BLOOD DISEASES N EAR OR HEARING PROBLEMS N MUMPS N DEPRESSION (INCLUDING POST ) N BOWEL PROBLEMS Y STROKE/TIA N ULCERS N BENIGN PROSTATIC HYPERPLASIA N MEASLES N MYOCARDIAL INFARCTION N OBESITY N GERD/NAUSEA N ANEURYSM N URINARY/BLADDER/KIDNEY PROBLEMS N CORONARY ARTERY DISEASE (CAD) N ADDICTION CONCERNS N Impotence N ENDOMETRIOSIS N USE OF BLOOD THINNERS N SKIN [...] APNEA N CHICKENPOX N INFECTIOUS DISEASE N PROSTATE N HEART ARRHYTHMIA N INSOMNIA N HIGH CHOLESTEROL / HYPERLIPIDEMIA N HYPERTHYROIDISM N EYE PROBLEMS N EDEMA N CHRONIC PAIN SYNDROME N HYPOTHYROIDISM N CONSTIPATION N CAROTID BLOCKAGE N BACK / NECK PROBLEMS N HAVE YOU BEEN HOSPITALIZED OR SEEN IN [facility] IN THE PAST YEAR ? N ATHEROSCLEROSIS N BREAST PROBLEMS N DIALYSIS N ECZEMA N OSTEOPOROSIS N ARTHRITIS N APPENDICITIS N DIABETES, TYPE N BAD TEETH N ENT N HEARTBURN / REFLUX N AUTISM SPECTRUM DISORDER (ASD) N HEPATITIS / LIVER DISEASE N GOUT N SLEEP DISORDER N ALZHEIMER'S DISEASE N Brain Problems N HERPES N DEMENTIA N SEIZURES/EPILEPSY N HEADACHES/MIGRAINES N VASCULAR DISEASE N PACEMAKER N Blood Disorder N DIZZINESS N KIDNEY DISEASE N HEART DISEASE/HEART PROBLEMS N MULTIPLE SCLEROSIS N CARDIAC ARRHYTHMIA N CANCER: SPECIFY N Gall Stones N ATRIAL FIBRILLATION N PULMONARY EMBOLISM N AUTOIMMUNE DISEASE N Gynecological HistoryNo gynecological history recorded. Obstetrics History GPAL:G 0 P 0 0 0 0 Immunizations Vaccine Type Date Status Note Provider Nam e and Address Organization Details Recorded Time COVID-19, mRNA, LNP-S, PF, 100 mcg/0.5mL dose or 50 mcg/0.25mL dose 1 completed Not Available [facility] 10/03/2023 06:30:09 Influenza, split virus, trivalent, preservative 2 completed Not Available [facility] 10/03/2023 06:30:09 Influenza, split virus, quadrivalent, preservative 1 completed Not Available [facility] 10/03/2023 06:30:09 COVID-19, mRNA, LNP-S, PF, 30 mcg/0.3 mL dose 1 completed Not Available [facility] 10/03/2023 06:30:09 COVID-19, mRNA, LNP-S, PF, 30 mcg/0.3 mL dose 1 completed Not Available [facility] 10/03/2023 06:30:09 Influenza, split virus, trivalent, preservative 0 completed Not Available [facility] 10/03/2023 06:30:09 Influenza, split virus, quadrivalent, preservative 8 completed Not Available [facility] 10/03/2023 06:30:09 Influenza, split virus, quadrivalent, preservative 7 completed Not Available [facility] 10/03/2023 06:30:09 Past Encounters Encounter ID Performer Location Encounter Start Date Encounter Closed Date Diagnosis/Indication Diagnosis SNOMED-CT Code Diagnosis ICD10 Code Diagnosis Note [id number] Jr Peterson MD [facility] [address] [facility] [address] [place] [address] 03/20/2021 00:00:00 03/30/2021 15:03:55 [id number] Jr Peterson MD [facility] [address] [facility] [address] [place] [address] 10/16/2021 00:00:00 10/16/2021 20:36:59 [id number] Jr Peterson MD [facility] [address] [facility] [address] [place] [address] 11/13/2021 00:00:00 11/17/2021 12:10:48 [id number] Jr Peterson MD [facility] Internal Med [facility] [address] [facility] [facility] [address] [place] [address] 02/12/2022 00:00:00 02/16/2022 12:52:58 [id number] Jr Peterson MD [facility] Internal Med [facility] [address] [facility] [facility] [address] [place] [address] 09/03/2022 00:00:00 09/07/2022 15:35:08 [id number] Jr Peterson MD [facility] Internal Med [facility] [address] [facility] [facility] [address] [place] [address] 03/11/2023 15:24:03 03/12/2023 16:59:08 Screening mammography 96622101 Z12.31 Gout 92688469 M10.9 Essential hypertension 01917261 I10 Vitamin D below reference range 150382404 E55.9 Dyslipidemia 602553218 E 78.5 Crohn's disease 24179542 K50.90 [id number] Jr Peterson MD [facility] Internal Med [facility] [address] [facility] [address] [place] [address] 09/30/2023 15:38:04 09/30/2023 17:14:37 Dyslipidemia 576678765 E78.5 Essential hypertension 03815002 I10 Gout 13001237 M10.9 Vitamin D below reference range 498697188 E55.9 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 Health Concerns Section Related Observation LastModified by Organization Detai ls LastModified Time None Recorded Concern Status LastModified by Organization Details LastModified Time None Recorded Advance Directives Directive N: Payers Insurance Date Sequence Insurance Name Policy Number Policy Amin Covered Member ID Amin Member ID Guarantor Name 10/21/2023 1 [facility] [facility] [id number] Alex Hoyt [id number] Marjorie Hoyt Notes Date Note Type Note Provider Name and Address Organization Details Recorded Time 3 text/html Crohn's stablegout no flare-upslow vitamin-D Needs supplementdyslipidemia needs to take atorvastatin regularlyhypertension stable pressure 130/88Needs to lose some weight Jr Peterson MD [address] [facility], [place], [address], [employer] [facility] 03/14/2023 14:49:58 3 text/html Crohn's stablegout no flare-upslow vitamin-D Needs supplementdyslipidemia needs to take atorvastatin regularlyhypertension stableNeeds to lose some weight Jr Peterson MD [address], [place], [address], [facility] 10/19/2023 21:15:45 OBGyn Episode No OBEpisode recorded.
--- OUTSIDE RECORDS SUMMARY | 2025-05-08 09:09 | XMS_ITS | Data Portability ---
Author Organization [facility] Address [address] [place] [address] Care Team Providers Care Sql Ssis Developer Name Role Phone JR PETERSON Primary Care Provider Unavailabl e Assessment Encounter Date Assessment Date Assessment LastModified by Organization Details LastModified Time 01/12/2024 01/12/2024 Diagnosis and the assessment and plan have been discussed she will follow-up with me in 6 months obtain old records all questions have been answered she believes she is up-to-date on mammograms and colonoscopies [email or web address] Not available 01/12/2024 21:51:58 07/13/2024 07/13/2024 Diagnosis [...] gout allopurinol states 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 Referral None recorded. Procedures None recorded. Surgeries None recorded. Imaging DEXA [address] [facility] (Imaging), [address] [place] [address], [address], 05/02/2025 15:19:43 Medication Orders Zithromax Z-Sanjay 250 mg tablet 2023 024 [id number] [facility]/Pharmacy #[id number], [address], [place], [address], 07/13/2024 18:03:22 Patient TargetsNo targets recorded. Patient Instructions Encounter Date Encounter Id Patient Instructions Last Modified By Organization Details Last Modified Time 07/13/2024 [id number] A healthy lifestyle: care instructions Not available 07/13/2024 18:03:22 01/19/2025 [id number] A healthy lifestyle: care instructions Not available 01/19/2025 16:43:00 Reason for Referral None Reported. Results Created Date Observation Date Name Description Value Unit Range Abnormal Flag Note LastModifiedBy Organization Detail LastModifiedTime 11/10/1911/10/2024 XR, chest , 2 view No observ ation record ed. [address] [address], [place], [address], 11/11/2024 09:10:10 11/11/19 25 11/11/2024 US, renal No observ ation record ed. [address], [address], 11/14/2024 10:18:54 Result Notes None recorded. Problems Name Problem SNOMED Code Status Onset Date Resolution Date Notes Provider Name and Address Organization Details Recorded Time Cough 12886555 Active 2023 [place] [facility] 17:37:14 Gout 52512138 Active 2023 [place] [facility] 17:37:23 Inflammatory bowel disease 62463627 Active 2023 Oriana Hernandez B[place], [place] [facility] 4 17:37:25 Essential hypertension 66251923 Active 2023 Oriana Hernandez [place] [facility] 4 17:37:28 Hyperlipidemia 09315782 Active 2023 Oriana Hernandez [place], [place] [facility] 4 17:37:29 Fatigue 68947722 Active 2024 Oriana Hernandez [place] [facility] 5 14:02:31 Vitamin D deficiency 11942683 Active 2024 Jr Peterson MD Attn: Stephaniediandra irvin,[address] [place], [address], [place] [facility] 5 22:27:47 Problem Notes Documentation Provider Name and Address Organization Details Recorded Time 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 Patient : 1970. Patient . Tere Sy null, [place] [facility] 03/28/2025 16:35:55 Medical Equipment None Reported. Allergies Allergen ID Allergen Name Allergen Category Reaction Reaction Severity Criticality Documentation Date Start Date Code Code System Note Provider Name and Address Organization Details Recorded Time 379874 Augmentin medicatio n Not available Not available Not available 07/13/2024 25554 2 RxNorm Saskia KauffmanBRI null, [place] - [facility] 4 16:37:57 Medications [...] Address Organization Details Last Updated DateTime 4 863270. 25 g 98 % 98 % 81 /min 132/84 mm[Hg] Rylan Maradiaga MA [facility] 4 16:07:17 Date Recorded Body height Body mass index (BMI) Body weight Heart rate Oxygen saturation Oxygen saturation in Arterial blood by Pulse oximetry Systolic And Diastolic Provider Name and Address Organization Details Last Updated DateTime 5 162.56 cm 34.9 kg/m2 25482.3 3 g 120 /min 99 % 99 % 120/70 mm[Hg] Consuelo Andrade MA [facility] 5 10:57:38 Date Recorded Body height Body mass index (BMI) Body weight Heart rate Oxygen saturation Oxygen saturation in Arterial blood by Pulse oximetry Systolic And Diastolic Provider Name and Address Organization Details Last Updated DateTime 4 162.56 cm 36.9 kg/m2 13780.2 8 g 84 /min 96 % 96 % 124/78 mm[Hg] Saskia Kauffman MA [facility] 4 16:37:19 Social History Question Answer Notes LastModified by Organizat ion Details LastModified Time Tobacco Smoking Status Never Smoker Rylan Maradiaga MA [facility], [place] - [facility] 01/12/2024 16:00:55 Do You Have An [...] anxious, or unable to sleep at night)? [id number] Information not available 01/12/2024 Family History Nothing Reported. Medical History Condition Response Coronary Artery Disease N Other N High Blood Pressure Y Atrial Fibrillation N Thyroid Problems N Kidney or Bladder Problems N GI Problems Y Depression N COPD N Blood Clots N Skin Problems N Anemia N Heart Attack ([place]) N Diabetes N Anxiety Disorder N Muscle, Joint, or Bone Problems Y Seizures/Epilepsy N Acid Reflux (GERD) N Cancer N Stroke N Asthma N Allergies N High Cholesterol Y Hepatitis N Liver Disease N Headaches N Osteoporosis N Heart Failure N Gynecological HistoryNo gynecological history recorded. Obstetrics History GPAL:G 0 P 0 0 0 0 Immunizations Vaccine Type Date Status Note Provider Nam e and Address Organization Details Recorded Time Influenza, split virus, quadrivalent, preservative 1 completed Consuelo [place], [place], [place] [facility] 01/19/2025 10:54:18 Influenza, split virus, quadrivalent, preservative 7 completed Consuelo [place], [place] [facility] 01/19/2025 10:54:18 Influenza, split virus, quadrivalent, preservative 8 completed Consuelo Arymond, [place], [place] [facility] 01/19/2025 10:54:18 COVID-19, mRNA, LNP-S, PF, 100 mcg/0.5mL dose or 50 mcg/0.25mL dose 1 completed Consuelo Raymond, [place] [facility] 01/19/2025 10:54:18 COVID-19, mRNA, LNP-S, PF, 30 mcg/0.3 mL dose 1 completed Consuelo Raymond, [place] [facility] 01/19/2025 10:54:18 COVID-19, mRNA, LNP-S, PF, 30 mcg/0.3 mL dose 1 completed Consuelo Andrade [place] [facility] 01/19/2025 10:54:18 Influenza, split virus, trivalent, preservative 2 completed [place] [facility] 01/19/2025 10:54:18 Influenza, split virus, trivalent, PF 4 completed [place] [facility] 01/19/2025 10:54:26 Pneumococcal conjugate PCV20, polysaccharide [id number] conjugate, adjuvant, PF 5 completed Jr Peterson MD Attn: Accounting[address] [place], [address], [place] [facility] 01/21/2025 20:23:37 Past Encounters Encounter ID Performer Location Encounter Start Date Encounter Closed Date Diagnosis/Indication Diagnosis SNOMED-CT Code Diagnosis ICD10 Code Diagnosis Note [id number] Jr Peterson MD [facility] (Adult Med) [address] [place] [phone] 01/12/2024 15:50:08 01/12/2024 17:06:44 Gout 65591138 M10.9 Inflammato ry bowel disease 93631272 K52.9 Essential hypertension 12062189 I10 Hyperlipidemia 83357587 E78.5 [id number] Jr Peterson MD [facility] (Adult Med) [address] [place] [phone] 07/13/2024 16:09:34 07/13/2024 17:35:11 Obesity 646167001 E66.8 Cough 02382036 R05.9 Essential hypertension 03960761 I10 Hyperlipidemia 33714083 E78.5 Crohn's di sease of colon 70788808 K50.10 [id number] Jr Peterson MD [facility] - [place] Hickey [address] [place] [address] 01/19/2025 10:27:05 01/19/2025 11:43:39 Body mass index 30+ - obesity 917892062 Z68.34 Obesity 549581232 E66.9 Postmenopausal state 764 16846 Z78.0 Administra tion of pneumococcal vaccine 93035240 Z23 Essential hypertension 22328293 I10 Gout 44886730 M10.9 Hyperlipidemia 63169511 E78.5 Inflammato ry bowel disease 07687501 K52.9 Health Concerns Section Related Observation LastModified by Organization Detai ls LastModified Time None Recorded Concern Status LastModified by Organization Details LastModified Time None Recorded Advance Directives Directive N: Payers Insurance Date Sequence Insurance Name Policy Number Policy Amin Covered Member ID Amin Member ID Guarantor Name 12/30/2024 PAYMENT PLAN Marjorie Brittany 01/23/2025 1 [facility] [employer] [id number] Marjorie Hoyt Notes Date Note Type Note Provider Name and Address Organization Details Recorded Time 01/12/2024 text/html Gout no flareups hypertension no headache or dizziness hyperlipidemia taking her medication try to follow low-fat diet inflammatory bowel disease stable on current medical regimen low homocystine level supplemented with folic acid. Taking all her medications without any side effects. Jr Peterson MD Attn: Accounting[address] [facility], [place], [address], [place] [facility] 01/12/2024 21:52:17 07/13/2024 text/html [...] while Jr Peterson MD Attn: Accounting[address], [place], [address], [place] [facility] 07/16/2024 16:53:31 01/19/2025 text/html hospitalized [employer] hn's flare-up unit of blood had colonoscopy as well fatigued feeling better slowly placed on prednisone slow taper by GI Jr Peterson MD Attn: Accounting[address] [facility], [place], [address], [place] [facility] 01/21/2025 20:27:09 OBGyn Episode No OBEpisode recorded.
[2025-05-10 06:08] LABS: Calprotectin, Fecal >8000 ug/g (0-120)
== END 2025-05-08 09:03 | disposition home or self-care (01) ==
LOC: ANHLAB 09:03
PROVIDERS: PCP Internal Medicine; Visit Provider Nurse Practitioner Family
DX: K50.90 Crohn's disease, unspecified, without complications (principal); R19.5 Other fecal abnormalities
CPT/HCPCS: 83993

== ENCOUNTER 2025-05-12 15:55 | Outpatient (CLI) | payer OTHER, SELFPAY ==
--- OUTSIDE RECORDS SUMMARY | 2025-05-12 15:59 | XMS_ITS | Data Portability ---
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 Lab uric acid, serum or plasma 2022 023 [facility] (Lab), [address] [place], [address], 3 11:08:33 lipid panel, serum 2022 023 [facility] (Lab), [address] [place], [address], 3 11:08:38 CBC w/ auto diff 2022 023 [facility] (Lab), [address] [place], [address], 3 11:08:44 CMP, serum or plasma 2022 023 [facility] (Lab), [address] [place], [address], 3 11:08:49 Referral None recorded. Procedures None recorded. Surgeries None recorded. Imaging MAMMO, screening, digital, bilateral 2022 023 [facility] (Radiology), [address] [place], [address], 3 14:32:35 Medication Orders None recorded. Patient TargetsNo targets recorded. Patient InstructionsNo instructions recorded. Reason for Referral None Reported. Results Created Date Observation Date Name Description Value Unit Range Abnormal Flag Note LastModifiedBy Organization Detail LastModifiedTime 11/11/1911/11/2021 FOLAT E, SERUM /PLAS MA folate >20.0 NG/mL 2.76- Not Available [facility] (Lab) [address] [place], [address], 11/11/2021 12:19:27 11/11/1911/11/2021 LIPID PANEL cholesterol 260 mg/dL 140-19 9 high NIH MARCELLE NSUS RECOM MENDA TION FOR BEN STERO L: ADULT CHILD LOW RISK: <200 <170 BORDE RLINE : <200- 239 ----- HIGH RISK: >240 >200 Not Available [facility] (Lab) [address] [place], [address], 11/11/2021 10:49:46 11/11/19 22 11/11/2021 LIPID PANEL triglyceride s 69 mg/dL 0-150 NIH MARCELLE NSUS REPOR T RECOM MENDA TION FOR TRIGL YCERI STEPHANIE: ADULT CHILD LOW RISK: <150 ----- BODER LINE: 150-1 99 ----- HIGH RISK: >200 ----- Not Available [facility] (Lab) [address] [place], [address], 11/11/2021 10:49:46 11/11/19 22 11/11/2021 LIPID PANEL HDL cholesterol 132 mg/dL 40- Not Available [facility] (Lab) [address] [place], [address], 11/11/2021 10:49:46 11/11/19 22 11/11/2021 LIPID PANEL [...] WILL NOT BE REPOR RADHA. Not Available [facility] (Lab) [address] [place], [address], 11/11/2021 10:49:46 11/11/19 22 11/11/2021 URIC ACID SERUM uric acid 1.8 mg/dL 2.5-6. 2 low Not Available [facility] (Lab) [address] [place], [address], 11/11/2021 10:49:45 11/11/19 22 11/11/2021 COMPR EHENS GALILEO METAB OLIC PANEL sodium 135 mmol/ L 137-14 5 low Not Available [facility] (Lab) [address] [place], [address], 11/11/2021 10:49:40 11/11/19 22 11/11/2021 COMPR EHENS GALILEO METAB OLIC PANEL potassium 3.6 mmol/ L 3.5-5. 1 Not Available [facility] (Lab) [address] [place], [address], 11/11/2021 10:49:40 11/11/19 22 11/11/2021 COMPR EHENS GALILEO METAB OLIC PANEL chloride 98 mmol/ L 98-107 Not Available [facility] (Lab) [address] [place], [address], 11/11/2021 10:49:40 11/11/19 11/11/2021 COMPR EHENS GALILEO METAB OLIC PANEL carbon dioxide 27 mmol/ L 22-30 Not Available [facility] (Lab) [address] [place], [address], 11/11/2021 10:49:40 11/11/19 22 11/11/2021 COMPR EHENS GALILEO METAB OLIC PANEL agap 13.6 mmol/ L 14-22 low Not Available [facility] (Lab) [address] [place], [address], 11/11/2021 10:49:40 11/11/19 22 11/11/2021 COMPR EHENS GALILEO METAB OLIC PANEL glucose 78 mg/dL 70-99 Not Available [facility] (Lab) [address] [place], [address], 11/11/2021 10:49:40 11/11/19 22 11/11/2021 COMPR EHENS GALILEO METAB OLIC PANEL BUN 17 mg/dL 8-19 Not Available [facility] (Lab) [address] [place], [address], 11/11/2021 10:49:40 11/11/19 22 11/11/2021 COMPR EHENS GALILEO METAB OLIC PANEL creatinine 1.02 mg/dL 0.66-1 .25 Not Available [facility] (Lab) [address] [place], [address], 11/11/2021 10:49:40 11/11/19 22 11/11/2021 COMPR EHENS GALILEO METAB OLIC PANEL GFR >60 Refer ence Range : [place] ge GFR Healt hy Adult : >60 [...] calcu lator is avail able on the [facility] websi te: [email or web address] :[email or web address] [email or web address] ional s/kdo qi/gf r_cal culat or Not Available [facility] (Lab) [address] [place], [address], 11/11/2021 10:49:40 11/11/19 22 11/11/2021 COMPR EHENS GALILEO METAB OLIC PANEL alkaline phosphatase 87 U/L 38-126 Not Available [facility] (Lab) [address] [place], [address], 11/11/2021 10:49:40 11/11/19 22 11/11/2021 COMPR EHENS GALILEO METAB OLIC PANEL alanine aminotransfe rase 65 U/L 0-35 high Not Available [facility] (Lab) [address] [place], [address], 11/11/2021 10:49:40 11/11/19 22 11/11/2021 COMPR EHENS GALILEO METAB OLIC PANEL aspartate aminotransfe rase 96 U/L 15-37 high Not Available [facility] (Lab) [address] [place], [address], 11/11/2021 10:49:40 11/11/19 22 11/11/2021 COMPR EHENS GALILEO METAB OLIC PANEL bilirubin, total 0.80 mg/dL 0.20-1 .30 Not Available [facility] (Lab) [address] [facility] [place], [address], 11/11/2021 10:49:40 11/11/19 22 11/11/2021 COMPR EHENS GALILEO METAB OLIC PANEL calcium 8.8 mg/dL 8.4-10 .2 Not Available [facility] (Lab) [address] [place], [address], 11/11/2021 10:49:40 11/11/19 22 11/11/2021 COMPR EHENS GALILEO METAB OLIC PANEL total protein 8.9 g/dL 6.3-8. 2 high Not Available [facility] (Lab) [address] [place], [address], 11/11/2021 10:49:40 11/11/19 22 11/11/2021 COMPR EHENS GALILEO METAB OLIC PANEL albumin 4.7 g/dL 3.4-5. 0 Not Available [facility] (Lab) [address] [place], [address], 11/11/2021 10:49:40 11/11/19 22 11/11/2021 COMPR EHENS GALILEO METAB OLIC PANEL globulin 4.2 g/dL 2.6-4. 2 Not Available [facility] (Lab) [address] [place], [address], 11/11/2021 10:49:40 11/11/19 22 11/11/2021 COMPR EHENS GALILEO METAB OLIC PANEL A/G ratio 1.1 ratio 1.0-2. 0 Not Available [facility] (Lab) [address] [place], [address], 11/11/2021 10:49:40 11/11/19 22 11/11/2021 CBC/C OMPLE TE BLD COUNT W/DIF F white blood cells 6.1 x10'3 /uL 4.2-10 .8 Not Available [facility] (Lab) [address] [place], [address], 11/11/2021 09:54:00 11/11/19 22 11/11/2021 CBC/C OMPLE TE BLD COUNT W/DIF F red blood cells 4.19 x10'6 /uL 3.80-5 .20 Not Available [facility] (Lab) [address] [place], [address], 11/11/2021 09:54:00 11/11/1911/11/2021 CBC/C OMPLE TE BLD COUNT W/DIF F hemoglobin 12.8 g/dL 12.0-1 5.6 Not Available [facility] (Lab) [address] [place], [address], 11/11/2021 09:54:00 11/11/19 22 11/11/2021 CBC/C OMPLE TE BLD COUNT W/DIF F hematocrit 35.6 % 35.7-4 5.7 low Not Available [facility] (Lab) [address] [place], [address], 11/11/2021 09:54:00 11/11/19 22 11/11/2021 CBC/C OMPLE TE BLD COUNT W/DIF F mean red cell volume 85.0 fL 82.0-9 9.0 Not Available [facility] (Lab) [address] [place], [address], 11/11/2021 09:54:00 11/11/1911/11/2021 CBC/C OMPLE TE BLD COUNT W/DIF F mean red cell hemoglobin 30.5 pg 27.0-3 3.0 Not Available [facility] (Lab) [address] [place], [address], 11/11/2021 09:54:00 11/11/19 22 11/11/2021 CBC/C OMPLE TE BLD COUNT W/DIF F mean RBC HGB concentratio n 36.0 g/dL 31.0-3 6.0 Not Available [facility] (Lab) [address] [place], [address], 11/11/2021 09:54:00 11/11/19 22 11/11/2021 CBC/C OMPLE TE BLD COUNT W/DIF F red cell distribution width 12.4 % 11.8-1 5.5 Not Available [facility] (Lab) [address] [place], [address], 11/11/2021 09:54:00 11/11/1911/11/2021 CBC/C OMPLE TE BLD COUNT W/DIF F platelets 239 x10'3 /uL 150-40 0 Not Available [facility] (Lab) [address] [place], [address], 11/11/2021 09:54:00 11/11/19 22 11/11/2021 CBC/C OMPLE TE BLD COUNT W/DIF F mean platelet volume 9.2 fL 9.0-12 .4 Not Available [facility] (Lab) [address] [place], [address], 11/11/2021 09:54:00 11/11/1911/11/2021 CBC/C OMPLE TE BLD COUNT W/DIF F neutrophils 53.6 % 39.0-7 2.0 Not Available [facility] (Lab) [address] [place], [address], 11/11/2021 09:54:00 11/11/1911/11/2021 CBC/C OMPLE TE BLD COUNT W/DIF F lymphocytes 31.5 % 16.0-4 7.0 Not Available [facility] (Lab) [address] [place], [address], 11/11/2021 09:54:00 11/11/19 22 11/11/2021 CBC/C OMPLE TE BLD COUNT W/DIF F monocytes 10.5 % 5.0-12 .0 Not Available [facility] (Lab) [address] [place], [address], 11/11/2021 09:54:00 11/11/19 22 11/11/2021 CBC/C OMPLE TE BLD COUNT W/DIF F eosinophils 2.8 % 1.0-7. 0 Not Available [facility] (Lab) [address] [place], [address], 11/11/2021 09:54:00 11/11/1911/11/2021 CBC/C OMPLE TE BLD COUNT W/DIF F basophils 1.3 % 0.0-2. 0 Not Available [facility] (Lab) [address] [place], [address], 11/11/2021 09:54:00 11/11/1911/11/2021 CBC/C OMPLE TE BLD COUNT W/DIF F immature granulocytes 0.3 % 0.00-0 .50 Not Available [facility] (Lab) [address] [place], [address], 11/11/2021 09:54:00 11/11/1911/11/2021 CBC/C OMPLE TE BLD COUNT W/DIF F neutrophils, absolute count 3.26 x10'3 /uL 1.5-8. 0 Not Available [facility] (Lab) [address] [place], [address], 11/11/2021 09:54:00 11/11/1911/11/2021 CBC/C OMPLE TE BLD COUNT W/DIF F lymphocytes, absolute count 1.92 x10'3 /uL 1.07-3 .43 Not Available [facility] (Lab) [address] [place], [address], 11/11/2021 09:54:00 11/11/19 22 11/11/2021 CBC/C OMPLE TE BLD COUNT W/DIF F monocytes, absolute count 0.64 x10'3 /uL 0.29-0 .99 Not Available [facility] (Lab) [address] [place], [address], 11/11/2021 09:54:00 11/11/19 22 11/11/2021 CBC/C OMPLE TE BLD COUNT W/DIF F eosinophils, absolute count 0.17 x10'3 /uL 0.02-0 .53 Not Available [facility] (Lab) [address] [place], [address], 11/11/2021 09:54:00 11/11/19 22 11/11/2021 CBC/C OMPLE TE BLD COUNT W/DIF F basophils, absolute count 0.08 x10'3 /uL 0.01-0 .08 Not Available [facility] (Lab) [address] [place], [address], 11/11/2021 09:54:00 11/11/19 22 11/11/2021 CBC/C OMPLE TE BLD COUNT W/DIF F immature granulocytes ,absolute 0.02 x10'3 /uL 0.00-0 .05 Not Available [facility] (Lab) [address] [place], [address], 11/11/2021 09:54:00 11/11/19 22 11/11/2021 CBC/C OMPLE TE BLD COUNT W/DIF F nucleated red blood cells 0.0 % -0 Not Available [facility] (Lab) [address] [place], [address], 11/11/2021 09:54:00 11/11/19 22 11/11/2021 CBC/C OMPLE TE BLD COUNT W/DIF F NRBC# 0.00 x10'3 /uL Not Available [facility] (Lab) [address] [place], [address], 11/11/2021 09:54:00 09/02/20 22 09/02/2022 COMPR EHENS GALILEO METAB OLIC PANEL sodium 132 mmol/ L 137-14 5 low Not Available [facility] (Lab) [address] [place], [address], 09/02/2022 11:06:00 09/02/20 22 09/02/2022 COMPR EHENS GALILEO METAB OLIC PANEL potassium 3.6 mmol/ L 3.5-5. 1 Not Available [facility] (Lab) [address] [place], [address], 09/02/2022 11:06:00 09/02/20 22 09/02/2022 COMPR EHENS GALILEO METAB OLIC PANEL chloride 92 mmol/ L 98-107 low Not Available [facility] (Lab) [address] [place], [address], 09/02/2022 11:06:00 09/02/20 22 09/02/2022 COMPR EHENS GALILEO METAB OLIC PANEL carbon dioxide 27 mmol/ L 22-30 Not Available [facility] (Lab) [address] [place], [address], 09/02/2022 11:06:00 09/02/20 22 09/02/2022 COMPR EHENS GALILEO METAB OLIC PANEL anion gap 16.6 mmol/ L 14-22 Not Available [facility] (Lab) [address] [place], [address], 09/02/2022 11:06:00 09/02/20 22 09/02/2022 COMPR EHENS GALILEO METAB OLIC PANEL glucose 80 mg/dL 70-99 Not Available [facility] (Lab) [address] [place], [address], 09/02/2022 11:06:00 09/02/20 22 09/02/2022 COMPR EHENS GALILEO METAB OLIC PANEL BUN 19 mg/dL 8-19 Not Available [facility] (Lab) [address] [place], [address], 09/02/2022 11:06:00 09/02/20 22 09/02/2022 COMPR EHENS GALILEO METAB OLIC PANEL creatinine 0.94 mg/dL 0.66-1 .25 Not Available [facility] (Lab) [address] [facility] [place], [address], 09/02/2022 11:06:00 09/02/20 22 09/02/2022 COMPR EHENS GALILEO METAB OLIC PANEL GFR >60 Refer ence Range : [place] ge GFR Healt hy Adult : >60 [...] s/kdo qi/gf r_cal culat or Not Available [facility] (Lab) [address] [place], [address], 09/02/2022 11:06:00 09/02/20 22 09/02/2022 COMPR EHENS GALILEO METAB OLIC PANEL alkaline phosphatase 79 U/L 38-126 Not Available [facility] (Lab) [address] [place], [address], 09/02/2022 11:06:00 09/02/20 22 09/02/2022 COMPR EHENS GALILEO METAB OLIC PANEL alanine aminotransfe rase 45 U/L 0-35 high Not Available [facility] (Lab) [address] [place], [address], 09/02/2022 11:06:00 09/02/20 22 09/02/2022 COMPR EHENS GALILEO METAB OLIC PANEL aspartate aminotransfe rase 73 U/L 15-37 high Not Available [facility] (Lab) [address] [place], [address], 09/02/2022 11:06:00 09/02/20 22 09/02/2022 COMPR EHENS GALILEO METAB OLIC PANEL bilirubin, total 1.10 mg/dL 0.20-1 .30 Not Available [facility] (Lab) [address] [place], [address], 09/02/2022 11:06:00 09/02/20 22 09/02/2022 COMPR EHENS GALILEO METAB OLIC PANEL calcium 9.1 mg/dL 8.4-10 .2 Not Available [facility] (Lab) [address] [facility] [place], [address], 09/02/2022 11:06:00 09/02/20 22 09/02/2022 COMPR EHENS GALILEO METAB OLIC PANEL total protein 8.7 g/dL 6.3-8. 2 high Not Available [facility] (Lab) [address] [place], [address], 09/02/2022 11:06:00 09/02/20 22 09/02/2022 COMPR EHENS GALILEO METAB OLIC PANEL albumin 4.3 g/dL 3.4-5. 0 Not Available [facility] (Lab) [address] [place], [address], 09/02/2022 11:06:00 09/02/20 22 09/02/2022 COMPR EHENS GALILEO METAB OLIC PANEL globulin 4.4 g/dL 2.6-4. 2 high Not Available [facility] (Lab) [address] [place], [address], 09/02/2022 11:06:00 09/02/20 22 09/02/2022 COMPR EHENS GALIELO METAB OLIC PANEL A/G ratio 1.0 ratio 1.0-2. 0 Not Available [facility] (Lab) [address] [place], [address], 09/02/2022 11:06:00 09/02/20 22 09/02/2022 LIPID PANEL cholesterol 234 mg/dL 140-19 9 high NIH MARCELLE NSUS RECOM MENDA TION FOR BEN STERO L: ADULT CHILD LOW RISK: <200 <170 BORDE RLINE : <200- 239 ----- HIGH RISK: >240 >200 Not Available [facility] (Lab) [address] [place], [address], 09/02/2022 11:05:54 09/02/20 22 09/02/2022 LIPID PANEL triglyceride s 75 mg/dL 0-150 NIH MARCELLE NSUS REPOR T RECOM MENDA TION FOR TRIGL YCERI STEPHANIE: ADULT CHILD LOW RISK: <150 ----- BODER LINE: 150-1 99 ----- HIGH RISK: >200 ----- Not Available [facility] (Lab) [address] [place], [address], 09/02/2022 11:05:54 09/02/20 22 09/02/2022 LIPID PANEL HDL cholesterol 89 mg/dL 40- Not Available [facility] (Lab) [address] [place], [address], 09/02/2022 11:05:54 09/02/20 22 09/02/2022 LIPID PANEL [...] WILL NOT BE REPOR RADHA. Not Available [facility] (Lab) [address] [place], [address], 09/02/2022 11:05:54 09/02/20 22 09/02/2022 URIC ACID SERUM uric acid 2.2 mg/dL 2.5-6. 2 low Not Available [facility] (Lab) [address] [place], [address], 09/02/2022 11:05:49 09/02/20 22 09/02/2022 CBC/C OMPLE TE BLD COUNT W/DIF F white blood cells 5.8 x10'3 /uL 4.2-10 .8 Not Available [facility] (Lab) [address] [place], [address], 09/02/2022 09:59:55 09/02/20 22 09/02/2022 CBC/C OMPLE TE BLD COUNT W/DIF F red blood cells 4.23 x10'6 /uL 3.80-5 .20 Not Available [facility] (Lab) [address] [place], [address], 09/02/2022 09:59:55 09/02/20 22 09/02/2022 CBC/C OMPLE TE BLD COUNT W/DIF F hemoglobin 13.1 g/dL 12.0-1 5.6 Not Available [facility] (Lab) [address] [place], [address], 09/02/2022 09:59:55 09/02/20 22 09/02/2022 CBC/C OMPLE TE BLD COUNT W/DIF F hematocrit 35.3 % 35.7-4 5.7 low Not Available [facility] (Lab) [address] [place], [address], 09/02/2022 09:59:55 09/02/20 22 09/02/2022 CBC/C OMPLE TE BLD COUNT W/DIF F mean red cell volume 83.5 fL 82.0-9 9.0 Not Available [facility] (Lab) [address] [place], [address], 09/02/2022 09:59:55 09/02/20 22 09/02/2022 CBC/C OMPLE TE BLD COUNT W/DIF F mean red cell hemoglobin 31.0 pg 27.0-3 3.0 Not Available [facility] (Lab) [address] [place], [address], 09/02/2022 09:59:55 09/02/20 22 09/02/2022 CBC/C OMPLE TE BLD COUNT W/DIF F mean RBC HGB concentratio n 37.1 g/dL 31.0-3 6.0 high Not Available [facility] (Lab) [address] [place], [address], 09/02/2022 09:59:55 09/02/20 22 09/02/2022 CBC/C OMPLE TE BLD COUNT W/DIF F red cell distribution width 12.0 % 11.8-1 5.5 Not Available [facility] (Lab) [address] [place], [address], 09/02/2022 09:59:55 09/02/20 22 09/02/2022 CBC/C OMPLE TE BLD COUNT W/DIF F platelets 261 x10'3 /uL 150-40 0 Not Available [facility] (Lab) [address] [place], [address], 09/02/2022 09:59:55 09/02/20 22 09/02/2022 CBC/C OMPLE TE BLD COUNT W/DIF F mean platelet volume 8.7 fL 9.0-12 .4 low Not Available [facility] (Lab) [address] [place], [address], 09/02/2022 09:59:55 09/02/20 22 09/02/2022 CBC/C OMPLE TE BLD COUNT W/DIF F neutrophils 66.0 % 39.0-7 2.0 Not Available [facility] (Lab) [address] [place], [address], 09/02/2022 09:59:55 09/02/20 22 09/02/2022 CBC/C OMPLE TE BLD COUNT W/DIF F lymphocytes 22.0 % 16.0-4 7.0 Not Available [facility] (Lab) [address] [place], [address], 09/02/2022 09:59:55 09/02/20 22 09/02/2022 CBC/C OMPLE TE BLD COUNT W/DIF F monocytes 10.7 % 5.0-12 .0 Not Available [facility] (Lab) [address] [place], [address], 09/02/2022 09:59:55 09/02/20 22 09/02/2022 CBC/C OMPLE TE BLD COUNT W/DIF F eosinophils 0.3 % 1.0-7. 0 low Not Available [facility] (Lab) [address] [place], [address], 09/02/2022 09:59:55 09/02/20 22 09/02/2022 CBC/C OMPLE TE BLD COUNT W/DIF F basophils 0.7 % 0.0-2. 0 Not Available [facility] (Lab) [address] [place], [address], 09/02/2022 09:59:55 09/02/20 22 09/02/2022 CBC/C OMPLE TE BLD COUNT W/DIF F immature granulocytes 0.3 % 0.00-0 .50 Not Available [facility] (Lab) [address] [place], [address], 09/02/2022 09:59:55 09/02/20 22 09/02/2022 CBC/C OMPLE TE BLD COUNT W/DIF F neutrophils, absolute count 3.83 x10'3 /uL 1.5-8. 0 Not Available [facility] (Lab) [address] [place], [address], 09/02/2022 09:59:55 09/02/20 22 09/02/2022 CBC/C OMPLE TE BLD COUNT W/DIF F lymphocytes, absolute count 1.28 x10'3 /uL 1.07-3 .43 Not Available [facility] (Lab) [address] [place], [address], 09/02/2022 09:59:55 09/02/20 22 09/02/2022 CBC/C OMPLE TE BLD COUNT W/DIF F monocytes, absolute count 0.62 x10'3 /uL 0.29-0 .99 Not Available [facility] (Lab) [address] [place], [address], 09/02/2022 09:59:55 09/02/20 22 09/02/2022 CBC/C OMPLE TE BLD COUNT W/DIF F eosinophils, absolute count 0.02 x10'3 /uL 0.02-0 .53 Not Available [facility] (Lab) [address] [place], [address], 09/02/2022 09:59:55 09/02/20 22 09/02/2022 CBC/C OMPLE TE BLD COUNT W/DIF F basophils, absolute count 0.04 x10'3 /uL 0.01-0 .08 Not Available [facility] (Lab) [address] [place], [address], 09/02/2022 09:59:55 09/02/20 22 09/02/2022 CBC/C OMPLE TE BLD COUNT W/DIF F immature granulocytes ,absolute 0.02 x10'3 /uL 0.00-0 .05 Not Available [facility] (Lab) [address] [place], [address], 09/02/2022 09:59:55 09/02/20 22 09/02/2022 CBC/C OMPLE TE BLD COUNT W/DIF F nucleated red blood cells 0.0 % -0 Not Available [facility] (Lab) [address] [place], [address], 09/02/2022 09:59:55 09/02/20 22 09/02/2022 CBC/C OMPLE TE BLD COUNT W/DIF F NRBC# 0.00 x10'3 /uL Not Available [facility] (Lab) [address] [place], [address], 09/02/2022 09:59:55 09/29/20 23 09/29/2023 CBC/C OMPLE TE BLD COUNT W/DIF F white blood cells 6.2 x10'3 /uL 4.2-10 .8 Not Available [facility] (Lab) [address] [place], [address], 09/29/2023 09:30:57 09/29/20 23 09/29/2023 CBC/C OMPLE TE BLD COUNT W/DIF F red blood cells 4.39 x10'6 /uL 3.80-5 .20 Not Available [facility] (Lab) [address] [place], [address], 09/29/2023 09:30:57 09/29/20 23 09/29/2023 CBC/C OMPLE TE BLD COUNT W/DIF F hemoglobin 13.2 g/dL 12.0-1 5.6 Not Available [facility] (Lab) [address] [place], [address], 09/29/2023 09:30:57 09/29/20 23 09/29/2023 CBC/C OMPLE TE BLD COUNT W/DIF F hematocrit 36.9 % 35.7-4 5.7 Not Available [facility] (Lab) [address] [place], [address], 09/29/2023 09:30:57 09/29/20 23 09/29/2023 CBC/C OMPLE TE BLD COUNT W/DIF F mean red cell volume 84.1 fL 82.0-9 9.0 Not Available [facility] (Lab) [address] [place], [address], 09/29/2023 09:30:57 09/29/20 23 09/29/2023 CBC/C OMPLE TE BLD COUNT W/DIF F mean red cell hemoglobin 30.1 pg 27.0-3 3.0 Not Available [facility] (Lab) [address] [place], [address], 09/29/2023 09:30:57 09/29/20 23 09/29/2023 CBC/C OMPLE TE BLD COUNT W/DIF F mean RBC HGB concentratio n 35.8 g/dL 31.0-3 6.0 Not Available [facility] (Lab) [address] [place], [address], 09/29/2023 09:30:57 09/29/20 23 09/29/2023 CBC/C OMPLE TE BLD COUNT W/DIF F red cell distribution width 12.4 % 11.8-1 5.5 Not Available [facility] (Lab) [address] [place], [address], 09/29/2023 09:30:57 09/29/20 23 09/29/2023 CBC/C OMPLE TE BLD COUNT W/DIF F platelets 270 x10'3 /uL 150-40 0 Not Available [facility] (Lab) [address] [place], [address], 09/29/2023 09:30:57 09/29/20 23 09/29/2023 CBC/C OMPLE TE BLD COUNT W/DIF F mean platelet volume 9.6 fL 9.0-12 .4 Not Available [facility] (Lab) [address] [place], [address], 09/29/2023 09:30:57 09/29/20 23 09/29/2023 CBC/C OMPLE TE BLD COUNT W/DIF F neutrophils 57.9 % 39.0-7 2.0 Not Available [facility] (Lab) [address] [place], [address], 09/29/2023 09:30:57 09/29/20 23 09/29/2023 CBC/C OMPLE TE BLD COUNT W/DIF F lymphocytes 28.6 % 16.0-4 7.0 Not Available [facility] (Lab) [address] [place], [address], 09/29/2023 09:30:57 09/29/20 23 09/29/2023 CBC/C OMPLE TE BLD COUNT W/DIF F monocytes 10.9 % 5.0-12 .0 Not Available [facility] (Lab) [address] [place], [address], 09/29/2023 09:30:57 09/29/20 23 09/29/2023 CBC/C OMPLE TE BLD COUNT W/DIF F eosinophils 1.3 % 1.0-7. 0 Not Available [facility] (Lab) [address] [place], [address], 09/29/2023 09:30:57 09/29/20 23 09/29/2023 CBC/C OMPLE TE BLD COUNT W/DIF F basophils 1.0 % 0.0-2. 0 Not Available [facility] (Lab) [address] [place], [address], 09/29/2023 09:30:57 09/29/20 23 09/29/2023 CBC/C OMPLE TE BLD COUNT W/DIF F immature granulocytes 0.3 % 0.00-0 .50 Not Available [facility] (Lab) [address] [place], [address], 09/29/2023 09:30:57 09/29/20 23 09/29/2023 CBC/C OMPLE TE BLD COUNT W/DIF F neutrophils, absolute count 3.60 x10'3 /uL 1.5-8. 0 Not Available [facility] (Lab) [address] [place], [address], 09/29/2023 09:30:57 09/29/20 23 09/29/2023 CBC/C OMPLE TE BLD COUNT W/DIF F lymphocytes, absolute count 1.78 x10'3 /uL 1.07-3 .43 Not Available [facility] (Lab) [address] [place], [address], 09/29/2023 09:30:57 09/29/20 23 09/29/2023 CBC/C OMPLE TE BLD COUNT W/DIF F monocytes, absolute count 0.68 x10'3 /uL 0.29-0 .99 Not Available [facility] (Lab) [address] [place], [address], 09/29/2023 09:30:57 09/29/20 23 09/29/2023 CBC/C OMPLE TE BLD COUNT W/DIF F eosinophils, absolute count 0.08 x10'3 /uL 0.02-0 .53 Not Available [facility] (Lab) [address] [place], [address], 09/29/2023 09:30:57 09/29/20 23 09/29/2023 CBC/C OMPLE TE BLD COUNT W/DIF F basophils, absolute count 0.06 x10'3 /uL 0.01-0 .08 Not Available [facility] (Lab) [address] [place], [address], 09/29/2023 09:30:57 09/29/20 23 09/29/2023 CBC/C OMPLE TE BLD COUNT W/DIF F immature granulocytes ,absolute 0.02 x10'3 /uL 0.00-0 .05 Not Available [facility] (Lab) [address] [place], [address], 09/29/2023 09:30:57 09/29/20 23 09/29/2023 CBC/C OMPLE TE BLD COUNT W/DIF F nucleated red blood cells 0.0 % -0 Not Available [facility] (Lab) [address] [place], [address], 09/29/2023 09:30:57 09/29/20 23 09/29/2023 CBC/C OMPLE TE BLD COUNT W/DIF F NRBC# 0.00 x10'3 /uL Not Available [facility] (Lab) [address] [place], [address], 09/29/2023 09:30:57 09/29/20 23 09/29/2023 COMPR EHENS GALILEO METAB OLIC PANEL sodium 135 mmol/ L 137-14 5 low Not Available [facility] (Lab) [address] [place], [address], 09/29/2023 09:49:51 09/29/20 23 09/29/2023 COMPR EHENS GALILEO METAB OLIC PANEL potassium 3.6 mmol/ L 3.5-5. 1 Not Available [facility] (Lab) [address] [place], [address], 09/29/2023 09:49:51 09/29/20 23 09/29/2023 COMPR EHENS GALILEO METAB OLIC PANEL chloride 95 mmol/ L 98-107 low Not Available [facility] (Lab) [address] [place], [address], 09/29/2023 09:49:51 09/29/20 23 09/29/2023 COMPR EHENS GALILEO METAB OLIC PANEL carbon dioxide 27 mmol/ L 22-30 Not Available [facility] (Lab) [address] [place], [address], 09/29/2023 09:49:51 09/29/20 23 09/29/2023 COMPR EHENS GALILEO METAB OLIC PANEL anion gap 16.6 mmol/ L 14-22 Not Available [facility] (Lab) [address] [place], [address], 09/29/2023 09:49:51 09/29/20 23 09/29/2023 COMPR EHENS GALILEO METAB OLIC PANEL glucose 88 mg/dL 70-99 Not Available [facility] (Lab) [address] [place], [address], 09/29/2023 09:49:51 09/29/20 23 09/29/2023 COMPR EHENS GALILEO METAB OLIC PANEL BUN 17 mg/dL 8-19 Not Available [facility] (Lab) [address] [facility] [place], [address], 09/29/2023 09:49:51 09/29/20 23 09/29/2023 COMPR EHENS GALILEO METAB OLIC PANEL creatinine 0.99 mg/dL 0.66-1 .25 Not Available [facility] (Lab) [address] [place], [address], 09/29/2023 09:49:51 09/29/20 23 09/29/2023 COMPR EHENS GALILEO METAB OLIC PANEL GFR >60 Refer ence Range : [place] ge GFR Healt hy Adult : >60 [...] calcu lator is avail able on the [facility] websi te: [email or web address] :[email or web address] [email or web address] rg/pr ofess ional s/kdo qi/gf r_cal culat or Not Available [facility] (Lab) [address] [place], [address], 09/29/2023 09:49:51 09/29/20 23 09/29/2023 COMPR EHENS GALILEO METAB OLIC PANEL alkaline phosphatase 82 U/L 38-126 Not Available [facility] (Lab) [address] [place], [address], 09/29/2023 09:49:51 09/29/20 23 09/29/2023 COMPR EHENS GALILEO METAB OLIC PANEL alanine aminotransfe rase 67 U/L 0-35 high Not Available [facility] (Lab) [address] [place], [address], 09/29/2023 09:49:51 09/29/20 23 09/29/2023 COMPR EHENS GALILEO METAB OLIC PANEL aspartate aminotransfe rase 93 U/L 15-37 high Not Available [facility] (Lab) [address] [place], [address], 09/29/2023 09:49:51 09/29/20 23 09/29/2023 COMPR EHENS GALILEO METAB OLIC PANEL bilirubin, total 1.10 mg/dL 0.20-1 .30 Not Available [facility] (Lab) [address] [place], [address], 09/29/2023 09:49:51 09/29/20 23 09/29/2023 COMPR EHENS GALILEO METAB OLIC PANEL calcium 9.7 mg/dL 8.4-10 .2 Not Available [facility] (Lab) [address] [place], [address], 09/29/2023 09:49:51 09/29/2009/29/2023 COMPR EHENS GALILEO METAB OLIC PANEL total protein 10.1 g/dL 6.3-8. 2 high Not Available [facility] (Lab) [address] [place], [address], 09/29/2023 09:49:51 09/29/20 23 09/29/2023 COMPR EHENS GALILEO METAB OLIC PANEL albumin 4.7 g/dL 3.4-5. 0 Not Available [facility] (Lab) [address] [place], [address], 09/29/2023 09:49:51 09/29/20 23 09/29/2023 COMPR EHENS GALILEO METAB OLIC PANEL globulin 5.4 g/dL 2.6-4. 2 high Not Available [facility] (Lab) [address] [place], [address], 09/29/2023 09:49:51 09/29/20 23 09/29/2023 COMPR EHENS GALILEO METAB OLIC PANEL A/G ratio 0.9 ratio 1.0-2. 0 low Not Available [facility] (Lab) [address] [place], [address], 09/29/2023 09:49:51 09/29/20 23 09/29/2023 LIPID PANEL cholesterol 191 mg/dL 140-19 9 NIH AMRCELLE NSUS RECOM MENDA TION FOR BEN STERO L: ADULT CHILD LOW RISK: <200 <170 BORDE RLINE : <200- 239 ----- HIGH RISK: >240 >200 Not Available [facility] (Lab) [address] [place], [address], 09/29/2023 10:11:28 09/29/20 23 09/29/2023 LIPID PANEL triglyceride s 59 mg/dL 0-150 NIH MARCELLE NSUS REPOR T RECOM MENDA TION FOR TRIGL YCERI STEPHANIE: ADULT CHILD LOW RISK: <150 ----- BODER LINE: 150-1 99 ----- HIGH RISK: >200 ----- Not Available [facility] (Lab) [address] [place], [address], 09/29/2023 10:11:28 09/29/20 23 09/29/2023 LIPID PANEL HDL cholesterol 128 mg/dL 40- Not Available [facility] (Lab) [address] [place], [address], 09/29/2023 10:11:28 09/29/2009/29/2023 LIPID PANEL LDL cholesterol, [...] WILL NOT BE REPOR RADHA. Not Available [facility] (Lab) [address] [facility], [place], [address], 09/29/2023 10:11:28 09/29/20 23 09/29/2023 URIC ACID SERUM uric acid 1.9 mg/dL 2.5-6. 2 low Not Available [facility] (Lab) [address] [facility], [place], [address], 09/29/2023 10:11:33 02/27/20 22 02/26/2022 MAMMO , scree bailey, digit al, bilat eral [facility] [address] [place] [address] Patien t Name: MARJORIE HOYT ion #: [id number] Sex: F : 1969 8 Locati [...] alice ectura l Page 1 of 2 [facility] Chris simmons Name: MARJORIE HOYT Access ion #: [id number] Sex: F : 1969 8 Exam [...] ly [facility]. A negati ve mammog hellen report [...] 8:41 AM (CT) Page 2 of 2 [id number] [facility] (Imaging) [address] [place], [address], 12/17/2022 05:04:45 04/17/20 23 04/15/2023 MAMMO , tal swang, digit al, bilat eral [facility] [address] [facility] [place] [address] [facility] MARJORIE HOYT ion #: [id number] Sex: F : 1969 8 Locati [...] alice ectura l Page 1 of 2 [facility] Chris simmons Name: MARJORIE HOYT Access ion #: [id number] Sex: F : 1969 8 Exam [...] [facility] A negati ve mammog [...] 1:24 PM (CT) Page 2 of [id number] [place] [address] (Imaging) [address] [place], [address], 08/29/2023 20:30:27 Result Notes Documentation Provider Name and Address Organization Details Recorded Time Mammo, Screening, Digital, Bilateral : [facility] [address] [place] [address] Patient Name: MARJORIE HOYT Sex: F : 1970 Location: [facility] Attending Physician: JR PETERSON Ordering Physician: [...] calcifications, or architectural Page 1 of 2 [facility] Patient Name: MARJORIE HOYT Sex: F : 1970 Exam Date: 02/26/2022 7:37 AM Exam Name: MG HUNTER BREAST LYNNE BILAT Admitting Diagnosis(es): distortion are seen. IMPRESSION: BIRADS 1: Assessment complete. Negative. Recommend annual screening mammography. According to the [employer], yearly mammograms are recommended [...] 2 of 2 Not Available [facility] 12/17/2022 05:04:48 Mammo, Screening, Digital, Bilateral : [address] [address] Patient Name: MARJORIE HOYT Sex: F : 1970 Location: [facility] Attending Physician: JR PETERSON Ordering Physician: [...] calcifications, or architectural Page 1 of 2 [facility] Patient Name: MARJORIE HOYT Sex: F : 1970 Exam Date: 04/15/2023 7:00 AM Exam Name: SCRMary BREAST LYNNE BILAT Admitting Diagnosis(es): distortion are seen. IMPRESSION: BIRADS 1: Assessment complete. Negative. Recommend annual screening mammography. 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 Not Available [facility] 3 06:30:08 Bronchiti s 97614537 Active Not Available [facility] 3 06:30:08 Crohn's disease 60965465 Active Not Available [facility] 3 06:30:08 Chronic rhinitis 95388116 Active Not Available [facility] 3 06:30:09 Liver function tests outside reference range 088431674 Active 2017 Not Available [facility] 3 06:30:08 Vitamin D below reference range 803385549 Active 2019 Not Available [facility] 3 06:30:08 Dyslipide sanjeev 654592884 Active 2021 Not Available [facility] 3 06:30:09 Essential hypertens ion 07172164 Active 2021 Not Available [facility] 3 06:30:09 Gout 34583029 Active 2021 Not Available [facility] 3 06:30:09 Vitamin D deficienc y 36623344 Active 2021 Not Available [facility] 3 06:30:09 Hyperchol esterolem ia 83685063 Active 2021 Not Available [facility] 3 06:30:08 COVID-19 340881609 Active 2022 Not Available [facility] 3 06:30:09 Problem Notes None recorded. Medical Equipment None Reported. Allergies Allergen ID Allergen Name Allergen Category Reaction Reaction Severity Criticality Documentation Date Start Date Code Code System Note Provider Name and Address Organization Details Recorded Time 8191 Augmentin medicatio n diarrhea Not available Not available 12/17/2022 72005 2 RxNorm Not Available [facility] 3 05:04:16 Medications Name Sig Start Date [...] propionate 50 mcg/actuati on nasal spray,suspe nsion [place] 1 spray every day by intranasa l [...] kg/m2 162.56 cm 84 /min 97.2 [degF] 822885. 1 g 126/84 mm[Hg] Not Available [facility] 3 04:46:33 Date Recorded Body mass index (BMI) Body height Heart rate Body temperature Body weight Systolic And Diastolic Provider Name and Address Organization Details Last Updated DateTime 2 37.6 kg/m2 162.56 cm 72 /min 97.9 [degF] 42824.7 3 g 130/78 mm[Hg] Not Available [facility] 3 04:46:33 Date Recorded Body height Body mass index (BMI) Body weight Body temperature Heart rate Systolic And Diastolic Provider Name and Address Organization Details Last Updated DateTime 3 162.56 cm 37.6 kg/m2 81226.7 3 g 98 [degF] 83 /min 130/88 mm[Hg] Pushpa HaddadGRIFFINDanilo [employer] [facility] 3 16:11:27 Date Recorded Body mass index (BMI) Body height Heart rate Body temperature Body weight Systolic And Diastolic Provider Name and Address Organization Details Last Updated DateTime 2 37.4 kg/m2 162.56 cm 89 /min 98.9 [degF] 02164.1 4 g 134/84 mm[Hg] Not Available [facility] 3 04:46:33 Date Recorded Body height Body mass index (BMI) Body weight Body temperature Heart rate Systolic And Diastolic Provider Name and Address Organization Details Last Updated DateTime 3 162.56 cm 39.1 kg/m2 993669. 06 g 97.8 [degF] 99 /min 142/92 mm[Hg] MARY GRACE Helms [employer] 3 16:27:12 Social History Question Answer Notes LastModified by NightstaRxat ion Details LastModified Time Tobacco Smoking Status Never Smoker Not Available [facility] 12/17/2022 04:25:32 Do You Have An Advance Directive? No MIGRATION.74975 66818 Information not available 12/17/2022 Are You Blind Or Do You Have Difficulty Seeing? No MIGRATION.12472 76606 Information not available 12/17/2022 What Is Your Level Of Caffeine Consumption? Occasional MIGRATION.37514 28014 Information not available 12/17/2022 How Much Tobacco Do You Chew? None MIGRATION.08230 07788 Information not available 12/17/2022 In The 14 Days Before Symptom Onset, Have You Had Close Contact With A Laboratory-confi rmed COVID-19 While That Case Was Ill? No MIGRATION.43278 81961 Information not available 12/17/2022 In The 14 Days Before Symptom Onset, Have You Had Close Contact With A Person Who Is Under Investigation For COVID-19 While That Person Was Ill? No MIGRATION.19827 19964 Information not available 12/17/2022 Are You Deaf Or Do You Have Serious Difficulty Hearing? No MIGRATION.63186 50787 Information not available 12/17/2022 What Type Of Diet Are You Following? REGULAR MIGRATION.82915 42935 Information not available 12/17/2022 Which Illicit Or Recreational Drugs Have You Used? None MIGRATION.81843 58415 Information not available 12/17/2022 What Is The Highest Grade Or Level Of School You Have Completed Or The Highest Degree You Have Received? [id number] MIGRATION.02066 97706 Information not available 12/17/2022 Have There Been Any Changes To Your Family Or Social Situation? No MIGRATION.36271 16257 Information not available 12/17/2022 What Is The Fluoride Status Of Your Home? Unknown MIGRATION.78204 49305 Information not available 12/17/2022 Are There Any Guns Present In Your Home? Yes MIGRATION.12561 90369 Information not available 12/17/2022 Do You Use Insect Repellent Routinely? No MIGRATION.68559 38867 Information not available 12/17/2022 Where Do You Live? [place]House MIGRATION.46136 37206 Information not available 12/17/2022 Do You Have A Medical Power Of Acoustical Installer? No MIGRATION.19573 77823 Information not available 12/17/2022 What Was The Date Of Your Most Recent Tobacco Screening? 09/30/2023 [email or web address] Information not available 09/30/2023 Have You Ever Been Counseled For Unhealthy Alcohol Use? No MIGRATION.53926 02393 Information not available 12/17/2022 Do You Have Any Pets? Yes MIGRATION.67095 95884 Information not available 12/17/2022 What Is Your Relationship Status? MIGRATION.53064 30234 Information not available 12/17/2022 Do You Use Your Seat Belt Or Car Seat Routinely? Yes MIGRATION.68316 92256 Information not available 12/17/2022 Do You Have Smoke And Carbon Monoxide Detectors In Your Home? Yes MIGRATION.76340 29903 Information not available 12/17/2022 Are You Passively Exposed To Smoke? No MIGRATION.58007 10487 Information not available 12/17/2022 Are There Any Smokers In Your House? No MIGRATION.91825 05715 Information not available 12/17/2022 How Much Tobacco Do You Smoke? No MIGRATION.03112 80882 Information not available 12/17/2022 What Types Of Sporting Activities Do You Participate In? None MIGRATION.26214 96553 Information not available 12/17/2022 Do You Use Sunscreen Routinely? No MIGRATION.55586 28120 Information not available 12/17/2022 Has Tobacco Cessation Counseling Been Provided? No Not Needed-ne melanie Smoked MIGRATION.37144 96492 Information not available 12/17/2022 How Many Years Have You Smoked Tobacco? 0 MIGRATION.74755 60360 Information not available 12/17/2022 Have You Recently Traveled Abroad? No MIGRATION.40744 69552 Information not available 12/17/2022 Do You Have Difficulty Walking Or Climbing Stairs? No MIGRATION.69148 79252 Information not available 12/17/2022 Do You Have Any Dietary Restrictions? No MIGRATION.40131 95603 Information not available 12/17/2022 Sex: Female Functional Status Question Answer Note LastModified by Organizat ion Details LastModified Time Do you use any illicit or recreational drugs? No MIGRATION.449705 2364 Information not available 12/17/2022 Do you or have you ever used any other forms of tobacco or nicotine? No MIGRATION.738325 5203 Information not available 12/17/2022 What is your level of alcohol consumption? Occasional MIGRATION.179432 4820 Information not available 12/17/2022 Do you or have you ever used smokeless tobacco? Never used smokeless tobacco MIGRATION.084730 0640 Information not available 12/17/2022 Do you have difficulty doing errands alone? 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 No MIGRATION.012833 3742 Information not available 12/17/2022 Do you or have you ever used e-cigarettes or vape? Never used electronic cigarettes MIGRATION.716412 0069 Information not available 12/17/2022 What is your exercise level? Moderate MIGRATION.029322 3742 Information not available 12/17/2022 Mental Status Question Answer Note LastModified by Organizat ion Details LastModified Time Do you feel stressed (tense, restless, nervous, or anxious, or unable to sleep at night)? [id number] MIGRATION.39730192 26 Information not available 12/17/2022 Do you have difficulty concentrating, remembering or making decisions? No MIGRATION.85923911 26 Information not available 12/17/2022 Family History Relationship Description Onset Age of this Age Resolved Age Notes LastModified by Organization Details LastModified Time Father Diabetes mellitus MIGRATION.905 [id number] Not available 12/17/2022 04:44:23 Mother Diabetes mellitus MIGRATION.084 [id number] Not available 12/17/2022 04:44:23 Medical History Condition [...] INSOMNIA N HIGH CHOLESTEROL / HYPERLIPIDEMIA N EYE PROBLEMS N HYPERTHYROIDISM N EDEMA N CHRONIC PAIN SYNDROME N HYPOTHYROIDISM N CONSTIPATION N CAROTID BLOCKAGE N BACK / NECK PROBLEMS N HAVE YOU BEEN HOSPITALIZED OR SEEN IN [facility] IN THE PAST YEAR ? N ATHEROSCLEROSIS N BREAST PROBLEMS N DIALYSIS N ECZEMA N OSTEOPOROSIS N ARTHRITIS N APPENDICITIS N DIABETES, TYPE N BAD TEETH N ENT N HEARTBURN / REFLUX N AUTISM SPECTRUM DISORDER (ASD) N HEPATITIS / LIVER DISEASE N GOUT N SLEEP DISORDER N ALZHEIMER'S DISEASE N Brain Problems N DEMENTIA N HERPES N SEIZURES/EPILEPSY N HEADACHES/MIGRAINES N VASCULAR DISEASE N PACEMAKER N Blood Disorder N DIZZINESS N HEART DISEASE/HEART PROBLEMS N KIDNEY DISEASE N MULTIPLE SCLEROSIS N CANCER: SPECIFY N CARDIAC ARRHYTHMIA N ATRIAL FIBRILLATION N Gall Stones N PULMONARY EMBOLISM N AUTOIMMUNE DISEASE N Gynecological HistoryNo gynecological history recorded. Obstetrics History GPAL:G 0 P 0 0 0 0 Immunizations Vaccine Type Date Status Note Provider Nam e and Address Organization Details Recorded Time COVID-19, mRNA, LNP-S, PF, 100 mcg/0.5mL dose or 50 mcg/0.25mL dose 1 completed Not Available [facility] 10/03/2023 06:30:09 Influenza, split virus, trivalent, preservative 2 completed Not Available [facility] 10/03/2023 06:30:09 Influenza, split virus, quadrivalent, preservative 1 completed Not Available [facility] 10/03/2023 06:30:09 COVID-19, mRNA, LNP-S, PF, 30 mcg/0.3 mL dose 1 completed Not Available [facility] 10/03/2023 06:30:09 COVID-19, mRNA, LNP-S, PF, 30 mcg/0.3 mL dose 1 completed Not Available [facility] 10/03/2023 06:30:09 Influenza, split virus, trivalent, preservative 0 completed Not Available [facility] 10/03/2023 06:30:09 Influenza, split virus, quadrivalent, preservative 8 completed Not Available [facility] 10/03/2023 06:30:09 Influenza, split virus, quadrivalent, preservative 7 completed Not Available [facility] 10/03/2023 06:30:09 Past Encounters Encounter ID Performer Location Encounter Start Date Encounter Closed Date Diagnosis/Indication Diagnosis SNOMED-CT Code Diagnosis ICD10 Code Diagnosis Note [id number] Jr Peterson MD [facility] Internal Med [facility] [address] [address] 03/20/2021 00:00:00 03/30/2021 15:03:55 [id number] Jr Peterson MD [facility] Internal Med [facility] [address] [address] 10/16/2021 00:00:00 10/16/2021 20:36:59 [id number] Jr Peterson MD [facility] Internal Med [facility] [address] [address] 11/13/2021 00:00:00 11/17/2021 12:10:48 [id number] Jr Peterson MD [facility] Internal Med [facility] [address] [facility] [address] [place] [address] 02/12/2022 00:00:00 02/16/2022 12:52:58 [id number] Jr Peterson MD [facility] Internal Med [facility] [address] [facility] [address] [place] [address] 09/03/2022 00:00:00 09/07/2022 15:35:08 [id number] Jr Peterson MD [facility] Internal Med [facility] [address] [facility] [address] [place] [address] 03/11/2023 15:24:03 03/12/2023 16:59:08 Screening mammography 84717610 Z12.31 Gout 39420834 M10.9 Essential hypertension 94944710 I10 Vitamin D below reference range 963170465 E55.9 Dyslipidemia 895224016 E 78.5 Crohn's disease 81436377 K50.90 [id number] Jr Peterson MD [facility] Internal Med [facility] [address] [facility], [facility] [address] [place] [address] 09/30/2023 15:38:04 09/30/2023 17:14:37 Dyslipidemia 138423988 E78.5 Essential hypertension 74792122 I10 Gout 99711598 M10.9 Vitamin D below reference range 050258366 E55.9 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 Health Concerns Section Related Observation LastModified by Organization Detai ls LastModified Time None Recorded Concern Status LastModified by Organization Details LastModified Time None Recorded Advance Directives Directive N: Payers Insurance Date Sequence Insurance Name Policy Number Policy Amin Covered Member ID Amin Member ID Guarantor Name 10/21/2023 1 [facility] [id number] Alex Hoyt [id number] Marjorie Hoyt Notes Date Note Type Note Provider Name and Address Organization Details Recorded Time 3 text/html Crohn's stablegout no flare-upslow vitamin-D Needs supplementdyslipidemia needs to take atorvastatin regularlyhypertension stable pressure 130/88Needs to lose some weight Jr Peterson MD [address] [facility] [address], [place], [address], [employer] 03/14/2023 14:49:58 3 text/html Crohn's stablegout no flare-upslow vitamin-D Needs supplementdyslipidemia needs to take atorvastatin regularlyhypertension stableNeeds to lose some weight Jr Peterson MD [address], [place], [address], [employer] 10/19/2023 21:15:45 OBGyn Episode No OBEpisode recorded.
--- OUTSIDE RECORDS SUMMARY | 2025-05-12 15:59 | XMS_ITS | Data Portability ---
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 Role Phone JR PETERSON Primary Care Provider Unavailabl e Assessment Encounter Date Assessment Date Assessment LastModified by Organization Details LastModified Time 01/12/2024 01/12/2024 Diagnosis and the assessment and plan have been discussed she will follow-up with me in 6 months obtain old records all questions have been answered she believes she is up-to-date on mammograms and colonoscopies [email or web address] Not available 01/12/2024 21:51:58 07/13/2024 07/13/2024 Diagnosis [...] gout allopurinol states 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 Referral None recorded. Procedures None recorded. Surgeries None recorded. Imaging DEXA 2024 025 [facility] (Imaging), [address] [place] [address], [id number], 05/02/2025 15:19:43 Medication Orders Zithromax Z-Sanjay 250 mg tablet 2023 024 [email or web address] [facility] #[id number], [address], [place], [address], 07/13/2024 18:03:22 Patient TargetsNo targets recorded. Patient Instructions Encounter Date Encounter Id Patient Instructions Last Modified By Organization Details Last Modified Time 07/13/2024 [id number] A healthy lifestyle: care instructions [email or web address] Not available 07/13/2024 18:03:22 01/19/2025 [id number] A healthy lifestyle: care instructions [email or web address] Not available 01/19/2025 16:43:00 Reason for Referral None Reported. Results Created Date Observation Date Name Description Value Unit Range Abnormal Flag Note LastModifiedBy Organization Detail LastModifiedTime 11/10/1911/10/2024 XR, chest , 2 view No observ ation record ed. [address] [address], [place], [address], 11/11/2024 09:10:10 11/11/19 25 11/11/2024 US, renal No observ ation record ed. [address], [address], 11/14/2024 10:18:54 Result Notes None recorded. Problems Name Problem SNOMED Code Status Onset Date Resolution Date Notes Provider Name and Address Organization Details Recorded Time Cough 20354559 Active 2023 BRI [place] - [facility] 17:37:14 Gout 62433774 Active 2023 [place] [facility] 17:37:23 Inflammatory bowel disease 41556094 Active 2023 Oriana Hernandez BRI [place], [place] - [facility] 4 17:37:25 Essential hypertension 87473503 Active 2023 Oriana Hernandez B[place], [place] [facility] 4 17:37:28 Hyperlipidemia 31779075 Active 2023 Oriana Hernandez [place] null, [place] - [facility] 4 17:37:29 Fatigue 60240425 Active 2024 Oriana Hernandez [place] [facility] 5 14:02:31 Vitamin D deficiency 95304897 Active 2024 Jr Peterson MD Attn: Stephaniediandra irvin,[address] [place], [address], [place] - [facility] 5 22:27:47 Problem Notes Documentation Provider Name and Address Organization Details Recorded Time Oceanologist Consult Note : This document (1 of ) was received from [email or web address] on 03/27/2025 through Direct Message along with the following message body content: Patient Name: MARJORIE HOYT. Patient : 1970. Patient . Tere Sy null, [place] - [facility] 03/28/2025 16:35:55 Medical Equipment None Reported. Allergies Allergen ID Allergen Name Allergen Category Reaction Reaction Severity Criticality Documentation Date Start Date Code Code System Note Provider Name and Address Organization Details Recorded Time 105448 Augmentin medicatio n Not available Not available Not available 07/13/2024 83235 2 RxNorm Saskia KauffmanBRI null, [place] - [...] Address Organization Details Last Updated DateTime 4 538122. 25 g 98 % 98 % 81 /min 132/84 mm[Hg] Rylan Maradiaga MA [facility] 4 16:07:17 Date Recorded Body height Body mass index (BMI) Body weight Heart rate Oxygen saturation Oxygen saturation in Arterial blood by Pulse oximetry Systolic And Diastolic Provider Name and Address Organization Details Last Updated DateTime 5 162.56 cm 34.9 kg/m2 94908.3 3 g 120 /min 99 % 99 % 120/70 mm[Hg] Consuelo Andrade MA [facility] 5 10:57:38 Date Recorded Body height Body mass index (BMI) Body weight Heart rate Oxygen saturation Oxygen saturation in Arterial blood by Pulse oximetry Systolic And Diastolic Provider Name and Address Organization Details Last Updated DateTime 4 162.56 cm 36.9 kg/m2 94525.2 8 g 84 /min 96 % 96 % 124/78 mm[Hg] Saskia Kauffman MA [facility] 4 16:37:19 Social History Question Answer Notes LastModified by Organizat ion Details LastModified Time Tobacco Smoking Status Never Smoker Rylan Maradiaga MA [facility], [place] - [facility] 01/12/2024 16:00:55 Do You Have [...] 07/13/2024 Are you able to care for yourself independently? Yes Information not available 01/12/2024 What is your exercise level? None Information not available 01/12/2024 Mental Status Question Answer Note LastModified by Organization D etails LastModified Time Do you feel stressed (tense, restless, nervous, or anxious, or unable to sleep at night)? [id number] Information not available 01/12/2024 Family History Nothing Reported. Medical History Condition Response Coronary Artery Disease N Other N High Blood Pressure Y Atrial Fibrillation N Kidney or Bladder Problems N Thyroid Problems N GI Problems Y Depression N COPD N Blood Clots N Skin Problems N Anemia N Heart Attack (MT) N Anxiety Disorder N Diabetes N Muscle, [...] split virus, quadrivalent, preservative 8 completed Consuelo Raymond, [place] null, [place] - [...] [facility] 01/19/2025 10:54:26 Pneumococcal conjugate PCV20, polysaccharide [id number] conjugate, adjuvant, PF 5 completed Jr Peterson MD Attn: Accounting[address] [place], [address], [place] - [facility] 01/21/2025 20:23:37 Past Encounters Encounter ID Performer Location Encounter Start Date Encounter Closed Date Diagnosis/Indication Diagnosis SNOMED-CT Code Diagnosis ICD10 Code Diagnosis Note [id number] Jr Peterson MD [facility] (Adult Med) [address] [place] [phone] 01/12/2024 15:50:08 01/12/2024 17:06:44 Gout 48649655 M10.9 Inflammato ry bowel disease 15524283 K52.9 Essential hypertension 47655035 I10 Hyperlipidemia 84944336 E78.5 [id number] Jr Peterson MD [facility] (Adult Med) [address] [place] [phone] 07/13/2024 16:09:34 07/13/2024 17:35:11 Obesity 063388852 E66.8 Cough 42369900 R05.9 Essential hypertension 96520665 I10 Hyperlipidemia 43863920 E78.5 Crohn's di sease of colon 30748382 K50.10 [id number] Jr Peterson MD [facility] [place] [address] [place] [address] 01/19/2025 10:27:05 01/19/2025 11:43:39 Body mass index 30+ - obesity 069856241 Z68.34 Obesity 610091808 E66.9 Postmenopausal state 764 69736 Z78.0 Administra tion of pneumococcal vaccine 07150129 Z23 Essential hypertension 88596411 I10 Gout 70811616 M10.9 Hyperlipidemia 68050279 E78.5 Inflammato ry bowel disease 47717845 K52.9 Health Concerns Section Related Observation LastModified by Organization Detai ls LastModified Time None Recorded Concern Status LastModified by Organization Details LastModified Time None Recorded Advance Directives Directive N: Payers Insurance Date Sequence Insurance Name Policy Number Policy Amin Covered Member ID Amin Member ID Guarantor Name 12/30/2024 PAYMENT PLAN Marjorie Brittany [facility]/23/2025 [id number] Marjorie Hoyt Notes Date Note Type Note Provider Name and Address Organization Details Recorded Time 01/12/2024 text/html Gout no flareups hypertension no headache or dizziness hyperlipidemia taking her medication try to follow low-fat diet inflammatory bowel disease stable on current medical regimen low homocystine level supplemented with folic acid. Taking all her medications without any side effects. Jr Peterson MD Attn: Accounting, [address] [place], [address], [place] [facility] 01/12/2024 21:52:17 07/13/2024 text/html little bit of cough for a week or so has been nonproductive. Hypertension no headache no dizziness. Hyperlipidemia has been trying to follow a low-fat diet. Crohn's disease stable on current medical regimen with no blood in stool or abdominal pain. Has been struggling with weight issues for a while Jr Peterson MD Attn: Accounting,[address] [facility], [place], [address], [place] - [facility] 07/16/2024 16:53:31 01/19/2025 text/html hospitalized Crohn's flare-up unit of blood had colonoscopy as well fatigued feeling better slowly placed on prednisone slow taper by GI Jr Peterson MD Attn: Accounting,[address] [facility], [place], [address], [place] [facility] 01/21/2025 20:27:09 OBGyn Episode No OBEpisode recorded.
[2025-05-12 16:15] LABS: Hematocrit 26.2 % (37.0-47.0); Hemoglobin 9.2 g/dL (12.0-15.0); Mean Corpuscular HGB Conc 35.1 g/dl (32-36); Mean Corpuscular Hemoglobin 28.8 pg (26-34); Mean Corpuscular Volume 81.9 fl (80-100); Platelet Count Result 440 k/mm3 (150-375); Red Blood Count 3.20 M/mm3 (4.2-5.4); White Blood Count 11.9 K/mm3 (4.5-10.0)
[2025-05-12 16:30] LABS: Iron 26 ug/dL (37-170)
[2025-05-12 16:31] LABS: Alanine Aminotransferase 31 U/L (6-35); Albumin Level 2.5 g/dL (3.5-5.1); Alkaline Phosphatase 146 U/L (38-126); Anion Gap 8 mmol/L (4-12); Aspartate Amino Transferase 59 U/L (14-36); Bilirubin,Total 0.5 mg/dL (0.2-1.3); Blood Urea Nitrogen 27 mg/dL (7-17); Calcium 7.4 mg/dL (8.4-10.2); Carbon Dioxide 30 mmol/L (22-30); Chloride 92 mmol/L (98-107); Estimated Glomerular Filt Rate 32; Glucose 117 mg/dL (65-110); Magnesium 0.8 mg/dL (1.6-2.3); Potassium 3.2 mmol/L (3.4-5.0); Sodium 130 mmol/L (137-145); Total Protein 7.4 g/dL (6.3-8.2)
[2025-05-12 16:39] LABS: Percent Iron Saturation 23 % (20-50)
[2025-05-12 17:06] LABS: Ferritin 659.00 ng/mL (11.1-264)
[2025-05-12 18:04] LABS: Vitamin B12 996.0 pg/mL (239-931)
== END 2025-05-12 15:56 | disposition home or self-care (01) ==
LOC: ANHLAB 15:57
PROVIDERS: PCP Internal Medicine; Visit Provider Nurse Practitioner Family
DX: K50.90 Crohn's disease, unspecified, without complications (principal); D50.9 Iron deficiency anemia, unspecified; E87.6 Hypokalemia; E83.51 Hypocalcemia; E83.42 Hypomagnesemia
CPT/HCPCS: 36415; 80053; 82306; 82607; 82728; 82746; 83540; 83550; 83735; 85027

== ENCOUNTER 2025-06-13 14:22 | Outpatient (CLI) | payer OTHER, SELFPAY ==
--- NOTE | ~2025-06-13 | MM_ITS ---
EXAMINATION: MM screening angelo BI w janice HISTORY: Screening TECHNIQUE: Craniocaudal and mediolateral oblique 3-D tomosynthesis images were obtained and synthetic 2-D images were generated. CAD analysis was submitted and interpreted. COMPARISON: None available. BREAST PARENCHYMAL COMPOSITION: The breasts are almost entirely fatty. FINDINGS: There is no evidence of suspicious mass, calcification, or architectural distortion to suggest malignancy in either breast. Nipples are inverted bilaterally. IMPRESSION: 1. No mammographic evidence of malignancy. 2. Recommend routine screening mammography in one year. BI-RADS Category 1: Negative Reviewed, dictated and finalized at location B.
--- NOTE | ~2025-06-13 | DEXA_ITS ---
Bone Density Report Name: MARJORIE HOYT Age: 54 Sex: Female Ethnicity: White Date of : 1970 Indication: screening for osteoporosis; inflammatory bowel disease; Referring Provider: JR HOLGUIN Study: Bone densitometry was performed. Exam Date: June 13, 2025 Accession number: [id number] Bone Density: Region BMD T-score Z-score Classification AP Spine(L1-L4) 1.097 0.5 1.5 Normal Femoral Neck (Left) 0.824 -0.2 0.8 Normal Total Hip (Left) 0.976 0.3 0.9 Normal Femoral Neck (Right) 0.905 0.5 1.5 Normal Total Hip (Right) 1.008 0.5 1.2 Normal Total Hip Mean 0.992 0.4 1.1 Normal World Health Organization criteria for BMD impression classify patients as: Normal (T-score at or above -1.0), Osteopenia (T-score between -1.0 and -2.5), or Osteoporosis (T-score at or below -2.5). 10-year Fracture Risk: FRAX not reported because: Premenopausal woman All T-scores for Spine Total, Hip Total, Femoral Neck at or above -1.0 Clinical Information Provided by Patient: Has used the following medications: Vitamin D, Calcium Has the following medical conditions: Inflammatory bowel diseases No regular weight bearing exercise Does not regularly consume dairy products Onset of menses at age 13 Premenopausal Number of children 1 Missed period for more than 6 months in a row Impression: The patient's bone mass is within expected range for age, gender and ethnicity. Discussion: BONE DENSITY IS WITHIN EXPECTED LIMITS FOR AGE, SEX AND RACE. Bone density is within expected limits for age, sex and race at all sites measured. The patient should follow a healthful lifestyle (good nutrition with adequate calcium and vitamin D, and appropriate weight-bearing exercise). Follow-Up: Consider repeating this study in 5 years or sooner if there is some new clinical indication. Reported by: KAT on 06/13/2025 3:11:00 PM. Reviewed, dictated and finalized at location A.
== END 2025-06-13 14:23 | disposition home or self-care (01) ==
LOC: ANHFOHIMG 14:23
PROVIDERS: PCP Internal Medicine; Visit Provider Internal Medicine
DX: Z12.31 Encounter for screening mammogram for malignant neoplasm of breast (principal); Z78.0 Asymptomatic menopausal state
CPT/HCPCS: 77063; 77067; 77080

== ENCOUNTER 2025-07-24 11:09 | Outpatient (CLI) | payer OTHER, SELFPAY ==
[2025-07-24 12:14] LABS: Hematocrit 24.7 % (37.0-47.0); Hemoglobin 8.8 g/dL (12.0-15.0); Mean Corpuscular HGB Conc 35.6 g/dl (32-36); Mean Corpuscular Hemoglobin 29.0 pg (26-34); Mean Corpuscular Volume 81.5 fl (80-100); Platelet Count Result 410 k/mm3 (150-375); Red Blood Count 3.03 M/mm3 (4.2-5.4); White Blood Count 11.2 K/mm3 (4.5-10.0)
[2025-07-24 12:32] LABS: Iron 82 ug/dL (37-170)
[2025-07-24 12:40] LABS: Alanine Aminotransferase 31 U/L (6-35); Albumin Level 2.3 g/dL (3.5-5.1); Alkaline Phosphatase 165 U/L (38-126); Anion Gap 8 mmol/L (4-12); Aspartate Amino Transferase 53 U/L (14-36); Bilirubin,Total 0.7 mg/dL (0.2-1.3); Blood Urea Nitrogen 20 mg/dL (7-17); CRP 4.8 mg/dL (<1.0); Calcium 7.0 mg/dL (8.4-10.2); Carbon Dioxide 30 mmol/L (22-30); Chloride 95 mmol/L (98-107); Estimated Glomerular Filt Rate 40; Glucose 109 mg/dL (65-110); Potassium 2.8 mmol/L (3.4-5.0); Sodium 133 mmol/L (137-145); Total Protein 6.9 g/dL (6.3-8.2)
[2025-07-24 12:41] LABS: Percent Iron Saturation 89 % (20-50)
--- OUTSIDE RECORDS SUMMARY | 2025-07-24 12:52 | XMS_ITS | Data Portability ---
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 Lab uric acid, serum or plasma [address] [facility] (Lab), [address] [place], [address], 3 11:08:33 lipid panel, serum [address] [facility] (Lab), [address] [place], [address], 3 11:08:38 CBC w/ auto diff [address] [facility] (Lab), [address] [place], [address], 3 11:08:44 CMP, serum or plasma [address] [facility] (Lab), [address] [place], [address], 3 11:08:49 Referral None recorded. Procedures None recorded. Surgeries None recorded. Imaging MAMMO, screening, digital, bilateral 2022 023 [facility] (Radiology[facility] [address] [place], [address], 3 14:32:35 Medication Orders None recorded. Patient TargetsNo targets recorded. Patient InstructionsNo instructions recorded. Reason for Referral None Reported. Results Created Date Observation Date Name Description Value Unit Range Abnormal Flag Note LastModifiedBy Organization Detail LastModifiedTime 11/11/1911/11/2021 FOLAT E, SERUM /PLAS MA folate >20.0 NG/mL 2.76- Not Available [facility] (Lab) [address] [place], [address], 11/11/2021 12:19:27 11/11/1911/11/2021 LIPID PANEL cholesterol 260 mg/dL 140-19 9 high NIH MARCELLE NSUS RECOM MENDA TION FOR BEN STERO L: ADULT CHILD LOW RISK: <200 <170 BORDE RLINE : <200- 239 ----- HIGH RISK: >240 >200 Not Available [facility] (Lab) [address] [place], [address], 11/11/2021 10:49:46 11/11/19 22 11/11/2021 LIPID PANEL triglyceride s 69 mg/dL 0-150 NIH MARCELLE NSUS REPOR T RECOM MENDA TION FOR TRIGL YCERI STEPHANIE: ADULT CHILD LOW RISK: <150 ----- BODER LINE: 150-1 99 ----- HIGH RISK: >200 ----- Not Available [facility] (Lab) [address] [place], [address], 11/11/2021 10:49:46 11/11/19 22 11/11/2021 LIPID PANEL HDL cholesterol 132 mg/dL 40- Not Available [facility] (Lab) [address] [place], [address], 11/11/2021 10:49:46 11/11/19 22 11/11/2021 LIPID PANEL [...] WILL NOT BE REPOR RADHA. Not Available [facility] (Lab) [address] [place], [address], 11/11/2021 10:49:46 11/11/19 22 11/11/2021 URIC ACID SERUM uric acid 1.8 mg/dL 2.5-6. 2 low Not Available [facility] (Lab) [address] [place], [address], 11/11/2021 10:49:45 11/11/19 22 11/11/2021 COMPR EHENS GALILEO METAB OLIC PANEL sodium 135 mmol/ L 137-14 5 low Not Available [facility] (Lab) [address] [place], [address], 11/11/2021 10:49:40 11/11/19 22 11/11/2021 COMPR EHENS GALILEO METAB OLIC PANEL potassium 3.6 mmol/ L 3.5-5. 1 Not Available [facility] (Lab) [address] [place], [address], 11/11/2021 10:49:40 11/11/19 22 11/11/2021 COMPR EHENS GALILEO METAB OLIC PANEL chloride 98 mmol/ L 98-107 Not Available [facility] (Lab) [address] [place], [address], 11/11/2021 10:49:40 11/11/19 11/11/2021 COMPR EHENS GALILEO METAB OLIC PANEL carbon dioxide 27 mmol/ L 22-30 Not Available [facility] (Lab) [address] [place], [address], 11/11/2021 10:49:40 11/11/19 22 11/11/2021 COMPR EHENS GALILEO METAB OLIC PANEL agap 13.6 mmol/ L 14-22 low Not Available [facility] (Lab) [address] [place], [address], 11/11/2021 10:49:40 11/11/19 22 11/11/2021 COMPR EHENS GALILEO METAB OLIC PANEL glucose 78 mg/dL 70-99 Not Available [facility] (Lab) [address] [place], [address], 11/11/2021 10:49:40 11/11/19 22 11/11/2021 COMPR EHENS GALILEO METAB OLIC PANEL BUN 17 mg/dL 8-19 Not Available [facility] (Lab) [address] [place], [address], 11/11/2021 10:49:40 11/11/19 22 11/11/2021 COMPR EHENS GALILEO METAB OLIC PANEL creatinine 1.02 mg/dL 0.66-1 .25 Not Available [facility] (Lab) [address] [place], [address], 11/11/2021 10:49:40 11/11/19 22 11/11/2021 COMPR EHENS GALILEO METAB OLIC PANEL GFR >60 Refer ence Range : [place] GFR Healt hy Adult : >60 [...] calcu lator is avail able on the [facility] websi te: [email or web address] :[email or web address] rg/pr ofess ional s/kdo qi/gf r_cal culat or Not Available [facility] (Lab) [address] [place], [address], 11/11/2021 10:49:40 11/11/19 22 11/11/2021 COMPR EHENS GALILEO METAB OLIC PANEL alkaline phosphatase 87 U/L 38-126 Not Available [facility] (Lab) [address] [place], [address], 11/11/2021 10:49:40 11/11/19 22 11/11/2021 COMPR EHENS GALILEO METAB OLIC PANEL alanine aminotransfe rase 65 U/L 0-35 high Not Available [facility] (Lab) [address] [place], [address], 11/11/2021 10:49:40 11/11/19 22 11/11/2021 COMPR EHENS GALILEO METAB OLIC PANEL aspartate aminotransfe rase 96 U/L 15-37 high Not Available [facility] (Lab) [address] [place], [address], 11/11/2021 10:49:40 11/11/19 22 11/11/2021 COMPR EHENS GALILEO METAB OLIC PANEL bilirubin, total 0.80 mg/dL 0.20-1 .30 Not Available [facility] (Lab) [address] [facility] [place], [address], 11/11/2021 10:49:40 11/11/19 22 11/11/2021 COMPR EHENS GALILEO METAB OLIC PANEL calcium 8.8 mg/dL 8.4-10 .2 Not Available [facility] (Lab) [address] [place], [address], 11/11/2021 10:49:40 11/11/19 22 11/11/2021 COMPR EHENS GALILEO METAB OLIC PANEL total protein 8.9 g/dL 6.3-8. 2 high Not Available [facility] (Lab) [address] [place], [address], 11/11/2021 10:49:40 11/11/19 22 11/11/2021 COMPR EHENS GALILEO METAB OLIC PANEL albumin 4.7 g/dL 3.4-5. 0 Not Available [facility] (Lab) [address] [place], [address], 11/11/2021 10:49:40 11/11/19 22 11/11/2021 COMPR EHENS GALILEO METAB OLIC PANEL globulin 4.2 g/dL 2.6-4. 2 Not Available [facility] (Lab) [address] [place], [address], 11/11/2021 10:49:40 11/11/19 22 11/11/2021 COMPR EHENS GALILEO METAB OLIC PANEL A/G ratio 1.1 ratio 1.0-2. 0 Not Available [facility] (Lab) [address] [place], [address], 11/11/2021 10:49:40 11/11/19 22 11/11/2021 CBC/C OMPLE TE BLD COUNT W/DIF F white blood cells 6.1 x10'3 /uL 4.2-10 .8 Not Available [facility] (Lab) [address] [place], [address], 11/11/2021 09:54:00 11/11/19 22 11/11/2021 CBC/C OMPLE TE BLD COUNT W/DIF F red blood cells 4.19 x10'6 /uL 3.80-5 .20 Not Available [facility] (Lab) [address] [place], [address], 11/11/2021 09:54:00 11/11/1911/11/2021 CBC/C OMPLE TE BLD COUNT W/DIF F hemoglobin 12.8 g/dL 12.0-1 5.6 Not Available [facility] (Lab) [address] [place], [address], 11/11/2021 09:54:00 11/11/19 22 11/11/2021 CBC/C OMPLE TE BLD COUNT W/DIF F hematocrit 35.6 % 35.7-4 5.7 low Not Available [facility] (Lab) [address] [place], [address], 11/11/2021 09:54:00 11/11/19 22 11/11/2021 CBC/C OMPLE TE BLD COUNT W/DIF F mean red cell volume 85.0 fL 82.0-9 9.0 Not Available [facility] (Lab) [address] [place], [address], 11/11/2021 09:54:00 11/11/1911/11/2021 CBC/C OMPLE TE BLD COUNT W/DIF F mean red cell hemoglobin 30.5 pg 27.0-3 3.0 Not Available [facility] (Lab) [address] [place], [address], 11/11/2021 09:54:00 11/11/19 22 11/11/2021 CBC/C OMPLE TE BLD COUNT W/DIF F mean RBC HGB concentratio n 36.0 g/dL 31.0-3 6.0 Not Available [facility] (Lab) [address] [place], [address], 11/11/2021 09:54:00 11/11/19 22 11/11/2021 CBC/C OMPLE TE BLD COUNT W/DIF F red cell distribution width 12.4 % 11.8-1 5.5 Not Available [facility] (Lab) [address] [place], [address], 11/11/2021 09:54:00 11/11/1911/11/2021 CBC/C OMPLE TE BLD COUNT W/DIF F platelets 239 x10'3 /uL 150-40 0 Not Available [facility] (Lab) [address] [place], [address], 11/11/2021 09:54:00 11/11/19 22 11/11/2021 CBC/C OMPLE TE BLD COUNT W/DIF F mean platelet volume 9.2 fL 9.0-12 .4 Not Available [facility] (Lab) [address] [place], [address], 11/11/2021 09:54:00 11/11/1911/11/2021 CBC/C OMPLE TE BLD COUNT W/DIF F neutrophils 53.6 % 39.0-7 2.0 Not Available [facility] (Lab) [address] [place], [address], 11/11/2021 09:54:00 11/11/1911/11/2021 CBC/C OMPLE TE BLD COUNT W/DIF F lymphocytes 31.5 % 16.0-4 7.0 Not Available [facility] (Lab) [address] [place], [address], 11/11/2021 09:54:00 11/11/19 22 11/11/2021 CBC/C OMPLE TE BLD COUNT W/DIF F monocytes 10.5 % 5.0-12 .0 Not Available [facility] (Lab) [address] [place], [address], 11/11/2021 09:54:00 11/11/19 22 11/11/2021 CBC/C OMPLE TE BLD COUNT W/DIF F eosinophils 2.8 % 1.0-7. 0 Not Available [facility] (Lab) [address] [place], [address], 11/11/2021 09:54:00 11/11/1911/11/2021 CBC/C OMPLE TE BLD COUNT W/DIF F basophils 1.3 % 0.0-2. 0 Not Available [facility] (Lab) [address] [place], [address], 11/11/2021 09:54:00 11/11/1911/11/2021 CBC/C OMPLE TE BLD COUNT W/DIF F immature granulocytes 0.3 % 0.00-0 .50 Not Available [facility] (Lab) [address] [place], [address], 11/11/2021 09:54:00 11/11/1911/11/2021 CBC/C OMPLE TE BLD COUNT W/DIF F neutrophils, absolute count 3.26 x10'3 /uL 1.5-8. 0 Not Available [facility] (Lab) [address] [place], [address], 11/11/2021 09:54:00 11/11/1911/11/2021 CBC/C OMPLE TE BLD COUNT W/DIF F lymphocytes, absolute count 1.92 x10'3 /uL 1.07-3 .43 Not Available [facility] (Lab) [address] [place], [address], 11/11/2021 09:54:00 11/11/19 22 11/11/2021 CBC/C OMPLE TE BLD COUNT W/DIF F monocytes, absolute count 0.64 x10'3 /uL 0.29-0 .99 Not Available [facility] (Lab) [address] [place], [address], 11/11/2021 09:54:00 11/11/19 22 11/11/2021 CBC/C OMPLE TE BLD COUNT W/DIF F eosinophils, absolute count 0.17 x10'3 /uL 0.02-0 .53 Not Available [facility] (Lab) [address] [place], [address], 11/11/2021 09:54:00 11/11/19 22 11/11/2021 CBC/C OMPLE TE BLD COUNT W/DIF F basophils, absolute count 0.08 x10'3 /uL 0.01-0 .08 Not Available [facility] (Lab) [address] [place], [address], 11/11/2021 09:54:00 11/11/19 22 11/11/2021 CBC/C OMPLE TE BLD COUNT W/DIF F immature granulocytes ,absolute 0.02 x10'3 /uL 0.00-0 .05 Not Available [facility] (Lab) [address] [place], [address], 11/11/2021 09:54:00 11/11/19 22 11/11/2021 CBC/C OMPLE TE BLD COUNT W/DIF F nucleated red blood cells 0.0 % -0 Not Available [facility] (Lab) [address] [place], [address], 11/11/2021 09:54:00 11/11/19 22 11/11/2021 CBC/C OMPLE TE BLD COUNT W/DIF F NRBC# 0.00 x10'3 /uL Not Available [facility] (Lab) [address] [place], [address], 11/11/2021 09:54:00 09/02/20 22 09/02/2022 COMPR EHENS GALILEO METAB OLIC PANEL sodium 132 mmol/ L 137-14 5 low Not Available [facility] (Lab) [address] [place], [address], 09/02/2022 11:06:00 09/02/20 22 09/02/2022 COMPR EHENS GALILEO METAB OLIC PANEL potassium 3.6 mmol/ L 3.5-5. 1 Not Available [facility] (Lab) [address] [place], [address], 09/02/2022 11:06:00 09/02/20 22 09/02/2022 COMPR EHENS GALILEO METAB OLIC PANEL chloride 92 mmol/ L 98-107 low Not Available [facility] (Lab) [address] [place], [address], 09/02/2022 11:06:00 09/02/20 22 09/02/2022 COMPR EHENS GALILEO METAB OLIC PANEL carbon dioxide 27 mmol/ L 22-30 Not Available [facility] (Lab) [address] [place], [address], 09/02/2022 11:06:00 09/02/20 22 09/02/2022 COMPR EHENS GALILEO METAB OLIC PANEL anion gap 16.6 mmol/ L 14-22 Not Available [facility] (Lab) [address] [place], [address], 09/02/2022 11:06:00 09/02/20 22 09/02/2022 COMPR EHENS GALILEO METAB OLIC PANEL glucose 80 mg/dL 70-99 Not Available [facility] (Lab) [address] [place], [address], 09/02/2022 11:06:00 09/02/20 22 09/02/2022 COMPR EHENS GALILEO METAB OLIC PANEL BUN 19 mg/dL 8-19 Not Available [facility] (Lab) [address] [place], [address], 09/02/2022 11:06:00 09/02/20 22 09/02/2022 COMPR EHENS GALILEO METAB OLIC PANEL creatinine 0.94 mg/dL 0.66-1 .25 Not Available [facility] (Lab) [address] [facility] [place], [address], 09/02/2022 11:06:00 09/02/20 22 09/02/2022 COMPR EHENS GALILEO METAB OLIC PANEL GFR >60 Refer ence Range : [place] ge GFR Healt hy Adult : >60 [...] s/kdo qi/gf r_cal culat or Not Available [facility] (Lab) [address] [place], [address], 09/02/2022 11:06:00 09/02/20 22 09/02/2022 COMPR EHENS GALILEO METAB OLIC PANEL alkaline phosphatase 79 U/L 38-126 Not Available [facility] (Lab) [address] [place], [address], 09/02/2022 11:06:00 09/02/20 22 09/02/2022 COMPR EHENS GALILEO METAB OLIC PANEL alanine aminotransfe rase 45 U/L 0-35 high Not Available [facility] (Lab) [address] [place], [address], 09/02/2022 11:06:00 09/02/20 22 09/02/2022 COMPR EHENS GALILEO METAB OLIC PANEL aspartate aminotransfe rase 73 U/L 15-37 high Not Available [facility] (Lab) [address] [place], [address], 09/02/2022 11:06:00 09/02/20 22 09/02/2022 COMPR EHENS GALILEO METAB OLIC PANEL bilirubin, total 1.10 mg/dL 0.20-1 .30 Not Available [facility] (Lab) [address] [place], [address], 09/02/2022 11:06:00 09/02/20 22 09/02/2022 COMPR EHENS GALILEO METAB OLIC PANEL calcium 9.1 mg/dL 8.4-10 .2 Not Available [facility] (Lab) [address] [facility] [place], [address], 09/02/2022 11:06:00 09/02/20 22 09/02/2022 COMPR EHENS GALILEO METAB OLIC PANEL total protein 8.7 g/dL 6.3-8. 2 high Not Available [facility] (Lab) [address] [place], [address], 09/02/2022 11:06:00 09/02/20 22 09/02/2022 COMPR EHENS GALILEO METAB OLIC PANEL albumin 4.3 g/dL 3.4-5. 0 Not Available [facility] (Lab) [address] [place], [address], 09/02/2022 11:06:00 09/02/20 22 09/02/2022 COMPR EHENS GALILEO METAB OLIC PANEL globulin 4.4 g/dL 2.6-4. 2 high Not Available [facility] (Lab) [address] [place], [address], 09/02/2022 11:06:00 09/02/20 22 09/02/2022 COMPR EHENS GALILEO METAB OLIC PANEL A/G ratio 1.0 ratio 1.0-2. 0 Not Available [facility] (Lab) [address] [place], [address], 09/02/2022 11:06:00 09/02/20 22 09/02/2022 LIPID PANEL cholesterol 234 mg/dL 140-19 9 high NIH MARCELLE NSUS RECOM MENDA TION FOR BEN STERO L: ADULT CHILD LOW RISK: <200 <170 BORDE RLINE : <200- 239 ----- HIGH RISK: >240 >200 Not Available [facility] (Lab) [address] [place], [address], 09/02/2022 11:05:54 09/02/20 22 09/02/2022 LIPID PANEL triglyceride s 75 mg/dL 0-150 NIH MARCELLE NSUS REPOR T RECOM MENDA TION FOR TRIGL YCERI STEPHANIE: ADULT CHILD LOW RISK: <150 ----- BODER LINE: 150-1 99 ----- HIGH RISK: >200 ----- Not Available [facility] (Lab) [address] [place], [address], 09/02/2022 11:05:54 09/02/20 22 09/02/2022 LIPID PANEL HDL cholesterol 89 mg/dL 40- Not Available [facility] (Lab) [address] [place], [address], 09/02/2022 11:05:54 09/02/20 22 09/02/2022 LIPID PANEL [...] WILL NOT BE REPOR RADHA. Not Available [facility] (Lab) [address] [place], [address], 09/02/2022 11:05:54 09/02/20 22 09/02/2022 URIC ACID SERUM uric acid 2.2 mg/dL 2.5-6. 2 low Not Available [facility] (Lab) [address] [place], [address], 09/02/2022 11:05:49 09/02/20 22 09/02/2022 CBC/C OMPLE TE BLD COUNT W/DIF F white blood cells 5.8 x10'3 /uL 4.2-10 .8 Not Available [facility] (Lab) [address] [place], [address], 09/02/2022 09:59:55 09/02/20 22 09/02/2022 CBC/C OMPLE TE BLD COUNT W/DIF F red blood cells 4.23 x10'6 /uL 3.80-5 .20 Not Available [facility] (Lab) [address] [place], [address], 09/02/2022 09:59:55 09/02/20 22 09/02/2022 CBC/C OMPLE TE BLD COUNT W/DIF F hemoglobin 13.1 g/dL 12.0-1 5.6 Not Available [facility] (Lab) [address] [place], [address], 09/02/2022 09:59:55 09/02/20 22 09/02/2022 CBC/C OMPLE TE BLD COUNT W/DIF F hematocrit 35.3 % 35.7-4 5.7 low Not Available [facility] (Lab) [address] [place], [address], 09/02/2022 09:59:55 09/02/20 22 09/02/2022 CBC/C OMPLE TE BLD COUNT W/DIF F mean red cell volume 83.5 fL 82.0-9 9.0 Not Available [facility] (Lab) [address] [place], [address], 09/02/2022 09:59:55 09/02/20 22 09/02/2022 CBC/C OMPLE TE BLD COUNT W/DIF F mean red cell hemoglobin 31.0 pg 27.0-3 3.0 Not Available [facility] (Lab) [address] [place], [address], 09/02/2022 09:59:55 09/02/20 22 09/02/2022 CBC/C OMPLE TE BLD COUNT W/DIF F mean RBC HGB concentratio n 37.1 g/dL 31.0-3 6.0 high Not Available [facility] (Lab) [address] [place], [address], 09/02/2022 09:59:55 09/02/20 22 09/02/2022 CBC/C OMPLE TE BLD COUNT W/DIF F red cell distribution width 12.0 % 11.8-1 5.5 Not Available [facility] (Lab) [address] [place], [address], 09/02/2022 09:59:55 09/02/20 22 09/02/2022 CBC/C OMPLE TE BLD COUNT W/DIF F platelets 261 x10'3 /uL 150-40 0 Not Available [facility] (Lab) [address] [place], [address], 09/02/2022 09:59:55 09/02/20 22 09/02/2022 CBC/C OMPLE TE BLD COUNT W/DIF F mean platelet volume 8.7 fL 9.0-12 .4 low Not Available [facility] (Lab) [address] [place], [address], 09/02/2022 09:59:55 09/02/20 22 09/02/2022 CBC/C OMPLE TE BLD COUNT W/DIF F neutrophils 66.0 % 39.0-7 2.0 Not Available [facility] (Lab) [address] [place], [address], 09/02/2022 09:59:55 09/02/20 22 09/02/2022 CBC/C OMPLE TE BLD COUNT W/DIF F lymphocytes 22.0 % 16.0-4 7.0 Not Available [facility] (Lab) [address] [place], [address], 09/02/2022 09:59:55 09/02/20 22 09/02/2022 CBC/C OMPLE TE BLD COUNT W/DIF F monocytes 10.7 % 5.0-12 .0 Not Available [facility] (Lab) [address] [place], [address], 09/02/2022 09:59:55 09/02/20 22 09/02/2022 CBC/C OMPLE TE BLD COUNT W/DIF F eosinophils 0.3 % 1.0-7. 0 low Not Available [facility] (Lab) [address] [place], [address], 09/02/2022 09:59:55 09/02/20 22 09/02/2022 CBC/C OMPLE TE BLD COUNT W/DIF F basophils 0.7 % 0.0-2. 0 Not Available [facility] (Lab) [address] [place], [address], 09/02/2022 09:59:55 09/02/20 22 09/02/2022 CBC/C OMPLE TE BLD COUNT W/DIF F immature granulocytes 0.3 % 0.00-0 .50 Not Available [facility] (Lab) [address] [place], [address], 09/02/2022 09:59:55 09/02/20 22 09/02/2022 CBC/C OMPLE TE BLD COUNT W/DIF F neutrophils, absolute count 3.83 x10'3 /uL 1.5-8. 0 Not Available [facility] (Lab) [address] [place], [address], 09/02/2022 09:59:55 09/02/20 22 09/02/2022 CBC/C OMPLE TE BLD COUNT W/DIF F lymphocytes, absolute count 1.28 x10'3 /uL 1.07-3 .43 Not Available [facility] (Lab) [address] [place], [address], 09/02/2022 09:59:55 09/02/20 22 09/02/2022 CBC/C OMPLE TE BLD COUNT W/DIF F monocytes, absolute count 0.62 x10'3 /uL 0.29-0 .99 Not Available [facility] (Lab) [address] [place], [address], 09/02/2022 09:59:55 09/02/20 22 09/02/2022 CBC/C OMPLE TE BLD COUNT W/DIF F eosinophils, absolute count 0.02 x10'3 /uL 0.02-0 .53 Not Available [facility] (Lab) [address] [place], [address], 09/02/2022 09:59:55 09/02/20 22 09/02/2022 CBC/C OMPLE TE BLD COUNT W/DIF F basophils, absolute count 0.04 x10'3 /uL 0.01-0 .08 Not Available [facility] (Lab) [address] [place], [address], 09/02/2022 09:59:55 09/02/20 22 09/02/2022 CBC/C OMPLE TE BLD COUNT W/DIF F immature granulocytes ,absolute 0.02 x10'3 /uL 0.00-0 .05 Not Available [facility] (Lab) [address] [place], [address], 09/02/2022 09:59:55 09/02/20 22 09/02/2022 CBC/C OMPLE TE BLD COUNT W/DIF F nucleated red blood cells 0.0 % -0 Not Available [facility] (Lab) [address] [place], [address], 09/02/2022 09:59:55 09/02/20 22 09/02/2022 CBC/C OMPLE TE BLD COUNT W/DIF F NRBC# 0.00 x10'3 /uL Not Available [facility] (Lab) [address] [place], [address], 09/02/2022 09:59:55 09/29/20 23 09/29/2023 CBC/C OMPLE TE BLD COUNT W/DIF F white blood cells 6.2 x10'3 /uL 4.2-10 .8 Not Available [facility] (Lab) [address] [place], [address], 09/29/2023 09:30:57 09/29/20 23 09/29/2023 CBC/C OMPLE TE BLD COUNT W/DIF F red blood cells 4.39 x10'6 /uL 3.80-5 .20 Not Available [facility] (Lab) [address] [place], [address], 09/29/2023 09:30:57 09/29/20 23 09/29/2023 CBC/C OMPLE TE BLD COUNT W/DIF F hemoglobin 13.2 g/dL 12.0-1 5.6 Not Available [facility] (Lab) [address] [place], [address], 09/29/2023 09:30:57 09/29/20 23 09/29/2023 CBC/C OMPLE TE BLD COUNT W/DIF F hematocrit 36.9 % 35.7-4 5.7 Not Available [facility] (Lab) [address] [place], [address], 09/29/2023 09:30:57 09/29/20 23 09/29/2023 CBC/C OMPLE TE BLD COUNT W/DIF F mean red cell volume 84.1 fL 82.0-9 9.0 Not Available [facility] (Lab) [address] [place], [address], 09/29/2023 09:30:57 09/29/20 23 09/29/2023 CBC/C OMPLE TE BLD COUNT W/DIF F mean red cell hemoglobin 30.1 pg 27.0-3 3.0 Not Available [facility] (Lab) [address] [place], [address], 09/29/2023 09:30:57 09/29/20 23 09/29/2023 CBC/C OMPLE TE BLD COUNT W/DIF F mean RBC HGB concentratio n 35.8 g/dL 31.0-3 6.0 Not Available [facility] (Lab) [address] [place], [address], 09/29/2023 09:30:57 09/29/20 23 09/29/2023 CBC/C OMPLE TE BLD COUNT W/DIF F red cell distribution width 12.4 % 11.8-1 5.5 Not Available [facility] (Lab) [address] [place], [address], 09/29/2023 09:30:57 09/29/20 23 09/29/2023 CBC/C OMPLE TE BLD COUNT W/DIF F platelets 270 x10'3 /uL 150-40 0 Not Available [facility] (Lab) [address] [place], [address], 09/29/2023 09:30:57 09/29/20 23 09/29/2023 CBC/C OMPLE TE BLD COUNT W/DIF F mean platelet volume 9.6 fL 9.0-12 .4 Not Available [facility] (Lab) [address] [place], [address], 09/29/2023 09:30:57 09/29/20 23 09/29/2023 CBC/C OMPLE TE BLD COUNT W/DIF F neutrophils 57.9 % 39.0-7 2.0 Not Available [facility] (Lab) [address] [place], [address], 09/29/2023 09:30:57 09/29/20 23 09/29/2023 CBC/C OMPLE TE BLD COUNT W/DIF F lymphocytes 28.6 % 16.0-4 7.0 Not Available [facility] (Lab) [address] [place], [address], 09/29/2023 09:30:57 09/29/20 23 09/29/2023 CBC/C OMPLE TE BLD COUNT W/DIF F monocytes 10.9 % 5.0-12 .0 Not Available [facility] (Lab) [address] [place], [address], 09/29/2023 09:30:57 09/29/20 23 09/29/2023 CBC/C OMPLE TE BLD COUNT W/DIF F eosinophils 1.3 % 1.0-7. 0 Not Available [facility] (Lab) [address] [place], [address], 09/29/2023 09:30:57 09/29/20 23 09/29/2023 CBC/C OMPLE TE BLD COUNT W/DIF F basophils 1.0 % 0.0-2. 0 Not Available [facility] (Lab) [address] [place], [address], 09/29/2023 09:30:57 09/29/20 23 09/29/2023 CBC/C OMPLE TE BLD COUNT W/DIF F immature granulocytes 0.3 % 0.00-0 .50 Not Available [facility] (Lab) [address] [place], [address], 09/29/2023 09:30:57 09/29/20 23 09/29/2023 CBC/C OMPLE TE BLD COUNT W/DIF F neutrophils, absolute count 3.60 x10'3 /uL 1.5-8. 0 Not Available [facility] (Lab) [address] [place], [address], 09/29/2023 09:30:57 09/29/20 23 09/29/2023 CBC/C OMPLE TE BLD COUNT W/DIF F lymphocytes, absolute count 1.78 x10'3 /uL 1.07-3 .43 Not Available [facility] (Lab) [address] [place], [address], 09/29/2023 09:30:57 09/29/20 23 09/29/2023 CBC/C OMPLE TE BLD COUNT W/DIF F monocytes, absolute count 0.68 x10'3 /uL 0.29-0 .99 Not Available [facility] (Lab) [address] [place], [address], 09/29/2023 09:30:57 09/29/20 23 09/29/2023 CBC/C OMPLE TE BLD COUNT W/DIF F eosinophils, absolute count 0.08 x10'3 /uL 0.02-0 .53 Not Available [facility] (Lab) [address] [place], [address], 09/29/2023 09:30:57 09/29/20 23 09/29/2023 CBC/C OMPLE TE BLD COUNT W/DIF F basophils, absolute count 0.06 x10'3 /uL 0.01-0 .08 Not Available [facility] (Lab) [address] [place], [address], 09/29/2023 09:30:57 09/29/20 23 09/29/2023 CBC/C OMPLE TE BLD COUNT W/DIF F immature granulocytes ,absolute 0.02 x10'3 /uL 0.00-0 .05 Not Available [facility] (Lab) [address] [place], [address], 09/29/2023 09:30:57 09/29/20 23 09/29/2023 CBC/C OMPLE TE BLD COUNT W/DIF F nucleated red blood cells 0.0 % -0 Not Available [facility] (Lab) [address] [place], [address], 09/29/2023 09:30:57 09/29/20 23 09/29/2023 CBC/C OMPLE TE BLD COUNT W/DIF F NRBC# 0.00 x10'3 /uL Not Available [facility] (Lab) [address] [place], [address], 09/29/2023 09:30:57 09/29/20 23 09/29/2023 COMPR EHENS GALILEO METAB OLIC PANEL sodium 135 mmol/ L 137-14 5 low Not Available [facility] (Lab) [address] [place], [address], 09/29/2023 09:49:51 09/29/20 23 09/29/2023 COMPR EHENS GALILEO METAB OLIC PANEL potassium 3.6 mmol/ L 3.5-5. 1 Not Available [facility] (Lab) [address] [place], [address], 09/29/2023 09:49:51 09/29/20 23 09/29/2023 COMPR EHENS GALILEO METAB OLIC PANEL chloride 95 mmol/ L 98-107 low Not Available [facility] (Lab) [address] [place], [address], 09/29/2023 09:49:51 09/29/20 23 09/29/2023 COMPR EHENS GALILEO METAB OLIC PANEL carbon dioxide 27 mmol/ L 22-30 Not Available [facility] (Lab) [address] [place], [address], 09/29/2023 09:49:51 09/29/20 23 09/29/2023 COMPR EHENS GALILEO METAB OLIC PANEL anion gap 16.6 mmol/ L 14-22 Not Available [facility] (Lab) [address] [place], [address], 09/29/2023 09:49:51 09/29/20 23 09/29/2023 COMPR EHENS GALILEO METAB OLIC PANEL glucose 88 mg/dL 70-99 Not Available [facility] (Lab) [address] [place], [address], 09/29/2023 09:49:51 09/29/20 23 09/29/2023 COMPR EHENS GALILEO METAB OLIC PANEL BUN 17 mg/dL 8-19 Not Available [facility] (Lab) [address] [facility] [place], [address], 09/29/2023 09:49:51 09/29/20 23 09/29/2023 COMPR EHENS GALILEO METAB OLIC PANEL creatinine 0.99 mg/dL 0.66-1 .25 Not Available [facility] (Lab) [address] [place], [address], 09/29/2023 09:49:51 09/29/20 23 09/29/2023 COMPR EHENS GALILEO METAB OLIC PANEL GFR >60 Refer ence Range : [place] ge GFR Healt hy Adult : >60 [...] calcu lator is avail able on the [facility] websi te: [email or web address] :[email or web address] rg/pr ofess ional s/kdo qi/gf r_cal culat or Not Available [facility] (Lab) [address] [place], [address], 09/29/2023 09:49:51 09/29/20 23 09/29/2023 COMPR EHENS GALILEO METAB OLIC PANEL alkaline phosphatase 82 U/L 38-126 Not Available [facility] (Lab) [address] [place], [address], 09/29/2023 09:49:51 09/29/20 23 09/29/2023 COMPR EHENS GALILEO METAB OLIC PANEL alanine aminotransfe rase 67 U/L 0-35 high Not Available [facility] (Lab) [address] [place], [address], 09/29/2023 09:49:51 09/29/20 23 09/29/2023 COMPR EHENS GALILEO METAB OLIC PANEL aspartate aminotransfe rase 93 U/L 15-37 high Not Available [facility] (Lab) [address] [place], [address], 09/29/2023 09:49:51 09/29/20 23 09/29/2023 COMPR EHENS GALILEO METAB OLIC PANEL bilirubin, total 1.10 mg/dL 0.20-1 .30 Not Available [facility] (Lab) [address] [place], [address], 09/29/2023 09:49:51 09/29/20 23 09/29/2023 COMPR EHENS GALILEO METAB OLIC PANEL calcium 9.7 mg/dL 8.4-10 .2 Not Available [facility] (Lab) [address] [place], [address], 09/29/2023 09:49:51 09/29/2009/29/2023 COMPR EHENS GALILEO METAB OLIC PANEL total protein 10.1 g/dL 6.3-8. 2 high Not Available [facility] (Lab) [address] [place], [address], 09/29/2023 09:49:51 09/29/20 23 09/29/2023 COMPR EHENS GALILEO METAB OLIC PANEL albumin 4.7 g/dL 3.4-5. 0 Not Available [facility] (Lab) [address] [place], [address], 09/29/2023 09:49:51 09/29/20 23 09/29/2023 COMPR EHENS GALILEO METAB OLIC PANEL globulin 5.4 g/dL 2.6-4. 2 high Not Available [facility] (Lab) [address] [place], [address], 09/29/2023 09:49:51 09/29/20 23 09/29/2023 COMPR EHENS GALILEO METAB OLIC PANEL A/G ratio 0.9 ratio 1.0-2. 0 low Not Available [facility] (Lab) [address] [place], [address], 09/29/2023 09:49:51 09/29/20 23 09/29/2023 LIPID PANEL cholesterol 191 mg/dL 140-19 9 NIH MARCELLE NSUS RECOM MENDA TION FOR BEN STERO L: ADULT CHILD LOW RISK: <200 <170 BORDE RLINE : <200- 239 ----- HIGH RISK: >240 >200 Not Available [facility] (Lab) [address] [place], [address], 09/29/2023 10:11:28 09/29/20 23 09/29/2023 LIPID PANEL triglyceride s 59 mg/dL 0-150 NIH MARCELLE NSUS REPOR T RECOM MENDA TION FOR TRIGL YCERI STEPHANIE: ADULT CHILD LOW RISK: <150 ----- BODER LINE: 150-1 99 ----- HIGH RISK: >200 ----- Not Available [facility] (Lab) [address] [place], [address], 09/29/2023 10:11:28 09/29/20 23 09/29/2023 LIPID PANEL HDL cholesterol 128 mg/dL 40- Not Available [facility] (Lab) [address] [place], [address], 09/29/2023 10:11:28 09/29/2009/29/2023 LIPID PANEL LDL cholesterol, [...] WILL NOT BE REPOR RADHA. Not Available [facility] (Lab) [address] [facility], [place], [address], 09/29/2023 10:11:28 09/29/20 23 09/29/2023 URIC ACID SERUM uric acid 1.9 mg/dL 2.5-6. 2 low Not Available [facility] (Lab) [address] [facility], [place], [address], 09/29/2023 10:11:33 02/27/20 22 02/26/2022 MAMMO , scree bailey, digit al, bilat eral [facility] [address] [place] [address] [phone] Patien t Name: MARJORIE HOYT ion #: [id number] Sex: F : 1969 8 Locati [...] alice ectura l Page 1 of 2 [facility] Chris simmons Name: MARJORIE HOYT Access ion #: [id number] Sex: F : 1969 8 Exam [...] ly to the [facility] er. A negati ve mammog [...] 8:41 AM (CT) Page 2 of 2 [id number] [facility] (Imaging) [address] [place], [address], 12/17/2022 05:04:45 04/17/20 23 04/15/2023 MAMMO , tal swang, digit al, bilat eral [facility] [address] [facility] [place] [address] [facility] MARJORIE HOYT ion #: [id number] Sex: F : 1969 8 Locati [...] alice ectura l Page 1 of 2 [facility] Chris simmons Name: MARJORIE HOYT Access ion #: [id number] Sex: F : 1969 8 Exam [...] [facility] ed [facility]. A negati ve mammog [...] 1:24 PM (CT) Page 2 of [id number] [place] [address] (Imaging) [address] [place], [address], 08/29/2023 20:30:27 Result Notes Documentation Provider Name and Address Organization Details Recorded Time Mammo, Screening, Digital, Bilateral : [facility] [address] [place] [address] Patient Name: MARJORIE HOYT Sex: F : 1970 Location: [facility] Attending Physician: JR PETERSON Ordering Physician: [...] calcifications, or architectural Page 1 of 2 [facility] Patient Name: MARJORIE HOYT Sex: F : 1970 Exam Date: 02/26/2022 7:37 AM Exam Name: MG HUNTER BREAST LYNNE BILAT Admitting Diagnosis(es): distortion are seen. IMPRESSION: BIRADS 1: Assessment complete. Negative. Recommend annual screening mammography. According to the [employer], yearly mammograms are recommended [...] 12/17/2022 05:04:48 Mammo, Screening, Digital, Bilateral : [address] [address] Patient Name: MARJORIE HOYT Sex: F : 1970 Location: [facility] Attending Physician: JR PETERSON Ordering Physician: [...] calcifications, or architectural Page 1 of 2 [facility] Patient Name: MARJORIE HOYT Sex: F : 1970 Exam Date: 04/15/2023 7:00 AM Exam Name: SCRMary BREAST LYNNE BILAT Admitting Diagnosis(es): distortion are seen. IMPRESSION: BIRADS 1: Assessment complete. Negative. Recommend annual screening mammography. 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 Not Available [facility] 3 06:30:08 Bronchiti s 87779430 Active Not Available [facility] 3 06:30:08 Crohn's disease 83563561 Active Not Available [facility] 3 06:30:08 Chronic rhinitis 79664439 Active Not Available [facility] 3 06:30:09 Liver function tests outside reference range 771548553 Active 2017 Not Available [facility] 3 06:30:08 Vitamin D below reference range 154843442 Active 2019 Not Available [facility] 3 06:30:08 Dyslipide sanjeev 650007019 Active 2021 Not Available [facility] 3 06:30:09 Essential hypertens ion 35212109 Active 2021 Not Available [facility] 3 06:30:09 Gout 91641646 Active 2021 Not Available [facility] 3 06:30:09 Vitamin D deficienc y 30379199 Active 2021 Not Available [facility] 3 06:30:09 Hyperchol esterolem ia 87632656 Active 2021 Not Available [facility] 3 06:30:08 COVID-19 462335321 Active 2022 Not Available [facility] 3 06:30:09 Problem Notes None recorded. Medical Equipment None Reported. Allergies Allergen ID Allergen Name Allergen Category Reaction Reaction Severity Criticality Documentation Date Start Date Code Code System Note Provider Name and Address Organization Details Recorded Time 8191 Augmentin medicatio n diarrhea Not available Not available 12/17/2022 14280 2 RxNorm Not Available [facility] [...] propionate 50 mcg/actuati on nasal spray,suspe nsion [place] 1 spray every day by intranasa l [...] kg/m2 162.56 cm 84 /min 97.2 [degF] 010573. 1 g 126/84 mm[Hg] Not Available [facility] 3 04:46:33 Date Recorded Body mass index (BMI) Body height Heart rate Body temperature Body weight Systolic And Diastolic Provider Name and Address Organization Details Last Updated DateTime 2 37.6 kg/m2 162.56 cm 72 /min 97.9 [degF] 27848.7 3 g 130/78 mm[Hg] Not Available [facility] 3 04:46:33 Date Recorded Body height Body mass index (BMI) Body weight Body temperature Heart rate Systolic And Diastolic Provider Name and Address Organization Details Last Updated DateTime 3 162.56 cm 37.6 kg/m2 00836.7 3 g 98 [degF] 83 /min 130/88 mm[Hg] Pushpa HaddadGRIFFINDanilo [employer] [facility] [employer] [facility] 3 16:11:27 Date Recorded Body mass index (BMI) Body height Heart rate Body temperature Body weight Systolic And Diastolic Provider Name and Address Organization Details Last Updated DateTime 2 37.4 kg/m2 162.56 cm 89 /min 98.9 [degF] 25506.1 4 g 134/84 mm[Hg] Not Available [facility] 3 04:46:33 Date Recorded Body height Body mass index (BMI) Body weight Body temperature Heart rate Systolic And Diastolic Provider Name and Address Organization Details Last Updated DateTime 3 162.56 cm 39.1 kg/m2 738229. 06 g 97.8 [degF] 99 /min 142/92 mm[Hg] MARY GRACE Helms [employer] [facility] [employer] 3 16:27:12 Social History Question Answer Notes LastModified by Avanzitat ion Details LastModified Time Tobacco Smoking Status Never Smoker Not Available [facility] 12/17/2022 04:25:32 Do You Have An Advance Directive? No MIGRATION.03395 93500 Information not available 12/17/2022 Are You Blind Or Do You Have Difficulty Seeing? No MIGRATION.87761 91265 Information not available 12/17/2022 What Is Your Level Of Caffeine Consumption? Occasional MIGRATION.17754 39085 Information not available 12/17/2022 How Much Tobacco Do You Chew? None MIGRATION.03412 95641 Information not available 12/17/2022 In The 14 Days Before Symptom Onset, Have You Had Close Contact With A Laboratory-confi rmed COVID-19 While That Case Was Ill? No MIGRATION.27379 95890 Information not available 12/17/2022 In The 14 Days Before Symptom Onset, Have You Had Close Contact With A Person Who Is Under Investigation For COVID-19 While That Person Was Ill? No MIGRATION.09132 54473 Information not available 12/17/2022 Are You Deaf Or Do You Have Serious Difficulty Hearing? No MIGRATION.21802 95883 Information not available 12/17/2022 What Type Of Diet Are You Following? REGULAR MIGRATION.38859 31261 Information not available 12/17/2022 Which Illicit Or Recreational Drugs Have You Used? None MIGRATION.49655 09350 Information not available 12/17/2022 What Is The Highest Grade Or Level Of School You Have Completed Or The Highest Degree You Have Received? PW60900-3 MIGRATION.11176 66255 Information not available 12/17/2022 Have There Been Any Changes To Your Family Or Social Situation? No MIGRATION.33564 46883 Information not available 12/17/2022 What Is The Fluoride Status Of Your Home? Unknown MIGRATION.10421 60731 Information not available 12/17/2022 Are There Any Guns Present In Your Home? Yes MIGRATION.81116 45380 Information not available 12/17/2022 Do You Use Insect Repellent Routinely? No MIGRATION.43915 12516 Information not available 12/17/2022 Where Do You Live? [place]House MIGRATION.46012 62373 Information not available 12/17/2022 Do You Have A Medical Power Of Director Learning? No MIGRATION.38968 45679 Information not available 12/17/2022 What Was The Date Of Your Most Recent Tobacco Screening? 09/30/2023 [email or web address] Information not available 09/30/2023 Have You Ever Been Counseled For Unhealthy Alcohol Use? No MIGRATION.79254 12728 Information not available 12/17/2022 Do You Have Any Pets? Yes MIGRATION.82399 74784 Information not available 12/17/2022 What Is Your Relationship Status? MIGRATION.14771 35448 Information not available 12/17/2022 Do You Use Your Seat Belt Or Car Seat Routinely? Yes MIGRATION.88272 87413 Information not available 12/17/2022 Do You Have Smoke And Carbon Monoxide Detectors In Your Home? Yes MIGRATION.31337 81372 Information not available 12/17/2022 Are You Passively Exposed To Smoke? No MIGRATION.69150 33278 Information not available 12/17/2022 Are There Any Smokers In Your House? No MIGRATION.66974 09807 Information not available 12/17/2022 How Much Tobacco Do You Smoke? No MIGRATION.75554 08395 Information not available 12/17/2022 What Types Of Sporting Activities Do You Participate In? None MIGRATION.53237 30198 Information not available 12/17/2022 Do You Use Sunscreen Routinely? No MIGRATION.99120 46157 Information not available 12/17/2022 Has Tobacco Cessation Counseling Been Provided? No Not Needed-ne melanie Smoked MIGRATION.88065 56928 Information not available 12/17/2022 How Many Years Have You Smoked Tobacco? 0 MIGRATION.00018 83800 Information not available 12/17/2022 Have You Recently Traveled Abroad? No MIGRATION.81314 42621 Information not available 12/17/2022 Do You Have Difficulty Walking Or Climbing Stairs? No MIGRATION.33848 78263 Information not available 12/17/2022 Do You Have Any Dietary Restrictions? No MIGRATION.13054 71649 Information not available 12/17/2022 Sex: Female Functional Status Question Answer Note LastModified by Organizat ion Details LastModified Time Do you use any illicit or recreational drugs? No MIGRATION.393720 8020 Information not available 12/17/2022 Do you or have you ever used any other forms of tobacco or nicotine? No MIGRATION.417226 0605 Information not available 12/17/2022 What is your level of alcohol consumption? Occasional MIGRATION.477763 9286 Information not available 12/17/2022 Do you or have you ever used smokeless tobacco? Never used smokeless tobacco MIGRATION.001075 9414 Information not available 12/17/2022 Do you have difficulty doing errands alone? 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 No MIGRATION.628109 0560 Information not available 12/17/2022 Do you or have you ever used e-cigarettes or vape? Never used electronic cigarettes MIGRATION.319187 7683 Information not available 12/17/2022 What is your exercise level? Moderate MIGRATION.057754 5877 Information not available 12/17/2022 Mental Status Question Answer Note LastModified by Organizat ion Details LastModified Time Do you feel stressed (tense, restless, nervous, or anxious, or unable to sleep at night)? [id number] MIGRATION.22088471 26 Information not available 12/17/2022 Do you have difficulty concentrating, remembering or making decisions? No MIGRATION.95605749 26 Information not available 12/17/2022 Family History Relationship Description Onset Age of this Age Resolved Age Notes LastModified by Organization Details LastModified Time Father Diabetes mellitus MIGRATION.330 [id number] Not available 12/17/2022 04:44:23 Mother Diabetes mellitus MIGRATION.742 [id number] Not available 12/17/2022 04:44:23 Medical History Condition [...] BEEN HOSPITALIZED OR SEEN IN [facility] IN THE PAST YEAR ? N ATHEROSCLEROSIS [...] Diagnosis SNOMED-CT Code Diagnosis ICD10 Code Diagnosis IMO Codes Diagnosis Note [id number] Jr Peterson MD [facility] Internal Med [facility] [address] [address] 03/20/2021 00:00:00 03/30/2021 15:03:55 [id number] Jr Peterson MD [facility] Internal Med [facility] [address] [address] 10/16/2021 00:00:00 10/16/2021 20:36:59 [id number] Jr Peterson MD [facility] Internal Med [facility] [address] [address] 11/13/2021 00:00:00 11/17/2021 12:10:48 [id number] Jr Peterson MD [facility] Internal Med [facility] [address] [facility] [address] [place] [address] 02/12/2022 00:00:00 02/16/2022 12:52:58 [id number] Jr Peterson MD [facility] Internal Med [facility] [address] [facility] [address] 09/03/2022 00:00:00 09/07/2022 15:35:08 [id number] Jr Peterson MD [facility] Internal Med [facility] [address] [facility] [address] 03/11/2023 15:24:03 03/12/2023 16:59:08 Screening mammography 39771266 Z12.31 Gout 05478506 M10.9 Essential hypertension 57610714 I10 Vitamin D below reference range 126350847 E55.9 Dyslipidemia 623277397 E 78.5 Crohn's disease 97156767 K50.90 [id number] Jr Peterson MD [facility] Internal Med [facility] [address] [facility], [address] [address] 09/30/2023 15:38:04 09/30/2023 17:14:37 Dyslipidemia 572993914 E78.5 Essential hypertension 21850295 I10 Gout 98546799 M10.9 Vitamin D below reference range 904163355 E55.9 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 Health Concerns Section Related Observation LastModified by Organization Detai ls LastModified Time None Recorded Concern Status LastModified by Organization Details LastModified Time None Recorded Advance Directives Directive N: Payers Insurance Date Sequence Insurance Name Policy Number Policy Amin Covered Member ID Amin Member ID Guarantor Name 10/21/2023 1 [facility] [id number] Alex Hoyt [id number] Marjorie Hoyt Notes Date Note Type Note Provider Name and Address Organization Details Recorded Time 3 text/html Crohn's stablegout no flare-upslow vitamin-D Needs supplementdyslipidemia needs to take atorvastatin regularlyhypertension stable pressure 130/88Needs to lose some weight Jr Peterson MD [address], [place], [address], [employer] [facility] 03/14/2023 14:49:58 3 text/html Crohn's stablegout no flare-upslow vitamin-D Needs supplementdyslipidemia needs to take atorvastatin regularlyhypertension stableNeeds to lose some weight Jr Peterson MD [address], [place], [address], [employer] 10/19/2023 21:15:45 OBGyn Episode No OBEpisode recorded.
[2025-07-24 13:13] LABS: Ferritin 733.00 ng/mL (11.1-264)
== END 2025-07-24 11:10 | disposition home or self-care (01) ==
PROVIDERS: PCP Internal Medicine; Visit Provider Nurse Practitioner Family
DX: K50.10 Crohn's disease of large intestine without complications (principal); K60.30 Anal fistula, unspecified; R63.4 Abnormal weight loss; Z68.41 Body mass index [BMI] 40.0-44.9, adult
CPT/HCPCS: 36415; 80053; 82728; 83540; 83550; 85027; 85652; 86140

== ENCOUNTER 2025-07-28 08:44 | Outpatient (CLI) | payer OTHER, SELFPAY ==
[2025-08-01 07:09] LABS: Calprotectin, Fecal 1600 ug/g (0-120)
== END 2025-07-28 08:45 | disposition home or self-care (01) ==
LOC: ANHLAB 08:44
PROVIDERS: PCP Internal Medicine; Visit Provider Nurse Practitioner Family
DX: K50.10 Crohn's disease of large intestine without complications (principal); K60.30 Anal fistula, unspecified
CPT/HCPCS: 83993

== ENCOUNTER 2025-07-31 16:44 | Outpatient (CLI) | payer OTHER, SELFPAY ==
[2025-07-31 17:40] LABS: Magnesium 0.7 mg/dL (1.6-2.3)
== END 2025-07-31 16:45 | disposition home or self-care (01) ==
LOC: ANHLAB 16:46
PROVIDERS: PCP Internal Medicine; Visit Provider Nurse Practitioner Family
DX: K50.90 Crohn's disease, unspecified, without complications (principal); E83.42 Hypomagnesemia
CPT/HCPCS: 36415; 83735

== ENCOUNTER 2025-07-31 18:49 | Emergency (ER) | payer OTHER, SELFPAY ==
[2025-07-31] VITALS (7 sets, daily range): BP systolic 100–114; BP diastolic 71–86; PULSE 101–122; RESP 13–22; TEMP 36.7–36.8; O2SAT 98–100
--- OUTSIDE RECORDS SUMMARY | 2025-07-31 18:51 | XMS_ITS | Data Portability ---
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 Lab uric acid, serum or plasma 2022 023 [facility] (Lab), [address] [place], [address], 3 11:08:33 lipid panel, serum 2022 023 [facility] (Lab), [address] [place], [address], 3 11:08:38 CBC w/ auto diff 2022 023 [facility] (Lab), [address] [place], [address], 3 11:08:44 CMP, serum or plasma 2022 023 [facility] (Lab), [address] [place], [address], 3 11:08:49 Referral None recorded. Procedures None recorded. Surgeries None recorded. Imaging MAMMO, screening, digital, bilateral [address] [facility] (Radiology), [address] [place], [address], 3 14:32:35 Medication Orders None recorded. Patient TargetsNo targets recorded. Patient InstructionsNo instructions recorded. Reason for Referral None Reported. Results Created Date Observation Date Name Description Value Unit Range Abnormal Flag Note LastModifiedBy Organization Detail LastModifiedTime 11/11/1911/11/2021 FOLAT E, SERUM /PLAS MA folate >20.0 NG/mL 2.76- Not Available [facility] (Lab) [address] [place], [address], 11/11/2021 12:19:27 11/11/1911/11/2021 LIPID PANEL cholesterol 260 mg/dL 140-19 9 high NIH MARCELLE NSUS RECOM MENDA TION FOR BEN STERO L: ADULT CHILD LOW RISK: <200 <170 BORDE RLINE : <200- 239 ----- HIGH RISK: >240 >200 Not Available [facility] (Lab) [address] [place], [address], 11/11/2021 10:49:46 11/11/19 22 11/11/2021 LIPID PANEL triglyceride s 69 mg/dL 0-150 [facility] MARCELLE NSUS REPOR T RECOM MENDA TION FOR TRIGL YCERI STEPHANIE: ADULT CHILD LOW RISK: <150 ----- BODER LINE: 150-1 99 ----- HIGH RISK: >200 ----- Not Available [facility] (Lab) [address] [place], [address], 11/11/2021 10:49:46 11/11/19 22 11/11/2021 LIPID PANEL HDL cholesterol 132 mg/dL 40- Not Available [facility] (Lab) [address] [place], [address], 11/11/2021 10:49:46 11/11/19 22 11/11/2021 LIPID PANEL [...] WILL NOT BE REPOR RADHA. Not Available [facility] (Lab) [address] [place], [address], 11/11/2021 10:49:46 11/11/19 22 11/11/2021 URIC ACID SERUM uric acid 1.8 mg/dL 2.5-6. 2 low Not Available [facility] (Lab) [address] [place], [address], 11/11/2021 10:49:45 11/11/19 22 11/11/2021 COMPR EHENS GALILEO METAB OLIC PANEL sodium 135 mmol/ L 137-14 5 low Not Available [facility] (Lab) [address] [place], [address], 11/11/2021 10:49:40 11/11/19 22 11/11/2021 COMPR EHENS GALILEO METAB OLIC PANEL potassium 3.6 mmol/ L 3.5-5. 1 Not Available [facility] (Lab) [address] [place], [address], 11/11/2021 10:49:40 11/11/19 22 11/11/2021 COMPR EHENS GALILEO METAB OLIC PANEL chloride 98 mmol/ L 98-107 Not Available [facility] (Lab) [address] [place], [address], 11/11/2021 10:49:40 11/11/19 11/11/2021 COMPR EHENS GALILEO METAB OLIC PANEL carbon dioxide 27 mmol/ L 22-30 Not Available [facility] (Lab) [address] [place], [address], 11/11/2021 10:49:40 11/11/19 22 11/11/2021 COMPR EHENS GALILEO METAB OLIC PANEL agap 13.6 mmol/ L 14-22 low Not Available [facility] (Lab) [address] [place], [address], 11/11/2021 10:49:40 11/11/19 22 11/11/2021 COMPR EHENS GALILEO METAB OLIC PANEL glucose 78 mg/dL 70-99 Not Available [facility] (Lab) [address] [place], [address], 11/11/2021 10:49:40 11/11/19 22 11/11/2021 COMPR EHENS GALILEO METAB OLIC PANEL BUN 17 mg/dL 8-19 Not Available [facility] (Lab) [address] [place], [address], 11/11/2021 10:49:40 11/11/19 22 11/11/2021 COMPR EHENS GALILEO METAB OLIC PANEL creatinine 1.02 mg/dL 0.66-1 .25 Not Available [facility] (Lab) [address] [place], [address], 11/11/2021 10:49:40 11/11/19 22 11/11/2021 COMPR EHENS GALILEO METAB OLIC PANEL GFR >60 Refer ence Range : Millen ge GFR Healt hy Adult : >60 [...] calcu lator is avail able on the [facility] websi te: [email or web address] :[email or web address] ional s/kdo qi/gf r_cal culat or Not Available [facility] (Lab) [address] [place], [address], 11/11/2021 10:49:40 11/11/19 22 11/11/2021 COMPR EHENS GALILEO METAB OLIC PANEL alkaline phosphatase 87 U/L 38-126 Not Available [facility] (Lab) [address] [place], [address], 11/11/2021 10:49:40 11/11/19 22 11/11/2021 COMPR EHENS GALILEO METAB OLIC PANEL alanine aminotransfe rase 65 U/L 0-35 high Not Available [facility] (Lab) [address] [place], [address], 11/11/2021 10:49:40 11/11/19 22 11/11/2021 COMPR EHENS GALILEO METAB OLIC PANEL aspartate aminotransfe rase 96 U/L 15-37 high Not Available [facility] (Lab) [address] [place], [address], 11/11/2021 10:49:40 11/11/19 22 11/11/2021 COMPR EHENS GALILEO METAB OLIC PANEL bilirubin, total 0.80 mg/dL 0.20-1 .30 Not Available [facility] (Lab[facility] [address] [facility] [place], [address], 11/11/2021 10:49:40 11/11/19 22 11/11/2021 COMPR EHENS GALILEO METAB OLIC PANEL calcium 8.8 mg/dL 8.4-10 .2 Not Available [facility] (Lab) [address] [place], [address], 11/11/2021 10:49:40 11/11/19 22 11/11/2021 COMPR EHENS GALILEO METAB OLIC PANEL total protein 8.9 g/dL 6.3-8. 2 high Not Available [facility] (Lab) [address] [place], [address], 11/11/2021 10:49:40 11/11/19 22 11/11/2021 COMPR EHENS GALILEO METAB OLIC PANEL albumin 4.7 g/dL 3.4-5. 0 Not Available [facility] (Lab) [address] [place], [address], 11/11/2021 10:49:40 11/11/19 22 11/11/2021 COMPR EHENS GALILEO METAB OLIC PANEL globulin 4.2 g/dL 2.6-4. 2 Not Available [facility] (Lab) [address] [place], [address], 11/11/2021 10:49:40 11/11/19 22 11/11/2021 COMPR EHENS GALILEO METAB OLIC PANEL A/G ratio 1.1 ratio 1.0-2. 0 Not Available [facility] (Lab) [address] [place], [address], 11/11/2021 10:49:40 11/11/19 22 11/11/2021 CBC/C OMPLE TE BLD COUNT W/DIF F white blood cells 6.1 x10'3 /uL 4.2-10 .8 Not Available [facility] (Lab) [address] [place], [address], 11/11/2021 09:54:00 11/11/19 22 11/11/2021 CBC/C OMPLE TE BLD COUNT W/DIF F red blood cells 4.19 x10'6 /uL 3.80-5 .20 Not Available [facility] (Lab) [address] [place], [address], 11/11/2021 09:54:00 11/11/1911/11/2021 CBC/C OMPLE TE BLD COUNT W/DIF F hemoglobin 12.8 g/dL 12.0-1 5.6 Not Available [facility] (Lab) [address] [place], [address], 11/11/2021 09:54:00 11/11/19 22 11/11/2021 CBC/C OMPLE TE BLD COUNT W/DIF F hematocrit 35.6 % 35.7-4 5.7 low Not Available [facility] (Lab) [address] [place], [address], 11/11/2021 09:54:00 11/11/19 22 11/11/2021 CBC/C OMPLE TE BLD COUNT W/DIF F mean red cell volume 85.0 fL 82.0-9 9.0 Not Available [facility] (Lab) [address] [place], [address], 11/11/2021 09:54:00 11/11/1911/11/2021 CBC/C OMPLE TE BLD COUNT W/DIF F mean red cell hemoglobin 30.5 pg 27.0-3 3.0 Not Available [facility] (Lab) [address] [place], [address], 11/11/2021 09:54:00 11/11/19 22 11/11/2021 CBC/C OMPLE TE BLD COUNT W/DIF F mean RBC HGB concentratio n 36.0 g/dL 31.0-3 6.0 Not Available [facility] (Lab) [address] [place], [address], 11/11/2021 09:54:00 11/11/19 22 11/11/2021 CBC/C OMPLE TE BLD COUNT W/DIF F red cell distribution width 12.4 % 11.8-1 5.5 Not Available [facility] (Lab) [address] [place], [address], 11/11/2021 09:54:00 11/11/1911/11/2021 CBC/C OMPLE TE BLD COUNT W/DIF F platelets 239 x10'3 /uL 150-40 0 Not Available [facility] (Lab) [address] [place], [address], 11/11/2021 09:54:00 11/11/19 22 11/11/2021 CBC/C OMPLE TE BLD COUNT W/DIF F mean platelet volume 9.2 fL 9.0-12 .4 Not Available [facility] (Lab) [address] [place], [address], 11/11/2021 09:54:00 11/11/1911/11/2021 CBC/C OMPLE TE BLD COUNT W/DIF F neutrophils 53.6 % 39.0-7 2.0 Not Available [facility] (Lab) [address] [place], [address], 11/11/2021 09:54:00 11/11/1911/11/2021 CBC/C OMPLE TE BLD COUNT W/DIF F lymphocytes 31.5 % 16.0-4 7.0 Not Available [facility] (Lab) [address] [place], [address], 11/11/2021 09:54:00 11/11/19 22 11/11/2021 CBC/C OMPLE TE BLD COUNT W/DIF F monocytes 10.5 % 5.0-12 .0 Not Available [facility] (Lab) [address] [place], [address], 11/11/2021 09:54:00 11/11/19 22 11/11/2021 CBC/C OMPLE TE BLD COUNT W/DIF F eosinophils 2.8 % 1.0-7. 0 Not Available [facility] (Lab) [address] [place], [address], 11/11/2021 09:54:00 11/11/1911/11/2021 CBC/C OMPLE TE BLD COUNT W/DIF F basophils 1.3 % 0.0-2. 0 Not Available [facility] (Lab) [address] [place], [address], 11/11/2021 09:54:00 11/11/1911/11/2021 CBC/C OMPLE TE BLD COUNT W/DIF F immature granulocytes 0.3 % 0.00-0 .50 Not Available [facility] (Lab) [address] [place], [address], 11/11/2021 09:54:00 11/11/1911/11/2021 CBC/C OMPLE TE BLD COUNT W/DIF F neutrophils, absolute count 3.26 x10'3 /uL 1.5-8. 0 Not Available [facility] (Lab) [address] [place], [address], 11/11/2021 09:54:00 11/11/1911/11/2021 CBC/C OMPLE TE BLD COUNT W/DIF F lymphocytes, absolute count 1.92 x10'3 /uL 1.07-3 .43 Not Available [facility] (Lab) [address] [place], [address], 11/11/2021 09:54:00 11/11/19 22 11/11/2021 CBC/C OMPLE TE BLD COUNT W/DIF F monocytes, absolute count 0.64 x10'3 /uL 0.29-0 .99 Not Available [facility] (Lab) [address] [place], [address], 11/11/2021 09:54:00 11/11/19 22 11/11/2021 CBC/C OMPLE TE BLD COUNT W/DIF F eosinophils, absolute count 0.17 x10'3 /uL 0.02-0 .53 Not Available [facility] (Lab) [address] [place], [address], 11/11/2021 09:54:00 11/11/19 22 11/11/2021 CBC/C OMPLE TE BLD COUNT W/DIF F basophils, absolute count 0.08 x10'3 /uL 0.01-0 .08 Not Available [facility] (Lab) [address] [place], [address], 11/11/2021 09:54:00 11/11/19 22 11/11/2021 CBC/C OMPLE TE BLD COUNT W/DIF F immature granulocytes ,absolute 0.02 x10'3 /uL 0.00-0 .05 Not Available [facility] (Lab) [address] [place], [address], 11/11/2021 09:54:00 11/11/19 22 11/11/2021 CBC/C OMPLE TE BLD COUNT W/DIF F nucleated red blood cells 0.0 % -0 Not Available [facility] (Lab) [address] [place], [address], 11/11/2021 09:54:00 11/11/19 22 11/11/2021 CBC/C OMPLE TE BLD COUNT W/DIF F NRBC# 0.00 x10'3 /uL Not Available [facility] (Lab) [address] [place], [address], 11/11/2021 09:54:00 09/02/20 22 09/02/2022 COMPR EHENS GALILEO METAB OLIC PANEL sodium 132 mmol/ L 137-14 5 low Not Available [facility] (Lab) [address] [place], [address], 09/02/2022 11:06:00 09/02/20 22 09/02/2022 COMPR EHENS GALILEO METAB OLIC PANEL potassium 3.6 mmol/ L 3.5-5. 1 Not Available [facility] (Lab) [address] [place], [address], 09/02/2022 11:06:00 09/02/20 22 09/02/2022 COMPR EHENS GALILEO METAB OLIC PANEL chloride 92 mmol/ L 98-107 low Not Available [facility] (Lab) [address] [place], [address], 09/02/2022 11:06:00 09/02/20 22 09/02/2022 COMPR EHENS GALILEO METAB OLIC PANEL carbon dioxide 27 mmol/ L 22-30 Not Available [facility] (Lab) [address] [place], [address], 09/02/2022 11:06:00 09/02/20 22 09/02/2022 COMPR EHENS GALILEO METAB OLIC PANEL anion gap 16.6 mmol/ L 14-22 Not Available [facility] (Lab) [address] [place], [address], 09/02/2022 11:06:00 09/02/20 22 09/02/2022 COMPR EHENS GALILEO METAB OLIC PANEL glucose 80 mg/dL 70-99 Not Available [facility] (Lab) [address] [place], [address], 09/02/2022 11:06:00 09/02/20 22 09/02/2022 COMPR EHENS GALILEO METAB OLIC PANEL BUN 19 mg/dL 8-19 Not Available [facility] (Lab) [address] [place], [address], 09/02/2022 11:06:00 09/02/20 22 09/02/2022 COMPR EHENS GALILEO METAB OLIC PANEL creatinine 0.94 mg/dL 0.66-1 .25 Not Available [facility] (Lab) [address] [facility] [place], [address], 09/02/2022 11:06:00 09/02/20 22 09/02/2022 COMPR EHENS GALILEO METAB OLIC PANEL GFR >60 Refer ence Range : Millen ge GFR Healt hy Adult : >60 [...] s/kdo qi/gf r_cal culat or Not Available [facility] (Lab) [address] [place], [address], 09/02/2022 11:06:00 09/02/20 22 09/02/2022 COMPR EHENS GALILEO METAB OLIC PANEL alkaline phosphatase 79 U/L 38-126 Not Available [facility] (Lab) [address] [place], [address], 09/02/2022 11:06:00 09/02/20 22 09/02/2022 COMPR EHENS GALILEO METAB OLIC PANEL alanine aminotransfe rase 45 U/L 0-35 high Not Available [facility] (Lab) [address] [place], [address], 09/02/2022 11:06:00 09/02/20 22 09/02/2022 COMPR EHENS GALILEO METAB OLIC PANEL aspartate aminotransfe rase 73 U/L 15-37 high Not Available [facility] (Lab) [address] [place], [address], 09/02/2022 11:06:00 09/02/20 22 09/02/2022 COMPR EHENS GALILEO METAB OLIC PANEL bilirubin, total 1.10 mg/dL 0.20-1 .30 Not Available [facility] (Lab) [address] [place], [address], 09/02/2022 11:06:00 09/02/20 22 09/02/2022 COMPR EHENS GALILEO METAB OLIC PANEL calcium 9.1 mg/dL 8.4-10 .2 Not Available [facility] (Lab) [address] [facility] [place], [address], 09/02/2022 11:06:00 09/02/20 22 09/02/2022 COMPR EHENS GALILEO METAB OLIC PANEL total protein 8.7 g/dL 6.3-8. 2 high Not Available [facility] (Lab) [address] [place], [address], 09/02/2022 11:06:00 09/02/20 22 09/02/2022 COMPR EHENS GALILEO METAB OLIC PANEL albumin 4.3 g/dL 3.4-5. 0 Not Available [facility] (Lab) [address] [place], [address], 09/02/2022 11:06:00 09/02/20 22 09/02/2022 COMPR EHENS GALILEO METAB OLIC PANEL globulin 4.4 g/dL 2.6-4. 2 high Not Available [facility] (Lab) [address] [place], [address], 09/02/2022 11:06:00 09/02/20 22 09/02/2022 COMPR EHENS GALILEO METAB OLIC PANEL A/G ratio 1.0 ratio 1.0-2. 0 Not Available [facility] (Lab) [address] [place], [address], 09/02/2022 11:06:00 09/02/20 22 09/02/2022 LIPID PANEL cholesterol 234 mg/dL 140-19 9 high NIH MARCELLE NSUS RECOM MENDA TION FOR BEN STERO L: ADULT CHILD LOW RISK: <200 <170 BORDE RLINE : <200- 239 ----- HIGH RISK: >240 >200 Not Available [facility] (Lab) [address] [place], [address], 09/02/2022 11:05:54 09/02/20 22 09/02/2022 LIPID PANEL triglyceride s 75 mg/dL 0-150 NIH MARCELLE NSUS REPOR T RECOM MENDA TION FOR TRIGL YCERI STEPHANIE: ADULT CHILD LOW RISK: <150 ----- BODER LINE: 150-1 99 ----- HIGH RISK: >200 ----- Not Available [facility] (Lab) [address] [place], [address], 09/02/2022 11:05:54 09/02/20 22 09/02/2022 LIPID PANEL HDL cholesterol 89 mg/dL 40- Not Available [facility] (Lab) [address] [place], [address], 09/02/2022 11:05:54 09/02/20 22 09/02/2022 LIPID PANEL [...] WILL NOT BE REPOR RADHA. Not Available [facility] (Lab) [address] [place], [address], 09/02/2022 11:05:54 09/02/20 22 09/02/2022 URIC ACID SERUM uric acid 2.2 mg/dL 2.5-6. 2 low Not Available [facility] (Lab) [address] [place], [address], 09/02/2022 11:05:49 09/02/20 22 09/02/2022 CBC/C OMPLE TE BLD COUNT W/DIF F white blood cells 5.8 x10'3 /uL 4.2-10 .8 Not Available [facility] (Lab) [address] [place], [address], 09/02/2022 09:59:55 09/02/20 22 09/02/2022 CBC/C OMPLE TE BLD COUNT W/DIF F red blood cells 4.23 x10'6 /uL 3.80-5 .20 Not Available [facility] (Lab) [address] [place], [address], 09/02/2022 09:59:55 09/02/20 22 09/02/2022 CBC/C OMPLE TE BLD COUNT W/DIF F hemoglobin 13.1 g/dL 12.0-1 5.6 Not Available [facility] (Lab) [address] [place], [address], 09/02/2022 09:59:55 09/02/20 22 09/02/2022 CBC/C OMPLE TE BLD COUNT W/DIF F hematocrit 35.3 % 35.7-4 5.7 low Not Available [facility] (Lab) [address] [place], [address], 09/02/2022 09:59:55 09/02/20 22 09/02/2022 CBC/C OMPLE TE BLD COUNT W/DIF F mean red cell volume 83.5 fL 82.0-9 9.0 Not Available [facility] (Lab) [address] [place], [address], 09/02/2022 09:59:55 09/02/20 22 09/02/2022 CBC/C OMPLE TE BLD COUNT W/DIF F mean red cell hemoglobin 31.0 pg 27.0-3 3.0 Not Available [facility] (Lab) [address] [place], [address], 09/02/2022 09:59:55 09/02/20 22 09/02/2022 CBC/C OMPLE TE BLD COUNT W/DIF F mean RBC HGB concentratio n 37.1 g/dL 31.0-3 6.0 high Not Available [facility] (Lab) [address] [place], [address], 09/02/2022 09:59:55 09/02/20 22 09/02/2022 CBC/C OMPLE TE BLD COUNT W/DIF F red cell distribution width 12.0 % 11.8-1 5.5 Not Available [facility] (Lab) [address] [place], [address], 09/02/2022 09:59:55 09/02/20 22 09/02/2022 CBC/C OMPLE TE BLD COUNT W/DIF F platelets 261 x10'3 /uL 150-40 0 Not Available [facility] (Lab) [address] [place], [address], 09/02/2022 09:59:55 09/02/20 22 09/02/2022 CBC/C OMPLE TE BLD COUNT W/DIF F mean platelet volume 8.7 fL 9.0-12 .4 low Not Available [facility] (Lab) [address] [place], [address], 09/02/2022 09:59:55 09/02/20 22 09/02/2022 CBC/C OMPLE TE BLD COUNT W/DIF F neutrophils 66.0 % 39.0-7 2.0 Not Available [facility] (Lab) [address] [place], [address], 09/02/2022 09:59:55 09/02/20 22 09/02/2022 CBC/C OMPLE TE BLD COUNT W/DIF F lymphocytes 22.0 % 16.0-4 7.0 Not Available [facility] (Lab) [address] [place], [address], 09/02/2022 09:59:55 09/02/20 22 09/02/2022 CBC/C OMPLE TE BLD COUNT W/DIF F monocytes 10.7 % 5.0-12 .0 Not Available [facility] (Lab) [address] [place], [address], 09/02/2022 09:59:55 09/02/20 22 09/02/2022 CBC/C OMPLE TE BLD COUNT W/DIF F eosinophils 0.3 % 1.0-7. 0 low Not Available [facility] (Lab) [address] [place], [address], 09/02/2022 09:59:55 09/02/20 22 09/02/2022 CBC/C OMPLE TE BLD COUNT W/DIF F basophils 0.7 % 0.0-2. 0 Not Available [facility] (Lab) [address] [place], [address], 09/02/2022 09:59:55 09/02/20 22 09/02/2022 CBC/C OMPLE TE BLD COUNT W/DIF F immature granulocytes 0.3 % 0.00-0 .50 Not Available [facility] (Lab) [address] [place], [address], 09/02/2022 09:59:55 09/02/20 22 09/02/2022 CBC/C OMPLE TE BLD COUNT W/DIF F neutrophils, absolute count 3.83 x10'3 /uL 1.5-8. 0 Not Available [facility] (Lab) [address] [place], [address], 09/02/2022 09:59:55 09/02/20 22 09/02/2022 CBC/C OMPLE TE BLD COUNT W/DIF F lymphocytes, absolute count 1.28 x10'3 /uL 1.07-3 .43 Not Available [facility] (Lab) [address] [place], [address], 09/02/2022 09:59:55 09/02/20 22 09/02/2022 CBC/C OMPLE TE BLD COUNT W/DIF F monocytes, absolute count 0.62 x10'3 /uL 0.29-0 .99 Not Available [facility] (Lab) [address] [place], [address], 09/02/2022 09:59:55 09/02/20 22 09/02/2022 CBC/C OMPLE TE BLD COUNT W/DIF F eosinophils, absolute count 0.02 x10'3 /uL 0.02-0 .53 Not Available [facility] (Lab) [address] [place], [address], 09/02/2022 09:59:55 09/02/20 22 09/02/2022 CBC/C OMPLE TE BLD COUNT W/DIF F basophils, absolute count 0.04 x10'3 /uL 0.01-0 .08 Not Available [facility] (Lab) [address] [place], [address], 09/02/2022 09:59:55 09/02/20 22 09/02/2022 CBC/C OMPLE TE BLD COUNT W/DIF F immature granulocytes ,absolute 0.02 x10'3 /uL 0.00-0 .05 Not Available [facility] (Lab) [address] [place], [address], 09/02/2022 09:59:55 09/02/20 22 09/02/2022 CBC/C OMPLE TE BLD COUNT W/DIF F nucleated red blood cells 0.0 % -0 Not Available [facility] (Lab) [address] [place], [address], 09/02/2022 09:59:55 09/02/20 22 09/02/2022 CBC/C OMPLE TE BLD COUNT W/DIF F NRBC# 0.00 x10'3 /uL Not Available [facility] (Lab) [address] [place], [address], 09/02/2022 09:59:55 09/29/20 23 09/29/2023 CBC/C OMPLE TE BLD COUNT W/DIF F white blood cells 6.2 x10'3 /uL 4.2-10 .8 Not Available [facility] (Lab) [address] [place], [address], 09/29/2023 09:30:57 09/29/20 23 09/29/2023 CBC/C OMPLE TE BLD COUNT W/DIF F red blood cells 4.39 x10'6 /uL 3.80-5 .20 Not Available [facility] (Lab) [address] [place], [address], 09/29/2023 09:30:57 09/29/20 23 09/29/2023 CBC/C OMPLE TE BLD COUNT W/DIF F hemoglobin 13.2 g/dL 12.0-1 5.6 Not Available [facility] (Lab) [address] [place], [address], 09/29/2023 09:30:57 09/29/20 23 09/29/2023 CBC/C OMPLE TE BLD COUNT W/DIF F hematocrit 36.9 % 35.7-4 5.7 Not Available [facility] (Lab) [address] [place], [address], 09/29/2023 09:30:57 09/29/20 23 09/29/2023 CBC/C OMPLE TE BLD COUNT W/DIF F mean red cell volume 84.1 fL 82.0-9 9.0 Not Available [facility] (Lab) [address] [place], [address], 09/29/2023 09:30:57 09/29/20 23 09/29/2023 CBC/C OMPLE TE BLD COUNT W/DIF F mean red cell hemoglobin 30.1 pg 27.0-3 3.0 Not Available [facility] (Lab) [address] [place], [address], 09/29/2023 09:30:57 09/29/20 23 09/29/2023 CBC/C OMPLE TE BLD COUNT W/DIF F mean RBC HGB concentratio n 35.8 g/dL 31.0-3 6.0 Not Available [facility] (Lab) [address] [place], [address], 09/29/2023 09:30:57 09/29/20 23 09/29/2023 CBC/C OMPLE TE BLD COUNT W/DIF F red cell distribution width 12.4 % 11.8-1 5.5 Not Available [facility] (Lab) [address] [place], [address], 09/29/2023 09:30:57 09/29/20 23 09/29/2023 CBC/C OMPLE TE BLD COUNT W/DIF F platelets 270 x10'3 /uL 150-40 0 Not Available [facility] (Lab) [address] [place], [address], 09/29/2023 09:30:57 09/29/20 23 09/29/2023 CBC/C OMPLE TE BLD COUNT W/DIF F mean platelet volume 9.6 fL 9.0-12 .4 Not Available [facility] (Lab) [address] [place], [address], 09/29/2023 09:30:57 09/29/20 23 09/29/2023 CBC/C OMPLE TE BLD COUNT W/DIF F neutrophils 57.9 % 39.0-7 2.0 Not Available [facility] (Lab) [address] [place], [address], 09/29/2023 09:30:57 09/29/20 23 09/29/2023 CBC/C OMPLE TE BLD COUNT W/DIF F lymphocytes 28.6 % 16.0-4 7.0 Not Available [facility] (Lab) [address] [place], [address], 09/29/2023 09:30:57 09/29/20 23 09/29/2023 CBC/C OMPLE TE BLD COUNT W/DIF F monocytes 10.9 % 5.0-12 .0 Not Available [facility] (Lab) [address] [place], [address], 09/29/2023 09:30:57 09/29/20 23 09/29/2023 CBC/C OMPLE TE BLD COUNT W/DIF F eosinophils 1.3 % 1.0-7. 0 Not Available [facility] (Lab) [address] [place], [address], 09/29/2023 09:30:57 09/29/20 23 09/29/2023 CBC/C OMPLE TE BLD COUNT W/DIF F basophils 1.0 % 0.0-2. 0 Not Available [facility] (Lab) [address] [place], [address], 09/29/2023 09:30:57 09/29/20 23 09/29/2023 CBC/C OMPLE TE BLD COUNT W/DIF F immature granulocytes 0.3 % 0.00-0 .50 Not Available [facility] (Lab) [address] [place], [address], 09/29/2023 09:30:57 09/29/20 23 09/29/2023 CBC/C OMPLE TE BLD COUNT W/DIF F neutrophils, absolute count 3.60 x10'3 /uL 1.5-8. 0 Not Available [facility] (Lab) [address] [place], [address], 09/29/2023 09:30:57 09/29/20 23 09/29/2023 CBC/C OMPLE TE BLD COUNT W/DIF F lymphocytes, absolute count 1.78 x10'3 /uL 1.07-3 .43 Not Available [facility] (Lab) [address] [place], [address], 09/29/2023 09:30:57 09/29/20 23 09/29/2023 CBC/C OMPLE TE BLD COUNT W/DIF F monocytes, absolute count 0.68 x10'3 /uL 0.29-0 .99 Not Available [facility] (Lab) [address] [place], [address], 09/29/2023 09:30:57 09/29/20 23 09/29/2023 CBC/C OMPLE TE BLD COUNT W/DIF F eosinophils, absolute count 0.08 x10'3 /uL 0.02-0 .53 Not Available [facility] (Lab) [address] [place], [address], 09/29/2023 09:30:57 09/29/20 23 09/29/2023 CBC/C OMPLE TE BLD COUNT W/DIF F basophils, absolute count 0.06 x10'3 /uL 0.01-0 .08 Not Available [facility] (Lab) [address] [place], [address], 09/29/2023 09:30:57 09/29/20 23 09/29/2023 CBC/C OMPLE TE BLD COUNT W/DIF F immature granulocytes ,absolute 0.02 x10'3 /uL 0.00-0 .05 Not Available [facility] (Lab) [address] [place], [address], 09/29/2023 09:30:57 09/29/20 23 09/29/2023 CBC/C OMPLE TE BLD COUNT W/DIF F nucleated red blood cells 0.0 % -0 Not Available [facility] (Lab) [address] [place], [address], 09/29/2023 09:30:57 09/29/20 23 09/29/2023 CBC/C OMPLE TE BLD COUNT W/DIF F NRBC# 0.00 x10'3 /uL Not Available [facility] (Lab) [address] [place], [address], 09/29/2023 09:30:57 09/29/20 23 09/29/2023 COMPR EHENS GALILEO METAB OLIC PANEL sodium 135 mmol/ L 137-14 5 low Not Available [facility] (Lab) [address] [place], [address], 09/29/2023 09:49:51 09/29/20 23 09/29/2023 COMPR EHENS GALILEO METAB OLIC PANEL potassium 3.6 mmol/ L 3.5-5. 1 Not Available [facility] (Lab) [address] [place], [address], 09/29/2023 09:49:51 09/29/20 23 09/29/2023 COMPR EHENS GALILEO METAB OLIC PANEL chloride 95 mmol/ L 98-107 low Not Available [facility] (Lab) [address] [place], [address], 09/29/2023 09:49:51 09/29/20 23 09/29/2023 COMPR EHENS GALILEO METAB OLIC PANEL carbon dioxide 27 mmol/ L 22-30 Not Available [facility] (Lab) [address] [place], [address], 09/29/2023 09:49:51 09/29/20 23 09/29/2023 COMPR EHENS GALILEO METAB OLIC PANEL anion gap 16.6 mmol/ L 14-22 Not Available [facility] (Lab) [address] [place], [address], 09/29/2023 09:49:51 09/29/20 23 09/29/2023 COMPR EHENS GALILEO METAB OLIC PANEL glucose 88 mg/dL 70-99 Not Available [facility] (Lab) [address] [place], [address], 09/29/2023 09:49:51 09/29/20 23 09/29/2023 COMPR EHENS GALILEO METAB OLIC PANEL BUN 17 mg/dL 8-19 Not Available [facility] (Lab) [address] [facility] [place], [address], 09/29/2023 09:49:51 09/29/20 23 09/29/2023 COMPR EHENS GALILEO METAB OLIC PANEL creatinine 0.99 mg/dL 0.66-1 .25 Not Available [facility] (Lab) [address] [place], [address], 09/29/2023 09:49:51 09/29/20 23 09/29/2023 COMPR EHENS GALILEO METAB OLIC PANEL GFR >60 Refer ence Range : Millen ge GFR Healt hy Adult : >60 [...] calcu lator is avail able on the [facility] websi te: [email or web address] :[email or web address] [email or web address] ional s/kdo qi/gf r_cal culat or Not Available [facility] (Lab) [address] [place], [address], 09/29/2023 09:49:51 09/29/20 23 09/29/2023 COMPR EHENS GALILEO METAB OLIC PANEL alkaline phosphatase 82 U/L 38-126 Not Available [facility] (Lab) [address] [place], [address], 09/29/2023 09:49:51 09/29/20 23 09/29/2023 COMPR EHENS GALILEO METAB OLIC PANEL alanine aminotransfe rase 67 U/L 0-35 high Not Available [facility] (Lab) [address] [place], [address], 09/29/2023 09:49:51 09/29/20 23 09/29/2023 COMPR EHENS GALILEO METAB OLIC PANEL aspartate aminotransfe rase 93 U/L 15-37 high Not Available [facility] (Lab) [address] [place], [address], 09/29/2023 09:49:51 09/29/20 23 09/29/2023 COMPR EHENS GALILEO METAB OLIC PANEL bilirubin, total 1.10 mg/dL 0.20-1 .30 Not Available [facility] (Lab) [address] [place], [address], 09/29/2023 09:49:51 09/29/20 23 09/29/2023 COMPR EHENS GALILEO METAB OLIC PANEL calcium 9.7 mg/dL 8.4-10 .2 Not Available [facility] (Lab) [address] [place], [address], 09/29/2023 09:49:51 09/29/2009/29/2023 COMPR EHENS GALILEO METAB OLIC PANEL total protein 10.1 g/dL 6.3-8. 2 high Not Available [facility] (Lab) [address] [place], [address], 09/29/2023 09:49:51 09/29/20 23 09/29/2023 COMPR EHENS GALILEO METAB OLIC PANEL albumin 4.7 g/dL 3.4-5. 0 Not Available [facility] (Lab) [address] [place], [address], 09/29/2023 09:49:51 09/29/20 23 09/29/2023 COMPR EHENS GALILEO METAB OLIC PANEL globulin 5.4 g/dL 2.6-4. 2 high Not Available [facility] (Lab) [address] [place], [address], 09/29/2023 09:49:51 09/29/20 23 09/29/2023 COMPR EHENS GALILEO METAB OLIC PANEL A/G ratio 0.9 ratio 1.0-2. 0 low Not Available [facility] (Lab) [address] [place], [address], 09/29/2023 09:49:51 09/29/20 23 09/29/2023 LIPID PANEL cholesterol 191 mg/dL 140-19 9 NIH MARCELLE NSUS RECOM MENDA TION FOR BEN STERO L: ADULT CHILD LOW RISK: <200 <170 BORDE RLINE : <200- 239 ----- HIGH RISK: >240 >200 Not Available [facility] (Lab) [address] [place], [address], 09/29/2023 10:11:28 09/29/20 23 09/29/2023 LIPID PANEL triglyceride s 59 mg/dL 0-150 NIH MARCELLE NSUS REPOR T RECOM MENDA TION FOR TRIGL YCERI STEPHANIE: ADULT CHILD LOW RISK: <150 ----- BODER LINE: 150-1 99 ----- HIGH RISK: >200 ----- Not Available [facility] (Lab) [address] [place], [address], 09/29/2023 10:11:28 09/29/20 23 09/29/2023 LIPID PANEL HDL cholesterol 128 mg/dL 40- Not Available [facility] (Lab) [address] [place], [address], 09/29/2023 10:11:28 09/29/2009/29/2023 LIPID PANEL LDL cholesterol, [...] WILL NOT BE REPOR RADHA. Not Available [facility] (Lab) [address] [facility], [place], [address], 09/29/2023 10:11:28 09/29/20 23 09/29/2023 URIC ACID SERUM uric acid 1.9 mg/dL 2.5-6. 2 low Not Available [facility] (Lab) [address] [facility], [place], [address], 09/29/2023 10:11:33 02/27/20 22 02/26/2022 MAMMO , scree bailey, digit al, bilat eral [facility] [address] [place] [address] Patien t Name: MARJORIE HOYT ion #: [id number] Sex: F : 1969 8 Locati [...] alice ectura l Page 1 of 2 [facility] [place] Chris simmons Name: MARJORIE HOYT Access ion #: [id number] Sex: F : 1969 8 Exam [...] ly to [facility]. A negati ve mammog hellen report [...] 8:41 AM (CT) Page 2 of 2 [id number] [facility] (Imaging) [address] [place], [address], 12/17/2022 05:04:45 04/17/20 23 04/15/2023 MAMMO , tal swang, digit al, bilat eral [facility] [place] [address] [facility] [place] [address] [phone] [facility] HOY[facility] ion #: [id number] Sex: F : 1969 8 Locati [...] alice ectura l Page 1 of 2 [facility] Chris simmons Name: MARJORIE HOYT Access ion #: [id number] Sex: F : 1969 8 Exam [...] report ed [facility]. A negati ve mammog hellen report [...] 1:24 PM (CT) Page 2 of [id number] [place] [address] (Imaging) [address] [place], [address], 08/29/2023 20:30:27 Result Notes Documentation Provider Name and Address Organization Details Recorded Time Mammo, Screening, Digital, Bilateral : [facility] [address] [place] [address] Patient Name: MARJORIE HOYT Sex: F : 1970 Location: [facility] Attending Physician: JR PETERSON Ordering [...] architectural Page 1 of 2 [facility] Patient Name: MARJORIE HOYT Sex: F : 1970 Exam Date: 02/26/2022 7:37 AM Exam Name: MG HUNTER BREAST LYNNE BILAT Admitting Diagnosis(es): distortion are seen. IMPRESSION: BIRADS 1: Assessment complete. Negative. Recommend annual screening mammography. According to the [employer], yearly mammograms are recommended [...] (CT) Page 2 of 2 Not Available [facility] 12/17/2022 05:04:48 Mammo, Screening, Digital, Bilateral : [address] [address] Patient Name: MARJORIE HOYT Sex: F : 1970 Location: [facility] Attending Physician: JR PETERSON Ordering [...] architectural Page 1 of 2 [facility] Patient Name: MARJORIE HOYT Sex: F : 1970 Exam Date: 04/15/2023 7:00 AM Exam Name: SCRMary BREAST LYNNE BILAT Admitting Diagnosis(es): distortion are seen. IMPRESSION: BIRADS 1: Assessment complete. Negative. Recommend annual screening mammography. 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 Not Available [facility] 3 06:30:08 Bronchiti s 49317896 Active Not Available [facility] 3 06:30:08 Crohn's disease 26968220 Active Not Available [facility] 3 06:30:08 Chronic rhinitis 07316442 Active Not Available [facility] 3 06:30:09 Liver function tests outside reference range 600526282 Active 2017 Not Available [facility] 3 06:30:08 Vitamin D below reference range 719449694 Active 2019 Not Available [facility] 3 06:30:08 Dyslipide sanjeev 866210416 Active 2021 Not Available [facility] 3 06:30:09 Essential hypertens ion 80363363 Active 2021 Not Available [facility] 3 06:30:09 Gout 07683545 Active 2021 Not Available [facility] 3 06:30:09 Vitamin D deficienc y 42704805 Active 2021 Not Available [facility] 3 06:30:09 Hyperchol esterolem ia 14353283 Active 2021 Not Available [facility] 3 06:30:08 COVID-19 124022320 Active 2022 Not Available [facility] 3 06:30:09 Problem Notes None recorded. Medical Equipment None Reported. Allergies Allergen ID Allergen Name Allergen Category Reaction Reaction Severity Criticality Documentation Date Start Date Code Code System Note Provider Name and Address Organization Details Recorded Time 8191 Augmentin medicatio n diarrhea Not available Not available 12/17/2022 91231 2 RxNorm Not Available [facility] 3 05:04:16 Medications Name Sig [...] propionate 50 mcg/actuati on nasal spray,suspe nsion [place] 1 spray every day by intranasa l [...] kg/m2 162.56 cm 84 /min 97.2 [degF] 080893. 1 g 126/84 mm[Hg] Not Available [facility] 3 04:46:33 Date Recorded Body mass index (BMI) Body height Heart rate Body temperature Body weight Systolic And Diastolic Provider Name and Address Organization Details Last Updated DateTime 2 37.6 kg/m2 162.56 cm 72 /min 97.9 [degF] 02837.7 3 g 130/78 mm[Hg] Not Available [facility] 3 04:46:33 Date Recorded Body height Body mass index (BMI) Body weight Body temperature Heart rate Systolic And Diastolic Provider Name and Address Organization Details Last Updated DateTime 3 162.56 cm 37.6 kg/m2 71054.7 3 g 98 [degF] 83 /min 130/88 mm[Hg] Pushpa HaddadGRIFFINDanilo [employer] [facility] 3 16:11:27 Date Recorded Body mass index (BMI) Body height Heart rate Body temperature Body weight Systolic And Diastolic Provider Name and Address Organization Details Last Updated DateTime 2 37.4 kg/m2 162.56 cm 89 /min 98.9 [degF] 44832.1 4 g 134/84 mm[Hg] Not Available [facility] 3 04:46:33 Date Recorded Body height Body mass index (BMI) Body weight Body temperature Heart rate Systolic And Diastolic Provider Name and Address Organization Details Last Updated DateTime 3 162.56 cm 39.1 kg/m2 697332. 06 g 97.8 [degF] 99 /min 142/92 mm[Hg] MARY GRACE Helms [employer] [employer] 3 16:27:12 Social History Question Answer Notes LastModified by Relative.aiat ion Details LastModified Time Tobacco Smoking Status Never Smoker Not Available [facility] 12/17/2022 04:25:32 Do You Have An Advance Directive? No MIGRATION.54265 76416 Information not available 12/17/2022 Are You Blind Or Do You Have Difficulty Seeing? No MIGRATION.41098 52594 Information not available 12/17/2022 What Is Your Level Of Caffeine Consumption? Occasional MIGRATION.50362 64004 Information not available 12/17/2022 How Much Tobacco Do You Chew? None MIGRATION.59492 07033 Information not available 12/17/2022 In The 14 Days Before Symptom Onset, Have You Had Close Contact With A Laboratory-confi rmed COVID-19 While That Case Was Ill? No MIGRATION.62977 32299 Information not available 12/17/2022 In The 14 Days Before Symptom Onset, Have You Had Close Contact With A Person Who Is Under Investigation For COVID-19 While That Person Was Ill? No MIGRATION.77360 18302 Information not available 12/17/2022 Are You Deaf Or Do You Have Serious Difficulty Hearing? No MIGRATION.35541 50313 Information not available 12/17/2022 What Type Of Diet Are You Following? REGULAR MIGRATION.00533 70301 Information not available 12/17/2022 Which Illicit Or Recreational Drugs Have You Used? None MIGRATION.04145 38612 Information not available 12/17/2022 What Is The Highest Grade Or Level Of School You Have Completed Or The Highest Degree You Have Received? [id number] MIGRATION.36763 10613 Information not available 12/17/2022 Have There Been Any Changes To Your Family Or Social Situation? No MIGRATION.92817 74790 Information not available 12/17/2022 What Is The Fluoride Status Of Your Home? Unknown MIGRATION.01482 29128 Information not available 12/17/2022 Are There Any Guns Present In Your Home? Yes MIGRATION.67210 44739 Information not available 12/17/2022 Do You Use Insect Repellent Routinely? No MIGRATION.88935 56760 Information not available 12/17/2022 Where Do You Live? [place] MIGRATION.03567 76446 Information not available 12/17/2022 Do You Have A Medical Power Of Steam Train Driver? No MIGRATION.60351 84759 Information not available 12/17/2022 What Was The Date Of Your Most Recent Tobacco Screening? 09/30/2023 [email or web address] Information not available 09/30/2023 Have You Ever Been Counseled For Unhealthy Alcohol Use? No MIGRATION.91216 02653 Information not available 12/17/2022 Do You Have Any Pets? Yes MIGRATION.90823 22133 Information not available 12/17/2022 What Is Your Relationship Status? MIGRATION.38247 23461 Information not available 12/17/2022 Do You Use Your Seat Belt Or Car Seat Routinely? Yes MIGRATION.10718 56541 Information not available 12/17/2022 Do You Have Smoke And Carbon Monoxide Detectors In Your Home? Yes MIGRATION.39087 23653 Information not available 12/17/2022 Are You Passively Exposed To Smoke? No MIGRATION.65041 58649 Information not available 12/17/2022 Are There Any Smokers In Your House? No MIGRATION.59020 94424 Information not available 12/17/2022 How Much Tobacco Do You Smoke? No MIGRATION.30429 51351 Information not available 12/17/2022 What Types Of Sporting Activities Do You Participate In? None MIGRATION.76601 22716 Information not available 12/17/2022 Do You Use Sunscreen Routinely? No MIGRATION.70020 28536 Information not available 12/17/2022 Has Tobacco Cessation Counseling Been Provided? No Not Needed-ne melanie Smoked MIGRATION.16391 36562 Information not available 12/17/2022 How Many Years Have You Smoked Tobacco? 0 MIGRATION.76232 87854 Information not available 12/17/2022 Have You Recently Traveled Abroad? No MIGRATION.05970 99912 Information not available 12/17/2022 Do You Have Difficulty Walking Or Climbing Stairs? No MIGRATION.56656 45101 Information not available 12/17/2022 Do You Have Any Dietary Restrictions? No MIGRATION.92375 95449 Information not available 12/17/2022 Sex: Female Functional Status Question Answer Note LastModified by Organizat ion Details LastModified Time Do you use any illicit or recreational drugs? No MIGRATION.724711 4451 Information not available 12/17/2022 Do you or have you ever used any other forms of tobacco or nicotine? No MIGRATION.676079 5460 Information not available 12/17/2022 What is your level of alcohol consumption? Occasional MIGRATION.169974 1916 Information not available 12/17/2022 Do you or have you ever used smokeless tobacco? Never used smokeless tobacco MIGRATION.014049 8060 Information not available 12/17/2022 Do you have difficulty doing errands alone? 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 No MIGRATION.646640 6626 Information not available 12/17/2022 Do you or have you ever used e-cigarettes or vape? Never used electronic cigarettes MIGRATION.717333 9709 Information not available 12/17/2022 What is your exercise level? Moderate MIGRATION.019188 0386 Information not available 12/17/2022 Mental Status Question Answer Note LastModified by Organizat ion Details LastModified Time Do you feel stressed (tense, restless, nervous, or anxious, or unable to sleep at night)? [id number] MIGRATION.43727119 26 Information not available 12/17/2022 Do you have difficulty concentrating, remembering or making decisions? No MIGRATION.67509967 26 Information not available 12/17/2022 Family History Relationship Description Onset Age of this Age Resolved Age Notes LastModified by Organization Details LastModified Time Father Diabetes mellitus MIGRATION.631 [id number] Not available 12/17/2022 04:44:23 Mother Diabetes mellitus MIGRATION.870 [id number] Not available 12/17/2022 04:44:23 Medical History Condition [...] HAVE YOU BEEN HOSPITALIZED OR SEEN IN [facility] IN THE PAST YEAR ? N [...] 50 mcg/0.25mL dose 1 completed Not Available [facility] 10/03/2023 06:30:09 Influenza, split virus, trivalent, preservative 2 completed Not Available [facility] 10/03/2023 06:30:09 Influenza, split virus, quadrivalent, preservative 1 completed Not Available [facility] 10/03/2023 06:30:09 COVID-19, mRNA, LNP-S, PF, 30 mcg/0.3 mL dose 1 completed Not Available [facility] 10/03/2023 06:30:09 COVID-19, mRNA, LNP-S, PF, 30 mcg/0.3 mL dose 1 completed Not Available [facility] 10/03/2023 06:30:09 Influenza, split virus, trivalent, preservative 0 completed Not Available [facility] 10/03/2023 06:30:09 Influenza, split virus, quadrivalent, preservative 8 completed Not Available [facility] 10/03/2023 06:30:09 Influenza, split virus, quadrivalent, preservative 7 completed Not Available [facility] 10/03/2023 06:30:09 Past Encounters Encounter ID Performer Location Encounter Start Date Encounter Closed Date Diagnosis/Indication Diagnosis SNOMED-CT Code Diagnosis ICD10 Code Diagnosis IMO Codes Diagnosis Note [id number] Jr Peterson MD [facility] Internal Med [facility] [address] [address] 03/20/2021 00:00:00 03/30/2021 15:03:55 [id number] Jr Peterson MD [facility] Med [facility] [address] [address] 10/16/2021 00:00:00 10/16/2021 20:36:59 [id number] Jr Peterson MD [facility] Internal Med [facility] [address] [address] 11/13/2021 00:00:00 11/17/2021 12:10:48 [id number] Peterson MD [facility] Internal Med [facility] [address] [facility] [address] [place] [address] 02/12/2022 00:00:00 02/16/2022 12:52:58 [id number] Jr Peterson MD [facility] Internal Med [facility] [address] [facility] [address] [address] 09/03/2022 00:00:00 09/07/2022 15:35:08 [id number] Jr Peterson MD [facility] Internal Med [facility] [address] [facility] [address] [address] 03/11/2023 15:24:03 03/12/2023 16:59:08 Screening mammography 43453997 Z12.31 Gout 00346172 M10.9 Essential hypertension 62001953 I10 Vitamin D below reference range 273170313 E55.9 Dyslipidemia 161006824 E 78.5 Crohn's disease 80254914 K50.90 [id number] Jr Peterson MD 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 Health Concerns Section Related Observation LastModified by Organization Detai ls LastModified Time None Recorded Concern Status LastModified by Organization Details LastModified Time None Recorded Advance Directives Directive N: Payers Insurance Date Sequence Insurance Name Policy Number Policy Amin Covered Member ID Amin Member ID Guarantor Name 10/21/2023 1 [facility] [id number] Alex Hoyt [id number] Marjorie Hoyt Notes Date Note Type Note Provider Name and Address Organization Details Recorded Time 3 text/html Crohn's stablegout no flare-upslow vitamin-D Needs supplementdyslipidemia needs to take atorvastatin regularlyhypertension stable pressure 130/88Needs to lose some weight Jr Peterson MD [address], [place], [address], [employer] [facility] 03/14/2023 14:49:58 3 text/html Crohn's stablegout no flare-upslow vitamin-D Needs supplementdyslipidemia needs to take atorvastatin regularlyhypertension stableNeeds to lose some weight Jr Peterson MD [address], [place], [address], [employer] 10/19/2023 21:15:45 OBGyn Episode No OBEpisode recorded.
[2025-07-31 19:19] LABS: Hematocrit 25.1 % (37.0-47.0); Hemoglobin 8.9 g/dL (12.0-15.0); Immature Granulocyte Percent A 0.6 % (0-0.5); Lymphocytes Absolute Auto 2.11 K/mm3 (0.9-3.2); Mean Corpuscular HGB Conc 35.5 g/dl (32-36); Mean Corpuscular Hemoglobin 28.5 pg (26-34); Mean Corpuscular Volume 80.4 fl (80-100); Nucleated Red Blood Cells Absolute Auto 0.000 K/mm3 (0.0-0.012); Nucleated Red Blood Cells Perc 0.0 % (0.0-0.2); Platelet Count Result 408 k/mm3 (150-375); Red Blood Count 3.12 M/mm3 (4.2-5.4); White Blood Count 9.4 K/mm3 (4.5-10.0)
[2025-07-31 19:32] LABS: Alanine Aminotransferase 27 U/L (6-35); Albumin Level 2.4 g/dL (3.5-5.1); Alkaline Phosphatase 165 U/L (38-126); Anion Gap 7 mmol/L (4-12); Aspartate Amino Transferase 51 U/L (14-36); Bilirubin,Total 0.7 mg/dL (0.2-1.3); Blood Urea Nitrogen 20 mg/dL (7-17); Carbon Dioxide 25 mmol/L (22-30); Chloride 98 mmol/L (98-107); Estimated CRCL calculation 38 ml/min; Estimated Glomerular Filt Rate 35; Glucose 91 mg/dL (65-110); Potassium 3.2 mmol/L (3.4-5.0); Sodium 130 mmol/L (137-145); Total Protein 7.0 g/dL (6.3-8.2)
[2025-07-31 19:33] LABS: Calcium 5.8 mg/dL (8.4-10.2); Magnesium 0.7 mg/dL (1.6-2.3)
--- NOTE | 2025-07-31 21:04 | ECG_ITS ---
Test Date: 2025-07-31 21:10:24 Measurements Intervals [place] Rate: 117 P: 15 MI: 133 QRS: 6 QRSD: 74 T: 32 QT: 321 QTc: 449 Interpretive Statements SINUS TACHYCARDIA WITH OCCASIONAL SUPRAVENTRICULAR PREMATURE COMPLEXES LOW QRS VOLTAGE IN PRECORDIAL LEADS POSSIBLE ANTERIOR MYOCARDIAL INFARCTION , PROBABLY OLD POSSIBLE INFERIOR MYOCARDIAL INFARCTION , PROBABLY OLD BORDERLINE ST-T WAVE ABNORMALITY- HIGH LATERAL LEADS BASELINE ARTIFACT- I, II, III, AVR, AVL, AVF, V1-V2 ABNORMAL ECG Compared to ECG 11/10/2024 18:29:58 NO SIGNIFICANT CHANGE Electronically Signed On 08-01-2025 05:31:19 CDT by Gonzalo Warner D.O.
[2025-07-31] MEDS: CALCIUM GLUCONATE 1,000 MG/10 ML VIAL 1000 MG IV PUSH (21:21)
[2025-07-31] MEDS: POTASSIUM CHLORIDE 20 MEQ PACKET (FOR LIQUID) 40 MEQ PO (21:22)
[2025-07-31] MEDS: MAGNESIUM SULF 4 GM/WATER100ML 4 GM/100 ML BAG IVPB (21:25)
[2025-07-31] MEDS: SODIUM CHLORIDE 0.9% IV 1,000 ML 999 ML IV CONT (21:34)
--- NOTE | 2025-08-01 00:05 | ED.GENADULT ---
HPI - General Adult General Chief complaint: Recheck/Abnormal Lab/Rx Stated complaint: low magnesium Time Seen by Provider: 07/31/25 20:38 History of Present Illness HPI narrative: This is a the 54-year-old female with a history of Crohn's disease and recurrent electrolyte abnormalities presenting for abnormal labs. Patient was seen by her GI physician Dr. Huber. Laboratory studies were ordered in her magnesium came back at 0.7. She was directed to come to the emergency room for evaluation. Patient says that she has felt weak for about the last month. She has also had decreased appetite. She denies any other complaints such as fevers chills chest pain difficulty breathing abdominal pain nausea vomiting or diarrhea. No urinary symptoms. She is on calcium supplementation and potassium supplementation but is states she is not on magnesium supplementation. Related Data Home Medications ?Medication ?Instructions ?Recorded ?Confirmed ?Last Taken ?Type folic acid 1 mg tablet 2 mg PO DAILY 01/18/21 05/04/25 11/10/24 History hydrochlorothiazide 25 mg tablet 25 mg PO DAILY 01/18/21 05/04/25 11/10/24 History allopurinol 300 mg tablet 300 mg PO DAILY 04/26/21 05/04/25 11/10/24 History amlodipine 2.5 mg tablet 5 mg PO DAILY 04/01/22 05/04/25 11/10/24 History atorvastatin 10 mg tablet 10 mg PO DAILY 12/30/23 05/04/25 11/10/24 History Allergies Allergy/AdvReac Type Severity Reaction Status Date / Time amoxicillin (From Augmentin) Allergy Mild Diarrhea Verified 07/31/25 18:50 clavulanic acid (From Allergy Mild Diarrhea Verified 07/31/25 18:50 Augmentin) [facility] Past Medical History Medical History (Updated 08/01/25 @ 00:10 by Harjinder Long MD) CHAUNCEY (iron deficiency anemia) Elevated serum creatinine Weight loss Anal fistula Crohn's disease of colon Acute on chronic anemia Anemia Loose stools Arthritis Hypertension Social History Social History Smoking status: Never smoker Alcohol intake: current Substance use: never Substance use type: does not use Do You Feel Safe in your Home?: Yes Lack of Transportation: No Lack of Food: Never True Current Housing: I Have Housing Concerned About Future Housing: No Difficulty Paying Gas/Electric Bills: No Difficulty Paying for Meds: No Currently Unemployed: No Education: Decline to Answer Difficulty w/ Childcare or Family Care: No Living arrangements: with family Gender identity (if verbalized by the patient): Female Spiritual care concerns: No Exam Narrative: APPEARANCE: No apparent distress. Pleasant polite Head: atraumatic. EYES: EOMI, NOSE: Atraumatic NECK: Trachea midline RESPIRATORY: No increased rate of breathing clear to auscultation CARDIOVASCULAR: RRR, no peripheral edema ABDOMINAL: Non-distended soft nontender MUSCULOSKELETAl: No obvious deformities NEURO: Alert. Moving 4/4 extremities SKIN:: Warm, dry. Normal color PSYCHIATRIC: Normal affect Course Vital Signs Vital signs: Vital Signs Temperature 98.2 F 07/31/25 18:58 Pulse Rate 122 H 07/31/25 18:58 Respiratory Rate 16 07/31/25 18:58 Blood Pressure 114/74 07/31/25 18:58 Pulse Oximetry 100 07/31/25 18:58 Oxygen Delivery Room Air 07/31/25 18:58 Temperature 98.0 F 07/31/25 19:52 Pulse Rate 103 H 08/01/25 00:45 Respiratory Rate 12 08/01/25 00:45 Blood Pressure 110/83 08/01/25 00:45 Pulse Oximetry 100 08/01/25 00:45 Oxygen Delivery Room Air 07/31/25 19:52 Medical Decision Making [facility] Narrative Medical decision making narrative: -Course: This is a 54-year-old female with Crohn's presenting for electrolyte abnormalities. Patient has a history of electrolyte abnormalities and has been on supplementation in blood intermittently in the past. Lab significant for a magnesium of 0.7, calcium of 5.8 which corrects to 7.1 w/ alb calculation. Patient receiving 4 mg of IV magnesium, 40 mEq use of potassium and 10% calcium gluconate. Patient does not want to be admitted and feels well overall although she has felt slightly weak the last 10 days. We will repeat her lab work after she has received all the electrolytes to see if his corrected. She is well connected the medical system and is reliable to repeat her lab work and 1-2 days and follow up as needed. Repeat magnesium was 1.9. Calcium was 7.2 with albumin adjustments. Potassium normalized. All of this was discussed the patient she does not want to be admitted. She has calcium supplementation home that she says she can start taking. Heart rate improved with fluids although review of the EMR shows that the patient is almost always mildly tachycardic. Low concern for pathologic tachycardia. She will also be given a prescription for magnesium supplementation. She will get repeat lab work and 24-48 hours. -DDX includes but is not limited to: Electrolyte abnormality, Crohn's flare, malnutrition, dehydration Vital Signs Vital Signs: Vital Signs Temperature 98.2 F 07/31/25 18:58 Pulse Rate 122 H 07/31/25 18:58 Respiratory Rate 16 07/31/25 18:58 Blood Pressure 114/74 07/31/25 18:58 Pulse Oximetry 100 07/31/25 18:58 Oxygen Delivery Room Air 07/31/25 18:58 Temperature 98.0 F 07/31/25 19:52 Pulse Rate 103 H 08/01/25 00:45 Respiratory Rate 12 08/01/25 00:45 Blood Pressure 110/83 08/01/25 00:45 Pulse Oximetry 100 08/01/25 00:45 Oxygen Delivery Room Air 07/31/25 19:52 Lab Data 07/31/25 19:07 08/01/25 01:19 Labs: Lab Results 07/31/25 08/01/25 Range/Units 19:07 01:19 WBC 9.4 (4.5-10.0) K/mm3 RBC 3.12 L (4.2-5.4) M/mm3 Hgb 8.9 L (12.0-15.0) g/dL Hct 25.1 L (37.0-47.0) % MCV 80.4 (80-100) fl MCH 28.5 (26-34) pg MCHC 35.5 (32-36) g/dl RDW 13.1 (11.5-14.5) % Plt Count 408 H (150-375) k/mm3 MPV 8.6 (7.4-10.4) fl Immature Gran % (Auto) 0.6 H (0-0.5) % Neut % (Auto) 65.7 (45.5-73.1) % Lymph % (Auto) 22.4 (18.3-44.2) % [place] % (Auto) 9.6 H (2.6-8.5) % Eos % (Auto) 0.3 (0-4.4) % Baso % (Auto) 1.4 H (0.2-1.2) % Lymph # (Auto) 2.11 (0.9-3.2) K/mm3 [place] # (Auto) 0.9 H (0.1-0.6) K/mm3 Eos # (Auto) 0.0 (0-0.3) K/mm3 Baso # (Auto) 0.1 (0.0-0.1) K/mm3 Abs Immat Gran (auto) 0.06 H (0.00-0.031) K/mm3 Absolute Neuts (auto) 6.2 (1.3-6.7) K/mm3 Absolute Nucleated RBC 0.000 (0.0-0.012) K/mm3 Nucleated RBC % 0.0 (0.0-0.2) % Sodium 130 L 132 L (137-145) mmol/L Potassium 3.2 L 4.0 (3.4-5.0) mmol/L Chloride 98 102 (98-107) mmol/L Carbon Dioxide 25 25 (22-30) mmol/L Anion Gap 7 5 (4-12) mmol/L BUN 20 H 21 H (7-17) mg/dL Creatinine 1.55 H 1.51 H (0.7-1.0) mg/dL Estim Creat Clear Calc 38 39 ml/min Estimated GFR 35 L 36 L (59 - ) Glucose 91 94 (65-110) mg/dL Calcium 5.8 L* 5.9 L* (8.4-10.2) mg/dL Magnesium 0.7 L 1.9 (1.6-2.3) mg/dL Total Bilirubin 0.7 0.7 (0.2-1.3) mg/dL AST 51 H 48 H (14-36) U/L ALT 27 25 (6-35) U/L Alkaline Phosphatase 165 H 160 H (38-126) U/L Total Protein 7.0 6.5 (6.3-8.2) g/dL Albumin 2.4 L 2.2 L (3.5-5.1) g/dL Discharge Plan Discharge Clinical Impression: Hypomagnesemia, Potassium (K) deficiency, Hypocalcemia Patient Disposition: Home Condition: Stable Instructions: Antibiotic Form, Hypocalcemia (ED), Hypomagnesemia (ED) Additional Instructions: You were seen in the emergency department for low calcium, low magnesium and low potassium p.o.. Please resume taking your potassium and calcium supplementation. I will prescribe you magnesium supplementation. Please have your lab work repeated in 48 hours and discussed results with your primary care physician for GI physician. If you develop any new symptoms please return to the ED for re-evaluation. Patient Language: Danish Prescriptions: New magnesium oxide 400 mg magnesium capsule 400 mg PO BID Qty: 60 0RF No Action folic acid 1 mg tablet 2 mg PO DAILY hydrochlorothiazide 25 mg tablet 25 mg PO DAILY amlodipine 2.5 mg tablet 5 mg PO DAILY Skyrizi 360 mg/2.4 mL (150 mg/mL) wearable injector 360 mg subcut .every 8 weeks Qty: 2.4 12RF prednisone 5 mg tablet 5 mg PO DIRECTED Qty: 252 0RF Rx Instructions: Take 40mg (8 pills) daily for one week, then 35 mg (7 pills) daily for one week, then 30mg (6 pills) daily for one week, then 25mg (5 pills daily), then 20mg (4 pills) daily for one week, then 15mg (3 pills) daily for one week, then 10mg (2 pills) daily for one week, then 5mg (1 pill) daily for one week. atorvastatin 10 mg tablet 10 mg PO DAILY prednisone 20 mg Tablet 40 mg PO DAILY@0800 Qty: 28 0RF magnesium oxide 400 mg (241.3 mg magnesium) Tablet 400 mg PO Q12HR Qty: 28 0RF polysaccharide iron complex 150 mg iron Capsule 150 mg PO BID Qty: 60 0RF allopurinol 300 mg tablet 300 mg PO DAILY Calcium 600 with Vitamin D3 600 mg-10 mcg (400 unit) tablet,chewable 1 tablet PO BID 30 Days Qty: 60 3RF Other Ambulatory Orders: Comprehensive Metabolic Panel (Routine) Timeframe: 2 Days Location: Determined by Patient Ordered By: Harjinder Long Magnesium (Routine) Timeframe: 2 Days Location: Determined by Patient Ordered By: Harjinder Long Follow-up/Referrals: Nicholas,MD Sergey [Primary Care Provider] - 2 Days Referral Note: ED F/U. Low electrolytes
[2025-08-01 00:45] VITALS: BP 110/83; PULSE 103; RESP 12; O2SAT 100
[2025-08-01 01:51] LABS: Alanine Aminotransferase 25 U/L (6-35); Albumin Level 2.2 g/dL (3.5-5.1); Alkaline Phosphatase 160 U/L (38-126); Aspartate Amino Transferase 48 U/L (14-36)
[2025-08-01 01:52] LABS: Anion Gap 5 mmol/L (4-12); Bilirubin,Total 0.7 mg/dL (0.2-1.3); Blood Urea Nitrogen 21 mg/dL (7-17); Calcium 5.9 mg/dL (8.4-10.2); Carbon Dioxide 25 mmol/L (22-30); Chloride 102 mmol/L (98-107); Estimated CRCL calculation 39 ml/min; Estimated Glomerular Filt Rate 36; Glucose 94 mg/dL (65-110); Magnesium 1.9 mg/dL (1.6-2.3); Potassium 4.0 mmol/L (3.4-5.0); Sodium 132 mmol/L (137-145); Total Protein 6.5 g/dL (6.3-8.2)
[2025-08-01 03:21] VITALS: BP 111/71; PULSE 107; RESP 19; O2SAT 100
== END 2025-08-01 03:22 | disposition home or self-care (01) ==
PROVIDERS: Student in an Organized Health Care Education/Training Program; Emergency Provider Emergency Medicine; PCP Internal Medicine
DX: E83.42 Hypomagnesemia (principal); E83.51 Hypocalcemia; E87.6 Hypokalemia; I10 Essential (primary) hypertension; D50.9 Iron deficiency anemia, unspecified; K50.90 Crohn's disease, unspecified, without complications; M19.90 Unspecified osteoarthritis, unspecified site; R00.0 Tachycardia, unspecified; I49.1 Atrial premature depolarization; R94.31 Abnormal electrocardiogram [ECG] [EKG]
CPT/HCPCS: 36415; 80053; 83735; 85025; 93005; 96365; 96366; 96375; 99284; A9270; J0612; J3475; J7030

== ENCOUNTER 2025-08-03 14:16 | Outpatient (CLI) | payer OTHER, SELFPAY ==
[2025-08-03 15:24] LABS: Alanine Aminotransferase 33 U/L (6-35); Albumin Level 2.3 g/dL (3.5-5.1); Alkaline Phosphatase 152 U/L (38-126); Anion Gap 7 mmol/L (4-12); Aspartate Amino Transferase 53 U/L (14-36); Bilirubin,Total 0.5 mg/dL (0.2-1.3); Blood Urea Nitrogen 16 mg/dL (7-17); Calcium 7.3 mg/dL (8.4-10.2); Carbon Dioxide 26 mmol/L (22-30); Chloride 101 mmol/L (98-107); Estimated Glomerular Filt Rate 39; Glucose 104 mg/dL (65-110); Magnesium 1.7 mg/dL (1.6-2.3); Potassium 3.0 mmol/L (3.4-5.0); Sodium 134 mmol/L (137-145); Total Protein 6.7 g/dL (6.3-8.2)
--- OUTSIDE RECORDS SUMMARY | 2025-08-03 16:21 | XMS_ITS | Data Portability ---
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 Lab uric acid, serum or plasma 2022 023 [facility] (Lab), [address] [place], [address], 3 11:08:33 lipid panel, serum 2022 023 [facility] (Lab), [address] [place], [address], 3 11:08:38 CBC w/ auto diff 2022 023 [facility] (Lab), [address] [place], [address], 3 11:08:44 CMP, serum or plasma 2022 023 [facility] (Lab), [address] [place], [address], 3 11:08:49 Referral None recorded. Procedures None recorded. Surgeries None recorded. Imaging MAMMO, screening, digital, bilateral 2022 023 [facility] (Radiology), [address] [place], [address], 3 14:32:35 Medication Orders None recorded. Patient TargetsNo targets recorded. Patient InstructionsNo instructions recorded. Reason for Referral None Reported. Results Created Date Observation Date Name Description Value Unit Range Abnormal Flag Note LastModifiedBy Organization Detail LastModifiedTime 11/11/1911/11/2021 FOLAT E, SERUM /PLAS MA folate >20.0 NG/mL 2.76- Not Available [facility] (Lab) [address] [place], [address], 11/11/2021 12:19:27 11/11/1911/11/2021 LIPID PANEL cholesterol 260 mg/dL 140-19 9 high NIH MARCELLE NSUS RECOM MENDA TION FOR BEN STERO L: ADULT CHILD LOW RISK: <200 <170 BORDE RLINE : <200- 239 ----- HIGH RISK: >240 >200 Not Available [facility] (Lab) [address] [place], [address], 11/11/2021 10:49:46 11/11/19 22 11/11/2021 LIPID PANEL triglyceride s 69 mg/dL 0-150 NIH MARCELLE NSUS REPOR T RECOM MENDA TION FOR TRIGL YCERI STEPHANIE: ADULT CHILD LOW RISK: <150 ----- BODER LINE: 150-1 99 ----- HIGH RISK: >200 ----- Not Available [facility] (Lab) [address] [place], [address], 11/11/2021 10:49:46 11/11/19 22 11/11/2021 LIPID PANEL HDL cholesterol 132 mg/dL 40- Not Available [facility] (Lab) [address] [place], [address], 11/11/2021 10:49:46 11/11/19 22 11/11/2021 LIPID PANEL [...] WILL NOT BE REPOR RADHA. Not Available [facility] (Lab) [address] [place], [address], 11/11/2021 10:49:46 11/11/19 22 11/11/2021 URIC ACID SERUM uric acid 1.8 mg/dL 2.5-6. 2 low Not Available [facility] (Lab) [address] [place], [address], 11/11/2021 10:49:45 11/11/19 22 11/11/2021 COMPR EHENS GALILEO METAB OLIC PANEL sodium 135 mmol/ L 137-14 5 low Not Available [facility] (Lab) [address] [place], [address], 11/11/2021 10:49:40 11/11/19 22 11/11/2021 COMPR EHENS GALILEO METAB OLIC PANEL potassium 3.6 mmol/ L 3.5-5. 1 Not Available [facility] (Lab) [address] [place], [address], 11/11/2021 10:49:40 11/11/19 22 11/11/2021 COMPR EHENS GALILEO METAB OLIC PANEL chloride 98 mmol/ L 98-107 Not Available [facility] (Lab) [address] [place], [address], 11/11/2021 10:49:40 11/11/19 11/11/2021 COMPR EHENS GALILEO METAB OLIC PANEL carbon dioxide 27 mmol/ L 22-30 Not Available [facility] (Lab) [address] [place], [address], 11/11/2021 10:49:40 11/11/19 22 11/11/2021 COMPR EHENS GALILEO METAB OLIC PANEL agap 13.6 mmol/ L 14-22 low Not Available [facility] (Lab) [address] [place], [address], 11/11/2021 10:49:40 11/11/19 22 11/11/2021 COMPR EHENS GALILEO METAB OLIC PANEL glucose 78 mg/dL 70-99 Not Available [facility] (Lab) [address] [place], [address], 11/11/2021 10:49:40 11/11/19 22 11/11/2021 COMPR EHENS GALILEO METAB OLIC PANEL BUN 17 mg/dL 8-19 Not Available [facility] (Lab) [address] [place], [address], 11/11/2021 10:49:40 11/11/19 22 11/11/2021 COMPR EHENS GALILEO METAB OLIC PANEL creatinine 1.02 mg/dL 0.66-1 .25 Not Available [facility] (Lab) [address] [place], [address], 11/11/2021 10:49:40 11/11/19 22 11/11/2021 COMPR EHENS GALILEO METAB OLIC PANEL GFR >60 Refer ence Range : Callands ge GFR Healt hy Adult : >60 [...] calcu lator is avail able on the [facility] websi te: [email or web address] :[email or web address] ional s/kdo qi/gf r_cal culat or Not Available [facility] (Lab) [address] [place], [address], 11/11/2021 10:49:40 11/11/19 22 11/11/2021 COMPR EHENS GALILEO METAB OLIC PANEL alkaline phosphatase 87 U/L 38-[address] [facility] (Lab) [address] [place], [address], 11/11/2021 10:49:40 11/11/19 22 11/11/2021 COMPR EHENS GALILEO METAB OLIC PANEL alanine aminotransfe rase 65 U/L 0-35 high Not Available [facility] (Lab) [address] [place], [address], 11/11/2021 10:49:40 11/11/19 22 11/11/2021 COMPR EHENS GALILEO METAB OLIC PANEL aspartate aminotransfe rase 96 U/L 15-37 high Not Available [facility] (Lab) [address] [place], [address], 11/11/2021 10:49:40 11/11/19 22 11/11/2021 COMPR EHENS GALILEO METAB OLIC PANEL bilirubin, total 0.80 mg/dL 0.20-1 .30 Not Available [facility] (Lab) [address] [facility] [place], [address], 11/11/2021 10:49:40 11/11/19 22 11/11/2021 COMPR EHENS GALILEO METAB OLIC PANEL calcium 8.8 mg/dL 8.4-10 .2 Not Available [facility] (Lab) [address] [place], [address], 11/11/2021 10:49:40 11/11/19 22 11/11/2021 COMPR EHENS GALILEO METAB OLIC PANEL total protein 8.9 g/dL 6.3-8. 2 high Not Available [facility] (Lab) [address] [place], [address], 11/11/2021 10:49:40 11/11/19 22 11/11/2021 COMPR EHENS GALILEO METAB OLIC PANEL albumin 4.7 g/dL 3.4-5. 0 Not Available [facility] (Lab) [address] [place], [address], 11/11/2021 10:49:40 11/11/19 22 11/11/2021 COMPR EHENS GALILEO METAB OLIC PANEL globulin 4.2 g/dL 2.6-4. 2 Not Available [facility] (Lab) [address] [place], [address], 11/11/2021 10:49:40 11/11/19 22 11/11/2021 COMPR EHENS GALILEO METAB OLIC PANEL A/G ratio 1.1 ratio 1.0-2. 0 Not Available [facility] (Lab) [address] [place], [address], 11/11/2021 10:49:40 11/11/19 22 11/11/2021 CBC/C OMPLE TE BLD COUNT W/DIF F white blood cells 6.1 x10'3 /uL 4.2-10 .8 Not Available [facility] (Lab) [address] [place], [address], 11/11/2021 09:54:00 11/11/19 22 11/11/2021 CBC/C OMPLE TE BLD COUNT W/DIF F red blood cells 4.19 x10'6 /uL 3.80-5 .20 Not Available [facility] (Lab) [address] [place], [address], 11/11/2021 09:54:00 11/11/1911/11/2021 CBC/C OMPLE TE BLD COUNT W/DIF F hemoglobin 12.8 g/dL 12.0-1 5.6 Not Available [facility] (Lab) [address] [place], [address], 11/11/2021 09:54:00 11/11/19 22 11/11/2021 CBC/C OMPLE TE BLD COUNT W/DIF F hematocrit 35.6 % 35.7-4 5.7 low Not Available [facility] (Lab) [address] [place], [address], 11/11/2021 09:54:00 11/11/19 22 11/11/2021 CBC/C OMPLE TE BLD COUNT W/DIF F mean red cell volume 85.0 fL 82.0-9 9.0 Not Available [facility] (Lab) [address] [place], [address], 11/11/2021 09:54:00 11/11/1911/11/2021 CBC/C OMPLE TE BLD COUNT W/DIF F mean red cell hemoglobin 30.5 pg 27.0-3 3.0 Not Available [facility] (Lab) [address] [place], [address], 11/11/2021 09:54:00 11/11/19 22 11/11/2021 CBC/C OMPLE TE BLD COUNT W/DIF F mean RBC HGB concentratio n 36.0 g/dL 31.0-3 6.0 Not Available [facility] (Lab) [address] [place], [address], 11/11/2021 09:54:00 11/11/19 22 11/11/2021 CBC/C OMPLE TE BLD COUNT W/DIF F red cell distribution width 12.4 % 11.8-1 5.5 Not Available [facility] (Lab) [address] [place], [address], 11/11/2021 09:54:00 11/11/1911/11/2021 CBC/C OMPLE TE BLD COUNT W/DIF F platelets 239 x10'3 /uL 150-40 0 Not Available [facility] (Lab) [address] [place], [address], 11/11/2021 09:54:00 11/11/19 22 11/11/2021 CBC/C OMPLE TE BLD COUNT W/DIF F mean platelet volume 9.2 fL 9.0-12 .4 Not Available [facility] (Lab) [address] [place], [address], 11/11/2021 09:54:00 11/11/1911/11/2021 CBC/C OMPLE TE BLD COUNT W/DIF F neutrophils 53.6 % 39.0-7 2.0 Not Available [facility] (Lab) [address] [place], [address], 11/11/2021 09:54:00 11/11/1911/11/2021 CBC/C OMPLE TE BLD COUNT W/DIF F lymphocytes 31.5 % 16.0-4 7.0 Not Available [facility] (Lab) [address] [place], [address], 11/11/2021 09:54:00 11/11/19 22 11/11/2021 CBC/C OMPLE TE BLD COUNT W/DIF F monocytes 10.5 % 5.0-12 .0 Not Available [facility] (Lab) [address] [place], [address], 11/11/2021 09:54:00 11/11/19 22 11/11/2021 CBC/C OMPLE TE BLD COUNT W/DIF F eosinophils 2.8 % 1.0-7. 0 Not Available [facility] (Lab) [address] [place], [address], 11/11/2021 09:54:00 11/11/1911/11/2021 CBC/C OMPLE TE BLD COUNT W/DIF F basophils 1.3 % 0.0-2. 0 Not Available [facility] (Lab) [address] [place], [address], 11/11/2021 09:54:00 11/11/1911/11/2021 CBC/C OMPLE TE BLD COUNT W/DIF F immature granulocytes 0.3 % 0.00-0 .50 Not Available [facility] (Lab) [address] [place], [address], 11/11/2021 09:54:00 11/11/1911/11/2021 CBC/C OMPLE TE BLD COUNT W/DIF F neutrophils, absolute count 3.26 x10'3 /uL 1.5-8. 0 Not Available [facility] (Lab) [address] [place], [address], 11/11/2021 09:54:00 11/11/1911/11/2021 CBC/C OMPLE TE BLD COUNT W/DIF F lymphocytes, absolute count 1.92 x10'3 /uL 1.07-3 .43 Not Available [facility] (Lab) [address] [place], [address], 11/11/2021 09:54:00 11/11/19 22 11/11/2021 CBC/C OMPLE TE BLD COUNT W/DIF F monocytes, absolute count 0.64 x10'3 /uL 0.29-0 .99 Not Available [facility] (Lab) [address] [place], [address], 11/11/2021 09:54:00 11/11/19 22 11/11/2021 CBC/C OMPLE TE BLD COUNT W/DIF F eosinophils, absolute count 0.17 x10'3 /uL 0.02-0 .53 Not Available [facility] (Lab) [address] [place], [address], 11/11/2021 09:54:00 11/11/19 22 11/11/2021 CBC/C OMPLE TE BLD COUNT W/DIF F basophils, absolute count 0.08 x10'3 /uL 0.01-0 .08 Not Available [facility] (Lab) [address] [place], [address], 11/11/2021 09:54:00 11/11/19 22 11/11/2021 CBC/C OMPLE TE BLD COUNT W/DIF F immature granulocytes ,absolute 0.02 x10'3 /uL 0.00-0 .05 Not Available [facility] (Lab) [address] [place], [address], 11/11/2021 09:54:00 11/11/19 22 11/11/2021 CBC/C OMPLE TE BLD COUNT W/DIF F nucleated red blood cells 0.0 % -0 Not Available [facility] (Lab) [address] [place], [address], 11/11/2021 09:54:00 11/11/19 22 11/11/2021 CBC/C OMPLE TE BLD COUNT W/DIF F NRBC# 0.00 x10'3 /uL Not Available [facility] (Lab) [address] [place], [address], 11/11/2021 09:54:00 09/02/20 22 09/02/2022 COMPR EHENS GALILEO METAB OLIC PANEL sodium 132 mmol/ L 137-14 5 low Not Available [facility] (Lab) [address] [place], [address], 09/02/2022 11:06:00 09/02/20 22 09/02/2022 COMPR EHENS GALILEO METAB OLIC PANEL potassium 3.6 mmol/ L 3.5-5. 1 Not Available [facility] (Lab) [address] [place], [address], 09/02/2022 11:06:00 09/02/20 22 09/02/2022 COMPR EHENS GALILEO METAB OLIC PANEL chloride 92 mmol/ L 98-107 low Not Available [facility] (Lab) [address] [place], [address], 09/02/2022 11:06:00 09/02/20 22 09/02/2022 COMPR EHENS GALILEO METAB OLIC PANEL carbon dioxide 27 mmol/ L 22-30 Not Available [facility] (Lab) [address] [place], [address], 09/02/2022 11:06:00 09/02/20 22 09/02/2022 COMPR EHENS GALILEO METAB OLIC PANEL anion gap 16.6 mmol/ L 14-22 Not Available [facility] (Lab) [address] [place], [address], 09/02/2022 11:06:00 09/02/20 22 09/02/2022 COMPR EHENS GALILEO METAB OLIC PANEL glucose 80 mg/dL 70-99 Not Available [facility] (Lab) [address] [place], [address], 09/02/2022 11:06:00 09/02/20 22 09/02/2022 COMPR EHENS GALILEO METAB OLIC PANEL BUN 19 mg/dL 8-19 Not Available [facility] (Lab) [address] [place], [address], 09/02/2022 11:06:00 09/02/20 22 09/02/2022 COMPR EHENS GALILEO METAB OLIC PANEL creatinine 0.94 mg/dL 0.66-1 .25 Not Available [facility] (Lab) [address] [facility] [place], [address], 09/02/2022 11:06:00 09/02/20 22 09/02/2022 COMPR EHENS GALILEO METAB OLIC PANEL GFR >60 Refer ence Range : Call[place] ge GFR Healt hy Adult : >60 [...] s/kdo qi/gf r_cal culat or Not Available [facility] (Lab) [address] [place], [address], 09/02/2022 11:06:00 09/02/20 22 09/02/2022 COMPR EHENS GALILEO METAB OLIC PANEL alkaline phosphatase 79 U/L 38-[address] [facility] (Lab) [address] [place], [address], 09/02/2022 11:06:00 09/02/20 22 09/02/2022 COMPR EHENS GALILEO METAB OLIC PANEL alanine aminotransfe rase 45 U/L 0-35 high Not Available [facility] (Lab) [address] [place], [address], 09/02/2022 11:06:00 09/02/20 22 09/02/2022 COMPR EHENS GALILEO METAB OLIC PANEL aspartate aminotransfe rase 73 U/L 15-37 high Not Available [facility] (Lab) [address] [place], [address], 09/02/2022 11:06:00 09/02/20 22 09/02/2022 COMPR EHENS GALILEO METAB OLIC PANEL bilirubin, total 1.10 mg/dL 0.20-1 .30 Not Available [facility] (Lab) [address] [place], [address], 09/02/2022 11:06:00 09/02/20 22 09/02/2022 COMPR EHENS GALILEO METAB OLIC PANEL calcium 9.1 mg/dL 8.4-10 .2 Not Available [facility] (Lab) [address] [facility] [place], [address], 09/02/2022 11:06:00 09/02/20 22 09/02/2022 COMPR EHENS GALILEO METAB OLIC PANEL total protein 8.7 g/dL 6.3-8. 2 high Not Available [facility] (Lab) [address] [place], [address], 09/02/2022 11:06:00 09/02/20 22 09/02/2022 COMPR EHENS GALILEO METAB OLIC PANEL albumin 4.3 g/dL 3.4-5. 0 Not Available [facility] (Lab) [address] [place], [address], 09/02/2022 11:06:00 09/02/20 22 09/02/2022 COMPR EHENS GALILEO METAB OLIC PANEL globulin 4.4 g/dL 2.6-4. 2 high Not Available [facility] (Lab) [address] [place], [address], 09/02/2022 11:06:00 09/02/20 22 09/02/2022 COMPR EHENS GALILEO METAB OLIC PANEL A/G ratio 1.0 ratio 1.0-2. 0 Not Available [facility] (Lab) [address] [place], [address], 09/02/2022 11:06:00 09/02/20 22 09/02/2022 LIPID PANEL cholesterol 234 mg/dL 140-19 9 high NIH MARCELLE NSUS RECOM MENDA TION FOR BEN STERO L: ADULT CHILD LOW RISK: <200 <170 BORDE RLINE : <200- 239 ----- HIGH RISK: >240 >200 Not Available [facility] (Lab) [address] [place], [address], 09/02/2022 11:05:54 09/02/20 22 09/02/2022 LIPID PANEL triglyceride s 75 mg/dL 0-150 NIH MARCELLE NSUS REPOR T RECOM MENDA TION FOR TRIGL YCERI STEPHANIE: ADULT CHILD LOW RISK: <150 ----- BODER LINE: 150-1 99 ----- HIGH RISK: >200 ----- Not Available [facility] (Lab) [address] [place], [address], 09/02/2022 11:05:54 09/02/20 22 09/02/2022 LIPID PANEL HDL cholesterol 89 mg/dL 40- Not Available [facility] (Lab) [address] [place], [address], 09/02/2022 11:05:54 09/02/20 22 09/02/2022 LIPID PANEL [...] WILL NOT BE REPOR RADHA. Not Available [facility] (Lab) [address] [place], [address], 09/02/2022 11:05:54 09/02/20 22 09/02/2022 URIC ACID SERUM uric acid 2.2 mg/dL 2.5-6. 2 low Not Available [facility] (Lab) [address] [place], [address], 09/02/2022 11:05:49 09/02/20 22 09/02/2022 CBC/C OMPLE TE BLD COUNT W/DIF F white blood cells 5.8 x10'3 /uL 4.2-10 .8 Not Available [facility] (Lab) [address] [place], [address], 09/02/2022 09:59:55 09/02/20 22 09/02/2022 CBC/C OMPLE TE BLD COUNT W/DIF F red blood cells 4.23 x10'6 /uL 3.80-5 .20 Not Available [facility] (Lab) [address] [place], [address], 09/02/2022 09:59:55 09/02/20 22 09/02/2022 CBC/C OMPLE TE BLD COUNT W/DIF F hemoglobin 13.1 g/dL 12.0-1 5.6 Not Available [facility] (Lab) [address] [place], [address], 09/02/2022 09:59:55 09/02/20 22 09/02/2022 CBC/C OMPLE TE BLD COUNT W/DIF F hematocrit 35.3 % 35.7-4 5.7 low Not Available [facility] (Lab) [address] [place], [address], 09/02/2022 09:59:55 09/02/20 22 09/02/2022 CBC/C OMPLE TE BLD COUNT W/DIF F mean red cell volume 83.5 fL 82.0-9 9.0 Not Available [facility] (Lab) [address] [place], [address], 09/02/2022 09:59:55 09/02/20 22 09/02/2022 CBC/C OMPLE TE BLD COUNT W/DIF F mean red cell hemoglobin 31.0 pg 27.0-3 3.0 Not Available [facility] (Lab) [address] [place], [address], 09/02/2022 09:59:55 09/02/20 22 09/02/2022 CBC/C OMPLE TE BLD COUNT W/DIF F mean RBC HGB concentratio n 37.1 g/dL 31.0-3 6.0 high Not Available [facility] (Lab) [address] [place], [address], 09/02/2022 09:59:55 09/02/20 22 09/02/2022 CBC/C OMPLE TE BLD COUNT W/DIF F red cell distribution width 12.0 % 11.8-1 5.5 Not Available [facility] (Lab) [address] [place], [address], 09/02/2022 09:59:55 09/02/20 22 09/02/2022 CBC/C OMPLE TE BLD COUNT W/DIF F platelets 261 x10'3 /uL 150-40 0 Not Available [facility] (Lab) [address] [place], [address], 09/02/2022 09:59:55 09/02/20 22 09/02/2022 CBC/C OMPLE TE BLD COUNT W/DIF F mean platelet volume 8.7 fL 9.0-12 .4 low Not Available [facility] (Lab) [address] [place], [address], 09/02/2022 09:59:55 09/02/20 22 09/02/2022 CBC/C OMPLE TE BLD COUNT W/DIF F neutrophils 66.0 % 39.0-7 2.0 Not Available [facility] (Lab) [address] [place], [address], 09/02/2022 09:59:55 09/02/20 22 09/02/2022 CBC/C OMPLE TE BLD COUNT W/DIF F lymphocytes 22.0 % 16.0-4 7.0 Not Available [facility] (Lab) [address] [place], [address], 09/02/2022 09:59:55 09/02/20 22 09/02/2022 CBC/C OMPLE TE BLD COUNT W/DIF F monocytes 10.7 % 5.0-12 .0 Not Available [facility] (Lab) [address] [place], [address], 09/02/2022 09:59:55 09/02/20 22 09/02/2022 CBC/C OMPLE TE BLD COUNT W/DIF F eosinophils 0.3 % 1.0-7. 0 low Not Available [facility] (Lab) [address] [place], [address], 09/02/2022 09:59:55 09/02/20 22 09/02/2022 CBC/C OMPLE TE BLD COUNT W/DIF F basophils 0.7 % 0.0-2. 0 Not Available [facility] (Lab) [address] [place], [address], 09/02/2022 09:59:55 09/02/20 22 09/02/2022 CBC/C OMPLE TE BLD COUNT W/DIF F immature granulocytes 0.3 % 0.00-0 .50 Not Available [facility] (Lab) [address] [place], [address], 09/02/2022 09:59:55 09/02/20 22 09/02/2022 CBC/C OMPLE TE BLD COUNT W/DIF F neutrophils, absolute count 3.83 x10'3 /uL 1.5-8. 0 Not Available [facility] (Lab) [address] [place], [address], 09/02/2022 09:59:55 09/02/20 22 09/02/2022 CBC/C OMPLE TE BLD COUNT W/DIF F lymphocytes, absolute count 1.28 x10'3 /uL 1.07-3 .43 Not Available [facility] (Lab) [address] [place], [address], 09/02/2022 09:59:55 09/02/20 22 09/02/2022 CBC/C OMPLE TE BLD COUNT W/DIF F monocytes, absolute count 0.62 x10'3 /uL 0.29-0 .99 Not Available [facility] (Lab) [address] [place], [address], 09/02/2022 09:59:55 09/02/20 22 09/02/2022 CBC/C OMPLE TE BLD COUNT W/DIF F eosinophils, absolute count 0.02 x10'3 /uL 0.02-0 .53 Not Available [facility] (Lab) [address] [place], [address], 09/02/2022 09:59:55 09/02/20 22 09/02/2022 CBC/C OMPLE TE BLD COUNT W/DIF F basophils, absolute count 0.04 x10'3 /uL 0.01-0 .08 Not Available [facility] (Lab) [address] [place], [address], 09/02/2022 09:59:55 09/02/20 22 09/02/2022 CBC/C OMPLE TE BLD COUNT W/DIF F immature granulocytes ,absolute 0.02 x10'3 /uL 0.00-0 .05 Not Available [facility] (Lab) [address] [place], [address], 09/02/2022 09:59:55 09/02/20 22 09/02/2022 CBC/C OMPLE TE BLD COUNT W/DIF F nucleated red blood cells 0.0 % -0 Not Available [facility] (Lab) [address] [place], [address], 09/02/2022 09:59:55 09/02/20 22 09/02/2022 CBC/C OMPLE TE BLD COUNT W/DIF F NRBC# 0.00 x10'3 /uL Not Available [facility] (Lab) [address] [place], [address], 09/02/2022 09:59:55 09/29/20 23 09/29/2023 CBC/C OMPLE TE BLD COUNT W/DIF F white blood cells 6.2 x10'3 /uL 4.2-10 .8 Not Available [facility] (Lab) [address] [place], [address], 09/29/2023 09:30:57 09/29/20 23 09/29/2023 CBC/C OMPLE TE BLD COUNT W/DIF F red blood cells 4.39 x10'6 /uL 3.80-5 .20 Not Available [facility] (Lab) [address] [place], [address], 09/29/2023 09:30:57 09/29/20 23 09/29/2023 CBC/C OMPLE TE BLD COUNT W/DIF F hemoglobin 13.2 g/dL 12.0-1 5.6 Not Available [facility] (Lab) [address] [place], [address], 09/29/2023 09:30:57 09/29/20 23 09/29/2023 CBC/C OMPLE TE BLD COUNT W/DIF F hematocrit 36.9 % 35.7-4 5.7 Not Available [facility] (Lab) [address] [place], [address], 09/29/2023 09:30:57 09/29/20 23 09/29/2023 CBC/C OMPLE TE BLD COUNT W/DIF F mean red cell volume 84.1 fL 82.0-9 9.0 Not Available [facility] (Lab) [address] [place], [address], 09/29/2023 09:30:57 09/29/20 23 09/29/2023 CBC/C OMPLE TE BLD COUNT W/DIF F mean red cell hemoglobin 30.1 pg 27.0-3 3.0 Not Available [facility] (Lab) [address] [place], [address], 09/29/2023 09:30:57 09/29/20 23 09/29/2023 CBC/C OMPLE TE BLD COUNT W/DIF F mean RBC HGB concentratio n 35.8 g/dL 31.0-3 6.0 Not Available [facility] (Lab) [address] [place], [address], 09/29/2023 09:30:57 09/29/20 23 09/29/2023 CBC/C OMPLE TE BLD COUNT W/DIF F red cell distribution width 12.4 % 11.8-1 5.5 Not Available [facility] (Lab) [address] [place], [address], 09/29/2023 09:30:57 09/29/20 23 09/29/2023 CBC/C OMPLE TE BLD COUNT W/DIF F platelets 270 x10'3 /uL 150-40 0 Not Available [facility] (Lab) [address] [place], [address], 09/29/2023 09:30:57 09/29/20 23 09/29/2023 CBC/C OMPLE TE BLD COUNT W/DIF F mean platelet volume 9.6 fL 9.0-12 .4 Not Available [facility] (Lab) [address] [place], [address], 09/29/2023 09:30:57 09/29/20 23 09/29/2023 CBC/C OMPLE TE BLD COUNT W/DIF F neutrophils 57.9 % 39.0-7 2.0 Not Available [facility] (Lab) [address] [place], [address], 09/29/2023 09:30:57 09/29/20 23 09/29/2023 CBC/C OMPLE TE BLD COUNT W/DIF F lymphocytes 28.6 % 16.0-4 7.0 Not Available [facility] (Lab) [address] [place], [address], 09/29/2023 09:30:57 09/29/20 23 09/29/2023 CBC/C OMPLE TE BLD COUNT W/DIF F monocytes 10.9 % 5.0-12 .0 Not Available [facility] (Lab) [address] [place], [address], 09/29/2023 09:30:57 09/29/20 23 09/29/2023 CBC/C OMPLE TE BLD COUNT W/DIF F eosinophils 1.3 % 1.0-7. 0 Not Available [facility] (Lab) [address] [place], [address], 09/29/2023 09:30:57 09/29/20 23 09/29/2023 CBC/C OMPLE TE BLD COUNT W/DIF F basophils 1.0 % 0.0-2. 0 Not Available [facility] (Lab) [address] [place], [address], 09/29/2023 09:30:57 09/29/20 23 09/29/2023 CBC/C OMPLE TE BLD COUNT W/DIF F immature granulocytes 0.3 % 0.00-0 .50 Not Available [facility] (Lab) [address] [place], [address], 09/29/2023 09:30:57 09/29/20 23 09/29/2023 CBC/C OMPLE TE BLD COUNT W/DIF F neutrophils, absolute count 3.60 x10'3 /uL 1.5-8. 0 Not Available [facility] (Lab) [address] [place], [address], 09/29/2023 09:30:57 09/29/20 23 09/29/2023 CBC/C OMPLE TE BLD COUNT W/DIF F lymphocytes, absolute count 1.78 x10'3 /uL 1.07-3 .43 Not Available [facility] (Lab) [address] [place], [address], 09/29/2023 09:30:57 09/29/20 23 09/29/2023 CBC/C OMPLE TE BLD COUNT W/DIF F monocytes, absolute count 0.68 x10'3 /uL 0.29-0 .99 Not Available [facility] (Lab) [address] [place], [address], 09/29/2023 09:30:57 09/29/20 23 09/29/2023 CBC/C OMPLE TE BLD COUNT W/DIF F eosinophils, absolute count 0.08 x10'3 /uL 0.02-0 .53 Not Available [facility] (Lab) [address] [place], [address], 09/29/2023 09:30:57 09/29/20 23 09/29/2023 CBC/C OMPLE TE BLD COUNT W/DIF F basophils, absolute count 0.06 x10'3 /uL 0.01-0 .08 Not Available [facility] (Lab) [address] [place], [address], 09/29/2023 09:30:57 09/29/20 23 09/29/2023 CBC/C OMPLE TE BLD COUNT W/DIF F immature granulocytes ,absolute 0.02 x10'3 /uL 0.00-0 .05 Not Available [facility] (Lab) [address] [place], [address], 09/29/2023 09:30:57 09/29/20 23 09/29/2023 CBC/C OMPLE TE BLD COUNT W/DIF F nucleated red blood cells 0.0 % -0 Not Available [facility] (Lab) [address] [place], [address], 09/29/2023 09:30:57 09/29/20 23 09/29/2023 CBC/C OMPLE TE BLD COUNT W/DIF F NRBC# 0.00 x10'3 /uL Not Available [facility] (Lab) [address] [place], [address], 09/29/2023 09:30:57 09/29/20 23 09/29/2023 COMPR EHENS GALILEO METAB OLIC PANEL sodium 135 mmol/ L 137-14 5 low Not Available [facility] (Lab) [address] [place], [address], 09/29/2023 09:49:51 09/29/20 23 09/29/2023 COMPR EHENS GALILEO METAB OLIC PANEL potassium 3.6 mmol/ L 3.5-5. 1 Not Available [facility] (Lab) [address] [place], [address], 09/29/2023 09:49:51 09/29/20 23 09/29/2023 COMPR EHENS GALILEO METAB OLIC PANEL chloride 95 mmol/ L 98-107 low Not Available [facility] (Lab) [address] [place], [address], 09/29/2023 09:49:51 09/29/20 23 09/29/2023 COMPR EHENS GALILEO METAB OLIC PANEL carbon dioxide 27 mmol/ L 22-30 Not Available [facility] (Lab) [address] [place], [address], 09/29/2023 09:49:51 09/29/20 23 09/29/2023 COMPR EHENS GALILEO METAB OLIC PANEL anion gap 16.6 mmol/ L 14-22 Not Available [facility] (Lab) [address] [place], [address], 09/29/2023 09:49:51 09/29/20 23 09/29/2023 COMPR EHENS GALILEO METAB OLIC PANEL glucose 88 mg/dL 70-99 Not Available [facility] (Lab) [address] [place], [address], 09/29/2023 09:49:51 09/29/20 23 09/29/2023 COMPR EHENS GALILEO METAB OLIC PANEL BUN 17 mg/dL 8-19 Not Available [facility] (Lab) [address] [facility] [place], [address], 09/29/2023 09:49:51 09/29/20 23 09/29/2023 COMPR EHENS GALILEO METAB OLIC PANEL creatinine 0.99 mg/dL 0.66-1 .25 Not Available [facility] (Lab) [address] [place], [address], 09/29/2023 09:49:51 09/29/20 23 09/29/2023 COMPR EHENS GALILEO METAB OLIC PANEL GFR >60 Refer ence Range : [place] ge GFR Healt hy Adult : >60 [...] calcu lator is avail able on the [facility] websi te: [email or web address] :[email or web address] [email or web address]/gf r_cal culat or Not Available [facility] (Lab) [address] [place], [address], 09/29/2023 09:49:51 09/29/20 23 09/29/2023 COMPR EHENS GALILEO METAB OLIC PANEL alkaline phosphatase 82 U/L 38-[address] [facility] (Lab) [address] [place], [address], 09/29/2023 09:49:51 09/29/20 23 09/29/2023 COMPR EHENS GALILEO METAB OLIC PANEL alanine aminotransfe rase 67 U/L 0-35 high Not Available [facility] (Lab) [address] [place], [address], 09/29/2023 09:49:51 09/29/20 23 09/29/2023 COMPR EHENS GALILEO METAB OLIC PANEL aspartate aminotransfe rase 93 U/L 15-37 high Not Available [facility] (Lab) [address] [place], [address], 09/29/2023 09:49:51 09/29/20 23 09/29/2023 COMPR EHENS GALILEO METAB OLIC PANEL bilirubin, total 1.10 mg/dL 0.20-1 .30 Not Available [facility] (Lab) [address] [place], [address], 09/29/2023 09:49:51 09/29/20 23 09/29/2023 COMPR EHENS GAILLEO METAB OLIC PANEL calcium 9.7 mg/dL 8.4-10 .2 Not Available [facility] (Lab) [address] [place], [address], 09/29/2023 09:49:51 09/29/2009/29/2023 COMPR EHENS GALILEO METAB OLIC PANEL total protein 10.1 g/dL 6.3-8. 2 high Not Available [facility] (Lab) [address] [place], [address], 09/29/2023 09:49:51 09/29/20 23 09/29/2023 COMPR EHENS GALILEO METAB OLIC PANEL albumin 4.7 g/dL 3.4-5. 0 Not Available [facility] (Lab) [address] [place], [address], 09/29/2023 09:49:51 09/29/20 23 09/29/2023 COMPR EHENS GALILEO METAB OLIC PANEL globulin 5.4 g/dL 2.6-4. 2 high Not Available [facility] (Lab) [address] [place], [address], 09/29/2023 09:49:51 09/29/20 23 09/29/2023 COMPR EHENS GALILEO METAB OLIC PANEL A/G ratio 0.9 ratio 1.0-2. 0 low Not Available [facility] (Lab) [address] [place], [address], 09/29/2023 09:49:51 09/29/20 23 09/29/2023 LIPID PANEL cholesterol 191 mg/dL 140-19 9 NIH MARCELLE NSUS RECOM MENDA TION FOR BEN STERO L: ADULT CHILD LOW RISK: <200 <170 BORDE RLINE : <200- 239 ----- HIGH RISK: >240 >200 Not Available [facility] (Lab) [address] [place], [address], 09/29/2023 10:11:28 09/29/20 23 09/29/2023 LIPID PANEL triglyceride s 59 mg/dL 0-150 NIH MRACELLE NSUS REPOR T RECOM MENDA TION FOR TRIGL YCERI STEPHANIE: ADULT CHILD LOW RISK: <150 ----- BODER LINE: 150-1 99 ----- HIGH RISK: >200 ----- Not Available [facility] (Lab) [address] [place], [address], 09/29/2023 10:11:28 09/29/20 23 09/29/2023 LIPID PANEL HDL cholesterol 128 mg/dL 40- Not Available [facility] (Lab) [address] [place], [address], 09/29/2023 10:11:28 09/29/2009/29/2023 LIPID PANEL LDL cholesterol, [...] WILL NOT BE REPOR RADHA. Not Available [facility] (Lab) [address] [facility], [place], [address], 09/29/2023 10:11:28 09/29/20 23 09/29/2023 URIC ACID SERUM uric acid 1.9 mg/dL 2.5-6. 2 low Not Available [facility] (Lab) [address] [facility], [place], [address], 09/29/2023 10:11:33 02/27/20 22 02/26/2022 MAMMO , scree bailey, digit al, bilat eral [facility] [address] [place] [address] Patien t Name: MARJORIE HOYT ion #: [id number] Sex: F : 1969 8 Locati [...] alice ectura l Page 1 of 2 [facility] [place] Chris simmons Name: MARJORIE HOYT Access ion #: [id number] Sex: F : 1969 8 Exam [...] ly to the [facility] er. A negati ve mammog hellen [...] 8:41 AM (CT) Page 2 of 2 [id number] [facility] (Imaging) [address] [place], [address], 12/17/2022 05:04:45 04/17/20 23 04/15/2023 MAMMO , tal swang, digit al, bilat eral [facility] [place] [address] [facility] [place] [address] [phone] [facility] Name: MARJORIE HOYT ion #: [id number] Sex: F : 1969 8 Locati [...] alice ectura l Page 1 of 2 [facility] MEDICA [facility] Chris simmons Name: MARJORIE HOYT Access ion #: [id number] Sex: F : 1969 8 Exam [...] report ed [facility] A negati ve mammog hellen [...] 1:24 PM (CT) Page 2 of [id number] [place] [address] (Imaging) [address] [place], [address], 08/29/2023 20:30:27 Result Notes Documentation Provider Name and Address Organization Details Recorded Time Mammo, Screening, Digital, Bilateral : [facility] [address] [place] [address] Patient Name: MARJORIE HOYT Sex: F : [...] calcifications, or architectural Page 1 of 2 [facility] Patient Name: MARJORIE HOYT Sex: F : 1970 Exam Date: 02/26/2022 7:37 AM Exam Name: MG HUNTER BREAST LYNNE BILAT Admitting Diagnosis(es): distortion are seen. IMPRESSION: BIRADS 1: Assessment complete. Negative. Recommend annual screening mammography. According to the [employer], yearly mammograms are recommended [...] (CT) Page 2 of 2 Not Available [facility] [place] [facility] 12/17/2022 05:04:48 Mammo, Screening, Digital, Bilateral : [address] [address] Patient Name: MARJORIE HOYT Sex: [...] calcifications, or architectural Page 1 of 2 [facility] Patient Name: MARJORIE HOYT Sex: F : 1970 Exam Date: 04/15/2023 7:00 AM Exam Name: SCRMary BREAST LYNNE BILAT Admitting Diagnosis(es): distortion are seen. IMPRESSION: BIRADS 1: Assessment complete. Negative. Recommend annual screening mammography. 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 Not Available [facility] 3 06:30:08 Bronchiti s 53546227 Active Not Available [facility] 3 06:30:08 Crohn's disease 83123600 Active Not Available [facility] 3 06:30:08 Chronic rhinitis 99535155 Active Not Available [facility] 3 06:30:09 Liver function tests outside reference range 354954378 Active 2017 Not Available [facility] 3 06:30:08 Vitamin D below reference range 266407397 Active 2019 Not Available [facility] 3 06:30:08 Dyslipide sanjeev 233585613 Active 2021 Not Available [facility] 3 06:30:09 Essential hypertens ion 60866139 Active 2021 Not Available [facility] 3 06:30:09 Gout 37857546 Active 2021 Not Available [facility] 3 06:30:09 Vitamin D deficienc y 67027417 Active 2021 Not Available [facility] 3 06:30:09 Hyperchol esterolem ia 67370586 Active 2021 Not Available [facility] 3 06:30:08 COVID-19 987033153 Active 2022 Not Available [facility] 3 06:30:09 Problem Notes None recorded. Medical Equipment None Reported. Allergies Allergen ID Allergen Name Allergen Category Reaction Reaction Severity Criticality Documentation Date Start Date Code Code System Note Provider Name and Address Organization Details Recorded Time 8191 Augmentin medicatio n diarrhea Not available Not available 12/17/2022 28064 2 RxNorm Not Available [facility] [place] [facility] 3 05:04:16 Medications Name Sig Start Date [...] propionate 50 mcg/actuati on nasal spray,suspe nsion [place] 1 spray every day by intranasa l [...] kg/m2 162.56 cm 84 /min 97.2 [degF] 497794. 1 g 126/84 mm[Hg] Not Available [facility] [place] [facility] 3 04:46:33 Date Recorded Body mass index (BMI) Body height Heart rate Body temperature Body weight Systolic And Diastolic Provider Name and Address Organization Details Last Updated DateTime 2 37.6 kg/m2 162.56 cm 72 /min 97.9 [degF] 11858.7 3 g 130/78 mm[Hg] Not Available [facility] [place] [facility] 3 04:46:33 Date Recorded Body height Body mass index (BMI) Body weight Body temperature Heart rate Systolic And Diastolic Provider Name and Address Organization Details Last Updated DateTime 3 162.56 cm 37.6 kg/m2 19203.7 3 g 98 [degF] 83 /min 130/88 mm[Hg] Pushpa HaddadGRIFFINDanilo [address] [facility] 3 16:11:27 Date Recorded Body mass index (BMI) Body height Heart rate Body temperature Body weight Systolic And Diastolic Provider Name and Address Organization Details Last Updated DateTime 2 37.4 kg/m2 162.56 cm 89 /min 98.9 [degF] 77340.1 4 g 134/84 mm[Hg] Not Available [facility] 3 04:46:33 Date Recorded Body height Body mass index (BMI) Body weight Body temperature Heart rate Systolic And Diastolic Provider Name and Address Organization Details Last Updated DateTime 3 162.56 cm 39.1 kg/m2 768286. 06 g 97.8 [degF] 99 /min 142/92 mm[Hg] MARY GRACE Helms [address] [employer] 3 16:27:12 Social History Question Answer Notes LastModified by AFINOSat ion Details LastModified Time Tobacco Smoking Status Never Smoker Not Available [facility] 12/17/2022 04:25:32 Do You Have An Advance Directive? No MIGRATION.14783 48895 Information not available 12/17/2022 Are You Blind Or Do You Have Difficulty Seeing? No MIGRATION.40947 53879 Information not available 12/17/2022 What Is Your Level Of Caffeine Consumption? Occasional MIGRATION.64831 29737 Information not available 12/17/2022 How Much Tobacco Do You Chew? None MIGRATION.33880 37637 Information not available 12/17/2022 In The 14 Days Before Symptom Onset, Have You Had Close Contact With A Laboratory-confi rmed COVID-19 While That Case Was Ill? No MIGRATION.62683 22328 Information not available 12/17/2022 In The 14 Days Before Symptom Onset, Have You Had Close Contact With A Person Who Is Under Investigation For COVID-19 While That Person Was Ill? No MIGRATION.22102 46292 Information not available 12/17/2022 Are You Deaf Or Do You Have Serious Difficulty Hearing? No MIGRATION.27893 34828 Information not available 12/17/2022 What Type Of Diet Are You Following? REGULAR MIGRATION.67041 59455 Information not available 12/17/2022 Which Illicit Or Recreational Drugs Have You Used? None MIGRATION.46366 04387 Information not available 12/17/2022 What Is The Highest Grade Or Level Of School You Have Completed Or The Highest Degree You Have Received? CK97784-2 MIGRATION.83434 24487 Information not available 12/17/2022 Have There Been Any Changes To Your Family Or Social Situation? No MIGRATION.18745 48203 Information not available 12/17/2022 What Is The Fluoride Status Of Your Home? Unknown MIGRATION.68147 57005 Information not available 12/17/2022 Are There Any Guns Present In Your Home? Yes MIGRATION.94408 45165 Information not available 12/17/2022 Do You Use Insect Repellent Routinely? No MIGRATION.60930 60003 Information not available 12/17/2022 Where Do You Live? [place] MIGRATION.23711 31206 Information not available 12/17/2022 Do You Have A Medical Power Of Senior Ux Designer? No MIGRATION.73580 90644 Information not available 12/17/2022 What Was The Date Of Your Most Recent Tobacco Screening? 09/30/2023 [email or web address] Information not available 09/30/2023 Have You Ever Been Counseled For Unhealthy Alcohol Use? No MIGRATION.19572 44437 Information not available 12/17/2022 Do You Have Any Pets? Yes MIGRATION.16874 36617 Information not available 12/17/2022 What Is Your Relationship Status? MIGRATION.81900 21071 Information not available 12/17/2022 Do You Use Your Seat Belt Or Car Seat Routinely? Yes MIGRATION.06557 25855 Information not available 12/17/2022 Do You Have Smoke And Carbon Monoxide Detectors In Your Home? Yes MIGRATION.69810 64284 Information not available 12/17/2022 Are You Passively Exposed To Smoke? No MIGRATION.39460 02673 Information not available 12/17/2022 Are There Any Smokers In Your House? No MIGRATION.17006 49898 Information not available 12/17/2022 How Much Tobacco Do You Smoke? No MIGRATION.93681 90823 Information not available 12/17/2022 What Types Of Sporting Activities Do You Participate In? None MIGRATION.77795 84808 Information not available 12/17/2022 Do You Use Sunscreen Routinely? No MIGRATION.08203 78106 Information not available 12/17/2022 Has Tobacco Cessation Counseling Been Provided? No Not Needed-ne melanie Smoked MIGRATION.66288 50361 Information not available 12/17/2022 How Many Years Have You Smoked Tobacco? 0 MIGRATION.96058 98846 Information not available 12/17/2022 Have You Recently Traveled Abroad? No MIGRATION.78732 41012 Information not available 12/17/2022 Do You Have Difficulty Walking Or Climbing Stairs? No MIGRATION.71455 57658 Information not available 12/17/2022 Do You Have Any Dietary Restrictions? No MIGRATION.18975 75809 Information not available 12/17/2022 Sex: Female Functional Status Question Answer Note LastModified by Organizat ion Details LastModified Time Do you use any illicit or recreational drugs? No MIGRATION.765747 1765 Information not available 12/17/2022 Do you or have you ever used any other forms of tobacco or nicotine? No MIGRATION.632916 7982 Information not available 12/17/2022 What is your level of alcohol consumption? Occasional MIGRATION.620700 8044 Information not available 12/17/2022 Do you or have you ever used smokeless tobacco? Never used smokeless tobacco MIGRATION.663693 3139 Information not available 12/17/2022 Do you have difficulty doing errands alone? 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 No MIGRATION.327618 0006 Information not available 12/17/2022 Do you or have you ever used e-cigarettes or vape? Never used electronic cigarettes MIGRATION.397842 4253 Information not available 12/17/2022 What is your exercise level? Moderate MIGRATION.400279 5213 Information not available 12/17/2022 Mental Status Question Answer Note LastModified by Organizat ion Details LastModified Time Do you feel stressed (tense, restless, nervous, or anxious, or unable to sleep at night)? NG74134-9 MIGRATION.00437285 26 Information not available 12/17/2022 Do you have difficulty concentrating, remembering or making decisions? No MIGRATION.32298480 26 Information not available 12/17/2022 Family History Relationship Description Onset Age of this Age Resolved Age Notes LastModified by Organization Details LastModified Time Father Diabetes mellitus MIGRATION.517 [id number] Not available 12/17/2022 04:44:23 Mother Diabetes mellitus MIGRATION.692 [id number] Not available 12/17/2022 04:44:23 Medical History Condition [...] HAVE YOU BEEN HOSPITALIZED OR SEEN IN [facility] IN THE PAST YEAR ? N [...] 50 mcg/0.25mL dose 1 completed Not Available [facility] [place] [facility] 10/03/2023 06:30:09 Influenza, split virus, trivalent, preservative 2 completed Not Available [facility] 10/03/2023 06:30:09 Influenza, split virus, quadrivalent, preservative 1 completed Not Available [facility] 10/03/2023 06:30:09 COVID-19, mRNA, LNP-S, PF, 30 mcg/0.3 mL dose 1 completed Not Available [facility] 10/03/2023 06:30:09 COVID-19, mRNA, LNP-S, PF, 30 mcg/0.3 mL dose 1 completed Not Available [facility] 10/03/2023 06:30:09 Influenza, split virus, trivalent, preservative 0 completed Not Available [facility] 10/03/2023 06:30:09 Influenza, split virus, quadrivalent, preservative 8 completed Not Available [facility] 10/03/2023 06:30:09 Influenza, split virus, quadrivalent, preservative 7 completed Not Available [facility] 10/03/2023 06:30:09 Past Encounters Encounter ID Performer Location Encounter Start Date Encounter Closed Date Diagnosis/Indication Diagnosis SNOMED-CT Code Diagnosis ICD10 Code Diagnosis IMO Codes Diagnosis Note [id number] Jr Peterson MD [facility] Internal Med [facility] [address] [address] 03/20/2021 00:00:00 03/30/2021 15:03:55 [id number] Jr Peterson MD [facility] Internal Med [facility] [address] [address] 10/16/2021 00:00:00 10/16/2021 20:36:59 [id number] Jr Peterson MD [facility] Internal Med [facility] [address] [address] 11/13/2021 00:00:00 11/17/2021 12:10:48 [id number] Jr Peterson MD [facility] Internal Med [facility] [address] [facility] [address] [place] [address] 02/12/2022 00:00:00 02/16/2022 12:52:58 [id number] Jr Peterson MD [facility] Internal Med [facility] [address] [facility] [address] [address] 09/03/2022 00:00:00 09/07/2022 15:35:08 [id number] Jr Peterson MD [facility] Internal Med [facility] [address] [facility] [address] [address] 03/11/2023 15:24:03 03/12/2023 16:59:08 Screening mammography 24415320 Z12.31 Gout 54111021 M10.9 Essential hypertension 81171799 I10 Vitamin D below reference range 398310440 E55.9 Dyslipidemia 330499754 E 78.5 Crohn's disease 80869521 K50.90 [id number] Jr Peterson MD [facility] Internal Med [facility] [address] [facility], [address] [address] 09/30/2023 15:38:04 09/30/2023 17:14:37 Dyslipidemia 525492268 E78.5 Essential hypertension 50726651 I10 Gout 72488178 M10.9 Vitamin D below reference range 272954228 E55.9 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 [id number] Alex Hoyt [id number] Marjorie Hoyt Notes Date Note Type Note Provider Name and Address Organization Details Recorded Time 3 text/html Crohn's stablegout no flare-upslow vitamin-D Needs supplementdyslipidemia needs to take atorvastatin regularlyhypertension stable pressure 130/88Needs to lose some weight Jr Peterson MD [address], [place], [address], [employer] [facility] 03/14/2023 14:49:58 3 text/html Crohn's stablegout no flare-upslow vitamin-D Needs supplementdyslipidemia needs to take atorvastatin regularlyhypertension stableNeeds to lose some weight Jr Peterson MD [address], [place], [address], [employer] 10/19/2023 21:15:45 OBGyn Episode No OBEpisode recorded.
== END 2025-08-03 14:17 | disposition home or self-care (01) ==
LOC: ANHLAB 14:16
PROVIDERS: PCP Internal Medicine; Visit Provider Emergency Medicine
DX: E83.42 Hypomagnesemia (principal); E83.51 Hypocalcemia
CPT/HCPCS: 36415; 80053; 83735

== ENCOUNTER 2025-08-10 17:03 | Outpatient (CLI) | payer OTHER, SELFPAY ==
[2025-08-10 17:36] LABS: CRP 4.6 mg/dL (<1.0)
== END 2025-08-10 17:04 | disposition home or self-care (01) ==
LOC: ANHLAB 17:06
PROVIDERS: PCP Internal Medicine; Visit Provider Nurse Practitioner Family
DX: K50.90 Crohn's disease, unspecified, without complications (principal)
CPT/HCPCS: 36415; 85652; 86140

== ENCOUNTER 2025-08-12 13:34 | Outpatient (NON) | payer OTHER, SELFPAY ==
--- OUTSIDE RECORDS SUMMARY | 2025-08-12 13:40 | XMS_ITS | Data Portability ---
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 Lab uric acid, serum or plasma 2022 023 [facility] (Lab), [address] [place], [address], 3 11:08:33 lipid panel, serum 2022 023 [facility] (Lab), [address] [place], [address], 3 11:08:38 CBC w/ auto diff 2022 023 [facility] (Lab), [address] [place], [address], 3 11:08:44 CMP, serum or plasma 2022 023 [facility] (Lab), [address] [place], [address], 3 11:08:49 Referral None recorded. Procedures None recorded. Surgeries None recorded. Imaging MAMMO, screening, digital, bilateral 2022 023 [facility] (Radiology), [address] [place], [address], 3 14:32:35 Medication Orders None recorded. Patient TargetsNo targets recorded. Patient InstructionsNo instructions recorded. Reason for Referral None Reported. Results Created Date Observation Date Name Description Value Unit Range Abnormal Flag Note LastModifiedBy Organization Detail LastModifiedTime 11/11/1911/11/2021 FOLAT E, SERUM /PLAS MA folate >20.0 NG/mL 2.76- Not Available [facility] (Lab) [address] [place], [address], 11/11/2021 12:19:27 11/11/1911/11/2021 LIPID PANEL cholesterol 260 mg/dL 140-19 9 high NIH MARCELLE NSUS RECOM MENDA TION FOR BEN STERO L: ADULT CHILD LOW RISK: <200 <170 BORDE RLINE : <200- 239 ----- HIGH RISK: >240 >200 Not Available [facility] (Lab) [address] [place], [address], 11/11/2021 10:49:46 11/11/19 22 11/11/2021 LIPID PANEL triglyceride s 69 mg/dL 0-150 NIH MARCELLE NSUS REPOR T RECOM MENDA TION FOR TRIGL YCERI STEPHANIE: ADULT CHILD LOW RISK: <150 ----- BODER LINE: 150-1 99 ----- HIGH RISK: >200 ----- Not Available [facility] (Lab) [address] [place], [address], 11/11/2021 10:49:46 11/11/19 22 11/11/2021 LIPID PANEL HDL cholesterol 132 mg/dL 40- Not Available [facility] (Lab) [address] [place], [address], 11/11/2021 10:49:46 11/11/19 22 11/11/2021 LIPID PANEL [...] WILL NOT BE REPOR RADHA. Not Available [facility] (Lab) [address] [place], [address], 11/11/2021 10:49:46 11/11/19 22 11/11/2021 URIC ACID SERUM uric acid 1.8 mg/dL 2.5-6. 2 low Not Available [facility] (Lab) [address] [place], [address], 11/11/2021 10:49:45 11/11/19 22 11/11/2021 COMPR EHENS GALILEO METAB OLIC PANEL sodium 135 mmol/ L 137-14 5 low Not Available [facility] (Lab) [address] [place], [address], 11/11/2021 10:49:40 11/11/19 22 11/11/2021 COMPR EHENS GALILEO METAB OLIC PANEL potassium 3.6 mmol/ L 3.5-5. 1 Not Available [facility] (Lab) [address] [place], [address], 11/11/2021 10:49:40 11/11/19 22 11/11/2021 COMPR EHENS GALILEO METAB OLIC PANEL chloride 98 mmol/ L 98-107 Not Available [facility] (Lab) [address] [place], [address], 11/11/2021 10:49:40 11/11/19 11/11/2021 COMPR EHENS GALILEO METAB OLIC PANEL carbon dioxide 27 mmol/ L 22-30 Not Available [facility] (Lab) [address] [place], [address], 11/11/2021 10:49:40 11/11/19 22 11/11/2021 COMPR EHENS GALILEO METAB OLIC PANEL agap 13.6 mmol/ L 14-22 low Not Available [facility] (Lab) [address] [place], [address], 11/11/2021 10:49:40 11/11/19 22 11/11/2021 COMPR EHENS GALILEO METAB OLIC PANEL glucose 78 mg/dL 70-99 Not Available [facility] (Lab) [address] [place], [address], 11/11/2021 10:49:40 11/11/19 22 11/11/2021 COMPR EHENS GALILEO METAB OLIC PANEL BUN 17 mg/dL 8-19 Not Available [facility] (Lab) [address] [place], [address], 11/11/2021 10:49:40 11/11/19 22 11/11/2021 COMPR EHENS GALILEO METAB OLIC PANEL creatinine 1.02 mg/dL 0.66-1 .25 Not Available [facility] (Lab) [address] [place], [address], 11/11/2021 10:49:40 11/11/19 22 11/11/2021 COMPR EHENS GALILEO METAB OLIC PANEL GFR >60 Refer ence Range : Landrum ge GFR Healt hy Adult : >60 [...] is avail able on the [facility] websi te: [email or web address] :[email or web address] rg/pr ofess ional s/kdo qi/gf r_cal culat or Not Available [facility] (Lab) [address] [place], [address], 11/11/2021 10:49:40 11/11/19 22 11/11/2021 COMPR EHENS GALILEO METAB OLIC PANEL alkaline phosphatase 87 U/L 38-126 Not Available [facility] (Lab) [address] [place], [address], 11/11/2021 10:49:40 11/11/19 22 11/11/2021 COMPR EHENS GALILEO METAB OLIC PANEL alanine aminotransfe rase 65 U/L 0-35 high Not Available [facility] (Lab) [address] [place], [address], 11/11/2021 10:49:40 11/11/19 22 11/11/2021 COMPR EHENS GALILEO METAB OLIC PANEL aspartate aminotransfe rase 96 U/L 15-37 high Not Available [facility] (Lab) [address] [place], [address], 11/11/2021 10:49:40 11/11/19 22 11/11/2021 COMPR EHENS GALILEO METAB OLIC PANEL bilirubin, total 0.80 mg/dL 0.20-1 .30 Not Available [facility] (Lab) [address] [facility] [place], [address], 11/11/2021 10:49:40 11/11/19 22 11/11/2021 COMPR EHENS GALILEO METAB OLIC PANEL calcium 8.8 mg/dL 8.4-10 .2 Not Available [facility] (Lab) [address] [place], [address], 11/11/2021 10:49:40 11/11/19 22 11/11/2021 COMPR EHENS GALILEO METAB OLIC PANEL total protein 8.9 g/dL 6.3-8. 2 high Not Available [facility] (Lab) [address] [place], [address], 11/11/2021 10:49:40 11/11/19 22 11/11/2021 COMPR EHENS GALILEO METAB OLIC PANEL albumin 4.7 g/dL 3.4-5. 0 Not Available [facility] (Lab) [address] [place], [address], 11/11/2021 10:49:40 11/11/19 22 11/11/2021 COMPR EHENS GALILEO METAB OLIC PANEL globulin 4.2 g/dL 2.6-4. 2 Not Available [facility] (Lab) [address] [place], [address], 11/11/2021 10:49:40 11/11/19 22 11/11/2021 COMPR EHENS GALILEO METAB OLIC PANEL A/G ratio 1.1 ratio 1.0-2. 0 Not Available [facility] (Lab) [address] [place], [address], 11/11/2021 10:49:40 11/11/19 22 11/11/2021 CBC/C OMPLE TE BLD COUNT W/DIF F white blood cells 6.1 x10'3 /uL 4.2-10 .8 Not Available [facility] (Lab) [address] [place], [address], 11/11/2021 09:54:00 11/11/19 22 11/11/2021 CBC/C OMPLE TE BLD COUNT W/DIF F red blood cells 4.19 x10'6 /uL 3.80-5 .20 Not Available [facility] (Lab) [address] [place], [address], 11/11/2021 09:54:00 11/11/1911/11/2021 CBC/C OMPLE TE BLD COUNT W/DIF F hemoglobin 12.8 g/dL 12.0-1 5.6 Not Available [facility] (Lab) [address] [place], [address], 11/11/2021 09:54:00 11/11/19 22 11/11/2021 CBC/C OMPLE TE BLD COUNT W/DIF F hematocrit 35.6 % 35.7-4 5.7 low Not Available [facility] (Lab) [address] [place], [address], 11/11/2021 09:54:00 11/11/19 22 11/11/2021 CBC/C OMPLE TE BLD COUNT W/DIF F mean red cell volume 85.0 fL 82.0-9 9.0 Not Available [facility] (Lab) [address] [place], [address], 11/11/2021 09:54:00 11/11/1911/11/2021 CBC/C OMPLE TE BLD COUNT W/DIF F mean red cell hemoglobin 30.5 pg 27.0-3 3.0 Not Available [facility] (Lab) [address] [place], [address], 11/11/2021 09:54:00 11/11/19 22 11/11/2021 CBC/C OMPLE TE BLD COUNT W/DIF F mean RBC HGB concentratio n 36.0 g/dL 31.0-3 6.0 Not Available [facility] (Lab) [address] [place], [address], 11/11/2021 09:54:00 11/11/19 22 11/11/2021 CBC/C OMPLE TE BLD COUNT W/DIF F red cell distribution width 12.4 % 11.8-1 5.5 Not Available [facility] (Lab) [address] [place], [address], 11/11/2021 09:54:00 11/11/1911/11/2021 CBC/C OMPLE TE BLD COUNT W/DIF F platelets 239 x10'3 /uL 150-40 0 Not Available [facility] (Lab) [address] [place], [address], 11/11/2021 09:54:00 11/11/19 22 11/11/2021 CBC/C OMPLE TE BLD COUNT W/DIF F mean platelet volume 9.2 fL 9.0-12 .4 Not Available [facility] (Lab) [address] [place], [address], 11/11/2021 09:54:00 11/11/1911/11/2021 CBC/C OMPLE TE BLD COUNT W/DIF F neutrophils 53.6 % 39.0-7 2.0 Not Available [facility] (Lab) [address] [place], [address], 11/11/2021 09:54:00 11/11/1911/11/2021 CBC/C OMPLE TE BLD COUNT W/DIF F lymphocytes 31.5 % 16.0-4 7.0 Not Available [facility] (Lab) [address] [place], [address], 11/11/2021 09:54:00 11/11/19 22 11/11/2021 CBC/C OMPLE TE BLD COUNT W/DIF F monocytes 10.5 % 5.0-12 .0 Not Available [facility] (Lab) [address] [place], [address], 11/11/2021 09:54:00 11/11/19 22 11/11/2021 CBC/C OMPLE TE BLD COUNT W/DIF F eosinophils 2.8 % 1.0-7. 0 Not Available [facility] (Lab) [address] [place], [address], 11/11/2021 09:54:00 11/11/1911/11/2021 CBC/C OMPLE TE BLD COUNT W/DIF F basophils 1.3 % 0.0-2. 0 Not Available [facility] (Lab) [address] [place], [address], 11/11/2021 09:54:00 11/11/1911/11/2021 CBC/C OMPLE TE BLD COUNT W/DIF F immature granulocytes 0.3 % 0.00-0 .50 Not Available [facility] (Lab) [address] [place], [address], 11/11/2021 09:54:00 11/11/1911/11/2021 CBC/C OMPLE TE BLD COUNT W/DIF F neutrophils, absolute count 3.26 x10'3 /uL 1.5-8. 0 Not Available [facility] (Lab) [address] [place], [address], 11/11/2021 09:54:00 11/11/1911/11/2021 CBC/C OMPLE TE BLD COUNT W/DIF F lymphocytes, absolute count 1.92 x10'3 /uL 1.07-3 .43 Not Available [facility] (Lab) [address] [place], [address], 11/11/2021 09:54:00 11/11/19 22 11/11/2021 CBC/C OMPLE TE BLD COUNT W/DIF F monocytes, absolute count 0.64 x10'3 /uL 0.29-0 .99 Not Available [facility] (Lab) [address] [place], [address], 11/11/2021 09:54:00 11/11/19 22 11/11/2021 CBC/C OMPLE TE BLD COUNT W/DIF F eosinophils, absolute count 0.17 x10'3 /uL 0.02-0 .53 Not Available [facility] (Lab) [address] [place], [address], 11/11/2021 09:54:00 11/11/19 22 11/11/2021 CBC/C OMPLE TE BLD COUNT W/DIF F basophils, absolute count 0.08 x10'3 /uL 0.01-0 .08 Not Available [facility] (Lab) [address] [place], [address], 11/11/2021 09:54:00 11/11/19 22 11/11/2021 CBC/C OMPLE TE BLD COUNT W/DIF F immature granulocytes ,absolute 0.02 x10'3 /uL 0.00-0 .05 Not Available [facility] (Lab) [address] [place], [address], 11/11/2021 09:54:00 11/11/19 22 11/11/2021 CBC/C OMPLE TE BLD COUNT W/DIF F nucleated red blood cells 0.0 % -0 Not Available [facility] (Lab) [address] [place], [address], 11/11/2021 09:54:00 11/11/19 22 11/11/2021 CBC/C OMPLE TE BLD COUNT W/DIF F NRBC# 0.00 x10'3 /uL Not Available [facility] (Lab) [address] [place], [address], 11/11/2021 09:54:00 09/02/20 22 09/02/2022 COMPR EHENS GALILEO METAB OLIC PANEL sodium 132 mmol/ L 137-14 5 low Not Available [facility] (Lab) [address] [place], [address], 09/02/2022 11:06:00 09/02/20 22 09/02/2022 COMPR EHENS GALILEO METAB OLIC PANEL potassium 3.6 mmol/ L 3.5-5. 1 Not Available [facility] (Lab) [address] [place], [address], 09/02/2022 11:06:00 09/02/20 22 09/02/2022 COMPR EHENS GALILEO METAB OLIC PANEL chloride 92 mmol/ L 98-107 low Not Available [facility] (Lab) [address] [place], [address], 09/02/2022 11:06:00 09/02/20 22 09/02/2022 COMPR EHENS GALILEO METAB OLIC PANEL carbon dioxide 27 mmol/ L 22-30 Not Available [facility] (Lab) [address] [place], [address], 09/02/2022 11:06:00 09/02/20 22 09/02/2022 COMPR EHENS GALILEO METAB OLIC PANEL anion gap 16.6 mmol/ L 14-22 Not Available [facility] (Lab) [address] [place], [address], 09/02/2022 11:06:00 09/02/20 22 09/02/2022 COMPR EHENS GALILEO METAB OLIC PANEL glucose 80 mg/dL 70-99 Not Available [facility] (Lab) [address] [place], [address], 09/02/2022 11:06:00 09/02/20 22 09/02/2022 COMPR EHENS GALILEO METAB OLIC PANEL BUN 19 mg/dL 8-19 Not Available [facility] (Lab) [address] [place], [address], 09/02/2022 11:06:00 09/02/20 22 09/02/2022 COMPR EHENS GALILEO METAB OLIC PANEL creatinine 0.94 mg/dL 0.66-1 .25 Not Available [facility] (Lab) [address] [facility] [place], [address], 09/02/2022 11:06:00 09/02/20 22 09/02/2022 COMPR EHENS GALILEO METAB OLIC PANEL GFR >60 Refer ence Range : Landrum ge GFR Healt hy Adult : >60 [...] s/kdo qi/gf r_cal culat or Not Available [facility] (Lab) [address] [place], [address], 09/02/2022 11:06:00 09/02/20 22 09/02/2022 COMPR EHENS GALILEO METAB OLIC PANEL alkaline phosphatase 79 U/L 38-126 Not Available [facility] (Lab) [address] [place], [address], 09/02/2022 11:06:00 09/02/20 22 09/02/2022 COMPR EHENS GALILEO METAB OLIC PANEL alanine aminotransfe rase 45 U/L 0-35 high Not Available [facility] (Lab) [address] [place], [address], 09/02/2022 11:06:00 09/02/20 22 09/02/2022 COMPR EHENS GALILEO METAB OLIC PANEL aspartate aminotransfe rase 73 U/L 15-37 high Not Available [facility] (Lab) [address] [place], [address], 09/02/2022 11:06:00 09/02/20 22 09/02/2022 COMPR EHENS GALILEO METAB OLIC PANEL bilirubin, total 1.10 mg/dL 0.20-1 .30 Not Available [facility] (Lab) [address] [place], [address], 09/02/2022 11:06:00 09/02/20 22 09/02/2022 COMPR EHENS GALILEO METAB OLIC PANEL calcium 9.1 mg/dL 8.4-10 .2 Not Available [facility] (Lab) [address] [facility] [place], [address], 09/02/2022 11:06:00 09/02/20 22 09/02/2022 COMPR EHENS GALILEO METAB OLIC PANEL total protein 8.7 g/dL 6.3-8. 2 high Not Available [facility] (Lab) [address] [place], [address], 09/02/2022 11:06:00 09/02/20 22 09/02/2022 COMPR EHENS GALILEO METAB OLIC PANEL albumin 4.3 g/dL 3.4-5. 0 Not Available [facility] (Lab) [address] [place], [address], 09/02/2022 11:06:00 09/02/20 22 09/02/2022 COMPR EHENS GALILEO METAB OLIC PANEL globulin 4.4 g/dL 2.6-4. 2 high Not Available [facility] (Lab) [address] [place], [address], 09/02/2022 11:06:00 09/02/20 22 09/02/2022 COMPR EHENS GALILEO METAB OLIC PANEL A/G ratio 1.0 ratio 1.0-2. 0 Not Available [facility] (Lab) [address] [place], [address], 09/02/2022 11:06:00 09/02/20 22 09/02/2022 LIPID PANEL cholesterol 234 mg/dL 140-19 9 high NIH MARCELLE NSUS RECOM MENDA TION FOR BEN STERO L: ADULT CHILD LOW RISK: <200 <170 BORDE RLINE : <200- 239 ----- HIGH RISK: >240 >200 Not Available [facility] (Lab) [address] [place], [address], 09/02/2022 11:05:54 09/02/20 22 09/02/2022 LIPID PANEL triglyceride s 75 mg/dL 0-150 NIH MARCELLE NSUS REPOR T RECOM MENDA TION FOR TRIGL YCERI STEPHANIE: ADULT CHILD LOW RISK: <150 ----- BODER LINE: 150-1 99 ----- HIGH RISK: >200 ----- Not Available [facility] (Lab) [address] [place], [address], 09/02/2022 11:05:54 09/02/20 22 09/02/2022 LIPID PANEL HDL cholesterol 89 mg/dL 40- Not Available [facility] (Lab) [address] [place], [address], 09/02/2022 11:05:54 09/02/20 22 09/02/2022 LIPID PANEL [...] WILL NOT BE REPOR RADHA. Not Available [facility] (Lab) [address] [place], [address], 09/02/2022 11:05:54 09/02/20 22 09/02/2022 URIC ACID SERUM uric acid 2.2 mg/dL 2.5-6. 2 low Not Available [facility] (Lab) [address] [place], [address], 09/02/2022 11:05:49 09/02/20 22 09/02/2022 CBC/C OMPLE TE BLD COUNT W/DIF F white blood cells 5.8 x10'3 /uL 4.2-10 .8 Not Available [facility] (Lab) [address] [place], [address], 09/02/2022 09:59:55 09/02/20 22 09/02/2022 CBC/C OMPLE TE BLD COUNT W/DIF F red blood cells 4.23 x10'6 /uL 3.80-5 .20 Not Available [facility] (Lab) [address] [place], [address], 09/02/2022 09:59:55 09/02/20 22 09/02/2022 CBC/C OMPLE TE BLD COUNT W/DIF F hemoglobin 13.1 g/dL 12.0-1 5.6 Not Available [facility] (Lab) [address] [place], [address], 09/02/2022 09:59:55 09/02/20 22 09/02/2022 CBC/C OMPLE TE BLD COUNT W/DIF F hematocrit 35.3 % 35.7-4 5.7 low Not Available [facility] (Lab) [address] [place], [address], 09/02/2022 09:59:55 09/02/20 22 09/02/2022 CBC/C OMPLE TE BLD COUNT W/DIF F mean red cell volume 83.5 fL 82.0-9 9.0 Not Available [facility] (Lab) [address] [place], [address], 09/02/2022 09:59:55 09/02/20 22 09/02/2022 CBC/C OMPLE TE BLD COUNT W/DIF F mean red cell hemoglobin 31.0 pg 27.0-3 3.0 Not Available [facility] (Lab) [address] [place], [address], 09/02/2022 09:59:55 09/02/20 22 09/02/2022 CBC/C OMPLE TE BLD COUNT W/DIF F mean RBC HGB concentratio n 37.1 g/dL 31.0-3 6.0 high Not Available [facility] (Lab) [address] [place], [address], 09/02/2022 09:59:55 09/02/20 22 09/02/2022 CBC/C OMPLE TE BLD COUNT W/DIF F red cell distribution width 12.0 % 11.8-1 5.5 Not Available [facility] (Lab) [address] [place], [address], 09/02/2022 09:59:55 09/02/20 22 09/02/2022 CBC/C OMPLE TE BLD COUNT W/DIF F platelets 261 x10'3 /uL 150-40 0 Not Available [facility] (Lab) [address] [place], [address], 09/02/2022 09:59:55 09/02/20 22 09/02/2022 CBC/C OMPLE TE BLD COUNT W/DIF F mean platelet volume 8.7 fL 9.0-12 .4 low Not Available [facility] (Lab) [address] [place], [address], 09/02/2022 09:59:55 09/02/20 22 09/02/2022 CBC/C OMPLE TE BLD COUNT W/DIF F neutrophils 66.0 % 39.0-7 2.0 Not Available [facility] (Lab) [address] [place], [address], 09/02/2022 09:59:55 09/02/20 22 09/02/2022 CBC/C OMPLE TE BLD COUNT W/DIF F lymphocytes 22.0 % 16.0-4 7.0 Not Available [facility] (Lab) [address] [place], [address], 09/02/2022 09:59:55 09/02/20 22 09/02/2022 CBC/C OMPLE TE BLD COUNT W/DIF F monocytes 10.7 % 5.0-12 .0 Not Available [facility] (Lab) [address] [place], [address], 09/02/2022 09:59:55 09/02/20 22 09/02/2022 CBC/C OMPLE TE BLD COUNT W/DIF F eosinophils 0.3 % 1.0-7. 0 low Not Available [facility] (Lab) [address] [place], [address], 09/02/2022 09:59:55 09/02/20 22 09/02/2022 CBC/C OMPLE TE BLD COUNT W/DIF F basophils 0.7 % 0.0-2. 0 Not Available [facility] (Lab) [address] [place], [address], 09/02/2022 09:59:55 09/02/20 22 09/02/2022 CBC/C OMPLE TE BLD COUNT W/DIF F immature granulocytes 0.3 % 0.00-0 .50 Not Available [facility] (Lab) [address] [place], [address], 09/02/2022 09:59:55 09/02/20 22 09/02/2022 CBC/C OMPLE TE BLD COUNT W/DIF F neutrophils, absolute count 3.83 x10'3 /uL 1.5-8. 0 Not Available [facility] (Lab) [address] [place], [address], 09/02/2022 09:59:55 09/02/20 22 09/02/2022 CBC/C OMPLE TE BLD COUNT W/DIF F lymphocytes, absolute count 1.28 x10'3 /uL 1.07-3 .43 Not Available [facility] (Lab) [address] [place], [address], 09/02/2022 09:59:55 09/02/20 22 09/02/2022 CBC/C OMPLE TE BLD COUNT W/DIF F monocytes, absolute count 0.62 x10'3 /uL 0.29-0 .99 Not Available [facility] (Lab) [address] [place], [address], 09/02/2022 09:59:55 09/02/20 22 09/02/2022 CBC/C OMPLE TE BLD COUNT W/DIF F eosinophils, absolute count 0.02 x10'3 /uL 0.02-0 .53 Not Available [facility] (Lab) [address] [place], [address], 09/02/2022 09:59:55 09/02/20 22 09/02/2022 CBC/C OMPLE TE BLD COUNT W/DIF F basophils, absolute count 0.04 x10'3 /uL 0.01-0 .08 Not Available [facility] (Lab) [address] [place], [address], 09/02/2022 09:59:55 09/02/20 22 09/02/2022 CBC/C OMPLE TE BLD COUNT W/DIF F immature granulocytes ,absolute 0.02 x10'3 /uL 0.00-0 .05 Not Available [facility] (Lab) [address] [place], [address], 09/02/2022 09:59:55 09/02/20 22 09/02/2022 CBC/C OMPLE TE BLD COUNT W/DIF F nucleated red blood cells 0.0 % -0 Not Available [facility] (Lab) [address] [place], [address], 09/02/2022 09:59:55 09/02/20 22 09/02/2022 CBC/C OMPLE TE BLD COUNT W/DIF F NRBC# 0.00 x10'3 /uL Not Available [facility] (Lab) [address] [place], [address], 09/02/2022 09:59:55 09/29/20 23 09/29/2023 CBC/C OMPLE TE BLD COUNT W/DIF F white blood cells 6.2 x10'3 /uL 4.2-10 .8 Not Available [facility] (Lab) [address] [place], [address], 09/29/2023 09:30:57 09/29/20 23 09/29/2023 CBC/C OMPLE TE BLD COUNT W/DIF F red blood cells 4.39 x10'6 /uL 3.80-5 .20 Not Available [facility] (Lab) [address] [place], [address], 09/29/2023 09:30:57 09/29/20 23 09/29/2023 CBC/C OMPLE TE BLD COUNT W/DIF F hemoglobin 13.2 g/dL 12.0-1 5.6 Not Available [facility] (Lab) [address] [place], [address], 09/29/2023 09:30:57 09/29/20 23 09/29/2023 CBC/C OMPLE TE BLD COUNT W/DIF F hematocrit 36.9 % 35.7-4 5.7 Not Available [facility] (Lab) [address] [place], [address], 09/29/2023 09:30:57 09/29/20 23 09/29/2023 CBC/C OMPLE TE BLD COUNT W/DIF F mean red cell volume 84.1 fL 82.0-9 9.0 Not Available [facility] (Lab) [address] [place], [address], 09/29/2023 09:30:57 09/29/20 23 09/29/2023 CBC/C OMPLE TE BLD COUNT W/DIF F mean red cell hemoglobin 30.1 pg 27.0-3 3.0 Not Available [facility] (Lab) [address] [place], [address], 09/29/2023 09:30:57 09/29/20 23 09/29/2023 CBC/C OMPLE TE BLD COUNT W/DIF F mean RBC HGB concentratio n 35.8 g/dL 31.0-3 6.0 Not Available [facility] (Lab) [address] [place], [address], 09/29/2023 09:30:57 09/29/20 23 09/29/2023 CBC/C OMPLE TE BLD COUNT W/DIF F red cell distribution width 12.4 % 11.8-1 5.5 Not Available [facility] (Lab) [address] [place], [address], 09/29/2023 09:30:57 09/29/20 23 09/29/2023 CBC/C OMPLE TE BLD COUNT W/DIF F platelets 270 x10'3 /uL 150-40 0 Not Available [facility] (Lab) [address] [place], [address], 09/29/2023 09:30:57 09/29/20 23 09/29/2023 CBC/C OMPLE TE BLD COUNT W/DIF F mean platelet volume 9.6 fL 9.0-12 .4 Not Available [facility] (Lab) [address] [place], [address], 09/29/2023 09:30:57 09/29/20 23 09/29/2023 CBC/C OMPLE TE BLD COUNT W/DIF F neutrophils 57.9 % 39.0-7 2.0 Not Available [facility] (Lab) [address] [place], [address], 09/29/2023 09:30:57 09/29/20 23 09/29/2023 CBC/C OMPLE TE BLD COUNT W/DIF F lymphocytes 28.6 % 16.0-4 7.0 Not Available [facility] (Lab) [address] [place], [address], 09/29/2023 09:30:57 09/29/20 23 09/29/2023 CBC/C OMPLE TE BLD COUNT W/DIF F monocytes 10.9 % 5.0-12 .0 Not Available [facility] (Lab) [address] [place], [address], 09/29/2023 09:30:57 09/29/20 23 09/29/2023 CBC/C OMPLE TE BLD COUNT W/DIF F eosinophils 1.3 % 1.0-7. 0 Not Available [facility] (Lab) [address] [place], [address], 09/29/2023 09:30:57 09/29/20 23 09/29/2023 CBC/C OMPLE TE BLD COUNT W/DIF F basophils 1.0 % 0.0-2. 0 Not Available [facility] (Lab) [address] [place], [address], 09/29/2023 09:30:57 09/29/20 23 09/29/2023 CBC/C OMPLE TE BLD COUNT W/DIF F immature granulocytes 0.3 % 0.00-0 .50 Not Available [facility] (Lab) [address] [place], [address], 09/29/2023 09:30:57 09/29/20 23 09/29/2023 CBC/C OMPLE TE BLD COUNT W/DIF F neutrophils, absolute count 3.60 x10'3 /uL 1.5-8. 0 Not Available [facility] (Lab) [address] [place], [address], 09/29/2023 09:30:57 09/29/20 23 09/29/2023 CBC/C OMPLE TE BLD COUNT W/DIF F lymphocytes, absolute count 1.78 x10'3 /uL 1.07-3 .43 Not Available [facility] (Lab) [address] [place], [address], 09/29/2023 09:30:57 09/29/20 23 09/29/2023 CBC/C OMPLE TE BLD COUNT W/DIF F monocytes, absolute count 0.68 x10'3 /uL 0.29-0 .99 Not Available [facility] (Lab) [address] [place], [address], 09/29/2023 09:30:57 09/29/20 23 09/29/2023 CBC/C OMPLE TE BLD COUNT W/DIF F eosinophils, absolute count 0.08 x10'3 /uL 0.02-0 .53 Not Available [facility] (Lab) [address] [place], [address], 09/29/2023 09:30:57 09/29/20 23 09/29/2023 CBC/C OMPLE TE BLD COUNT W/DIF F basophils, absolute count 0.06 x10'3 /uL 0.01-0 .08 Not Available [facility] (Lab) [address] [place], [address], 09/29/2023 09:30:57 09/29/20 23 09/29/2023 CBC/C OMPLE TE BLD COUNT W/DIF F immature granulocytes ,absolute 0.02 x10'3 /uL 0.00-0 .05 Not Available [facility] (Lab) [address] [place], [address], 09/29/2023 09:30:57 09/29/20 23 09/29/2023 CBC/C OMPLE TE BLD COUNT W/DIF F nucleated red blood cells 0.0 % -0 Not Available [facility] (Lab) [address] [place], [address], 09/29/2023 09:30:57 09/29/20 23 09/29/2023 CBC/C OMPLE TE BLD COUNT W/DIF F NRBC# 0.00 x10'3 /uL Not Available [facility] (Lab) [address] [place], [address], 09/29/2023 09:30:57 09/29/20 23 09/29/2023 COMPR EHENS GALILEO METAB OLIC PANEL sodium 135 mmol/ L 137-14 5 low Not Available [facility] (Lab) [address] [place], [address], 09/29/2023 09:49:51 09/29/20 23 09/29/2023 COMPR EHENS GALILEO METAB OLIC PANEL potassium 3.6 mmol/ L 3.5-5. 1 Not Available [facility] (Lab) [address] [place], [address], 09/29/2023 09:49:51 09/29/20 23 09/29/2023 COMPR EHENS GALILEO METAB OLIC PANEL chloride 95 mmol/ L 98-107 low Not Available [facility] (Lab) [address] [place], [address], 09/29/2023 09:49:51 09/29/20 23 09/29/2023 COMPR EHENS GALILEO METAB OLIC PANEL carbon dioxide 27 mmol/ L 22-30 Not Available [facility] (Lab) [address] [place], [address], 09/29/2023 09:49:51 09/29/20 23 09/29/2023 COMPR EHENS GALILEO METAB OLIC PANEL anion gap 16.6 mmol/ L 14-22 Not Available [facility] (Lab) [address] [place], [address], 09/29/2023 09:49:51 09/29/20 23 09/29/2023 COMPR EHENS GALILEO METAB OLIC PANEL glucose 88 mg/dL 70-99 Not Available [facility] (Lab) [address] [place], [address], 09/29/2023 09:49:51 09/29/20 23 09/29/2023 COMPR EHENS GALILEO METAB OLIC PANEL BUN 17 mg/dL 8-19 Not Available [facility] (Lab) [address] [facility] [place], [address], 09/29/2023 09:49:51 09/29/20 23 09/29/2023 COMPR EHENS GALILEO METAB OLIC PANEL creatinine 0.99 mg/dL 0.66-1 .25 Not Available [facility] (Lab) [address] [place], [address], 09/29/2023 09:49:51 09/29/20 23 09/29/2023 COMPR EHENS GALILEO METAB OLIC PANEL GFR >60 Refer ence Range : Landrum ge GFR Healt hy Adult : >60 [...] is avail able on the [facility] websi te: [email or web address] :[email or web address] rg/pr [email or web address] ional [email or web address] [email or web address]/gf r_cal culat or Not Available [facility] (Lab) [address] [place], [address], 09/29/2023 09:49:51 09/29/20 23 09/29/2023 COMPR EHENS GALILEO METAB OLIC PANEL alkaline phosphatase 82 U/L 38-126 Not Available [facility] (Lab) [address] [place], [address], 09/29/2023 09:49:51 09/29/20 23 09/29/2023 COMPR EHENS GALILEO METAB OLIC PANEL alanine aminotransfe rase 67 U/L 0-35 high Not Available [facility] (Lab) [address] [place], [address], 09/29/2023 09:49:51 09/29/20 23 09/29/2023 COMPR EHENS GALILEO METAB OLIC PANEL aspartate aminotransfe rase 93 U/L 15-37 high Not Available [facility] (Lab) [address] [place], [address], 09/29/2023 09:49:51 09/29/20 23 09/29/2023 COMPR EHENS GALILEO METAB OLIC PANEL bilirubin, total 1.10 mg/dL 0.20-1 .30 Not Available [facility] (Lab) [address] [place], [address], 09/29/2023 09:49:51 09/29/20 23 09/29/2023 COMPR EHENS GALILEO METAB OLIC PANEL calcium 9.7 mg/dL 8.4-10 .2 Not Available [facility] (Lab) [address] [place], [address], 09/29/2023 09:49:51 09/29/2009/29/2023 COMPR EHENS GALILEO METAB OLIC PANEL total protein 10.1 g/dL 6.3-8. 2 high Not Available [facility] (Lab) [address] [place], [address], 09/29/2023 09:49:51 09/29/20 23 09/29/2023 COMPR EHENS GALILEO METAB OLIC PANEL albumin 4.7 g/dL 3.4-5. 0 Not Available [facility] (Lab) [address] [place], [address], 09/29/2023 09:49:51 09/29/20 23 09/29/2023 COMPR EHENS GALILEO METAB OLIC PANEL globulin 5.4 g/dL 2.6-4. 2 high Not Available [facility] (Lab) [address] [place], [address], 09/29/2023 09:49:51 09/29/20 23 09/29/2023 COMPR EHENS GALILEO METAB OLIC PANEL A/G ratio 0.9 ratio 1.0-2. 0 low Not Available [facility] (Lab) [address] [place], [address], 09/29/2023 09:49:51 09/29/20 23 09/29/2023 LIPID PANEL cholesterol 191 mg/dL 140-19 9 NIH MARCELLE NSUS RECOM MENDA TION FOR BEN STERO L: ADULT CHILD LOW RISK: <200 <170 BORDE RLINE : <200- 239 ----- HIGH RISK: >240 >200 Not Available [facility] (Lab) [address] [place], [address], 09/29/2023 10:11:28 09/29/20 23 09/29/2023 LIPID PANEL triglyceride s 59 mg/dL 0-150 NIH MARCELLE NSUS REPOR T RECOM MENDA TION FOR TRIGL YCERI STEPHANIE: ADULT CHILD LOW RISK: <150 ----- BODER LINE: 150-1 99 ----- HIGH RISK: >200 ----- Not Available [facility] (Lab) [address] [place], [address], 09/29/2023 10:11:28 09/29/20 23 09/29/2023 LIPID PANEL HDL cholesterol 128 mg/dL 40- Not Available [facility] (Lab) [address] [place], [address], 09/29/2023 10:11:28 09/29/2009/29/2023 LIPID PANEL LDL cholesterol, [...] WILL NOT BE REPOR RADHA. Not Available [facility] (Lab) [address] [facility], [place], [address], 09/29/2023 10:11:28 09/29/20 23 09/29/2023 URIC ACID SERUM uric acid 1.9 mg/dL 2.5-6. 2 low Not Available [facility] (Lab) [address] [facility], [place], [address], 09/29/2023 10:11:33 02/27/20 22 02/26/2022 MAMMO , scree bailey, digit al, bilat eral [facility] [address] [place] [address] [phone] Patien t Name: MARJORIE HOYT ion #: [id number] Sex: F : 1969 8 Locati [...] alice ectura l Page 1 of 2 [facility] [place] Chris simmons Name: MARJORIE HOYT Access ion #: [id number] Sex: F : 1969 8 Exam [...] ly to the [facility] er. A negati ve mammog hellen [...] 8:41 AM (CT) Page 2 of 2 MIGRATION.[id number] [facility] (Imaging) [address] [place], [address], 12/17/2022 05:04:45 04/17/20 23 04/15/2023 MAMMO , tal swang, digit al, bilat eral [facility] [place] [address] [facility] [place] [address] [facility] MARJORIE HOYT ion #: [id number] Sex: F : 1969 8 Locati [...] alice ectura l Page 1 of 2 [facility] Chris simmons Name: MARJORIE HOYT Access ion #: [id number] Sex: F : 1969 8 Exam [...] ed [facility] A negati ve mammog hellen [...] 1:24 PM (CT) Page 2 of [id number] [place] [address] (Imaging) [address] [place], [address], 08/29/2023 20:30:27 Result Notes Documentation Provider Name and Address Organization Details Recorded Time Mammo, Screening, Digital, Bilateral : [facility] [address] [place] [address] Patient Name: MARJORIE HOYT Sex: F : 1970 Location: [facility] Attending Physician: JR PETERSON Ordering [...] architectural Page 1 of 2 [facility] Patient Name: MARJORIE HOYT Sex: F : 1970 Exam Date: 02/26/2022 7:37 AM Exam Name: MG HUNTER BREAST LYNNE BILAT Admitting Diagnosis(es): distortion are seen. IMPRESSION: BIRADS 1: Assessment complete. Negative. Recommend annual screening mammography. According to the [employer], yearly mammograms are recommended [...] 12/17/2022 05:04:48 Mammo, Screening, Digital, Bilateral : [address] [address] Patient Name: MARJORIE HOYT Sex: F : 1970 Location: [facility] Attending Physician: JR PETERSON Ordering [...] architectural Page 1 of 2 [facility] Patient Name: MARJORIE HOYT Sex: F : 1970 Exam Date: 04/15/2023 7:00 AM Exam Name: SCRMary BREAST LYNNE BILAT Admitting Diagnosis(es): distortion are seen. IMPRESSION: BIRADS 1: Assessment complete. Negative. Recommend annual screening mammography. 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 Not Available [facility] 3 06:30:08 Bronchiti s 65139995 Active Not Available [facility] 3 06:30:08 Crohn's disease 54818289 Active Not Available [facility] 3 06:30:08 Chronic rhinitis 11798901 Active Not Available [facility] 3 06:30:09 Liver function tests outside reference range 122717557 Active 2017 Not Available [facility] 3 06:30:08 Vitamin D below reference range 384177116 Active 2019 Not Available [facility] 3 06:30:08 Dyslipide sanjeev 010388076 Active 2021 Not Available [facility] 3 06:30:09 Essential hypertens ion 26894976 Active 2021 Not Available [facility] 3 06:30:09 Gout 01510076 Active 2021 Not Available [facility] 3 06:30:09 Vitamin D deficienc y 03680262 Active 2021 Not Available [facility] 3 06:30:09 Hyperchol esterolem ia 60877114 Active 2021 Not Available [facility] 3 06:30:08 COVID-19 887268249 Active 2022 Not Available [facility] 3 06:30:09 Problem Notes None recorded. Medical Equipment None Reported. Allergies Allergen ID Allergen Name Allergen Category Reaction Reaction Severity Criticality Documentation Date Start Date Code Code System Note Provider Name and Address Organization Details Recorded Time 8191 Augmentin medicatio n diarrhea Not available Not available 12/17/2022 90614 2 RxNorm Not Available [facility] [...] propionate 50 mcg/actuati on nasal spray,suspe nsion [place] 1 spray every day by intranasa l [...] kg/m2 162.56 cm 84 /min 97.2 [degF] 742925. 1 g 126/84 mm[Hg] Not Available [facility] 3 04:46:33 Date Recorded Body mass index (BMI) Body height Heart rate Body temperature Body weight Systolic And Diastolic Provider Name and Address Organization Details Last Updated DateTime 2 37.6 kg/m2 162.56 cm 72 /min 97.9 [degF] 22461.7 3 g 130/78 mm[Hg] Not Available [facility] 3 04:46:33 Date Recorded Body height Body mass index (BMI) Body weight Body temperature Heart rate Systolic And Diastolic Provider Name and Address Organization Details Last Updated DateTime 3 162.56 cm 37.6 kg/m2 31951.7 3 g 98 [degF] 83 /min 130/88 mm[Hg] [employer] [facility] 3 16:11:27 Date Recorded Body mass index (BMI) Body height Heart rate Body temperature Body weight Systolic And Diastolic Provider Name and Address Organization Details Last Updated DateTime 2 37.4 kg/m2 162.56 cm 89 /min 98.9 [degF] 75496.1 4 g 134/84 mm[Hg] Not Available [facility] 3 04:46:33 Date Recorded Body height Body mass index (BMI) Body weight Body temperature Heart rate Systolic And Diastolic Provider Name and Address Organization Details Last Updated DateTime 3 162.56 cm 39.1 kg/m2 029063. 06 g 97.8 [degF] 99 /min 142/92 mm[Hg] MARY GRACE [employer] 3 16:27:12 Social History Question Answer Notes LastModified by Stamptat ion Details LastModified Time Tobacco Smoking Status Never Smoker Not Available [facility] 12/17/2022 04:25:32 Do You Have An Advance Directive? No MIGRATION.83132 98040 Information not available 12/17/2022 Are You Blind Or Do You Have Difficulty Seeing? No MIGRATION.09147 35613 Information not available 12/17/2022 What Is Your Level Of Caffeine Consumption? Occasional MIGRATION.60205 50997 Information not available 12/17/2022 How Much Tobacco Do You Chew? None MIGRATION.90493 26625 Information not available 12/17/2022 In The 14 Days Before Symptom Onset, Have You Had Close Contact With A Laboratory-confi rmed COVID-19 While That Case Was Ill? No MIGRATION.74760 04437 Information not available 12/17/2022 In The 14 Days Before Symptom Onset, Have You Had Close Contact With A Person Who Is Under Investigation For COVID-19 While That Person Was Ill? No MIGRATION.17308 68487 Information not available 12/17/2022 Are You Deaf Or Do You Have Serious Difficulty Hearing? No MIGRATION.61953 86103 Information not available 12/17/2022 What Type Of Diet Are You Following? REGULAR MIGRATION.49266 26459 Information not available 12/17/2022 Which Illicit Or Recreational Drugs Have You Used? None MIGRATION.13075 45763 Information not available 12/17/2022 What Is The Highest Grade Or Level Of School You Have Completed Or The Highest Degree You Have Received? [id number] MIGRATION.69485 84601 Information not available 12/17/2022 Have There Been Any Changes To Your Family Or Social Situation? No MIGRATION.43808 45465 Information not available 12/17/2022 What Is The Fluoride Status Of Your Home? Unknown MIGRATION.67647 49586 Information not available 12/17/2022 Are There Any Guns Present In Your Home? Yes MIGRATION.66260 72511 Information not available 12/17/2022 Do You Use Insect Repellent Routinely? No MIGRATION.13127 41930 Information not available 12/17/2022 Where Do You Live? [place]House MIGRATION.70255 41051 Information not available 12/17/2022 Do You Have A Medical Power Of Linking Machine Operator? No MIGRATION.06064 35711 Information not available 12/17/2022 What Was The Date Of Your Most Recent Tobacco Screening? 09/30/2023 [email or web address] Information not available 09/30/2023 Have You Ever Been Counseled For Unhealthy Alcohol Use? No MIGRATION.78785 67756 Information not available 12/17/2022 Do You Have Any Pets? Yes MIGRATION.89669 42885 Information not available 12/17/2022 What Is Your Relationship Status? MIGRATION.54666 02561 Information not available 12/17/2022 Do You Use Your Seat Belt Or Car Seat Routinely? Yes MIGRATION.53231 87520 Information not available 12/17/2022 Do You Have Smoke And Carbon Monoxide Detectors In Your Home? Yes MIGRATION.22141 19314 Information not available 12/17/2022 Are You Passively Exposed To Smoke? No MIGRATION.85162 20900 Information not available 12/17/2022 Are There Any Smokers In Your House? No MIGRATION.74813 54552 Information not available 12/17/2022 How Much Tobacco Do You Smoke? No MIGRATION.80895 67824 Information not available 12/17/2022 What Types Of Sporting Activities Do You Participate In? None MIGRATION.82525 48591 Information not available 12/17/2022 Do You Use Sunscreen Routinely? No MIGRATION.49779 14237 Information not available 12/17/2022 Has Tobacco Cessation Counseling Been Provided? No Not Needed-ne melanie Smoked MIGRATION.90211 89378 Information not available 12/17/2022 How Many Years Have You Smoked Tobacco? 0 MIGRATION.31030 54360 Information not available 12/17/2022 Have You Recently Traveled Abroad? No MIGRATION.83162 43735 Information not available 12/17/2022 Do You Have Difficulty Walking Or Climbing Stairs? No MIGRATION.58315 50868 Information not available 12/17/2022 Do You Have Any Dietary Restrictions? No MIGRATION.58033 51262 Information not available 12/17/2022 Sex: Female Functional Status Question Answer Note LastModified by Organizat ion Details LastModified Time Do you use any illicit or recreational drugs? No MIGRATION.451726 6212 Information not available 12/17/2022 Do you or have you ever used any other forms of tobacco or nicotine? No MIGRATION.945578 1128 Information not available 12/17/2022 What is your level of alcohol consumption? Occasional MIGRATION.437314 2656 Information not available 12/17/2022 Do you or have you ever used smokeless tobacco? Never used smokeless tobacco MIGRATION.394545 4365 Information not available 12/17/2022 Do you have difficulty doing errands alone? 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 No MIGRATION.118199 4275 Information not available 12/17/2022 Do you or have you ever used e-cigarettes or vape? Never used electronic cigarettes MIGRATION.367354 9680 Information not available 12/17/2022 What is your exercise level? Moderate MIGRATION.221026 7407 Information not available 12/17/2022 Mental Status Question Answer Note LastModified by Organizat ion Details LastModified Time Do you feel stressed (tense, restless, nervous, or anxious, or unable to sleep at night)? [id number] MIGRATION.32940051 26 Information not available 12/17/2022 Do you have difficulty concentrating, remembering or making decisions? No MIGRATION.69129707 26 Information not available 12/17/2022 Family History Relationship Description Onset Age of this Age Resolved Age Notes LastModified by Organization Details LastModified Time Father Diabetes mellitus MIGRATION.575 [id number] Not available 12/17/2022 04:44:23 Mother Diabetes mellitus MIGRATION.821 [id number] Not available 12/17/2022 04:44:23 Medical History Condition [...] HAVE YOU BEEN HOSPITALIZED OR SEEN IN [facility] IN THE PAST YEAR ? N [...] ICD10 Code Diagnosis IMO Codes Diagnosis Note [id number] Jr Peterson MD [facility] Internal Med [facility] [address] [address] 03/20/2021 00:00:00 03/30/2021 15:03:55 [id number] Jr Peterson MD [facility] Internal Med [facility] [address] [address] 10/16/2021 00:00:00 10/16/2021 20:36:59 [id number] Jr Peterson MD [facility] Internal Med [facility] [address] [address] 11/13/2021 00:00:00 11/17/2021 12:10:48 [id number] Jr Peterson MD [facility] Internal Med [facility] [address] [facility] 15 [place] [address] 02/12/2022 00:00:00 02/16/2022 12:52:58 [id number] Jr Peterson MD [facility] Internal Med [facility] [address] [facility] [address] [address] 09/03/2022 00:00:00 09/07/2022 15:35:08 [id number] Jr Peterson MD [facility] Internal Med [facility] [address] [facility] [address] [address] 03/11/2023 15:24:03 03/12/2023 16:59:08 Screening mammography 97387632 Z12.31 Gout 44588956 M10.9 Essential hypertension 16089192 I10 Vitamin D below reference range 224024708 E55.9 Dyslipidemia 425416220 E 78.5 Crohn's disease 92604954 K50.90 [id number] Jr Peterson MD [facility] Internal Med [facility] [address] 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 Health Concerns Section Related Observation LastModified by Organization Detai ls LastModified Time None Recorded Concern Status LastModified by Organization Details LastModified Time None Recorded Advance Directives Directive N: Payers Insurance Date Sequence Insurance Name Policy Number Policy Amin Covered Member ID Amin Member ID Guarantor Name 10/21/2023 1 [facility] [id number] Alex Hoyt [id number] Marjorie Hoyt Notes Date Note Type Note Provider Name and Address Organization Details Recorded Time 3 text/html Crohn's stablegout no flare-upslow vitamin-D Needs supplementdyslipidemia needs to take atorvastatin regularlyhypertension stable pressure 130/88Needs to lose some weight Jr Peterson MD [address], [place], [address], [employer] [facility] 03/14/2023 14:49:58 3 text/html Crohn's stablegout no flare-upslow vitamin-D Needs supplementdyslipidemia needs to take atorvastatin regularlyhypertension stableNeeds to lose some weight Jr Peterson MD [address], [place], [address], [email or web address] 10/19/2023 21:15:45 OBGyn Episode No OBEpisode recorded.
[2025-08-16 15:09] LABS: Calprotectin, Fecal 2480 ug/g (0-120)
== END 2025-08-12 13:35 | disposition home or self-care (01) ==
LOC: ANHLAB 13:38
PROVIDERS: PCP Internal Medicine; Visit Provider Nurse Practitioner Family
DX: K50.90 Crohn's disease, unspecified, without complications (principal); R63.4 Abnormal weight loss; Z68.41 Body mass index [BMI] 40.0-44.9, adult
CPT/HCPCS: 83993

== ENCOUNTER 2025-09-07 15:02 | Outpatient (CLI) | payer OTHER, SELFPAY ==
[2025-09-07 15:52] LABS: Hematocrit 27.1 % (37.0-47.0); Hemoglobin 9.4 g/dL (12.0-15.0); Immature Granulocyte Percent A 0.5 % (0-0.5); Lymphocytes Absolute Auto 1.16 K/mm3 (0.9-3.2); Mean Corpuscular HGB Conc 34.7 g/dl (32-36); Mean Corpuscular Hemoglobin 28.7 pg (26-34); Mean Corpuscular Volume 82.6 fl (80-100); Nucleated Red Blood Cells Absolute Auto 0.000 K/mm3 (0.0-0.012); Nucleated Red Blood Cells Perc 0.0 % (0.0-0.2); Platelet Count Result 296 k/mm3 (150-375); Red Blood Count 3.28 M/mm3 (4.2-5.4); White Blood Count 12.2 K/mm3 (4.5-10.0)
[2025-09-07 16:11] LABS: Alanine Aminotransferase 118 U/L (6-35); Albumin Level 3.6 g/dL (3.5-5.1); Alkaline Phosphatase 151 U/L (38-126); Anion Gap 8 mmol/L (4-12); Aspartate Amino Transferase 80 U/L (14-36); Bilirubin,Total 0.7 mg/dL (0.2-1.3); Blood Urea Nitrogen 37 mg/dL (7-17); Calcium 8.7 mg/dL (8.4-10.2); Carbon Dioxide 25 mmol/L (22-30); Chloride 103 mmol/L (98-107); Estimated Glomerular Filt Rate 34; Glucose 117 mg/dL (65-110); Magnesium 1.5 mg/dL (1.6-2.3); Sodium 136 mmol/L (137-145); Total Protein 7.4 g/dL (6.3-8.2)
--- OUTSIDE RECORDS SUMMARY | 2025-09-07 17:59 | XMS_ITS | Data Portability ---
Author [facility] [address] [place] [address] Care Team Providers Care Sludge Control Operator Name Role Phone JR PETERSON Primary Care Provider KRISTY Coleman Operations Supervisor [phone] Assessment Encounter Date Assessment Date Assessment LastModified by Organization Details LastModified Time 01/12/2024 01/12/2024 Diagnosis and th e assessment and plan have been discussed she will follow-up with me in 6 months obtain old records all questions have been answered she believes she is up-to-date on mammograms and colonoscopies Not available 01/12/2024 21:51:58 07/13/2024 07/13/2024 Diagnosis and th e assessment and plan have been discussed she will follow-up with me in 4 months obtain old records all questions have been answered she believes she is up-to-date on mammograms and colonoscopies. Z-Sanjay. We will be due for blood work soon [email or web address] Not available 07/16/2024 16:52:10 01/19/2025 01/19/2025 DEXA review bloo d work and consults from hospital she will follow up with me in 4 months blood pressure is controlled currently Crohn's appears to be controlled anemia is clinically stable dyslipidemia continue to be managed with the atorvastatin hyperuricemia and gout allopurinol states she was seen by fruit press operator earlier this year with trying to get the report she just had a colonoscopy get the report Prevnar 20 today [email or web address] Not available 01/21/2025 20:26:47 05/22/2025 05/22/2025 Abdominal exam today is bland. I suspect this is probably flare-up of her Crohn's disease. She is feeling better her calprotectin went from [id number] I suspect she still has a fair amount of inflammation she is not having any stool that is bloody there has not been any mucus in her stool. I will see her back in a couple of months as stated she is already symptomatically improving a little bit she is on the Skyrizi she will monitor her weight if she gets worse she will let me know but she has no signs or symptoms of any other disease process at this time she will have blood work as already ordered by GI. I will see her in 2 months Her blood pressure is well controlled We have liberalized her diet just a little bit because of her weight loss and what she can tolerate. So I will allow her to eat a little bit more fatty foods if she can tolerate them just to get some calories in Not available 05/22/2025 10:16:29 Plan of Treatment Reminders Order Date Submit Date Provider Last Modified By Organization Details Last Modified Time Details Appointments ANY 15 2024 09:45A M Jr Peterson MD Not available Not available Not available Lab None recorded. Referral None recorded. Procedures None recorded. Surgeries None recorded. Imaging DEXA [address] [facility] (Imaging), [address] [place] [address] [address], [address], 06/20/2025 17:19:49 Medication Orders Zithromax Z-Sanjay 250 mg tablet [email or web address] [id number], [address] [facility], [place], [address], 07/17/2025 10:17:41 Patient TargetsNo targets recorded. Patient Instructions Encounter Date Encounter Id Patient Instructions Last Modified By Organization Details Last Modified Time 07/13/2024 [id number] A healthy lifestyle: care instructions Not available 07/13/2024 18:03:22 01/19/2025 [id number] A healthy lifestyle: care instructions Not available 01/19/2025 16:43:00 05/22/2025 [id number] A healthy lifestyle: care instructions [email or web address] Not available 05/22/2025 16:59:36 Reason for Referral None Reported. Results Created Date Observation Date Name Description Value Unit Range Abnormal Flag Note LastModifiedBy Organization Detail LastModifiedTime 11/10/1911/10/2024 XR, chest , 2 view No observ ation record ed. [address], [place], [address], 11/11/2024 09:10:10 11/11/1911/11/2024 US, renal No observ ation record ed. [address], [place], [address], 11/14/2024 10:18:54 06/14/2006/13/2025 MAMMO , scree bailey, digit al, bilat eral No observ ation record ed. [address], [place], [address], 06/21/2025 12:06:47 06/20/2006/13/2025 DEXA No observ ation record ed. [address], [place], [address], 06/21/2025 12:06:48 06/20/2006/13/2025 DEXA No observ ation record ed. [address], [place], [address], 06/21/2025 12:06:48 Result Notes None recorded. Problems Name Problem SNOMED Code Status Onset Date Resolution Date Notes Provider Name and Address Organization Details Recorded Time Cough 69093794 Active 2023 BRI [place], [place] - [facility] 4 17:37:14 Gout 33886256 Active 2023 BRI [place], [place] [facility] 4 17:37:23 Inflammatory bowel disease 39714618 Active 2023 BRI [place], [place] [facility] 4 17:37:25 Essential hypertension 65289738 Active 2023 Oriana Hernandez MA null, [place] [facility] 4 17:37:28 Hyperlipidemia 17513742 Active 2023 Oriana Hernandez [place], [place] [facility] 4 17:37:29 Fatigue 54234964 Active 2024 Oriana Hernandez [place], [place] [facility] 5 14:02:31 Vitamin D deficiency 17081133 Active 2024 Jr Peterson MD Attn: Stephaniediandra bryan,[address] [facility] [address], [place], [address], [place] - [facility] 5 22:27:47 Problem Notes Documentation Provider Name and Address Organization Details Recorded Time Acquisition Consultant Consult Note : This document (1 of ) was received from [email or web address] on 03/27/2025 through Direct Message along with the following message body content: Patient Name: MARJORIE HOYT. Patient : 1970. Patient . Tere Sy null, [place] - [facility] 03/28/2025 16:35:55 Medical Equipment None Reported. Allergies Allergen ID Allergen Name Allergen Category Reaction Reaction Severity Criticality Documentation Date Start Date Code Code System Note Provider Name and Address Organization Details Recorded Time 194654 Augmentin medicatio n Not available Not available Not available 07/13/2024 46205 2 RxNorm Saskia Kauffman MA null, [place] - [facility] 4 16:37:57 Medications Name Sig Start Date Stop Date Status Note LastModified by Organization Details LastModified Time atorvastati n 10 mg tablet TAKE 1 TABLET BY MOUTH EVERY DAY 08/28 completed Not Available Not Available Not Available azithromyci n 250 mg tablet Take 1 dose pk by oral route as directed. 07/17 completed Not Available Not Available Not Available polysacchar yany iron complex 150 mg iron capsule TAKE 1 CAPSULE BY MOUTH TWICE A DAY active Not Available Not Available No t Available prednisone 20 mg tablet TAKE 2 TABLETS BY MOUTH DAILY AT 0800 07/17 completed Not Available Not Available Not Available prednisone 5 mg tablet TAKE 8 TABLETS BY MOUTH DAILY X 1 WEEK TITRATING DOWN BY 1 PILL PER WEEK DIRECTEDU NTIL ALL TAKEN 2024 active Not Available Not Available Not Avai lable potassium chloride ER 10 mEq tablet,exte nded release TAKE 4 TABLETS BY MOUTH EVERY DAY FOR 3 DAYS 2024 active Not Available Not Available Not Avai lable amlodipine 5 mg tablet TAKE 1 TABLET BY MOUTH EVERY DAY active Not Available Not Available No t Available magnesium oxide 400 mg (241.3 mg magnesium) tablet TAKE 1 TABLET BY MOUTH EVERY 12 HOURS 08/28 completed Not Available Not Available Not Available folic acid 1 mg tablet TAKE 2 TABLETS BY MOUTH EVERY DAY active Not Available Not Available No t Available allopurinol 300 mg tablet TAKE 1 TABLET BY MOUTH EVERY DAY active Not Available Not Available No t Available hydrochloro thiazide 25 mg tablet TAKE 1 TABLET BY MOUTH EVERY DAY active Not Available Not Available No t Available budesonide DR - ER 3 mg capsule,del ayed,extend ed release TAKE 3 CAPSULES BY MOUTH DAILY X8 WEEKS 07/17 completed Not Available Not Available Not Available calcium 600 mg (as carbonate)- vitamin D3 10 mcg (400 unit) tablet TAKE 1 TABLET BY MOUTH TWICE A DAY FOR 1 MONTH 08/28 completed Not Available Not Available Not Available mesalamine 1.2 gram tablet,rachel yed release TAKE 4 TABLETS BY MOUTH EVERY DAY FOR 3 MONTHS 07/17 completed Not Available Not Available Not Available Calcium 600 with Vitamin D3 600 mg-10 mcg (400 unit) chewable tablet TAKE 1 TABLET BY MOUTH TWICE A DAY X1 MONTH 08/28 completed Not Available Not Available Not Available Creon 36,000 unit-114,00 0 unit-180,00 0 unit capsule,del ayed release TAKE 2 CAPSULES BY MOUTH WITH MEALS AND 1 CAPSULE WITH SNACKS 08/28 completed Not Available Not Available Not Available magnesium 400 mg (as magnesium oxide) tablet TAKE 1 TABLET BY MOUTH TWICE A DAY active Not Available Not Available No t Available Skyrizi 360 mg/2.4 mL (150 mg/mL) subcutaneou s wearable injector active Not Available Not Available Not Available Vitals Date Recorded Body weight Oxygen saturation Heart rate Systolic And Diastolic Provider Name and Address Organization Details Last Updated DateTime 01/12/2024 537003.25 g 98 % 81 /min 132/84 mm[Hg] Rylan Maradiaga MA [facility] 01/12/2024 16:07:17 Date Recorded Body height Body mass index (BMI) Body weight Heart rate Oxygen saturation Systolic And Diastolic Provider Name and Address Organization Details Last Updated DateTime 5 162.56 cm 34.9 kg/m2 28150.3 3 g 120 /min 99 % 120/70 mm[Hg] Consuelo Andrade MA [facility] 5 10:57:38 Date Recorded Body height Body mass index (BMI) Body weight Heart rate Oxygen saturation Systolic And Diastolic Provider Name and Address Organization Details Last Updated DateTime 5 162.56 cm 31.7 kg/m2 80685.2 3 g 105 /min 99 % 124/70 mm[Hg] Consuelo Andrade MA [facility] 5 09:47:53 Date Recorded Body height Body mass index (BMI) Body weight Heart rate Oxygen saturation Systolic And Diastolic Provider Name and Address Organization Details Last Updated DateTime 4 162.56 cm 36.9 kg/m2 58696.2 8 g 84 /min 96 % 124/78 mm[Hg] Saskia Kauffman MA [facility] 4 16:37:19 Date Recorded Body height Body mass index (BMI) Body weight Heart rate Oxygen saturation Systolic And Diastolic Provider Name and Address Organization Details Last Updated DateTime 5 162.56 cm 29.5 kg/m2 74299.8 9 g 91 /min 100 % 132/92 mm[Hg] Saskia Kauffman MA [facility] 5 10:16:36 Social History Question Answer Notes LastModified by Organizat ion Details LastModified Time Tobacco Smoking Status Never Smoker [facility] 01/12/2024 16:00:55 Do You Have [...] Date Of Your Most Recent Tobacco Screening? 08/28/2025 Information not available 08/28/2025 What Is Your Relationship Status? Information not [...] available 01/12/2024 Are you currently employed? Yes Information not available 07/13/2024 Are you able to care for yourself independently? Yes Information not available 01/12/2024 What is your exercise level? None Information not available 01/12/2024 Mental Status Question Answer Note LastModified by Organization D etails LastModified Time Do you feel stressed (tense, restless, nervous, or anxious, or unable to sleep at night)? [id number] [facility] [place] Information not available 01/12/2024 Family History Nothing Reported. Medical History Condition Response Coronary Artery Disease N Other N High Blood Pressure Y Atrial Fibrillation N Thyroid Problems N Kidney or Bladder Problems N GI Problems Y Depression N COPD N Blood Clots N Skin Problems N Anemia N Heart Attack (CT) N Anxiety Disorder N Diabetes N Muscle, [...] Influenza, split virus, trivalent, preservative 2 completed Consuelo Ryamond, [place], [place] [facility] 01/19/2025 10:54:18 Influenza, split virus, trivalent, PF 10/11/202 4 completed Consuelo Andrade MA null, [place] - [facility] 01/19/2025 10:54:26 Influenza, split virus, trivalent, PF 5 completed Not Available [facility] 08/28/2025 09:43:47 Pneumococcal conjugate PCV20, polysaccharide TMP172 conjugate, adjuvant, PF 5 completed Jr Peterson MD Attn: Accounting[address] [place], [address], [facility] 01/21/2025 20:23:37 Past Encounters Encounter ID Performer Location Encounter Start Date Encounter Closed Date Diagnosis/Indication Diagnosis SNOMED-CT Code Diagnosis ICD10 Code Diagnosis IMO Codes Diagnosis Note [id number] Jr Peterson MD [facility] (Adult Med) [address] [place] [address] 01/12/2024 15:50:08 01/12/2024 17:06:44 Gout 81630668 M10.9 Inflammato ry bowel disease 02751330 K52.9 Essential hypertension 75644057 I10 Hyperlipidemia 17193623 E78.5 [id number] Jr Peterson MD [facility] (Adult Med) [address] [place] [address] 07/13/2024 16:09:34 07/13/2024 17:35:11 Obesity 354162739 E66.8 Cough 41570766 R05.9 Essential hypertension 75052194 I10 Hyperlipidemia 27438249 E78.5 Crohn's di sease of colon 09037281 K50.10 [id number] Jr Peterson MD [facility] [address] [place] [address] 01/19/2025 10:27:05 01/19/2025 11:43:39 Body mass index 30+ - obesity 520215585 Z68.34 Obesity 920610355 E66.9 Postmenopausal state 764 49659 Z78.0 Administra tion of pneumococcal vaccine 05545691 Z23 Essential hypertension 67524150 I10 Gout 91850066 M10.9 Hyperlipidemia 46529206 E78.5 Inflammato ry bowel disease 38034871 K52.9 [id number] Jr Peterson MD [facility] [employer] [facility] [place] [address] [place] [address] 05/22/2025 09:36:16 05/22/2025 10:11:49 Obese class I 8809354222 36841 E66.811 E66.3 5661724099 BMI 31.7 Essential hypertension 20703252 I10 Hyperlipidemia 73072657 E78.5 Inflammato ry bowel disease 30936556 K52.9 [id number] Jr Peterson MD [facility] [employer] [facility] [place] [address] [place] [address] 08/28/2025 09:43:19 08/28/2025 10:58:27 Overweight in adulthood with body mass index of 25 or more but less than 30 089672108 Z68.29 463606 Essential hypertension 06853951 I10 Hyperlipidemia 85729077 E78.5 Fatigue 71271121 R53.83 Vitamin D deficiency 347 01607 R53.83 Inflammato ry bowel disease 47090565 K52.9 Health Concerns Section Related Observation LastModified by Organization Detai ls LastModified Time None Recorded Concern Status LastModified by Organization Details LastModified Time None Recorded Advance Directives Directive N: Payers Insurance Date Sequence Insurance Name Policy Number Policy Amin Covered Member ID Amin Member ID Guarantor Name 05/21/2025 PAYMENT PLAN Marjorie Hoyt 08/25/2025 [facility] [id number] Marjorie Hoyt Notes Date Note Type Note Provider Name and Address Organization Details Recorded Time 01/12/2024 text/html Gout no flareups hypertension no headache or dizziness hyperlipidemia taking her medication try to follow low-fat diet inflammatory bowel disease stable on current medical regimen low homocystine level supplemented with folic acid. Taking all her medications without any side effects. Jr Peterson MD Attn: Accounting[address] [place], [address], [facility] 01/12/2024 21:52:17 07/13/2024 text/html little bit of cough for a week or so has been nonproductive. Hypertension no headache no dizziness. Hyperlipidemia has been trying to follow a low-fat diet. Crohn's disease stable on current medical regimen with no blood in stool or abdominal pain. Has been struggling with weight issues for a while Jr Peterson MD Attn: Accounting[address] [facility], [place], [address], [place] - [facility] 07/16/2024 16:53:31 01/19/2025 text/html hospitalized Crohn's flare-up unit of blood had colonoscopy as well fatigued feeling better slowly placed on prednisone slow taper by GI Jr Peterson MD Attn: Accounting[address] , [place], [address], [place] [facility] 01/21/2025 20:27:09 05/22/2025 text/html Crohn's flare up she has been losing weight had a lot of diarrhea was in the hospital anemia did receive some transfusions and she saw GI and she was continuing to lose weight so they asked her to see me. Her appetite is improving diarrhea is getting better she does not really have any abdominal pain Consuelo Andrade MA [facility], [place] - [facility] 05/26/2025 11:44:06 OBGyn Episode No OBEpisode recorded.
[2025-09-07 18:32] LABS: Potassium 3.9 mmol/L (3.4-5.0)
== END 2025-09-07 15:03 | disposition home or self-care (01) ==
LOC: ANHLAB 15:04
PROVIDERS: PCP Internal Medicine; Visit Provider Internal Medicine
DX: I10 Essential (primary) hypertension (principal)
CPT/HCPCS: 36415; 80053; 83735; 85025